=== PATIENT | male | born 1945 | race African-American/Black ===

== ENCOUNTER 2017-02-07 09:30 | Inpatient (IN) ==
[2017-02-07] MEDS ORDERED: ASPIRIN PO STA (09:56)
[2017-02-07 10:24] LABS: MANUAL DIFF NEEDED? NO
[2017-02-07 10:29] LABS: BASO% 0.2 % (0.0-0.8); EOS# 0.12 X1000 (0.0-0.7); EOS% 1.3 % (0.0-10.0); HEMATOCRIT 38.6 % (42.0-52.0); HEMOGLOBIN 13.4 g/dL (14.0-18.0); IMM GRAN# 0.03 X1000 (0.0-0.04); IMM GRAN% 0.3 % (0.0-0.5); LYMPH# 1.85 X1000 (1.2-3.4); LYMPH% 19.4 % (20.5-51.1); MCH 28.5 PG (27-31); MCHC 34.7 g/dL (33-37); MONO% 7.3 % (1.7-9.3); MPV 8.9 FL (7.4-10.4); NEUT% 71.5 % (42.2-75.2); PLT 296 X1000 (130-400); RBC 4.71 XMIL (4.7-6.1)
--- NOTE | 2017-02-07 10:29 | EKG Report ---
Test Performed on : 02/07/2017 09:40:13 AM Test Reason : syncope Blood Pressure : / mmHG Vent. Rate : 080 BPM Atrial Rate : 058 BPM P-R Int : 000 ms QRS Dur : 122 ms QT Int : 418 ms P-R-T Axes : 000 042 251 degrees QTc Int : 482 ms Atrial fibrillation. with premature ventricular or aberrantly conducted complexes. Nonspecific intraventricular conduction delay ST \T\ T wave abnormality, consider inferior ischemia ST \T\ T wave abnormality, consider anterolateral ischemia Abnormal ECG When compared with ECG of 16-JAN-2017 12:21, No significant change was found Unconfirmed Result
--- NOTE | 2017-02-07 10:33 | Diag Imaging Result Doc PS360 ---
EXAM: CHEST-PORTABLE INDICATION: syncope TECHNIQUE: One view COMPARISON: 01/16/2017 FINDINGS: The lungs are grossly clear. There is no discrete pleural fluid collection or pneumothorax. There is stable cardiomegaly. A single lead pacemaker is stable on the left. CABG changes are noted. IMPRESSION: Stable cardiomegaly with no definite acute pathology by plain radiograph. Electronically signed by Anson Cabrera 02/07/2017 10:31 AM
[2017-02-07 11:56] LABS: INR 1.14; PROTIME 12.1 Seconds (9.2-11.7); PTT 31.3 Seconds (22.0-36.0)
[2017-02-07 12:02] LABS: ALBUMIN 3.5 g/dL (3.5-5.0); CALCIUM 9.1 mg/dL (8.8-10.2); MAGNESIUM 2.3 mg/dL (1.5-2.7); POTASSIUM 3.5 mmol/L (3.5-5.1); TOTAL BILIRUBIN 0.94 mg/dL (0.20-1.00); TOTAL PROTEIN 8.2 g/dL (6.3-8.3)
--- NOTE | 2017-02-07 13:18 | Diag Imaging Result Doc PS360 ---
EXAM: CT ANGIOGRM/PULMONARY ARTERIES HISTORY: dyspnea TECHNIQUE: CT pulmonary arteriogram with contrast, 3-D MIPS and dose reduction protocol (clarity.) COMMENT: The current study is compared without of 01/03/2017. There are no filling defects in the pulmonary arteries. The aorta is not distended and there is no evidence of dissection. There are extensive coronary calcifications. No abnormal fluid collections are present. There is right gynecomastia. This has not changed significantly since the previous study. There is a multilobulated mass adjacent to the major fissure and the lateral pleura in the right superior segment which is increased slightly in greatest dimension from 2.9 to 3.1 cm. There are some fibrotic changes in the right lower lobe which have not changed. Otherwise there has been no appreciable change in the pulmonary parenchyma. There is right hilar adenopathy with nodes exceeding 2 cm. This is not changed since the previous study. IMPRESSION: No evidence of pulmonary emboli. Slightly increased right lower lobe mass. Right hilar adenopathy. Otherwise unchanged since 01/03/2017. Electronically signed by Remi Johnson 02/07/2017 1:16 PM
[2017-02-07] MEDS ORDERED: LASIX IV ONE (13:41)
--- NOTE | 2017-02-07 14:17 | PROVIDER DOCUMENTATION ---
This chart was entered by Lucio Macias Scribe, acting as scribe for Leonardo Mcdonough MD. HPI-Syncope/Dizziness - General Chief Complaint: Syncope Stated Complaint: FELL MULTIPLE TIMES Time Seen by Provider: 02/07/17 09:56 Source: patient Allergies/Adverse Reactions: Patient Allergies Allergy/AdvReac Type Severity Reaction Status Date / Time No Known Allergies Allergy Verified 02/07/17 10:24 Home Medications: Home Medication List Medication Instructions Recorded Confirmed Last Taken Type Carvedilol [Coreg] 6.25 mg PO BID 01/18/16 02/07/17 02/07/17 History Hydralazine [Apresoline] 25 mg PO BID 01/18/16 02/07/17 02/07/17 History PRAVAstatin [Pravachol] 40 mg PO QHS 01/18/16 02/07/17 1 Day Ago History Potassium Chloride [Klor-Con M10] 10 meq PO BID 01/18/16 02/07/17 02/07/17 History Rivaroxaban [Xarelto] 20 mg PO DAILY 02/21/16 02/07/17 02/07/17 History Alprazolam 0.5 mg PO HS 01/16/17 02/07/17 3 Days Ago History Amlodipine Besylate 10 mg PO DAILY 01/16/17 02/07/17 02/07/17 History Escitalopram [Lexapro] 10 mg PO DAILY 01/16/17 02/07/17 02/07/17 History Fludrocortisone [Florinef] 0.1 mg PO DAILY 01/16/17 02/07/17 02/07/17 History Meclizine [Antivert] 25 mg PO PRN PRN 01/16/17 02/07/17 2 Weeks Ago History Valsartan 160 mg PO DAILY 01/16/17 02/07/17 02/07/17 History Ciprofloxacin HCl [Cipro] 500 mg PO BID 02/07/17 02/07/17 02/07/17 History Hydrocodone Bit/Acetaminophen 1 each PO Q6H PRN 02/07/17 02/07/17 1 Day Ago History [Hydrocodon-Acetaminoph 7.5-325] - History of Present Illness-Syncope/Dizzy Nature of Presenting Problem: Patient is a 72 y/o M that presents to the ER with syncope x 3 this am. History of same. He has dizziness that's worse when sitting up. Previous history of same. Denies chest pain. Recently saw her courtesy driver Prior Episodes: reports: multiple episodes today (x3) Onset/Duration: reports: abrupt, this morning Timing: reports: still present, constant Position/Activity at time of episode: reports: standing Symptoms prior to episode: reports: lightheaded Context: reports: collapsed, almost passed out Current Symptoms: reports: weakness, dizzy. denies: chest pain, abdominal pain , nausea, vomiting, headache Similar symptoms previously: reports: previous diagnosis, tests, workup for same problem Recently Seen Here or By Another Healthcare Provider: Yes Review of Systems - Adult - REVIEW OF SYSTEMS - ADULT Constitutional: reports: no symptoms reported Eyes: denies: decreased vision, blurred vision, double vision Ears, Nose, Mouth & Throat: denies: ear discharge, hearing loss, epistaxis, throat pain Cardiovascular: reports: syncope. denies: chest pain, palpitations Respiratory: denies: cough, shortness of breath, wheezing Gastrointestinal: reports: no symptoms reported Genitourinary: reports: no symptoms reported Musculoskeletal: reports: muscle weakness. denies: back pain, neck pain Integumentary: reports: no symptoms reported Neurological: reports: dizziness/vertigo, syncope. denies: headache/migraines Psychiatric: reports: no symptoms reported Endocrine: reports: no symptoms reported Hematologic/Lymphatic: reports: no symptoms reported Allergic/Immunologic: reports: no symptoms reported All Other Systems: Reviewed and Negative Past History - Adult - PAST MEDICAL HISTORY-ADULT Review of Records: reports: Old Records Reviewed, Nursing Assessment Review, Medications Reviewed Cardiovascular: reports: A-Fib, CAD, CHF, HTN, hyperlipidemia, pacemaker Gastrointestinal: reports: other (constipation ) Neurological: reports: CVA - PRIOR SURGERIES/PROCEDURES Surgical/Procedure History: reports: CABG, pacemaker - PRIOR HOSPITALIZATIONS Prior Hospitalizations: reports: none - IMMUNIZATION STATUS Childhood Immunizations: See Nurse Assessment Flu Vaccine: See Nurse Assessment - FAMILY HISTORY Family History: reviewed, not pertinent - SOCIAL HISTORY Smoking: quit greater than 1 year, cigarettes Living Situation: family Physical Exam-General - PHYSICAL EXAM-ADULT Initial Vital Signs Reviewed: Yes - CONSTITUTIONAL General Appearance: alert, no apparent distress - EYES Eyes: PERRL/EOMI, pink conjunctivae - HEAD, EARS, NOSE, MOUTH & THROAT HENMT: normocephalic/atraumatic, moist mucous membranes, normal ENT inspection - NECK Neck: non-tender, full range of motion, normal inspection - RESPIRATORY Respiratory: lungs clear, normal breath sounds, no respiratory distress, no accessory muscle use - CARDIOVASCULAR Cardiovascular: extra beats, other (irregular regular) - GASTROINTESTINAL (ABDOMEN) Abdominal Exam: normal bowel sounds, non tender, soft, no organomegaly, no pulsatile mass - MUSCULOSKELETAL Back Exam: no CVA tenderness, no vertebral tenderness Extremity: normal range of motion, normal inspection, no pedal edema - SKIN Integumentary: normal color, warm/dry - NEUROLOGIC 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 as tested, no motor/sensory deficits - PSYCHIATRIC Psych/Mental Status: normal mood/affect, normal thought content, normal thought process, oriented x 3 Progress - PLAN OF CARE/RESULTS Progress/Plan/Lab Results: Vital Signs - 8 hr 02/07/17 09:33 02/07/17 11:41 02/07/17 13:27 Temperature 97.8 F 98 F Pulse Rate 74 70 76 Respiratory Rate 18 18 13 Blood Pressure 115/74 165/98 133/83 O2 Sat by Pulse Oximetry 100 97 99 02/07/17 14:07 Temperature Pulse Rate 86 Respiratory Rate 21 Blood Pressure 138/93 O2 Sat by Pulse Oximetry 100 Laboratory Results - last 24 hr 02/07/17 02/07/17 02/07/17 10:12 10:12 10:12 WBC 9.55 RBC 4.71 Hgb 13.4 L Hct 38.6 L MCV 82.0 MCH 28.5 MCHC 34.7 RDW Std Deviation 14.9 H Plt Count 296 MPV 8.9 Immature Gran % (Auto) 0.3 Neut % (Auto) 71.5 Lymph % (Auto) 19.4 L Worth % (Auto) 7.3 Eos % (Auto) 1.3 Baso % (Auto) 0.2 Immature Gran # (Auto) 0.03 Neut # (Auto) 6.83 H Lymph # (Auto) 1.85 Worth # (Auto) 0.70 H Eos # (Auto) 0.12 Baso # (Auto) 0.02 PT INR PTT (Actin FS) D-Dimer 2.33 H Sodium 141 Potassium 3.5 Chloride 102 Carbon Dioxide 23 L Anion Gap 16 BUN 19 Creatinine 1.4 H Estimated GFR/1.73 m2 60 BUN/Creatinine Ratio 14 Glucose 93 Calculated Osmolality 283 Calcium 9.1 Magnesium 2.3 Total Bilirubin 0.94 AST 30 ALT 43 Alkaline Phosphatase 95 Creatine Kinase 37 Troponin T Hlu-F-Bsgeeapmhux Pept Total Protein 8.2 Albumin 3.5 Globulin 4.7 Albumin/Globulin Ratio 0.7 02/07/17 02/07/17 02/07/17 10:12 10:12 10:12 WBC RBC Hgb Hct MCV MCH MCHC RDW Std Deviation Plt Count MPV Immature Gran % (Auto) Neut % (Auto) Lymph % (Auto) Worth % (Auto) Eos % (Auto) Baso % (Auto) Immature Gran # (Auto) Neut # (Auto) Lymph # (Auto) Worth # (Auto) Eos # (Auto) Baso # (Auto) PT 12.1 H INR 1.14 PTT (Actin FS) 31.3 D-Dimer Sodium Potassium Chloride Carbon Dioxide Anion Gap BUN Creatinine Estimated GFR/1.73 m2 BUN/Creatinine Ratio Glucose Calculated Osmolality Calcium Magnesium Total Bilirubin AST ALT Alkaline Phosphatase Creatine Kinase Troponin T < 0.010 Mrr-P-Furhrhxqmte Pept 4800 H Total Protein Albumin Globulin Albumin/Globulin Ratio Orders Category Date Time Status Cardiac Monitoring DIRECTED Care 02/07/17 09:56 Active Oxygen Therapy- ED Nursing DIRECTED Care 02/07/17 09:56 Active Saline Loc NOW Care 02/07/17 09:56 Active CHEST-PORTABLE [RAD] Stat Exams 02/07/17 09:57 Completed CTA [CT ANGIOGRM/PULMONARY ARTERIES] [CT] Stat Exams 02/07/17 12:19 Completed CBC WITH ELECTRONIC DIFF [HEME] Stat Lab 02/07/17 10:12 Completed CK PROFILE [SP CHEM] Stat Lab 02/07/17 10:12 Completed COMPREHENSIVE METABOLIC PANEL [CHEM] Stat Lab 02/07/17 10:12 Completed D-DIMER [CHEM] Stat Lab 02/07/17 10:12 Completed MAGNESIUM [CHEM] Stat Lab 02/07/17 10:12 Completed PRO B-NATRIURETIC PEPTIDE Stat Lab 02/07/17 10:12 Completed PROTIME WITH INR [COAG] Stat Lab 02/07/17 10:12 Completed PTT [COAG] Stat Lab 02/07/17 10:12 Completed TROPONIN T Stat Lab 02/07/17 10:12 Completed Aspirin Med 02/07/17 09:56 Discontinued 325 mg PO STAT STA Furosemide [Lasix] Med 02/07/17 13:41 Discontinued 60 mg IV NOW ONE EKG [EKG] Stat Ther 02/07/17 09:36 Draft EKG [EKG] Stat Ther 02/07/17 09:56 Ordered 1220-CTA PE study ordered Vital Signs Temp Pulse Resp BP Pulse Ox 02/07/17 14:07 86 21 138/93 100 02/07/17 13:27 76 13 133/83 99 02/07/17 11:41 98 F 70 18 165/98 97 02/07/17 09:33 97.8 F 74 18 115/74 100 No Known Allergies Allergy (Verified 02/07/17 10:24) Carvedilol [Coreg] 6.25 mg PO BID 01/18/16 Hydralazine [Apresoline] 25 mg PO BID 01/18/16 PRAVAstatin [Pravachol] 40 mg PO QHS 01/18/16 Potassium Chloride [Klor-Con M10] 10 meq PO BID 01/18/16 Rivaroxaban [Xarelto] 20 mg PO DAILY 02/21/16 Alprazolam 0.5 mg PO HS 01/16/17 Amlodipine Besylate 10 mg PO DAILY 01/16/17 Escitalopram [Lexapro] 10 mg PO DAILY 01/16/17 Fludrocortisone [Florinef] 0.1 mg PO DAILY 01/16/17 Meclizine [Antivert] 25 mg PO PRN PRN 01/16/17 Valsartan 160 mg PO DAILY 01/16/17 Ciprofloxacin HCl [Cipro] 500 mg PO BID 02/07/17 Hydrocodone Bit/Acetaminophen [Hydrocodon-Acetaminoph 7.5-325] 1 each PO Q6H PRN 02/07/17 Laboratory 02/07/17 02/07/17 02/07/17 10:12 10:12 10:12 WBC RBC Hgb Hct MCV MCH MCHC RDW Std Deviation Plt Count MPV Immature Gran % (Auto) Neut % (Auto) Lymph % (Auto) Worth % (Auto) Eos % (Auto) Baso % (Auto) Immature Gran # (Auto) Neut # (Auto) Lymph # (Auto) Worth # (Auto) Eos # (Auto) Baso # (Auto) PT 12.1 H INR 1.14 PTT (Actin FS) 31.3 D-Dimer Sodium Potassium Chloride Carbon Dioxide Anion Gap BUN Creatinine Estimated GFR/1.73 m2 BUN/Creatinine Ratio Glucose Calculated Osmolality Calcium Magnesium Total Bilirubin AST ALT Alkaline Phosphatase Creatine Kinase Troponin T < 0.010 Xqr-G-Bjjkcarnajx Pept 4800 H Total Protein Albumin Globulin Albumin/Globulin Ratio 02/07/17 02/07/17 02/07/17 10:12 10:12 10:12 WBC 9.55 RBC 4.71 Hgb 13.4 L Hct 38.6 L MCV 82.0 MCH 28.5 MCHC 34.7 RDW Std Deviation 14.9 H Plt Count 296 MPV 8.9 Immature Gran % (Auto) 0.3 Neut % (Auto) 71.5 Lymph % (Auto) 19.4 L Worth % (Auto) 7.3 Eos % (Auto) 1.3 Baso % (Auto) 0.2 Immature Gran # (Auto) 0.03 Neut # (Auto) 6.83 H Lymph # (Auto) 1.85 Worth # (Auto) 0.70 H Eos # (Auto) 0.12 Baso # (Auto) 0.02 PT INR PTT (Actin FS) D-Dimer 2.33 H Sodium 141 Potassium 3.5 Chloride 102 Carbon Dioxide 23 L Anion Gap 16 BUN 19 Creatinine 1.4 H Estimated GFR/1.73 m2 60 BUN/Creatinine Ratio 14 Glucose 93 Calculated Osmolality 283 Calcium 9.1 Magnesium 2.3 Total Bilirubin 0.94 AST 30 ALT 43 Alkaline Phosphatase 95 Creatine Kinase 37 Troponin T Olq-T-Maajzwiglue Pept Total Protein 8.2 Albumin 3.5 Globulin 4.7 Albumin/Globulin Ratio 0.7 Result Diagrams: 02/07/17 10:12 02/07/17 10:12 - EKG 1 Time of EKG reading by physician:: 09:45 EKG Read and Signed by:: Leonardo Mcdonough EKG Interpretation (*Must complete 3 of following elements*): Abnormal Rate: 80 Rhythm: A-fib with pvcs QRS: NSIVCD, PVC's ST Wave: non-specific ST changes - XRAY 1 XRAY Study: Chest Impression: Abnormal XRAY Interpretation: stable CMG - CT/MRI 1 CT Study: Angiogram (PE) Impression: Abnormal CT Results: NO Pe, increase in size of RLL mass, R hilar adenopathy - CONSULTS/PCP/HOSPITALIST Notification #1 *Consult/PCP/Hospitalist*: Mary with hospitalist Time Discussed: 14:14 Reason/Comments: will accept Consult Disposition: Admit Departure - Departure Date of Disposition Decision: 02/07/17 Time of Disposition Decision: 14:15 DIAGNOSIS: Syncope, Lung mass Disposition: ADMITTED INPATIENT 09 Certified Medical Emergency: Emergent Condition: Stable Referrals and Follow-Ups: None,PCP [Primary Care Provider] - - Critical Care Note This patient required my direct & personal management of CC.: No Attestation - Physician/ HANNAH Attestation The physician spent face to face time with patient:: Yes Advanced Practice Provider documentation review:: Supervising physician onsite and consulted in the evaluation and care of this patient. The physician did have a face to face encounter with the patient. This chart was documented by the indicated scribe, (Lucio Macias, Scribe) and accurately reflects the services I performed and decisions made by me, Leonardo Mcdonough MD, as attested by the provider's signature.
[2017-02-07 16:21] LABS: URINE CULTURE NEEDED? NO; URINE MICRO REVIEW NEEDED? NO; URINE SOURCE CLEAN CATCH
[2017-02-07 16:32] LABS: BILIRUBIN URINE NEGATIVE (NEGATIVE); BLOOD URINE NEGATIVE (NEGATIVE); COLOR STRAW; GLUCOSE URINE NEGATIVE (NEGATIVE); LEUKOCYTES URINE NEGATIVE (NEGATIVE); NITRITE URINE NEGATIVE (NEGATIVE); PROTEIN URINE NEGATIVE (NEGATIVE); SP GRAVITY URINE 1.011; TURBIDITY URINE CLEAR (CLEAR); UROBILINOGEN URINE NORMAL (NORMAL)
[2017-02-07 16:33] LABS: UR EPITHELIAL CELLS <10 /HPF (<10); URINE BACTERIA NEGATIVE /HPF; URINE RBC <10 /HPF (<10); URINE WBC <10 /HPF (<10)
[2017-02-07] MEDS ORDERED: ZOFRAN IV PRN (17:07)
[2017-02-07] MEDS ORDERED: ANTIVERT PO PRN (17:07)
[2017-02-07] MEDS: NORCO-7.5 PO PRN (17:29)
--- NOTE | 2017-02-07 20:39 | HISTORY AND PHYSICAL ---
PRIMARY CARE PROVIDER: Dr. Anson White located in [place]. PRIMARY STARCH FACTORY LABORER: out of [facility] in [place]. CHIEF COMPLAINT: Passed out 3 times today. HISTORY OF PRESENT ILLNESS: Mr. Jonah Solitario is a 72-year-old male with a medical history of atrial fibrillation on Xarelto with a permanent pacemaker, CAD with CABG x 5 twenty years ago, systolic congestive heart failure, orthostatic hypotension, tinnitus and vertigo, and CVA in the past. He now presents with having 3 spells of syncope today. States that his vision gets blurry, lightheaded and then he goes out. He is not passed out for very long and he has noticed that he has had some chills. He had a workup with pulmonary arteriogram that revealed a right lower lobe mass that is new. It was picked up last month on a CT. We will admit for syncope and a new right lower lobe mass. Will consult cardiology and consult oncology. PAST MEDICAL HISTORY: Atrial fibrillation on Xarelto with a permanent pacemaker, coronary artery disease with CABG x 5 twenty years ago, systolic congestive heart failure, hypertension, orthostatic hypotension, tinnitus and vertigo, hyperlipidemia, constipation, CVA with no residuals, AAA that has slightly increased in size, frequent syncopal spells 1-2 times per month, gallstones. SURGICAL HISTORY: CABG x 5, permanent pacemaker, cholecystectomy. SOCIAL HISTORY: He quit smoking in 2011, but prior to that smoked 1 pack per day for 40 years. Currently lives with his daughter. He denies alcohol or illicit drug use. FAMILY HISTORY: Father of prostate cancer. Mother of thyroid cancer. REVIEW OF SYSTEMS: Fourteen point review of systems were complete and all were negative except for those mentioned above HPI. ALLERGIES: No known drug allergies. HOME MEDICATIONS: Xanax 0.5 mg p.o. nightly, amlodipine 10 mg p.o. daily, Coreg 6.25 mg p.o. twice daily, Cipro 500 mg p.o. twice daily, Lexapro 10 mg p.o. daily, Florinef 0.1 mg p.o. daily, hydralazine 25 mg p.o. twice daily, hydrocodone 7.5, 1 tab p.o. every 6 hours p.r.n., Antivert 12.5 mg p.o. as needed for dizziness, potassium chloride 10 mEq p.o. twice daily, pravastatin 40 mg p.o. nightly, Xarelto 20 mg p.o. daily, valsartan 160 mg p.o. daily. PHYSICAL EXAMINATION: VITAL SIGNS: Temperature is 98 degrees, heart rate 82, respiratory rate 22, blood pressure 145/85, O2 saturation 98% on room air. He is 6 feet 3 inches tall, 238 pounds, BMI 29.7. GENERAL: Mr. Solitario is a 72-year-old male. He is in no acute distress and is able answer questions appropriately. HEENT: Atraumatic, normocephalic. Pupils equal, round, reactive to light. Extraocular movements intact. Mucous membranes are moist. PULMONARY: Clear to auscultation. Bilateral breath sounds. No accessory muscle use or work of breathing noted. ABDOMEN: Soft, nontender, nondistended. Positive bowel sounds x 4. EXTREMITIES: No edema noted, +2 dorsalis and radial pulses. NEUROLOGIC: A and O x 4. Moves all extremities equally. SKIN: Warm, dry, intact. LABORATORY DATA: White blood cells 9000, hemoglobin 13, hematocrit 38, platelet count 296,000. Sodium 141, potassium 3.5, BUN 19, creatinine is 1.4, glucose 93, proBNP 4800, D-dimer is 2.33. IMAGING: Pulmonary arteriogram: No evidence of pulmonary emboli, slight increased right lower lobe mass, right hilar adenopathy. EKG: Atrial fibrillation with a rate of 80. Chest x-ray: Stable cardiomegaly, no definite acute pathology. ASSESSMENT AND PLAN: 1. Syncope x 3. Apparently he has orthostatic syndrome with frequent syncopal spells anywhere from 1-2 times per month prior to today. He did have 3 syncopal spells today. He also has a history of tinnitus and vertigo. Atrial fibrillation is at a controlled rate. Will order a carotid ultrasound. We will consult cardiology for workup assistance. 2. Newly found right lower lobe mass. Will consult oncology Dr. Slaughter. Patient was unaware of this mass. It was first picked up last month. He does have a history of smoking, although he quit in 2011. He was a heavy smoker of 1 pack per day for 40 years. 3. Mild acute systolic on chronic congestive heart failure. Received 1 dose of Lasix for an elevated proBNP. Chest x-ray is not significant for pulmonary edema. 4. Hyperlipidemia. Continue statin. 5. Atrial fibrillation with controlled rate. Continue Xarelto. Has a permanent pacemaker. 6. History of CVA. 7. Abdominal aortic aneurysm found on a CT of abdomen in December which has slightly increased to 4.2 cm. Could consider surgical evaluation this admit. 8. Deep venous thrombosis prophylaxis. Currently on Xarelto. 9. Gastrointestinal prophylaxis. Proton pump inhibitor. Dictated by VIANEY Jernigan for Brian Hdez MD cc: VIANEY Jernigan MD
[2017-02-07] MEDS: APRESOLINE PO SCH (22:19)
[2017-02-07] MEDS: XANAX PO SCH (22:19)
[2017-02-07] MEDS: COREG PO SCH (22:19)
[2017-02-07] MEDS: PRAVACHOL PO SCH (22:19)
[2017-02-07] MEDS: KLOR-CON PO SCH (22:19)
[2017-02-08] MEDS: NORCO-7.5 PO PRN ×2 (01:37→21:56)
[2017-02-08 07:14] LABS: MANUAL DIFF NEEDED? NO
[2017-02-08 07:21] LABS: BASO% 0.3 % (0.0-0.8); EOS# 0.34 X1000 (0.0-0.7); EOS% 5.1 % (0.0-10.0); HEMOGLOBIN 12.4 g/dL (14.0-18.0); IMM GRAN# 0.04 X1000 (0.0-0.04); IMM GRAN% 0.6 % (0.0-0.5); LYMPH# 2.21 X1000 (1.2-3.4); LYMPH% 33.3 % (20.5-51.1); MCH 28.2 PG (27-31); MCHC 34.4 g/dL (33-37); MONO% 10.5 % (1.7-9.3); MPV 9.1 FL (7.4-10.4); NEUT% 50.2 % (42.2-75.2); PLT 307 X1000 (130-400); RBC 4.39 XMIL (4.7-6.1)
[2017-02-08 07:33] LABS: INR 1.2; PROTIME 12.7 Seconds (9.2-11.7); PTT 32.2 Seconds (22.0-36.0)
--- NOTE | 2017-02-08 07:45 | EKG Report ---
Test Performed on : 02/08/2017 06:01:01 AM Test Reason : chest pain Blood Pressure : / mmHG Vent. Rate : 064 BPM Atrial Rate : 100 BPM P-R Int : 000 ms QRS Dur : 126 ms QT Int : 444 ms P-R-T Axes : 000 039 240 degrees QTc Int : 458 ms Junctional rhythm. Nonspecific intraventricular block T wave abnormality, consider inferior ischemia T wave abnormality, consider anterolateral ischemia Abnormal ECG When compared with ECG of 07-FEB-2017 09:40, (Unconfirmed) Marked ST abnormality, possible anteroseptal subendocardial injury T wave abnormality, consider anterior ischemia Confirmed by Edwin Mon DO ([id number]) on 02/10/2017 3:47:05 PM
[2017-02-08 07:47] LABS: AGAP 15; ALBUMIN 2.5 g/dL (3.5-5.0); ALKALINE PHOSPHATASE 76 U/L (32-122); BUN 23 mg/dL (8-22); CALCIUM 9.2 mg/dL (8.8-10.2); CHLORIDE 99 mmol/L (98-107); COSMO 279; GOT 30 U/L (10-34); GPT 43 U/L (10-44); MAGNESIUM 2.1 mg/dL (1.5-2.7); POTASSIUM 3.5 mmol/L (3.5-5.1); SODIUM 138 mmol/L (136-145); TCO2 24 mmol/L (25-35)
[2017-02-08] MEDS: XARELTO PO SCH (09:23)
[2017-02-08] MEDS: DIOVAN PO SCH (09:23)
[2017-02-08] MEDS: COREG PO SCH ×2 (09:23→21:56)
[2017-02-08] MEDS: LEXAPRO PO SCH (09:24)
[2017-02-08] MEDS: KLOR-CON PO SCH ×2 (09:24→21:55)
[2017-02-08] MEDS: NORVASC PO SCH (09:24)
[2017-02-08] MEDS: APRESOLINE PO SCH ×2 (09:24→21:56)
[2017-02-08] MEDS: FLORINEF PO SCH (09:24)
--- NOTE | 2017-02-08 14:27 | CONSULTATION ---
DATE OF CONSULTATION: 02/08/2017 CHIEF COMPLAINT: Syncope. REQUESTING PHYSICIAN: Hospitalist Service. HISTORY: Mr. Solitario is a 72-year-old black gentleman who was staying at his daughter's house a couple of days ago and he said that, all of a sudden, he had an episode of fainting as he was fixing some coffee in the kitchen. He got up and tried to walk to the living room, and then fainted again. From there, within a short period of time he attempted to go to the bedroom and he fainted one more time. The 3 episodes happened relatively close to each other, within a matter of 15-20 minutes. He woke up from the episode of unconsciousness and his daughter recommended to bring him to the emergency room. In the ER, they did an electrocardiogram that showed atrial fibrillation with early transition, diffuse ST-T abnormality, PVCs. A subsequent EKG done at 6 o'clock in the morning today shows basically the same pattern. He has had a chest x-ray that showed the presence of a pacemaker, no infiltrates. A pulmonary arteriogram was done yesterday at around noontime that shows no evidence of pulmonary emboli. There is an increased right lower lobe mass. There is right hilar adenopathy. His cardiac enzymes have been checked a total of 4 times, beginning at 10 in the morning yesterday and ending at 8:40 in the morning today. All 4 of those measurements are negative. The proBNP is elevated at 4800. BUN and creatinine were 19 and 1.4 yesterday, today 23 and 1.3. The patient denies having any chest pain. He is somewhat short of breath. He says that just by assuming the upright posture he feels that he is going to pass out. This has been going on for 3- 4 years and he may have been passing out about once a month; however, what happened the day before admission was really way out of his normal behavior. He denies having any swelling of the legs and denies claudication. He is somewhat unsteady on his feet. PAST MEDICAL HISTORY: Positive for atrial fibrillation. He has had coronary artery bypass surgery about 20 years ago in [place]. He has had hypertension. He has hyperlipidemia. He has been told that he suffered a stroke years ago. He believes that his left hand is a little weaker than the right. PAST SURGICAL HISTORY: The aforementioned bypass in 2010. Recently, about a year ago, he had implantation of a permanent pacemaker device. He has had cholecystectomy in the past. He has been told that he has an abdominal aortic aneurysm. SOCIAL HISTORY: He is from his . 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 He smoked for a long time, a pack a day for 40 years. He quit smoking about a year ago. He is living with his daughter at the present time. His home is in [place] and his primary reservation clerk is Dr. Portia Day at [facility]. She has been following him regularly. FAMILY HISTORY: Noncontributory for heart disease. REVIEW OF SYSTEMS: Multiple systems have been checked and they are noncontributory. HOME MEDICATIONS: 1. Ciprofloxacin 500 twice a day. 2. Hydrocodone every 6 hours. 3. Valsartan 160 daily. 4. Alprazolam 0.5 at bedtime. 5. Florinef 0.1 daily. 6. Lexapro 10 mg daily. 7. Carvedilol 3.25 twice daily. 8. Amlodipine 10 mg daily. 9. Rivaroxaban 20 mg daily. 10.Potassium chloride 10 mEq twice a day. 11.Pravastatin 40 at bedtime. 12.Meclizine 25 as needed. 13.Hydralazine 25 twice a day. ALLERGIES: No allergies. FAMILY HISTORY: Essentially noncontributory. PHYSICAL EXAMINATION: VITAL SIGNS: Today, his blood pressure is 106/85, temperature 98 degrees, pulse 82, respirations 18. GENERAL: The patient is awake and alert, follows commands. HEENT: Unremarkable. CHEST: Fairly clear to auscultation and percussion. HEART: Sounds are irregularly irregular. No gallop or murmur. ABDOMEN: Obese, nontender. I do not feel any pulsating mass. There is no hepatomegaly. EXTREMITIES: Decreased pulses. No edema. NEUROLOGICAL: He follows commands. Moves all 4 extremities. LABORATORY: His hemoglobin is 12.4, white count 6340. Sodium 138, potassium 3.5, BUN 26, creatinine 1.3. IMPRESSIONS: 1. Patient who presents with recurrent orthostatic syncope. The etiology of this is unclear. 2. History of sick sinus syndrome, status post VVI pacemaker. 3. History of severe coronary heart disease, status post quadruple bypass 20 years ago. 4. Former smoker. 5. History of hypertension. 6. Chronic atrial fibrillation, on anticoagulant. Presently, he is on Xarelto. RECOMMENDATIONS: At this point in time, I would suggest to wear elastic stockings. We will have to minimize vasodilators on him. I would like to obtain echocardiogram and a myocardial perfusion stress test to follow up on his condition. Further advice will be forthcoming. Thank you for the opportunity to participate in his evaluation. cc: Freddy Dalal MD
--- NOTE | 2017-02-08 16:08 | PROGRESS NOTE ---
DATE: 02/08/2017 SUBJECTIVE: Patient reports feeling fine. Mild pain in the abdominal area and pelvic area. Denies any fever or chills. OBJECTIVE: Vital Signs: Temperature 98.0 degrees, heart rate 83, respiratory rate 18, blood pressure, 106/85, O2 saturation 99% on room air. General Examination: This is a 72-year-old, male, lying in bed, in no acute distress. HEENT: Head is normocephalic, atraumatic. Anicteric sclerae. Very pale. Mucous membranes moist. Neck: Supple. No JVD noted. No carotid bruits. No lymphadenopathy. No thyromegaly. Cardiovascular: S1 and S2 heard. No murmurs, gallops, or rubs. Regular rate and rhythm. Respiratory: Clear bilaterally to auscultation. No work of breathing or using accessory muscles. Abdomen: Soft, a little bit distended and tender to palpation in the suprapubic area. Bowel sounds present. No organomegaly. Extremities: No clubbing, cyanosis, or edema. Peripheral pulses present in both legs. Rectal Exam: Patient alert and oriented x3. Moves 4 extremities. LABORATORY DATA: White cell count 6.64, hemoglobin 12.4, hematocrit 36.0, platelets 307,000 and the BMP is remarkable for creatinine 1.3. ASSESSMENT AND PLAN: 1. Syncope x3. Apparently this patient has orthostatic hypotension with frequent syncopal episodes. Apparently he had 3 syncopal episodes the day of admission. There is also history of atrial fibrillation, rate controlled. We have consulted Dr. Dalal from Cardiology. He also reports the patient also has a history sick sinus syndrome with pacemaker. At this point, he is going to order an echocardiogram and also a myocardial perfusion test. We will follow his recommendations. 2. Newly found right lower lobe mass. We have consulted Dr. Rabago from Pulmonary and Dr. Slaughter from Oncology. Patient with a heavy history of smoking. We will see what they have to say. 3. Mild acute systolic congestive heart failure. The x-ray did not show actually no bad pulmonary edema, some cardiomegaly. Patient has received 1 dose of Lasix in the ER. So at this time, I prefer to keep watching this patient. 4. Hyperlipidemia. We will continue with the statin. 5. Atrial fibrillation with heart rate controlled. 6. Patient is on Xarelto and permanent pacemaker. 7. History of CVA. Aware. 8. Abdominal aortic aneurysm. Aware. 9. Deep vein thrombosis prophylaxis. Patient already on Xarelto. 10. GI prophylaxis with Protonix. cc: Brian Hdez MD
--- NOTE | 2017-02-08 16:29 | Diag Imaging Result Doc PS360 ---
EXAM: CT HEAD WITHOUT HISTORY: Syncope, right lung mass TECHNIQUE: CT brain without. Dose reduction protocol. COMPARISON: 02/21/2016 FINDINGS: No parenchymal hemorrhage. No epidural or subdural hematoma. No subarachnoid hemorrhage. Old right parietal infarct. This was present on the prior exam. No mass identified on this noncontrasted exam. No midline shift. No sinus opacification. IMPRESSION: 1.No hemorrhage 2.Old right parietal infarct Electronically signed by Mike Jacobson 02/08/2017 4:27 PM
--- NOTE | 2017-02-08 16:35 | Diag Imaging Result Doc PS360 ---
EXAM: CT ABDOMEN/PELVIS W/O CONTRAST HISTORY: abdominal pain, right lung mass TECHNIQUE: CT abdomen and pelvis without contrast. Dose reduction technique. 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 Normal noncontrasted liver. Spleen is mildly prominent measuring 14.2 cm in AP dimension. Normal noncontrasted pancreas. Normal adrenal glands. There are multiple renal calcifications. All of these may be vascular although several on the right could be renal stones. No hydronephrosis. Prominent atherosclerosis with a bulge to the distal aorta measuring 3.2 cm. No bowel obstruction. Normal appendix. No abscess. There are many scattered colonic diverticula. Normal prostate. Urinary bladder is only mildly distended. Prominent degenerative changes in the lower lumbar spine. IMPRESSION: 1.No change in the appearance of the gallbladder and surgical clips 2.Mild splenomegaly 3.Nonobstructing renal stones versus vascular calcifications 4.Prominent atherosclerosis with a small distal abdominal aortic aneurysm 5.Constipation with diverticulosis Electronically signed by Mike Jacobson 02/08/2017 4:33 PM
[2017-02-08] MEDS: XANAX PO SCH (21:55)
[2017-02-08] MEDS: PRAVACHOL PO SCH (21:55)
[2017-02-09] MEDS: NORCO-7.5 PO PRN ×2 (05:44→23:39)
[2017-02-09] MEDS: NORVASC PO SCH (09:10)
[2017-02-09] MEDS: COLACE PO SCH ×2 (09:10→23:39)
[2017-02-09] MEDS: XARELTO PO SCH (09:10)
[2017-02-09] MEDS: APRESOLINE PO SCH ×2 (09:10→23:39)
[2017-02-09] MEDS: COREG PO SCH ×2 (09:11→23:38)
[2017-02-09] MEDS: DIOVAN PO SCH (09:11)
[2017-02-09] MEDS: KLOR-CON PO SCH ×2 (09:11→23:39)
[2017-02-09] MEDS: LEXAPRO PO SCH (09:13)
[2017-02-09] MEDS: FLORINEF PO SCH ×4 (09:33→18:35)
--- NOTE | 2017-02-09 15:25 | PROGRESS NOTE ---
DATE: 02/09/2017 SUBJECTIVE: Mr. Solitario reports that he is doing okay today and has no new complaints. OBJECTIVE: Vital Signs: Temperature 98 degrees, heart rate 83, respirations 18 , blood pressure 106/85, O2 saturation 99% on room air. LABORATORY DATA: Patient's CEA is mildly elevated at 3.7. LDH is 174. Head CT without contrast as the patient has a pacemaker shows no hemorrhage and old parietal infarct. No mass is identified. No midline shift. Repeat abdominal and pelvic CT scan shows no metastatic disease. ASSESSMENT AND PLAN: 1. Right lower lobe lung mass. LDH and CEA as per above. No evidence of metastatic disease in the abdomen and pelvis are in the brain scans. Plan will be to proceed with a CT-guided lung biopsy on Sunday. The patient will need to hold his Xarelto 3 days prior to that procedure. He did receive a dose this morning, so we will need to hold Xarelto starting tomorrow morning until after the procedure on Sunday. We will need to follow up on path once it becomes available. 2. Syncopal episodes. Continue workup as per Cardiology. 3. Congestive heart failure. Patient continues to receive Lasix as needed and close monitoring. 4. Atrial fibrillation, rate controlled. Pacemaker in place. Patient is on Xarelto. We will need to hold Xarelto as per above. 5. Abdominal aortic aneurysm, aware. Thank you for referring this patient. Dictated by RUSSELL Snyder for Inge Slaughter MD cc: Inge Slaughter MD I have seen and examined the patient and agree with the above A/P. Inge BAH
--- NOTE | 2017-02-09 15:50 | CONSULTATION ---
DATE OF CONSULTATION: 02/09/2017 Pulmonary/Critical Care Consultation REQUESTING PHYSICIAN: Dr. Brian Zabala. Thank you very much for asking me to see this very gracious 72-year-old male . I am pleased to assist in his care. DIAGNOSES: 1. Chronic obstructive pulmonary disease. 2. Right lower lobe chest mass intrafissural, possibly infection or fluid related. History of cigarette smoking raises a suspicion of neoplasm. 3. Ischemic heart disease status post CABG 20 years ago at [facility]. 4. Status post permanent pacemaker. 5. Mild anemia. 6. Atrial fibrillation on Xarelto. RECOMMENDATION: We will give broad-spectrum antibiotics as well as bronchodilators. We will hold the Xarelto and place him on Lovenox mg/kg per 12 hours a day and prepare for a CT-directed needle biopsy Sunday. We will follow closely along with you. HISTORY: This very pleasant 72-year-old male , presents to [facility] with the onset of some shortness of breath and chest pain. He is found to have a right-sided chest mass and subsequently he is admitted and I am consulted to assist in his care. REVIEW OF SYSTEMS: He is a cigarette smoker of approximately 30 pack year history, having quit 10 years ago. He denies fevers or chills, sputum, cough or congestion. He has no hemoptysis. He has had no known history of tuberculosis. The review of systems negative for weight loss, night sweats, weakness or anorexia. No ENT symptoms of odynophagia, dysphagia, epistaxis or painful swallowing. No eye symptoms of blindness, blurring or diplopia. No other cardiac or pulmonary symptoms other than mentioned. No nausea, vomiting, constipation, diarrhea. No hematuria, polyuria, nocturia or dysuria. No joint or muscle pain stiffness or swelling. No skin rashes, itching or bruises. No seizures, loss of consciousness or paralysis. Except for the features mentioned above all other symptoms on the review of systems are negative. PAST MEDICAL HISTORY: Positive for that mentioned above. FAMILY HISTORY: Positive for ischemic heart disease in his father. SOCIAL HISTORY: He is . He has an active family. He is a former smoker. PHYSICAL EXAMINATION: Vital Signs: Blood pressure 131/82, with pulse 81, respirations 18, temperature 98.1 degrees. HEENT: Reveals no thyromegaly or adenopathy. Pupils are equal and reactive. Extraocular muscles are intact. Neck: Supple. Chest: Reveals crackles in the right base with some prolongation of the expiratory phase and some forced expiratory wheezes. The excursions are symmetrical. Cardiovascular: Reveals an irregular rhythm without an appreciable murmur. Abdomen: Soft. Skin: Warm and dry. Neurological: Grossly nonfocal. Awake, moves all 4. LABORATORY DATA: The sodium is 138, potassium 2.5, chloride 99, CO2 24, BUN 23, creatinine 1.3, glucose 85. White count is 6600, with hemoglobin 12.4, hematocrit 36.8, platelets of 307,000.
--- NOTE | 2017-02-09 15:50 | CONSULTATION ---
DATE OF CONSULTATION: 02/08/2017 REQUESTING PHYSICIAN: Hospitalist Service. REASON FOR CONSULTATION: Right lower lobe lung mass. HISTORY OF PRESENT ILLNESS: Mr. Solitario is a 72-year-old, male who presented to the [facility] Emergency Department complaining of 3 spells of syncope. During his workup, which included a CT angio, the patient was found to have a right lower lobe lung mass. Patient evidently reports that he was having some weight loss and presented to his primary care physician where a CT of the chest, abdomen, and pelvis was done. This was done on 01/03/2017. On this scan there was a reticular mass-like density anteriorly in the right lower lobe with enlarged right hilar lymph nodes noted. The patient reports that he was not aware of those findings. He is now back and as previously reported that mass has been seen again on imaging. The patient does report weight loss over the last several months. He is now admitted to the hospital and being worked up by Cardiology. PAST MEDICAL HISTORY: 1. Atrial fibrillation. Currently on Xarelto. Pacemaker in place. 2. Coronary artery disease with CABG x5, 20 years ago. 3. Systolic congestive heart failure. 4. Hypertension. 5. Orthostatic hypotension. 6. Hyperlipidemia. 7. Cerebrovascular accident with no residual. 8. Abdominal aortic aneurysm. 9. Gallstones previously. 10. Vertigo. PAST SURGICAL HISTORY: 1. Coronary artery bypass graft x5 as per above. 2. Permanent pacemaker placement. 3. Cholecystectomy. SOCIAL HISTORY: Patient quit smoking in 2011. He reports a [id number] history prior to that time. He currently lives with his daughter. He denies any current alcohol or illicit drug use. FAMILY HISTORY: Positive for prostate cancer in his father who has since and his mother has thyroid cancer. REVIEW OF SYSTEMS: Twelve point review of system has been completed and is negative except as per HPI. PHYSICAL EXAMINATION: Vital Signs: Temperature 97.8 degrees, heart rate 52, respirations 18, blood pressure 128/83, O2 saturation 100% on room air. General: This is an male, lying in hospital bed. He is in no acute distress. HEENT: Head normocephalic, atraumatic. Eyes: Pupils equal, round, reactive. Ears, nose, throat, neck, and mouth: Oral mucosa appears to be normal. Trachea is midline. Gross auditory acuity is intact. Cardiovascular: S1-S2 heard. Regular rate. No gallops are noted. Abdomen: Soft, nontender and nondistended with positive bowel sounds. Respiratory: Chest is clear to auscultation with no rhonchi, rales, or wheezing noted. Musculoskeletal: No obvious bony abnormalities. Extremities: Some trace bilateral lower extremity edema in the ankles. Neurologic: Patient is alert and oriented x3 with no focal motor deficits noted. LABS AND STUDIES: White blood cell 6.64, hemoglobin 12.4, hematocrit 36.0. Platelet count 307,000. Sodium 138, potassium 3.5, chloride 99, BUN 23, creatinine 1.3, glucose 85. proBNP 4800. CT angio done on 02/07/2017 shows no evidence of pulmonary emboli. Slightly increased right lower lobe mass. Right hilar adenopathy. Otherwise unchanged from 01/03/2017. ASSESSMENT AND PLAN: 1. Right lower lobe mass. Patient does report weight loss as well. We will go ahead and check an LDH and CEA. Patient will need brain imaging. He recently had a CT of chest, abdomen, and pelvis which did not show any evidence of any metastatic disease. The patient will need a biopsy which we will plan to do on Sunday. We will need to hold his Xarelto for 3 days prior to the procedure. 2. Syncope x3. He will continue his current workup with the primary team as well as Cardiology. 3. Mild acute systolic on chronic congestive heart failure. Continue to diurese. Monitor chest x-ray. 4. Atrial fibrillation with rate control. Xarelto will need to be discontinued prior to lung biopsy. 5. History of cerebrovascular accident. No residual deficits. 6. Abdominal aortic aneurysm found on CT, slightly increased to 4.2 cm. We want to thank you for this consultation allowing us to participate in Mr. Solitario's care while he is here at [facility]. We will continue to follow along and adjust our treatment plan per his hospital course. Dictated by RUSSELL Snyder for Inge Slaughter MD cc: Inge Slaughter MD I have seen and examined the patient and agree with the above A/P. Inge Slaughter MD [facility]OSPITALCarina
--- NOTE | 2017-02-09 18:26 | PROGRESS NOTE ---
DATE: 02/09/2017 SUBJECTIVE: Patient reports mild pain in the abdominal and the suprapubic area. Denies any pain when he urinates. He denies any fever or chills. OBJECTIVE: Vital Signs: Temperature 98.1 degrees, heart rate 81, respiratory rate 16, blood pressure 131/89, O2 saturation 100% on room air. General examination: This is a 72-year-old, male, lying in bed, in no acute distress. HEENT: Head is normocephalic and atraumatic. Anicteric sclerae and pale conjunctivae. Mucous membranes moist. Neck: Supple. No JVD noted. No carotid bruits. No lymphadenopathy. No thyromegaly. Cardiovascular: S1, S2 heard. No murmurs, gallops, or rubs. Regular rate and rhythm. Respiratory: Clear bilaterally to auscultation. No work of breathing or using accessory muscles. Abdomen: Soft, a little distended. Mildly tender to palpation in the suprapubic area but there are no signs of peritoneal irritation. Bowel sounds present. No organomegaly. Extremities: No clubbing, cyanosis, or edema. Peripheral pulses present in both legs. Neurological: Patient alert and oriented x3. Moves 4 extremities. LABORATORY DATA: There are no labs from today. ASSESSMENT AND PLAN: 1. Recurrent syncope. The patient had 3 episodes of syncope. We have initially at admission documented orthostatic hypotension. Blood pressure since admission has been good. For possible relationship between chronic atrial fibrillation and syncope we have consulted Dr. Dalal from Cardiology. The plan for today was to do an echocardiogram and also a myocardial perfusion test but unfortunately because this patient was drinking tea the stress test was not possible to do, so we are going to try to do it next Sunday. Patient has a history of sick sinus syndrome with pacemaker placed. We will follow recommendations from Cardiology. 2. Newly found right lower lobe mass. Patient has been evaluated by Pulmonary and also Oncology. From pulmonary standpoint, they are agreed to have a CT guided biopsy of that mass, although it could be an infections so the patient was started on ceftriaxone and Levaquin. We are going to check labs tomorrow. Because the patient was on Xarelto for chronic atrial fibrillation, that has been changed to Lovenox 1 mg/kg q.12 hours. That is going to be held the day before procedure. 3. Mild acute systolic congestive heart failure. The patient actually is doing fine with no signs of volume overload, no lower extremity edema or crackles on physical examination. Patient received 1 dose of Lasix in the emergency room. I do not think this patient needs any Lasix right now. We will continue watching this patient closely. 4. Hyperlipidemia. We will continue with the statin. 5. Chronic atrial fibrillation on anticoagulation. Heart rate is controlled. 6. History of cerebrovascular accident. Aware. 7. Abdominal aortic aneurysm. Aware. 8. Deep venous thrombosis prophylaxis. Patient currently on Xarelto, that has been changed to Lovenox 1 mg/kg subcutaneously q.12 hours. cc: Brian Hdez MD
[2017-02-09] MEDS: LOVENOX SUBQ SCH (18:31)
[2017-02-09] MEDS: LEVAQUIN 750 MG/D5W 750 MG/150 ML IVPB IV SCH (18:33)
[2017-02-09] MEDS: ROCEPHIN 1 GM/NS 1 GM/50 ML IVPB IV SCH ×2 (18:36→18:55)
--- NOTE | 2017-02-09 18:38 | ECHO REPORT ---
ORDER DATE: 02/09/2017 INDICATION: Coronary disease, history of bypass. Syncope, history of atrial fibrillation. FINDINGS: 1. Right atrium does appear to be enlarged. Linear artifact consistent with device leads is noted in the right heart chambers. 2. Mild tricuspid regurgitation. 3. Normal RV size and systolic function. 4. Mild pulmonic insufficiency. 5. Severe left atrial enlargement with a dimension of 6.2 cm. 6. No mitral prolapse. Mild mitral regurgitation. 7. Significant dilatation of the left ventricle with an end-diastolic dimension of 7.4 cm. Mild left ventricular hypertrophy with a posterior and interventricular septal wall thickness of 1.2 cm each. Mild reduction in LV systolic function with a calculated EF of 42% and global hypokinesis. 8. Aortic valve opens well. No evidence of stenosis or insufficiency. 9. The aorta appears somewhat dilated at the root with a dimension of 4.5 cm. 10. No pericardial effusion seen. cc: MD Freddy Lucas MD
[2017-02-09] MEDS: XANAX PO SCH (23:39)
[2017-02-09] MEDS: PRAVACHOL PO SCH (23:40)
[2017-02-10] MEDS: NORCO-7.5 PO PRN ×2 (06:35→23:10)
[2017-02-10] MEDS: LOVENOX SUBQ SCH ×2 (06:35→17:28)
[2017-02-10 07:18] LABS: MANUAL DIFF NEEDED? NO
[2017-02-10 07:21] LABS: BASO% 0.3 % (0.0-0.8); EOS# 0.35 X1000 (0.0-0.7); EOS% 5.5 % (0.0-10.0); HEMATOCRIT 35.9 % (42.0-52.0); HEMOGLOBIN 12.2 g/dL (14.0-18.0); IMM GRAN# 0.02 X1000 (0.0-0.04); IMM GRAN% 0.3 % (0.0-0.5); LYMPH# 2.25 X1000 (1.2-3.4); LYMPH% 35.3 % (20.5-51.1); MCH 28.1 PG (27-31); MCV 82.7 FL (81-99); MONO# 0.76 X1000 (0.11-0.59); MONO% 11.9 % (1.7-9.3); MPV 8.9 FL (7.4-10.4); NEUT% 46.7 % (42.2-75.2); PLT 315 X1000 (130-400); RBC 4.34 XMIL (4.7-6.1)
[2017-02-10 07:37] LABS: AGAP 10; BUN 23 mg/dL (8-22); CALCIUM 8.9 mg/dL (8.8-10.2); CHLORIDE 101 mmol/L (98-107); COSMO 281; SODIUM 139 mmol/L (136-145); TCO2 28 mmol/L (25-35)
--- NOTE | 2017-02-10 08:16 | Diag Imaging Result Doc PS360 ---
EXAM: CHEST-1 VIEW INDICATION: RLL mass TECHNIQUE: One view COMPARISON: 02/07/2017 FINDINGS: No new consolidations are appreciated. By plain radiograph, the lungs are grossly clear. The known right lower lobe lung mass seen on a recent CT is not clearly identified on this study. There is no definite pleural fluid collection or pneumothorax. There is stable cardiomegaly. IMPRESSION: Stable chest. Electronically signed by Anson Cabrera 02/10/2017 8:14 AM
[2017-02-10] MEDS: KLOR-CON PO SCH ×2 (09:00→23:05)
[2017-02-10] MEDS: APRESOLINE PO SCH ×2 (09:50→23:05)
[2017-02-10] MEDS: LEXAPRO PO SCH (09:51)
[2017-02-10] MEDS: COLACE PO SCH ×2 (09:51→23:06)
[2017-02-10] MEDS: FLORINEF PO SCH (09:52)
[2017-02-10] MEDS: DIOVAN PO SCH (09:52)
[2017-02-10] MEDS: NORVASC PO SCH (09:52)
[2017-02-10] MEDS: COREG PO SCH ×2 (09:54→23:06)
--- NOTE | 2017-02-10 13:23 | PROGRESS NOTE ---
DATE: 02/10/2018 SUBJECTIVE: Mr. Solitario reports that he is doing well. He is not having any chest pain. He has had some orthostatics checked over the course of the preceding 12 hours or so. PHYSICAL EXAMINATION: Vital Signs: The patient is afebrile. Heart rate is 65. Blood pressure is 121/75. Notably his orthostatics from sitting to standing went from a heart rate of 55 to 92 and from a blood pressure of 118 systolic to 82 systolic. General: No acute distress. Cardiovascular: He is in a regular rate and rhythm. He has no murmurs. He has no S3. He has no lower extremity edema. Chest: His chest exam is clear bilaterally. No increased work of breathing. Abdomen: His abdomen is soft and nontender. PERTINENT DATA: White count is 6.4, hematocrit 34.9, and platelet count 315. Sodium is 139, potassium 4, BUN 23, and creatinine 1.1. ASSESSMENT: Orthostasis. PLAN: The patient is due to undergo myocardial perfusion imaging on Sunday. Further recommendations are to follow the result of that testing. cc: Vishnu Mon MD
[2017-02-10] MEDS: ROCEPHIN 1 GM/NS 1 GM/50 ML IVPB IV SCH (13:46)
[2017-02-10] MEDS: LEVAQUIN 750 MG/D5W 750 MG/150 ML IVPB IV SCH (13:48)
--- NOTE | 2017-02-10 17:20 | PROGRESS NOTE ---
DATE: 02/10/2017 SUBJECTIVE: Patient is feeling fine. Almost no abdominal pain in the suprapubic area. No fever or chills. OBJECTIVE: Vital Signs: Temperature 98.0 degrees, heart rate 58, respiratory rate 20, blood pressure 132/85, O2 saturation 97% on room air. General examination: This is a 72-year-old, male, lying in bed, in no acute distress. HEENT: Head is normocephalic and atraumatic. Anicteric sclerae and pale conjunctivae. Mucous membranes moist. Neck: Supple. No JVD noted. No carotid bruits. No lymphadenopathy. No thyromegaly. Cardiovascular: S1, S2 heard. No murmurs, gallops, or rubs. Regular rate and rhythm. Respiratory: Clear bilaterally to auscultation. No work of breathing or using accessory muscles. Abdomen: Soft, nontender to palpation. Bowel sounds present. No organomegaly. Extremities: No clubbing, cyanosis, or edema. Peripheral pulses present in both legs. Neurological: Patient is alert and oriented x3. Moves 4 extremities. LABORATORY DATA: CBC is remarkable for anemia of 12.2, and the BMP is completely unremarkable with creatinine 1.1. ASSESSMENT AND PLAN: 1. Recurrent syncope. Because of 3 episodes of syncope in a row, Cardiology has been consulted. Because of history of chronic atrial fibrillation and syncope patient is going to have an echocardiogram and also a myocardial perfusion test. Patient has history of sick sinus rhythm with pacemaker placed. We will follow recommendations from Cardiology. 2. Newly found right lower lobe mass. Patient evaluated by Oncology and Pulmonary. The patient is going to have CT-guided biopsy of the mass on Sunday. From Pulmonary, they suspect that it also may be a viral pneumonia. In any case, the biopsy will help figure out what exactly this is. He is on Lovenox 1 mg/kg q.12 hours because of this chronic atrial fibrillation. 3. Mild acute systolic heart failure. That condition has resolved. 4. Hyperlipidemia. Patient is on home doses of a statin. 5. Chronic atrial fibrillation. Heart rate is controlled. 6. History of cerebrovascular accident. Aware. 7. Abdominal aortic aneurysm. Aware. 8. Deep vein thrombosis prophylaxis. Patient is on Lovenox 1 mg/kg q.12 hours. cc: Brian Hdez MD
[2017-02-10] MEDS: PRAVACHOL PO SCH (23:05)
[2017-02-10] MEDS: XANAX PO SCH (23:06)
[2017-02-11] MEDS: LOVENOX SUBQ SCH (06:11)
[2017-02-11 07:08] LABS: MANUAL DIFF NEEDED? NO
[2017-02-11 07:32] LABS: BASO% 0.4 % (0.0-0.8); EOS# 0.25 X1000 (0.0-0.7); EOS% 4.6 % (0.0-10.0); HEMATOCRIT 36.2 % (42.0-52.0); HEMOGLOBIN 12.3 g/dL (14.0-18.0); LYMPH% 36.8 % (20.5-51.1); MCH 28.1 PG (27-31); MCV 82.8 FL (81-99); MONO# 0.85 X1000 (0.11-0.59); MONO% 15.6 % (1.7-9.3); NEUT% 42.6 % (42.2-75.2); PLT 319 X1000 (130-400); RBC 4.37 XMIL (4.7-6.1)
[2017-02-11 07:49] LABS: AGAP 16; BUN 20 mg/dL (8-22); CALCIUM 9.5 mg/dL (8.8-10.2); CHLORIDE 101 mmol/L (98-107); COSMO 285; POTASSIUM 3.6 mmol/L (3.5-5.1); SODIUM 142 mmol/L (136-145); TCO2 25 mmol/L (25-35)
[2017-02-11] MEDS: APRESOLINE PO SCH ×2 (08:51→20:50)
[2017-02-11] MEDS: KLOR-CON PO SCH ×2 (08:51→20:50)
[2017-02-11] MEDS: DIOVAN PO SCH (08:51)
[2017-02-11] MEDS: COLACE PO SCH ×2 (08:51→20:50)
[2017-02-11] MEDS: FLORINEF PO SCH (08:51)
[2017-02-11] MEDS: LEXAPRO PO SCH (08:51)
[2017-02-11] MEDS: COREG PO SCH ×2 (08:51→20:50)
[2017-02-11] MEDS: NORVASC PO SCH (08:51)
[2017-02-11] MEDS: ROCEPHIN 1 GM/NS 1 GM/50 ML IVPB IV SCH (14:08)
[2017-02-11] MEDS: LEVAQUIN 750 MG/D5W 750 MG/150 ML IVPB IV SCH (14:08)
--- NOTE | 2017-02-11 16:07 | PROGRESS NOTE ---
DATE: 02/11/2017 SUBJECTIVE: The patient is feeling fine. Almost no pain in the suprapubic area. No fever or chills. OBJECTIVE: Vital Signs: Temperature 97.7 degrees, heart rate 66, respiratory rate 20, blood pressure 153/97, and O2 saturation 95% on room air. General: This is a 72-year-old, male, lying in bed, in no acute distress. HEENT: Head is normocephalic, atraumatic. Anicteric sclerae and pale conjunctivae. Mucous membranes moist. Neck: Supple. No JVD noted. No carotid bruits. No lymphadenopathy. No thyromegaly. Cardiovascular: Irregularly irregular. No murmurs, gallops, or rubs. Respiratory: Clear bilaterally to auscultation. No work of breathing or using accessory muscles. Abdomen: Soft, nontender to palpation. Bowel sounds present. No organomegaly. Extremities: No clubbing, cyanosis, or edema. Peripheral pulses present in both legs. Neurological: Patient alert, oriented x3. Moves 4 extremities. LABORATORY DATA: Reviewed. ASSESSMENT AND PLAN: 1. Recurrent syncope. The patient has been evaluated by Cardiology because of these episodes of syncope x3. The patient is going to have a myocardial perfusion test, and also a CT-guided biopsy. 2. Newly-found right lower lobe mass. The patient evaluated by Oncology and Pulmonary. The patient is going to have CT-guided biopsy next Sunday. From Pulmonary, there is also suspicion for bacterial pneumonia. The patient also had atrial fibrillation confirmed. In any case, we will continue with the antibiotics. He is on Lovenox 1 mg/kg q.12 hours because of this chronic atrial fibrillation. 3. Mild acute systolic heart failure, resolved. 4. Hyperlipidemia. The patient is on statins. 5. Chronic atrial fibrillation. Heart rate is controlled. 6. History of cerebrovascular accident. Aware. 7. Abdominal aortic aneurysm. Aware. 8. Deep vein thrombosis prophylaxis. The patient is on Lovenox 1 mg/kg q.12 hours that we are going to hold because of the procedure, that is, a CT-guided biopsy. cc: Brian Hdez MD
[2017-02-11] MEDS: TYLENOL PO PRN (17:42)
[2017-02-11] MEDS: XANAX PO SCH (20:51)
[2017-02-11] MEDS: PRAVACHOL PO SCH (20:51)
[2017-02-11] MEDS: NORCO-7.5 PO PRN (20:54)
[2017-02-12 06:56] LABS: MANUAL DIFF NEEDED? NO
[2017-02-12 06:59] LABS: BASO% 0.3 % (0.0-0.8); EOS# 0.23 X1000 (0.0-0.7); EOS% 3.8 % (0.0-10.0); HEMATOCRIT 35.7 % (42.0-52.0); HEMOGLOBIN 12.2 g/dL (14.0-18.0); LYMPH# 2.05 X1000 (1.2-3.4); LYMPH% 33.9 % (20.5-51.1); MCH 28.2 PG (27-31); MCHC 34.2 g/dL (33-37); MCV 82.4 FL (81-99); MONO% 13.2 % (1.7-9.3); MPV 8.8 FL (7.4-10.4); NEUT% 48.8 % (42.2-75.2); PLT 314 X1000 (130-400); RBC 4.33 XMIL (4.7-6.1)
[2017-02-12 07:35] LABS: AGAP 11; BUN 20 mg/dL (8-22); CALCIUM 9.1 mg/dL (8.8-10.2); CHLORIDE 102 mmol/L (98-107); COSMO 279; POTASSIUM 3.5 mmol/L (3.5-5.1); SODIUM 139 mmol/L (136-145); TCO2 26 mmol/L (25-35)
[2017-02-12 08:11] LABS: INR 1.18; PROTIME 12.5 Seconds (9.2-11.7); PTT 35.2 Seconds (22.0-36.0)
[2017-02-12] MEDS ORDERED: LEXISCAN ONE (08:23)
[2017-02-12] MEDS: NORCO-7.5 PO PRN ×2 (10:24→21:44)
[2017-02-12] MEDS: FLORINEF PO SCH (10:24)
[2017-02-12] MEDS: COLACE PO SCH ×2 (10:24→21:41)
[2017-02-12] MEDS: KLOR-CON PO SCH ×2 (10:25→21:41)
[2017-02-12] MEDS: LEXAPRO PO SCH (10:25)
[2017-02-12] MEDS: DIOVAN PO SCH (10:38)
[2017-02-12] MEDS: NORVASC PO SCH (10:38)
[2017-02-12] MEDS: APRESOLINE PO SCH (10:38)
[2017-02-12] MEDS: COREG PO SCH ×2 (10:38→21:42)
--- NOTE | 2017-02-12 11:52 | PROGRESS NOTE ---
DATE: 02/12/2017 SUBJECTIVE: Mr. Solitario continues to have episodic weakness. He continues to have negative I Os which I am unclear of the exact etiology. Perhaps this is poor in's and out's mapping. PHYSICAL EXAMINATION: Vital Signs: He is afebrile. Heart rate is 74. Blood pressure 148/95. He continues to have quite a significant amount of orthostasis with a systolic drop from 120-80 from sitting to standing. He is symptomatic with this. General: No acute distress. Cardiovascular: He sounds to be in a regular rate and rhythm. He has no murmurs, no S3. He has no lower extremity edema. Chest: Clear bilaterally. No increased work of breathing. Abdomen: Soft, nontender. PERTINENT DATA: He has a white count of 6, hematocrit 35.7, platelet count of 314,000. His sodium is 139, potassium 3.5, BUN 20 creatinine 1.3. ASSESSMENT: Orthostasis. PLAN: I have discontinued his amlodipine as well as his hydralazine. We will try to continue him on his Coreg as well as valsartan considering his history of heart failure. He did have a myocardial perfusion scan performed today so we will follow up on the results. cc: Vishnu Mon MD
[2017-02-12] MEDS: ROCEPHIN 1 GM/NS 1 GM/50 ML IVPB IV SCH (13:45)
[2017-02-12] MEDS: LEVAQUIN 750 MG/D5W 750 MG/150 ML IVPB IV SCH (14:19)
--- NOTE | 2017-02-12 16:22 | Diag Imaging Result Document ---
PROCEDURE NAME: MYOCARDIAL PERF SCAN, STR/REST - 02/09/2017 Baseline electrocardiogram revealed atrial fibrillation, nonspecific ST-T changes. Lexiscan was infused per standard protocol. There was no chest pain. Stress electrocardiogram was negative for ischemia. Following Lexiscan infusion Cardiolite was injected. 37.4 mCi of Cardiolite was injected for the rest phase. 36.9 mCi of Cardiolite was injected for the stress phase. Two-day protocol gated rest and stress images were obtained in standard views. Images revealed left ventricle was dilated. There is fixed defect noted in the mid and base inferior wall suggestive of scar. There is fixed defect in the left ventricular apex. In addition, there was fixed defect noted in the distal anteroapical portion suggestive of scar. There is no definite evidence of ischemia. This is a cardiomyopathy picture. CONCLUSIONS: 1. No chest pain. Negative Lexiscan stress electrocardiogram. 2. Atrial fibrillation was noted. 3. Left ventricle was dilated. 4. There was no evidence of ischemia. 5. Patchy fixed defect was noted in the mid and base of the inferior wall in addition to distal anteroapical wall suggestive of scar. Left ventricular ejection fraction by gated SPECT was 36%. There is global hypokinesis. cc: MD Freddy Freeman MD
--- NOTE | 2017-02-12 18:20 | PROGRESS NOTE ---
DATE: 02/12/2017 SUBJECTIVE: Patient reports feeling fine. No chest pain. No abdominal pain. No fever or chills. OBJECTIVE: Vital Signs: Temperature 97.7 degrees, heart rate 64, respiratory rate 20, blood pressure 145/89, O2 saturation 100% on room air. General: This is a 72-year- old, male, lying in bed, in no acute distress. HEENT: Head is normocephalic, atraumatic. Anicteric sclerae and pale conjunctivae. Mucous membranes moist. Neck: Supple. No JVD noted. No carotid bruits. No lymphadenopathy. No thyromegaly. Cardiovascular: S1, S2 heard. Irregularly irregular but no murmurs, gallops, or rubs. Respiratory: Clear bilaterally to auscultation. No work of breathing or using accessory muscles. Abdomen: Soft , nontender to palpation. Bowel sounds present. No organomegaly. Extremities: No clubbing, cyanosis, or edema. Peripheral pulses present in neck. Neurological Examination: Patient is alert and oriented x3. Moves 4 extremities. LABORATORY DATA: Reviewed. ASSESSMENT AND PLAN: 1. Recurrent syncope. The patient is evaluated by Cardiology. I think this is secondary to orthostasis, those episodes of syncope x3. Patient's amlodipine and hydralazine will be stopped and we will continue with beta-roma. From Cardiology standpoint, the Lexiscan test has been done and it did not show any signs of ischemia. We will continue to following recommendations from Cardiology. 2. Newly found right lower lobe mass. Unfortunately although this biopsy was scheduled for today, because of the stress test that needed to be rescheduled for tomorrow. I think after that procedure the patient may be discharged. Patient is receiving antibiotics for suspicion of bacterial pneumonia according to Pulmonary. Patient because of his atrial fibrillation he is on Lovenox 1 mg per kg q.12 hours. 3. Mild acute systolic heart failure resolved. 4. Hyperlipidemia. Patient is on a statin. 5. Chronic atrial fibrillation. Heart rate is controlled. 6. History of cerebrovascular accident. Aware. 7. Abdominal aortic aneurysm. Aware. 8. DVT prophylaxis. Currently patient is on Lovenox 1 mg/kg q.12 hours. 9. Deep vein thrombosis prophylaxis. Patient is currently on full doses of Lovenox. cc: MD OLVIN Duran
[2017-02-12] MEDS: PRAVACHOL PO SCH (21:42)
[2017-02-12] MEDS: XANAX PO SCH (21:42)
[2017-02-13] MEDS: TYLENOL PO PRN (06:25)
[2017-02-13 06:44] LABS: MANUAL DIFF NEEDED? NO
[2017-02-13 06:51] LABS: BASO% 0.4 % (0.0-0.8); EOS% 3.7 % (0.0-10.0); HEMATOCRIT 36.1 % (42.0-52.0); HEMOGLOBIN 12.4 g/dL (14.0-18.0); LYMPH# 1.81 X1000 (1.2-3.4); LYMPH% 33.4 % (20.5-51.1); MCH 28.4 PG (27-31); MCHC 34.3 g/dL (33-37); MCV 82.8 FL (81-99); MONO# 0.65 X1000 (0.11-0.59); MPV 8.9 FL (7.4-10.4); NEUT% 50.5 % (42.2-75.2); PLT 327 X1000 (130-400); RBC 4.36 XMIL (4.7-6.1)
[2017-02-13 07:19] LABS: CALCIUM 9.1 mg/dL (8.8-10.2); POTASSIUM 3.6 mmol/L (3.5-5.1)
--- NOTE | 2017-02-13 09:29 | Diag Imaging Result Doc PS360 ---
CHEST-2 VIEWS - 02/13/2017 INDICATION: POST BIOPSY RIGHT LUNG TECHNIQUE: COMPARISON: 02/10/2017 FINDINGS: There is trace pleural air on the right postbiopsy. This measures about 5 mm near the lung apex. Stable cardiomegaly and pacemaker. No infiltrates. IMPRESSION: Trace post biopsy pleural air on the right. Electronically signed by Filemon Esquivel 02/13/2017 9:27 AM
[2017-02-13] MEDS: KLOR-CON PO SCH (10:00)
[2017-02-13] MEDS: FLORINEF PO SCH (10:00)
[2017-02-13] MEDS: COREG PO SCH (10:00)
[2017-02-13] MEDS: COLACE PO SCH (10:00)
[2017-02-13] MEDS: DIOVAN PO SCH (10:00)
[2017-02-13] MEDS: NORCO-7.5 PO PRN (10:01)
[2017-02-13] MEDS: LEXAPRO PO SCH (10:01)
--- NOTE | 2017-02-13 11:19 | Diag Imaging Result Doc PS360 ---
EXAM: CHEST-2 VIEWS HISTORY: Post CT guided biopsy TECHNIQUE: Upright AP inspiratory and expiratory chest COMMENT: There is a tiny right apical pneumothorax which has not changed significantly in volume since the previous study at 0915. There are no additional findings. IMPRESSION: Stable small right apical pneumothorax. Electronically signed by Remi Johnson 02/13/2017 11:17 AM
--- NOTE | 2017-02-13 13:48 | Diag Imaging Result Doc PS360 ---
CHEST-2 VIEWS - 02/13/2017 1330 INDICATION: Post CT guided biopsy TECHNIQUE: COMPARISON: 1109 FINDINGS: There is a tiny amount of pleural air at the right apex stable from prior. This has not changed over any of the post procedural x-rays. IMPRESSION: Tiny amount of pleural air on the right but no significant complication. Electronically signed by Filemon Esquivel 02/13/2017 1:46 PM
--- NOTE | 2017-02-13 14:06 | Diag Imaging Result Doc PS360 ---
CT GUIDED BIOPSY LUNG - 02/13/2017 INDICATION: right lower lobe lung mass TECHNIQUE: The risks and benefits of the procedure were discussed with the patient. All questions were answered. Written and verbal informed consent was obtained. Overlying skin was prepped and draped in sterile fashion. Anesthesia was achieved with injection of 10 cc of 1% lidocaine. COMPARISON: CT from 02/07/2017 FINDINGS: The right lower lobe pulmonary nodule was biopsied approximately 8 times. The needles were withdrawn intact. The patient reported no symptoms from the procedure. Follow-up chest x-rays demonstrated a trace amount of pleural air but no expanding pneumothorax. IMPRESSION: Successful and uncomplicated CT-guided lung biopsy. Electronically signed by Filemon Esquivel 02/13/2017 2:04 PM
[2017-02-13] MEDS: LEVAQUIN 750 MG/D5W 750 MG/150 ML IVPB IV SCH (15:01)
[2017-02-13 16:12] VITALS: BP 119/82
--- NOTE | 2017-02-13 18:40 | DISCHARGE SUMMARY ---
ADMISSION DATE: 02/07/2017 DISCHARGE DATE: 02/13/2017 CONSULTATIONS: 1. Dr. Dalal of Cardiology. 2. Dr. Slaughter with Heme-Onc. PERTINENT PROCEDURES: 1. Pulmonary arteriogram showed no evidence of pulmonary embolism, slightly increased right lower lobe mass, right hilar adenopathy. Otherwise, unchanged since 01/03/2017. 2. Abdomen and pelvis CT showed no change in the appearance of the gallbladder and surgical clips, mild splenomegaly, nonobstructing renal stones versus vascular calcifications, prominent atherosclerosis with small distal abdominal aortic aneurysm, constipation with diverticulosis. 3. Head CT showed no hemorrhage, old right parietal infarct. 4. Echocardiogram showed an EF 42% with global hypokinesis. 5. Myocardial perfusion scan was negative. 6. Lung biopsy CT performed on 02/13/2017 still awaiting results. 7. Chest x-ray performed after showed a stable small right apical pneumothorax. DISCHARGE DIAGNOSES: 1. Syncope secondary to orthostasis. Cardiology has discontinued amlodipine as well as hydralazine. The patient will continue on his Coreg as well as his valsartan. 2. Newly found right lower lobe mass. CEA is mildly elevated. LDH is 174. No evidence of metastatic disease in the abdomen and pelvis or in the brain scans. Patient underwent a CT- guided lung biopsy, still awaiting those results. 3. Congestive heart failure. Continue his valsartan. 4. Atrial fibrillation. Continue his beta-roma and Xarelto, rate controlled. 5. Hyperlipidemia. Continue statin. 6. Cerebrovascular accident. Aware. 7. Abdominal aortic aneurysm. Aware. HOSPITAL COURSE: Mr. Solitario is a 72-year-old male who carries a past medical history of atrial fibrillation on Xarelto, permanent pacemaker, CAD, CABG x 5 twenty years ago, systolic congestive heart failure, orthostatic hypotension, tinnitus, vertigo, and CVA in the past, who presented with 3 spells of syncope on the day of his admission. He states his vision gets blurry, gets lightheaded and then he goes out. He has not passed out for a very long time. He noticed that he has had chills. He had a workup with a pulmonary arteriogram that revealed a right lower lobe mass that is new. It was picked up last month on CT. He was admitted with a cardiology and oncology consult. Imaging in the abdomen, pelvis and head ruled out any metastatic disease. He did have a slightly elevated CEA and LDH of 174. He underwent an ultrasound guided lung biopsy CT, still awaiting those results. He will follow up with Dr. Slaughter in the office for those. Cardiology discontinued his amlodipine as well as his hydralazine. He was continued on his Coreg as well as his valsartan considering his history of heart failure. His perfusion scan did not show any signs of ischemia. After his lung biopsy, his chest x-ray then showed a stable small right apical pneumothorax. Dr. Zabala is aware. Patient is still appropriate for discharge. VITAL SIGNS: Temperature is 98 degrees, heart rate 89, respirations 14, blood pressure 147/91, O2 is 100% on room air. DISCHARGE DIET: Healthy heart. DISCHARGE MEDICATIONS: 1. Xanax 0.5 mg p.o. at bedtime. 2. Coreg 6.25 mg p.o. b.i.d. 3. Lexapro 10 mg p.o. daily. 4. Florinef 0.1 mg p.o. daily. 5. Novi 7.5/325, 1 each p.o. q. 6 hours p.r.n. 6. Levaquin 750 mg p.o. daily for 5 days. 7. Antivert 25 mg p.o. p.r.n. 8. Klor-Con 10 mEq p.o. b.i.d. 9. Pravachol 40 mg p.o. at bedtime. 10. Xarelto 20 mg p.o. daily. 11. Valsartan 160 mg p.o. daily. FOLLOWUP: Mr. Mon is being discharged home with home health and [facility]. He is follow up with Dr. Inge Slaughter next week for results of his biopsy as well as follow up with his primary care physician. He will return to the ED for any worsening of symptoms. Dictated by VIANEY Michaels for Brian Hdez MD cc: Brian Hdez MD
[2017-02-14] MEDS ORDERED: ROCEPHIN 1 GM in NS 50 ML IV SCH (14:00)
--- NOTE | 2017-02-16 08:22 | Carotid Study ---
DATE: 02/07/2017 PROCEDURE: Bilateral duplex and color flow imaging of the carotid arteries performed using the [employer] Vivid E9 ultrasound system with a 9L-D transducer. REFERRING PHYSICIAN: Hospitalist. INTERPRETING PHYSICIAN: Tara Marcano MD. TECH: Aisha Santana RVT. INDICATIONS: Dizziness, vertigo, ICD-10 R42. OBSERVED DATA RIGHT LEFT Brachial Blood Pressure Carotid Pulse Bruits: Carotid/Sub DIAGRAM OF ULTRASOUND IMAGING R L RIGHT INT EXT INT EXT LEFT Wli (cm/s) Wil (cm/s) Subclavian 53/0 Subclavian 74/0 CCA Proximal 40/9 CCA Proximal 46/11 CCA Distal 44/12 CCA Distal 48/13 Bulb 56/13 Bulb 59/11 ICA Proximal 58/17 ICA Proximal 63/15 ICA Mid 40/15 ICA Mid 37/13 ICA Distal 40/15 ICA Distal 59/24 ECA 51/3 ECA 85/11 Vertebral 51/14 Vertebral 39/15 ICA/CCA Ratio 1.34 ICA/CCA Ratio 1.29 % Stenosis 0-39 % Stenosis 0-39 PHYSICIAN INTERPRETATION: Mild atherosclerotic disease of the distal common and internal carotid arteries bilaterally without evidence of a hemodynamically significant lesion in either carotid system. cc: MD Stephanie Ewing CRNP
== END 2017-02-13 18:11 | disposition home health service (06) ==
LOC: ED 09:30 → 3N 16:22
PROVIDERS: ATTEND Internal Medicine

== ENCOUNTER 2017-02-25 19:34 | Inpatient (IN) ==
[2017-02-25] MEDS ORDERED: NS 1,000 ML IV ONE (19:46)
[2017-02-25 20:19] LABS: MANUAL DIFF NEEDED? NO
[2017-02-25 20:23] LABS: BASO% 0.4 % (0.0-0.8); EOS# 0.37 X1000 (0.0-0.7); EOS% 6.7 % (0.0-10.0); HEMATOCRIT 36.6 % (42.0-52.0); HEMOGLOBIN 12.6 g/dL (14.0-18.0); LYMPH# 2.12 X1000 (1.2-3.4); LYMPH% 38.3 % (20.5-51.1); MCH 28.6 PG (27-31); MCHC 34.4 g/dL (33-37); MCV 83.2 FL (81-99); MONO# 0.58 X1000 (0.11-0.59); MONO% 10.5 % (1.7-9.3); MPV 9.4 FL (7.4-10.4); NEUT% 44.1 % (42.2-75.2); PLT 284 X1000 (130-400)
[2017-02-25 20:41] LABS: INR 1.15; PROTIME 12.2 Seconds (9.2-11.7); PTT 28.9 Seconds (22.0-36.0)
[2017-02-25 20:42] LABS: ALBUMIN 3.4 g/dL (3.5-5.0); CALCIUM 9.1 mg/dL (8.8-10.2); POTASSIUM 3.6 mmol/L (3.5-5.1); TOTAL BILIRUBIN 0.59 mg/dL (0.20-1.00); TOTAL PROTEIN 7.3 g/dL (6.3-8.3)
[2017-02-25] MEDS ORDERED: NORCO-7.5 PO ONE (22:30)
[2017-02-26] MEDS ORDERED: NS 1,000 ML IV ONE ×2 (00:21→01:00)
[2017-02-26] MEDS ORDERED: APRESOLINE IV PRN (00:21)
[2017-02-26] MEDS ORDERED: RESTORIL PO ONE (01:04)
[2017-02-26] MEDS ORDERED: XARELTO PO SCH (09:00)
[2017-02-26] MEDS ORDERED: FLORINEF PO SCH (09:00)
[2017-02-26] MEDS ORDERED: LEXAPRO PO SCH (09:00)
[2017-02-26] MEDS: LEXAPRO PO SCH (09:18)
[2017-02-26] MEDS: FLORINEF PO SCH (09:18)
[2017-02-26] MEDS: ZYLOPRIM PO SCH (09:18)
[2017-02-26] MEDS: NORCO-7.5 PO PRN ×3 (11:41→23:38)
[2017-02-26] MEDS: LACTULOSE PO SCH ×2 (11:42→21:16)
[2017-02-26] MEDS: MIRALAX PO SCH (11:42)
[2017-02-26] MEDS: MILK OF MAGNESIA PO PRN (11:42)
--- NOTE | 2017-02-26 12:30 | Diag Imaging Result Doc PS360 ---
EXAM: FLAT/UPRIGHT ABD/1 VIEW CHEST HISTORY: constipation TECHNIQUE: Portable flat and upright abdomen with AP upright chest at 1140 COMMENT: There is some stool throughout the colon without evidence of dilatation. There is no evidence of small bowel or gastric distention and no organomegaly or mass is present. The appearance of the chest has not changed significantly since 02/13/2017 considering differences in positioning and technique. IMPRESSION: No evidence of acute disease. Constipation. Electronically signed by Remi Johnson 02/26/2017 12:28 PM
[2017-02-26] MEDS ORDERED: KLOR-CON PO ONE (20:17)
[2017-02-26] MEDS: PRAVACHOL PO SCH (21:16)
[2017-02-26] MEDS: DULCOLAX PR SCH (21:18)
[2017-02-27 05:46] LABS: HEMATOCRIT 36.5 % (42.0-52.0); HEMOGLOBIN 12.5 g/dL (14.0-18.0); MCH 29.4 PG (27-31); MCHC 34.2 g/dL (33-37); MCV 85.9 FL (81-99); MPV 9.4 FL (7.4-10.4); RBC 4.25 XMIL (4.7-6.1)
[2017-02-27 06:04] LABS: AGAP 14; BUN 13 mg/dL (8-22); CALCIUM 8.8 mg/dL (8.8-10.2); CHLORIDE 103 mmol/L (98-107); COSMO 283; POTASSIUM 3.8 mmol/L (3.5-5.1); SODIUM 142 mmol/L (136-145); TCO2 25 mmol/L (25-35)
[2017-02-27 06:27] LABS: FREE T4 1.38 ng/dL (0.93-1.70)
[2017-02-27] MEDS: ASPIRIN EC PO SCH (08:29)
[2017-02-27] MEDS: NORCO-7.5 PO PRN ×2 (08:29→18:51)
[2017-02-27] MEDS: LEXAPRO PO SCH (08:29)
[2017-02-27] MEDS: ZYLOPRIM PO SCH (08:29)
[2017-02-27] MEDS: LACTULOSE PO SCH ×3 (08:30→21:01)
[2017-02-27] MEDS: FLORINEF PO SCH (08:30)
[2017-02-27] MEDS: MIRALAX PO SCH (08:30)
[2017-02-27] MEDS ORDERED: AMITIZA PO ONE (11:59)
[2017-02-27] MEDS: PRAVACHOL PO SCH ×2 (19:54→21:02)
[2017-02-28] MEDS: NORCO-7.5 PO PRN ×2 (02:05→17:46)
[2017-02-28] MEDS: DULCOLAX PR SCH ×2 (02:05→20:32)
[2017-02-28 06:55] LABS: CALCIUM 8.6 mg/dL (8.8-10.2); POTASSIUM 3.6 mmol/L (3.5-5.1)
[2017-02-28] MEDS: LACTULOSE PO SCH ×3 (07:57→20:32)
[2017-02-28] MEDS: MIRALAX PO SCH ×2 (07:57→09:23)
[2017-02-28] MEDS: ASPIRIN EC PO SCH ×2 (07:58→09:22)
[2017-02-28] MEDS: ZYLOPRIM PO SCH ×2 (07:58→09:23)
[2017-02-28] MEDS: LEXAPRO PO SCH ×2 (07:58→09:23)
[2017-02-28] MEDS: FLORINEF PO SCH ×2 (07:59→09:23)
[2017-02-28] MEDS ORDERED: MUCOMYST 20% PO ONE (09:00)
[2017-02-28] MEDS: SODIUM BICARBONATE 8.4% 150 MEQ in STERILE WATER INJ. 1,000 ML IV SCH (09:58)
[2017-02-28] MEDS ORDERED: HEPARIN 1000 UNITS/NS 2,000 UNIT/1,000 ML IV.SOLN ONE (10:14)
[2017-02-28] MEDS ORDERED: VERSED ONE (14:40)
[2017-02-28] MEDS ORDERED: DEMEROL ONE (14:40)
[2017-02-28] MEDS ORDERED: CLAVE PUMP SET NO FILTER 12260 ONE (14:41)
[2017-02-28] MEDS ORDERED: NS 1,000 ML ONE (14:41)
[2017-02-28] MEDS ORDERED: CLAVE TWINSITE 32 IN 11959 ONE (14:41)
[2017-02-28] MEDS ORDERED: CARDIZEM ONE (15:44)
[2017-02-28] MEDS: PRAVACHOL PO SCH (20:32)
[2017-03-01 05:41] LABS: CALCIUM 9.1 mg/dL (8.8-10.2); POTASSIUM 3.4 mmol/L (3.5-5.1)
[2017-03-01] MEDS: SODIUM BICARBONATE 8.4% 150 MEQ in STERILE WATER INJ. 1,000 ML IV SCH ×2 (06:10→14:14)
[2017-03-01] MEDS ORDERED: KLOR-CON PO ONE (07:39)
[2017-03-01] MEDS ORDERED: FLEET MINERAL OIL ENEMA PR ONE (08:39)
[2017-03-01] MEDS: NORCO-7.5 PO PRN ×3 (09:27→21:46)
[2017-03-01] MEDS: LACTULOSE PO SCH ×2 (09:28→21:46)
[2017-03-01] MEDS: LEXAPRO PO SCH (09:28)
[2017-03-01] MEDS: MIRALAX PO SCH (09:28)
[2017-03-01] MEDS: ZYLOPRIM PO SCH (09:28)
[2017-03-01] MEDS: ASPIRIN EC PO SCH (09:29)
[2017-03-01] MEDS: FLORINEF PO SCH (09:59)
[2017-03-01] MEDS: DULCOLAX PR SCH (21:46)
[2017-03-01] MEDS: PRAVACHOL PO SCH (21:46)
[2017-03-02 07:43] LABS: MAGNESIUM 2.1 mg/dL (1.5-2.7); POTASSIUM 3.6 mmol/L (3.5-5.1)
[2017-03-02] MEDS: NORCO-7.5 PO PRN ×2 (08:03→17:26)
[2017-03-02] MEDS: MILK OF MAGNESIA PO PRN (08:05)
[2017-03-02] MEDS: ZYLOPRIM PO SCH (08:34)
[2017-03-02] MEDS: LEXAPRO PO SCH (08:35)
[2017-03-02] MEDS: ASPIRIN EC PO SCH (08:35)
[2017-03-02] MEDS: MIRALAX PO SCH (08:35)
[2017-03-02] MEDS: FLORINEF PO SCH (08:35)
[2017-03-02] MEDS: LACTULOSE PO SCH ×2 (08:35→21:01)
[2017-03-02] MEDS: SODIUM BICARBONATE 8.4% 150 MEQ in STERILE WATER INJ. 1,000 ML IV SCH (08:36)
--- NOTE | 2017-03-02 16:39 | Diag Imaging Result Doc PS360 ---
CHEST-PORTABLE - 03/02/2017 INDICATION: Rehab placement TECHNIQUE: COMPARISON: 02/26/2017 FINDINGS: Stable sternotomy changes. Stable left-sided pacemaker. Stable rather severe cardiomegaly. Pulmonary vascularity remains normal. No focal infiltrates, pneumothorax, or pleural effusion. IMPRESSION: Negative exam. Electronically signed by Filemon Esquivel 03/02/2017 4:37 PM
[2017-03-02] MEDS: DULCOLAX PR SCH (21:01)
[2017-03-02] MEDS: PRAVACHOL PO SCH (21:01)
[2017-03-03] MEDS: NORCO-7.5 PO PRN ×3 (00:09→17:18)
[2017-03-03 05:40] LABS: AGAP 9; BUN 18 mg/dL (8-22); CALCIUM 9.3 mg/dL (8.8-10.2); CHLORIDE 99 mmol/L (98-107); COSMO 284; POTASSIUM 3.1 mmol/L (3.5-5.1); SODIUM 142 mmol/L (136-145); TCO2 34 mmol/L (25-35)
[2017-03-03] MEDS: LACTULOSE PO SCH ×2 (08:04→21:00)
[2017-03-03] MEDS: LEXAPRO PO SCH (08:04)
[2017-03-03] MEDS: ASPIRIN EC PO SCH (08:04)
[2017-03-03] MEDS: ZYLOPRIM PO SCH (08:04)
[2017-03-03] MEDS: FLORINEF PO SCH (08:04)
[2017-03-03] MEDS: MIRALAX PO SCH (08:05)
[2017-03-03] MEDS ORDERED: KLOR-CON PO ONE (09:00)
[2017-03-03] MEDS: PRAVACHOL PO SCH (21:00)
[2017-03-03] MEDS: DULCOLAX PR SCH (21:00)
[2017-03-04] MEDS: NORCO-7.5 PO PRN ×2 (05:55→17:37)
[2017-03-04 06:39] LABS: MAGNESIUM 2.1 mg/dL (1.5-2.7)
[2017-03-04 06:42] LABS: CALCIUM 8.8 mg/dL (8.8-10.2); POTASSIUM 4.5 mmol/L (3.5-5.1)
[2017-03-04] MEDS: LACTULOSE PO SCH ×2 (09:26→21:48)
[2017-03-04] MEDS: MIRALAX PO SCH (09:26)
[2017-03-04] MEDS: FLORINEF PO SCH (09:27)
[2017-03-04] MEDS: LEXAPRO PO SCH (09:27)
[2017-03-04] MEDS: ASPIRIN EC PO SCH (09:27)
[2017-03-04] MEDS: ZYLOPRIM PO SCH (09:27)
[2017-03-04] MEDS: PRAVACHOL PO SCH (21:47)
[2017-03-04] MEDS: DULCOLAX PR SCH (21:49)
[2017-03-05 06:07] LABS: HEMATOCRIT 35.7 % (42.0-52.0); HEMOGLOBIN 12.2 g/dL (14.0-18.0); MCH 29.7 PG (27-31); MCHC 34.2 g/dL (33-37); MCV 86.9 FL (81-99); MPV 9.6 FL (7.4-10.4); RBC 4.11 XMIL (4.7-6.1)
[2017-03-05 06:57] LABS: CALCIUM 9.3 mg/dL (8.8-10.2); POTASSIUM 3.3 mmol/L (3.5-5.1)
[2017-03-05] MEDS: NORCO-7.5 PO PRN ×2 (08:48→19:42)
[2017-03-05] MEDS: MILK OF MAGNESIA PO PRN (08:51)
[2017-03-05] MEDS: FLORINEF PO SCH (08:57)
[2017-03-05] MEDS: ASPIRIN EC PO SCH (08:57)
[2017-03-05] MEDS: LEXAPRO PO SCH (08:58)
[2017-03-05] MEDS: ZYLOPRIM PO SCH (08:58)
[2017-03-05] MEDS: LACTULOSE PO SCH ×2 (08:58→19:45)
[2017-03-05] MEDS: MIRALAX PO SCH (08:58)
[2017-03-05] MEDS ORDERED: KLOR-CON PO ONE (10:56)
[2017-03-05] MEDS: PRAVACHOL PO SCH (19:43)
[2017-03-05] MEDS: DULCOLAX PR SCH (19:45)
[2017-03-06] MEDS: PRAVACHOL PO SCH (05:18)
[2017-03-06] MEDS: NORCO-7.5 PO PRN (06:38)
[2017-03-06] MEDS: LACTULOSE PO SCH (09:18)
[2017-03-06] MEDS: ZYLOPRIM PO SCH (09:18)
[2017-03-06] MEDS: FLORINEF PO SCH (09:18)
[2017-03-06] MEDS: LEXAPRO PO SCH (09:18)
[2017-03-06] MEDS: MIRALAX PO SCH (09:18)
[2017-03-06] MEDS: ASPIRIN EC PO SCH (09:18)
[2017-03-06] MEDS ORDERED: KLOR-CON PO ONE (11:19)
[2017-03-06 14:28] VITALS: BP 171/75
== END 2017-03-06 15:22 ==
LOC: ED 19:34 → 4N 02-26 00:03 → SUATTDRO 02-26 00:03 → 3S 02-28 14:48 → 4N 03-03 18:45
PROVIDERS: ATTEND Internal Medicine

== ENCOUNTER 2018-08-30 16:54 | Inpatient (IN) ==
--- NOTE | 2018-08-30 17:36 | Diag Imaging Result Doc PS360 ---
CHEST-2 VIEWS - 08/30/2018 INDICATION: diff breathing COMPARISON: 08/07/2018 FINDINGS: Stable cardiomegaly. Stable biventricular pacemaker. No infiltrates or edema. No pneumothorax or pleural effusion. IMPRESSION: Cardiomegaly. No change from prior. Electronically signed by Filemon Esquivel 08/30/2018 5:33 PM
--- NOTE | 2018-08-30 17:56 | ED EKG INTERP ---
This chart was entered by Tyra Boogie Scribe, acting as scribe for Pb Lawrence MD. EKG Interpretation - EKG Time of EKG reading by physician:: 17:13 EKG Read and Signed by:: Pb Lawrence EKG Interpretation (*Must complete 3 of following elements*): Abnormal (anterolateral infarct, age undetermined) Rate: 80 Rhythm: sinus rhythm with short TN [place]: left TN Interval: normal Comments: nonspecific intraventricular block; inferior infarct, age undetermined Attestation - Physician/ HANNAH Attestation The physician spent face to face time with patient:: No Advanced Practice Provider documentation review:: Supervising physician onsite and consulted in the evaluation and care of this patient. The physician did not have a face to face encounter with the patient. This chart was documented by the indicated scribe, (Tyra Boogie Scribe) and accurately reflects the services I performed and decisions made by Howard torres Kent A., MD, as attested by the provider's signature.
[2018-08-30 18:03] LABS: ALB/GLOB RATIO 1.4; CALCIUM 9.2 mg/dL (8.8-10.2); CREATININE 1.4 mg/dL (0.7-1.2); TOTAL BILIRUBIN 0.48 mg/dL (0.20-1.00); TOTAL PROTEIN 6.8 g/dL (6.3-8.3)
[2018-08-30 18:11] LABS: INR 1.14; PROTIME 15.5 Seconds (11.0-16.0)
[2018-08-30 18:12] LABS: PTT 29.2 Seconds (22.3-41.8)
[2018-08-30] MEDS ORDERED: LASIX IV ONE (19:42)
--- NOTE | 2018-08-30 19:49 | PROVIDER DOCUMENTATION ---
HPI-Respiratory General - General Chief Complaint: Shortness of Breath Stated Complaint: SOB Time Seen by Provider: 08/30/18 17:56 Source: patient Allergies/Adverse Reactions: Patient Allergies Allergy/AdvReac Type Severity Reaction Status Date / Time No Known Allergies Allergy Verified 08/07/18 04:31 Home Medications: Home Medication List Medication Instructions Recorded Confirmed Last Taken Type PRAVAstatin [Pravachol] 40 mg PO QHS 01/18/16 08/07/18 05/31/17 History Escitalopram [Lexapro] 10 mg PO DAILY 01/16/17 08/31/18 08/30/18 History Allopurinol 100 mg PO DAILY 02/25/17 08/31/18 08/30/18 History Tamsulosin [Flomax] 0.4 mg PO QHS 06/01/17 08/31/18 08/30/18 History Apixaban [Eliquis] 5 mg PO BID 12/21/17 08/31/18 08/31/18 History Alprazolam [Xanax] 0.5 mg PO QHS 06/17/18 08/31/18 08/29/18 History Hydrocodone Bit/Acetaminophen 1 each PO BID 06/17/18 08/31/18 08/30/18 History [Hydrocodon-Acetaminoph 7.5-325] Losartan [Cozaar] 50 mg PO DAILY 06/17/18 08/31/18 08/30/18 History Potassium Chloride 10 meq PO BID 06/17/18 08/31/18 08/30/18 History Albuterol Sulfate Inhaler 2 puff INH Q4H PRN #1 inhaler 06/20/18 08/31/18 08/30/18 Rx [Ventolin Hfa] Albuterol Sulfate Inhaler 2 puff INH Q6H PRN PRN #1 inhaler 07/02/18 08/31/18 08/30/18 Rx [Ventolin Hfa] Allopurinol 100 mg PO DAILY #30 tab 07/02/18 08/07/18 Unknown Rx Apixaban [Eliquis] 5 mg PO BID #60 tab 07/02/18 08/07/18 Unknown Rx Furosemide [Lasix] 40 mg PO BID #60 tab 07/02/18 08/31/18 08/30/18 Rx Losartan Potassium [Cozaar] 50 mg PO DAILY #30 tab 07/02/18 08/07/18 Unknown Rx PRAVAstatin [Pravachol] 40 mg PO QHS #30 tab 07/02/18 08/31/18 08/30/18 Rx Prednisone 20 mg PO TID #12 tab 07/02/18 08/07/18 Unknown Rx Tamsulosin HCl [Flomax] 0.4 mg PO HS #30 cap 07/02/18 08/07/18 Unknown Rx Albuterol Sulfate 2.5 mg IH Q4-8H PRN PRN #1 b 08/07/18 08/31/18 08/30/18 Rx Nebulizer Accessories [A.i.r.s. 1 ea MC 4XDAY PRN PRN #1 kit 08/07/18 08/31/18 08/30/18 Rx Nebulizer] Prednisone 50 mg PO DAILY #5 tab 08/07/18 Unknown Rx Carvedilol [Coreg] 12.5 mg PO Q12HR 08/31/18 08/31/18 08/30/18 History - History of Present Illness-Resp Nature of Presenting Problem: Patient is a 73 year old black male with history of atrial fibrillation, CHF, COPD, HTN who presents with worsening orthopnea,intermittent chest discomfort, and wheezing since yesterday. ALso complains of subjective fever, productive yellow sputum . Quality of Pain: reports: aching Severity in ED: reports: mild Onset/Duration: reports: gradual Timing: reports: intermittent Review of Systems - Adult - REVIEW OF SYSTEMS - ADULT Constitutional: reports: see HPI, chills Eyes: reports: no symptoms reported Ears, Nose, Mouth & Throat: reports: no symptoms reported Cardiovascular: reports: chest pain, orthopnea Respiratory: reports: cough, shortness of breath Gastrointestinal: reports: see HPI Genitourinary: reports: no symptoms reported. denies: dysuria Musculoskeletal: reports: no symptoms reported Integumentary: reports: no symptoms reported Neurological: reports: no symptoms reported Psychiatric: reports: anxiety Endocrine: reports: no symptoms reported Hematologic/Lymphatic: reports: no symptoms reported Allergic/Immunologic: reports: no symptoms reported All Other Systems: Reviewed and Negative Past History - Adult - PAST MEDICAL HISTORY-ADULT Review of Records: reports: Old Records Reviewed, Nursing Assessment Review, Medications Reviewed, Social history reviewed & non-contributory. Major Childhood Illnesses: reports: denies history Cardiovascular: reports: A-Fib, CAD, CHF, HTN, hyperlipidemia, pacemaker Respiratory: reports: COPD Gastrointestinal: reports: denies history, other (constipation; gall stones) Obstetrical/Gynecological: reports: denies history Genitourinary: reports: denies history Musculoskeletal: reports: denies history Neurological: reports: CVA Psychiatric: reports: denies history, anxiety Endocrine/Immune: reports: denies history Other Conditions: reports: denies history - PRIOR SURGERIES/PROCEDURES Surgical/Procedure History: reports: CABG, cholecystectomy, pacemaker - PRIOR HOSPITALIZATIONS Prior Hospitalizations: reports: none - IMMUNIZATION STATUS Childhood Immunizations: See Nurse Assessment Flu Vaccine: See Nurse Assessment - FAMILY HISTORY Family History: reviewed, not pertinent Physical Exam-General - PHYSICAL EXAM-ADULT Initial Vital Signs Reviewed: Yes - CONSTITUTIONAL General Appearance: alert, no apparent distress, obese, other (ambulatory) - EYES Eyes: other (clear) - HEAD, EARS, NOSE, MOUTH & THROAT HENMT: moist mucous membranes - NECK Neck: supple - RESPIRATORY Respiratory: decreased breath sounds, rales, wheezing - CARDIOVASCULAR Cardiovascular: irregularly irregular - GASTROINTESTINAL (ABDOMEN) Abdominal Exam: soft, distended, tenderness (mild), other (obese). negative: guarding, rebound - MUSCULOSKELETAL Back Exam: normal inspection Extremity: normal range of motion, swelling Peripheral Pulses: radial (R): 2+, radial (L): 2+ - SKIN Integumentary: normal turgor, warm/dry - NEUROLOGIC Neurologic: grossly normal - HEART Score HEART Score: History: Slightly Suspicious HEART Score: ECG: Normal HEART Score: Age: > or = 65 Years HEART Score: Risk Factors for Atherosclerotic Disease: > or = 3 Risk Factors or History of Atherosclerotic Disease HEART Score: Troponin: < or = Normal Limit Total HEART Score:: 4 Progress - PLAN OF CARE/RESULTS Progress/Plan/Lab Results: Laboratory Results - last 24 hr 08/30/18 19:35 WBC 6.70 RBC 4.69 L Hgb 13.3 L Hct 41.6 L MCV 88.7 MCH 28.4 MCHC 32.0 L RDW Std Deviation 16.9 H Plt Count 177 MPV 10.1 Immature Gran % (Auto) 0.0 Neut % (Auto) 44.9 Lymph % (Auto) 33.0 [place] % (Auto) 6.9 Eos % (Auto) 14.8 H Baso % (Auto) 0.4 Immature Gran # (Auto) 0.00 Neut # (Auto) 3.01 Lymph # (Auto) 2.21 [place] # (Auto) 0.46 Eos # (Auto) 0.99 H Baso # (Auto) 0.03 Orders Category Date Time Status Admit - [facility] Routine AdmDCTranf 08/31/18 05:30 Active Activity - Up with Assistance ORDERED Care 08/31/18 05:30 Active Intake and Output-Strict ORDERED Care 08/31/18 05:30 Active Saline Loc NOW Care 08/30/18 17:00 Completed Vital Signs Order Q 8-HR ASSESS Care 08/31/18 05:30 Active Z-Document. for Tele Applied ORDERED Care 08/31/18 05:30 Active CHEST-2 VIEWS [RAD] Stat Exams 08/30/18 17:00 Completed BASIC METABOLIC PANEL [CHEM] Routine Lab 09/01/18 06:00 Uncollected CBC WITH DIFF [HEME] Routine Lab 09/01/18 06:00 Uncollected CBC WITH ELECTRONIC DIFF [HEME] Stat Lab 08/30/18 19:35 Completed CK PROFILE [SP CHEM] Stat Lab 08/30/18 17:00 Completed COMPREHENSIVE METABOLIC PANEL [CHEM] Stat Lab 08/30/18 17:00 Completed PRO B-NATRIURETIC PEPTIDE Stat Lab 08/30/18 17:00 Completed PROTIME WITH INR [COAG] Stat Lab 08/30/18 17:00 Completed PTT [COAG] Stat Lab 08/30/18 17:00 Completed SPUTUM CULTURE WITH GRAM STAIN [RM] Routine Lab 08/31/18 05:30 Uncollected TROPONIN T Stat Lab 08/30/18 17:00 Completed Albuterol 2.5MG/Ipratrop 0.5MG [Duoneb (A & A)] Med 08/31/18 05:30 Active 3 ml INH Q2H PRN PRN Albuterol 2.5MG/Ipratrop 0.5MG [Duoneb (A & A)] Med 08/31/18 05:30 Active 3 ml INH RTQ6H Apixaban [Eliquis] Med 08/31/18 09:00 Active 5 mg PO BID Doxycycline 100 mg Med 08/31/18 05:30 Discontinued 0.9% Sodium Chloride Inj [Ns] 250 ml IV Q12H Furosemide [Lasix] Med 08/31/18 02:30 Active 40 mg IV Q12H Furosemide [Lasix] Med 08/30/18 19:42 Discontinued 60 mg IV NOW ONE Methylprednisolone Sod Succ [Solu-Medrol] Med 08/31/18 05:30 Active 40 mg IV Q12H Omeprazole [Prilosec] Med 08/31/18 07:00 Active 40 mg PO DAILY@0700 Ondansetron [Zofran] Med 08/31/18 05:30 Active 4 mg IV Q4H PRN PRN Aerosol Treatments Routine Oth 08/31/18 05:30 Active Aerosol Treatments Stat Oth 08/31/18 05:30 Active Telemetry [OM.EQ] Routine Oth 08/31/18 05:30 Active EKG [EKG] Stat Ther 08/30/18 17:00 Ordered Transfer/Admit Order [TRANSFER] Routine Transfer 08/31/18 02:07 Completed Result Diagrams: 08/30/18 19:35 08/30/18 17:00 Departure - Departure Date of Disposition Decision: 08/31/18 Time of Disposition Decision: 06:08 DIAGNOSIS: Bronchitis CHF (congestive heart failure) Qualifiers: Heart failure type: unspecified Heart failure chronicity: acute on chronic Qualified Code(s): I50.9 - Heart failure, unspecified Disposition: ADMITTED INPATIENT 09 Certified Medical Emergency: Emergent Condition: Stable - Critical Care Note This patient required my direct & personal management of CC.: No Attestation - Physician/ HANNAH Attestation Patient care was provided by Advanced Practice Provider:: No The physician spent face to face time with patient:: Yes Advanced Practice Provider documentation review:: Supervising physician onsite and consulted in the evaluation and care of this patient. The physician did have a face to face encounter with the patient.
[2018-08-30 20:03] LABS: BASO# 0.03 X1000 (0.0-0.2); BASO% 0.4 % (0.0-0.8); EOS# 0.99 X1000 (0.0-0.7); EOS% 14.8 % (0.0-10.0); HEMATOCRIT 41.6 % (42.0-52.0); HEMOGLOBIN 13.3 g/dL (14.0-18.0); LYMPH# 2.21 X1000 (1.2-3.4); MCH 28.4 PG (27-31); MCV 88.7 FL (81-99); MONO# 0.46 X1000 (0.11-0.59); MONO% 6.9 % (1.7-9.3); MPV 10.1 FL (7.4-10.4); NEUT# 3.01 X1000 (1.4-6.5); NEUT% 44.9 % (42.2-75.2); PLT 177 X1000 (130-400); RBC 4.69 XMIL (4.7-6.1); RDW 16.9 % (11.5-14.5)
[2018-08-31] MEDS: LASIX IV SCH ×2 (05:02→13:44)
[2018-08-31] MEDS ORDERED: ZOFRAN IV PRN (05:30)
[2018-08-31] MEDS ORDERED: DOXYCYCLINE 100 MG in NS 250 ML IV SCH (05:30)
[2018-08-31] MEDS ORDERED: DUONEB (A & A) INH PRN (05:30)
[2018-08-31] MEDS: SOLU-MEDROL IV SCH ×2 (06:18→18:41)
[2018-08-31] MEDS: PRILOSEC PO SCH (06:18)
--- NOTE | 2018-08-31 06:54 | HISTORY AND PHYSICAL ---
CHIEF COMPLAINT: Shortness of breath. HISTORY OF PRESENT ILLNESS: This is a 73-year-old gentleman with COPD, CHF and history of CVA, who comes in with shortness of breath. He has had these issues for several weeks. He does describe some orthopnea, wheezing, cough with production of yellow sputum and some chest tightness, although mostly his complaints are wheezing. He has not been here in several months. He says he is a patient of Dr. Mohan, which it does look like he is, but the last time he was admitted he was under the care of the hospitalists, but he has been seen by Dr. Mohan as an outpatient. In any case, he came in for evaluation. He does not have any lower extremity edema. He does report shortness of breath with exertion and orthopnea. He has had intermittent issues with that since that time. Workup in the ER here was really not very remarkable, reportedly 100% saturation on room air. He has no white [place] [address], which is up from 5865. His creatinine is 1.4, which is close to baseline, but his chest x-ray is clear. The patient admitted mostly for a COPD exacerbation. PAST MEDICAL HISTORY: 1. Again, heart failure, EF 35 to 40%. His echocardiogram, last in May, showed an EF of 35 to 40%, although may be as low as 30%. He does have chronic systolic heart failure. 2. CAD. 3. Atrial fibrillation. 4. Chronic renal failure, according to this, is only about stage 2 today. 5. BPH. 6. Gout. 7. History of CVA. 8. AAA. PAST SURGICAL HISTORY: CABG, pacemaker revision and cholecystectomy. SOCIAL HISTORY: No tobacco or ethanol. He lives with his daughter. FAMILY HISTORY: No cardiac disease that we are aware of. ALLERGIES: No known drug allergies. REVIEW OF SYSTEMS: Otherwise negative times a 10 point review of systems. MEDICATIONS: List is not complete, but: 1. Albuterol. 2. Flomax. 3. Reportedly apixaban. 4. Carvedilol. A lot of these medications have been repetitious. In any case, patient was evaluated in the ER, admitted for COPD exacerbation. PHYSICAL EXAM: VITAL SIGNS: Blood pressure 140/90, heart rate of 80, respiratory rate 24, temperature 97.8 degrees, 100% saturation on room air. GENERAL: A well-developed male, in no acute distress. HEAD: Normocephalic, atraumatic. EYES: Pupils equally round, reactive to light. Extraocular movements were intact. Sclerae were anicteric. ENT: Had moist mucous membranes. NECK: Supple. I did not appreciate any significant JVD. PULMONARY: Bilateral breath sounds, clear to auscultation. GI: Soft, nontender, nondistended. Bowel sounds were positive. EXTREMITY: No clubbing or cyanosis. LYMPHATICS: No peripheral edema. NEUROLOGICAL: Nonfocal. LABORATORY DATA: White count was normal, hemoglobin and hematocrit 13 and 41. Creatinine 1.4. ProBNP 1187. Chest x-ray was clear. EKG I do not think showed any significant changes. ASSESSMENT: A 73-year-old male presenting with chronic obstructive pulmonary disease exacerbation mild, mild congestive heart failure exacerbation, although no lower extremity edema, no pulmonary edema. 1. Chronic obstructive pulmonary disease exacerbation. Will continue breathing treatments and some mild steroids, low-dose Solu-Medrol and we will follow clinically. GI and DVT prophylaxis. I do not have any acute indications of infection besides just symptomatic description. I will go ahead and put him on some doxycycline, but he has no white count. He reports productive sputum, so we will follow. 2. Congestive heart failure exacerbation, mild. Will initiate some Lasix and follow clinically. 3. History of atrial fibrillation, appears to be rate controlled. Continue to monitor closely. Continue anticoagulation. DISPOSITION: Plan is to hopefully discharge within the next [address] Mohan and his group will assume care tomorrow. cc: MD Nisha Holt MD MTDD
[2018-08-31] MEDS: DUONEB (A & A) INH SCH ×3 (09:16→19:07)
--- NOTE | 2018-08-31 09:30 | PROGRESS NOTE ---
DATE: 08/31/2018 SUBJECTIVE: He is breathing more comfortably, but still has expiratory wheezing and says it is still uncomfortable. He presented with shortness of breath last night. A 73-year-old male with history of COPD, congestive heart failure, history of CVA. He has had shortness of breath now for several weeks and described some orthopnea, wheezing, cough, production of yellow sputum and some chest tightness, but mostly complains of wheezing. Reports that he has had this for a couple months, but it has gotten worse in the last couple weeks. In the ER, 100% O2 saturations. ProBNP was 11,867, it was up from 5865. Creatinine 1.4. PAST MEDICAL HISTORY: 1. He has congestive heart failure. Ejection fraction was 35 to 40 percent on echo in May, but it may be as low as 30%. 2. Coronary artery disease. 3. Atrial fibrillation. 4. Chronic renal failure stage II. 5. Benign prostatic hypertrophy. 6. Gout. 7. History of cerebrovascular accident. 8. Abdominal aortic aneurysm. SURGICAL HISTORY: Status post CABG, pacemaker revision and cholecystectomy. PHYSICAL EXAMINATION: General: He was awake and alert, oriented x3. Vital Signs: Temperature 97.8 degrees, pulse 82, respirations 16, blood pressure 152/102, previous blood pressure 145/90. Eyes: Pupils are equal. Neck: Neck veins estimate CVP probably 10 cm water pressure above the right atrium. Lungs: With expiratory wheezing, but moving air in all lung dutta. Cardiovascular exam: Regular rhythm and rate without murmur or S3. Abdomen: Soft. No pedal edema. Says he feels like most of the swelling is in his abdomen. LAB: From yesterday, white count 6700, hematocrit 41 platelet count 177,000. Sodium 145, potassium 4.0, chloride 105, BUN 24, creatinine 1.4. ProBNP 11,867. Transaminases are normal. On his chest x-ray, cardiomegaly with biventricular pacemaker. No infiltrates or edema appreciated. ASSESSMENT AND PLAN: 1. Chronic obstructive pulmonary disease exacerbation with bronchospasm. He is on low-dose Solu- Medrol. Continue bronchodilators. Does not show any signs of infection at this point. 2. History of congestive heart failure. ProBNP is elevated, but his x-ray and exam do not suggest excess pulmonary venous hypertension. We will watch his fluid level. Continue to treat his bronchospasm. 3. Atrial fibrillation. Rate appears controlled. Review of his orders: Continue albuterol/ipratropium q. 2 hours p.r.n. and then he gets routine q. 6 hours. He is on his Eliquis 5 mg b.i.d. He is getting doxycycline 100 mg q. 12 hours; I think we can we can stop that. He is getting Lasix 40 mg IV q. 12 hours, methylprednisone 40 mg IV q. 12 hours and Prilosec 40 mg daily. We will follow his electrolytes and chest x-ray. cc: MD Nisha Bedolla MD
[2018-08-31] MEDS: ELIQUIS PO SCH ×2 (10:42→22:36)
[2018-08-31] MEDS: NORCO-7.5 PO SCH ×2 (13:44→22:36)
[2018-08-31] MEDS: XANAX PO SCH (22:36)
[2018-09-01] MEDS: DUONEB (A & A) INH SCH ×5 (00:13→22:20)
[2018-09-01] MEDS: LASIX IV SCH ×2 (05:03→14:49)
[2018-09-01] MEDS: SOLU-MEDROL IV SCH ×2 (05:06→17:26)
[2018-09-01] MEDS: PRILOSEC PO SCH (06:11)
[2018-09-01 06:55] LABS: HEMATOCRIT 39.5 % (42.0-52.0); HEMOGLOBIN 12.7 g/dL (14.0-18.0); LYMPH% 9.1 % (20.5-51.1); MCH 27.9 PG (27-31); MCHC 32.2 g/dL (33-37); MCV 86.8 FL (81-99); MONO# 0.32 X1000 (0.11-0.59); MONO% 3.6 % (1.7-9.3); MPV 10.5 FL (7.4-10.4); NEUT# 7.71 X1000 (1.4-6.5); NEUT% 87.3 % (42.2-75.2); PLT 193 X1000 (130-400); RBC 4.55 XMIL (4.7-6.1); RDW 15.9 % (11.5-14.5); WBC 8.83 X1000 (4.8-10.8)
--- NOTE | 2018-09-01 07:21 | Diag Imaging Result Doc PS360 ---
EXAM: CHEST-PORTABLE 09/01/2018 HISTORY: copd exacerbation TECHNIQUE: AP portable at 0603 COMMENT: There is cardiomegaly. There is a nodular opacity which has been previously demonstrated on multiple previous radiographs over the right mid lung and which apparently was localized in the area of the major fissure on the CT scan of 06/17/2018. There are sternotomy closure devices. Overall the appearance the chest has not changed significantly since the previous examination of 08/30/2018. IMPRESSION: Cardiomegaly. Electronically signed by Remi Johnson 09/01/2018 7:19 AM
[2018-09-01 07:24] LABS: CALCIUM 9.1 mg/dL (8.8-10.2); CREATININE 1.5 mg/dL (0.7-1.2); POTASSIUM 3.9 mmol/L (3.5-5.1)
[2018-09-01] MEDS ORDERED: DULCOLAX PR ONE (07:24)
[2018-09-01] MEDS ORDERED: MILK OF MAGNESIA PO ONE (07:24)
--- NOTE | 2018-09-01 07:46 | PROGRESS NOTE ---
DATE: 09/01/2018 SUBJECTIVE: Mr. Solitario is breathing better. Says he has not had a bowel movement in 3 days, but his wheezing is diminished. He did not sleep much last night, and that may be the Solu- Medrol. He just kind of tossed and turned. OBJECTIVE: Vital Signs: Temp 98.1, pulse 80, respirations 18, blood pressure 148/104. Looking at his range of blood pressures, it looks like it has been from 145 to 163/90 to 109. HEENT: Pupils are equal. Neck: No distended neck veins. Lungs: Clear. He does not have a prolonged expiratory phase. Cardiovascular: Regular rhythm and rate without murmur or S3. Abdomen: Soft. Skin: Warm and dry. Urine output was 1400 mL. IMAGING AND LABORATORY DATA: Lab from this morning shows white count 8830, hematocrit is 39, platelet count 193,000. Sodium 145, potassium 4.0, chloride 105, BUN 24, creatinine 1.4. Chest x-ray this morning: There is cardiomegaly. There is a nodular opacity, which has been previously demonstrated on multiple previous radiographs over the right mid lung. Apparently, it was localized in the area of the major fissure on the CT scan on 06/17/2018. I can appreciate sternotomy closure devices. Otherwise, no change from 08/30/2018. ASSESSMENT AND PLAN: 1. Chronic obstructive pulmonary disease with bronchospasm and chronic obstructive pulmonary disease exacerbation. He is improved. Continue current Solu-Medrol, methylprednisone 40 mg intravenously every 12 hours. He is getting albuterol/ipratropium nebulized treatments every 6 hours and then every 2 hours as needed, and we are giving him Lasix 40 mg intravenously every 12 hours, and he does clinically seem to have improved. 2. History of congestive heart failure. His electrolytes on 08/02/2018 when he presented, BUN was 24, creatinine 1.4. We do have lab pending from this morning. His volume status looks like it is good and improving. 3. Constipation. Will let him try some Solu-Medrol. 4. History of atrial fibrillation. Rate is controlled. 5. History of coronary artery disease. I do not see any sign of active cardiac ischemia. 6. Benign prostatic hypertrophy, and he has a history of gout, which is not active at this time, and a history of cerebrovascular accident and a history of an abdominal aortic aneurysm which they have been following. cc: MD Nisha Bedolla MD
[2018-09-01] MEDS: NORCO-7.5 PO SCH ×2 (08:50→21:07)
[2018-09-01] MEDS: ELIQUIS PO SCH ×2 (08:50→21:07)
[2018-09-01] MEDS: XANAX PO SCH (21:07)
[2018-09-02] MEDS: DUONEB (A & A) INH SCH ×5 (03:10→22:50)
[2018-09-02] MEDS: LASIX IV SCH ×3 (05:17→16:19)
[2018-09-02] MEDS: SOLU-MEDROL IV SCH ×3 (05:17→21:19)
[2018-09-02] MEDS: PRILOSEC PO SCH (06:34)
[2018-09-02] MEDS: ELIQUIS PO SCH ×3 (07:52→21:19)
[2018-09-02] MEDS: NORCO-7.5 PO SCH ×3 (07:52→21:19)
--- NOTE | 2018-09-02 08:59 | EKG Report ---
Test Performed on : 08/30/2018 5:13:23 PM Test Reason : DIFF BREATHING Blood Pressure : / mmHG Vent. Rate : 080 BPM Atrial Rate : 080 BPM P-R Int : 080 ms QRS Dur : 144 ms QT Int : 440 ms P-R-T Axes : 000 -87 142 degrees QTc Int : 507 ms Sinus rhythm. with short HI Left axis deviation Nonspecific intraventricular block Inferior infarct , age undetermined Anterolateral infarct , age undetermined Abnormal ECG When compared with ECG of 02-JUL-2018 02:12, Sinus rhythm. has replaced Wide QRS rhythm. Unconfirmed Result
[2018-09-02] MEDS: COREG PO SCH ×2 (09:00→21:19)
[2018-09-02] MEDS: COZAAR PO SCH (09:00)
[2018-09-02] MEDS: ZYLOPRIM PO SCH (09:00)
[2018-09-02] MEDS ORDERED: LINZESS PO ONE (17:38)
[2018-09-02] MEDS: XANAX PO SCH (21:19)
[2018-09-03] MEDS: DUONEB (A & A) INH SCH ×3 (03:32→11:17)
[2018-09-03] MEDS: LASIX IV SCH (05:46)
[2018-09-03] MEDS: PRILOSEC PO SCH ×2 (05:46→07:53)
[2018-09-03] MEDS: SOLU-MEDROL IV SCH ×2 (05:46→12:32)
[2018-09-03] MEDS ORDERED: SYMBICORT 160/4.5 MICROGM INHALER INH SCH (07:45)
--- NOTE | 2018-09-03 08:06 | PROGRESS NOTE ---
DATE: 09/03/2018 SUBJECTIVE: Mr. Solitario was admitted to [facility] with acute chronic obstructive pulmonary disease exacerbation. He had not been utilizing his nebulizer treatments at home as prescribed. Yesterday, we increased his steroids and continued DuoNeb nebulizer treatments. His lungs sound much better this morning. He still has some wheezing in all lung dutta. Oxygen levels have been in the mid 90s. His blood pressure had been running high. We resumed Coreg and losartan. Blood pressure looks much better. OBJECTIVE: Vital Signs: Today, his blood pressure is 128/77. Temperature 98.2 degrees, pulse 80, respirations 16, BP 128/77. CV: Regular rate and rhythm. Lungs: Improved air movement. There is still some occasional end expiratory with forced expiration. Abdomen: Soft, nontender with active bowel sounds. Extremities: Without edema. ASSESSMENT AND PLAN: 1. Acute chronic obstructive pulmonary disease exacerbation. I will add Symbicort 160/4.5 two puffs b.i.d. Continue IV Solu-Medrol as well as DuoNeb nebulizer treatments. I will administer the Prevnar vaccination prior to discharge. 2. Hypertension. His blood pressure is well controlled. We will continue both Coreg and losartan. cc: Nisha Mohan MD
--- NOTE | 2018-09-03 08:29 | Diag Imaging Result Doc PS360 ---
CHEST-2 VIEWS - 09/03/2018 INDICATION: copd COMPARISON: 09/01/2018 FINDINGS: Stable pacemaker and sternotomy wires. Stable cardiomegaly. Pulmonary vascularity is normal. No focal infiltrates, pneumothorax, or pleural effusion. IMPRESSION: Cardiomegaly. Electronically signed by Filemon Esquivel 09/03/2018 8:26 AM
[2018-09-03] MEDS: NORCO-7.5 PO SCH (10:55)
[2018-09-03] MEDS: COREG PO SCH (10:55)
[2018-09-03] MEDS: ELIQUIS PO SCH (10:55)
[2018-09-03] MEDS: ZYLOPRIM PO SCH (10:55)
[2018-09-03] MEDS: COZAAR PO SCH (10:55)
[2018-09-03] MEDS ORDERED: PREVNAR 13 IM ONE (12:50)
[2018-09-03 13:13] VITALS: BP 140/80
[2018-09-03] MEDS ORDERED: DUONEB (A & A) INH SCH (16:00)
[2018-09-04] MEDS ORDERED: LINZESS PO SCH (07:00)
[2018-09-04] MEDS ORDERED: PREDNISONE PO SCH (09:00)
[2018-09-04] MEDS ORDERED: LASIX PO SCH (09:00)
--- NOTE | 2018-09-04 12:59 | DISCHARGE SUMMARY ---
ADMISSION DATE: 08/31/2018 DISCHARGE DATE: 09/03/2018 DISCHARGE DIAGNOSES: 1. Acute chronic obstructive pulmonary disease exacerbation. 2. Previous history of tobacco abuse. 3. Chronic congestive heart failure secondary to systolic dysfunction with an ejection fraction of 30 to 35 percent. 4. Chronic atrial fibrillation. 5. Essential hypertension. 6. Mixed hyperlipidemia. 7. Benign prostatic hypertrophy. 8. Nocturia. 9. Ischemic heart disease. 10. Depression. DISCHARGE INSTRUCTIONS: 1. Return to clinic in 1 week to see me, Dr. Jason Mohan, in anticipation of a transition of care visit. 2. Activity as tolerated. 3. Healthy heart diet. DISCHARGE MEDICATIONS: 1. Carvedilol 12.5 mg b.i.d. 2. DuoNeb nebulized q. 6 hours. 3. Eliquis 5 mg b.i.d. 4. Symbicort 160/4.5 two puffs b.i.d. 5. Lexapro 10 mg daily. 6. Allopurinol 100 mg daily. 7. Flomax 0.4 mg daily. 8. KCl 10 mEq daily. 9. Xanax 0.5 mg at bedtime. 10. Lortab 7.5 one q. 12 hours p.r.n. pain. 11. Lasix 40 mg in the morning and may take a second dosage of Lasix if he gains 2 pounds in 24 hours. 12. Pravastatin 40 mg at bedtime. 13. Losartan 25 mg daily. DISCHARGE PHYSICAL EXAMINATION: General: This is an elderly, 73-year-old gentleman in no apparent distress. Vital Signs: He is afebrile. BP 140/80, pulse 81, respirations 14. Cardiovascular: Irregularly irregular. Lungs: Clear. Abdomen: Soft, nontender, with active bowel sounds. Extremities: Without edema. HOSPITAL COURSE: Mr. Jonah Solitario has a longstanding history of COPD. He is a former smoker. He has been prescribed DuoNeb nebulizers q. 6 hours, but has only been taking them twice daily. He presented to the ER with increasing shortness of breath, increased work of breathing, and a nonproductive cough. His initial chest x-ray demonstrated a stable biventricular pacemaker. No infiltrates or edema was noted. The patient was placed on supplemental O2, DuoNeb nebulizer treatments, and IV steroids. I added Symbicort 160/4.5 two puffs b.i.d. We were gradually able to wean him off oxygen, wean down on the steroids, and he maintained O2 saturations of 95% to 98% on room air. He had a previous Pneumovax on 12/24/2017. I gave him a Prevnar vaccination on 09/03/2018. I stressed to him the importance of compliance with medications. We will continue Symbicort 160/4.5 two puffs b.i.d. and DuoNeb nebulizer treatments q. 6 hours. He has a history of chronic congestive heart failure secondary to systolic dysfunction. His most recent echo demonstrated an EF of 30 to 35 percent. There was no evidence of active congestive heart failure at admission or during admission. I have asked him to restrict his fluids to six 8- ounce glasses of water or fluid daily, no added salt diet and to weigh daily. If he gains 2 pounds in 24 hours, he may take a second Lasix that day. He does have a history of hypertension. His blood pressure fluctuated. We adjusted his medicines. Blood pressure was stable on discharge. He was taking Coreg 12.5 mg b.i.d. and losartan 25 mg daily. I have made arrangements for him to have home health. I would like a registered nurse to assess the efficacy of his medicines, and to ensure that he is taking his medicines properly. I believe that he would benefit from a pulmonary or congestive heart failure program through home health. I will ask the manager social to assess home needs. Having reached maximum hospital benefit, the patient was discharged in stable condition. cc: Nisha Mohan MD
== END 2018-09-03 14:00 | disposition home health service (06) | DRG 191 ==
LOC: ED 16:54 → SUATTDRO 08-31 04:50 → 4N 08-31 04:50
PROVIDERS: ADMIT Internal Medicine; ATTEND Internal Medicine
CPT/HCPCS: 71010; 71020; 71045; 71046; 80048; 80053; 82550; 83735; 83880; 84484; 85025; 85610; 85730; 90670; 93005; 94640; 94761; 96374; 99285; A9270; J1940; J2920; J7050

== ENCOUNTER 2018-10-17 15:56 | Inpatient (IN) ==
[2018-10-17] MEDS ORDERED: ASPIRIN PO ONE (16:27)
--- NOTE | 2018-10-17 16:27 | PROVIDER DOCUMENTATION ---
HPI-Respiratory General - General Chief Complaint: Shortness of Breath Stated Complaint: SOB Time Seen by Provider: 10/17/18 16:01 Allergies/Adverse Reactions: Patient Allergies Allergy/AdvReac Type Severity Reaction Status Date / Time No Known Allergies Allergy Verified 08/07/18 04:31 Home Medications: Home Medication List Medication Instructions Recorded Confirmed Last Taken Type Escitalopram [Lexapro] 10 mg PO DAILY 01/16/17 08/31/18 08/30/18 History Allopurinol 100 mg PO DAILY 02/25/17 08/31/18 08/30/18 History Tamsulosin [Flomax] 0.4 mg PO QHS 06/01/17 08/31/18 08/30/18 History Apixaban [Eliquis] 5 mg PO BID 12/21/17 08/31/18 08/31/18 History Alprazolam [Xanax] 0.5 mg PO QHS 06/17/18 08/31/18 08/29/18 History Hydrocodone Bit/Acetaminophen 1 each PO BID 06/17/18 08/31/18 08/30/18 History [Hydrocodon-Acetaminoph 7.5-325] Potassium Chloride 10 meq PO BID 06/17/18 08/31/18 08/30/18 History Albuterol Sulfate Inhaler 2 puff INH Q4H PRN #1 inhaler 06/20/18 08/31/18 08/30/18 Rx [Ventolin Hfa] Albuterol Sulfate Inhaler 2 puff INH Q6H PRN PRN #1 inhaler 07/02/18 08/31/18 08/30/18 Rx [Ventolin Hfa] Furosemide [Lasix] 40 mg PO BID #60 tab 07/02/18 08/31/18 08/30/18 Rx PRAVAstatin [Pravachol] 40 mg PO QHS #30 tab 07/02/18 08/31/18 08/30/18 Rx Albuterol Sulfate 2.5 mg IH Q4-8H PRN PRN #1 b 08/07/18 08/31/18 08/30/18 Rx Nebulizer Accessories [A.i.r.s. 1 ea MC 4XDAY PRN PRN #1 kit 08/07/18 08/31/18 08/30/18 Rx Nebulizer] Carvedilol [Coreg] 12.5 mg PO Q12HR 08/31/18 08/31/18 08/30/18 History Albuterol 2.5MG/Ipratrop 0.5MG 3 ml INH RTQ6H #120 neb 09/03/18 Unknown Rx [Duoneb (A & A)] Apixaban [Eliquis] 5 mg PO BID tab 09/03/18 Unknown Rx Budesonide/Formoterol Inhaler 2 puff INH RTBID #1 inhaler 09/03/18 Unknown Rx [Symbicort 160/4.5 Microgm Inhaler] Carvedilol [Coreg] 12.5 mg PO Q12HR #60 tab 09/03/18 Unknown Rx Past History - Adult - PAST MEDICAL HISTORY-ADULT Major Childhood Illnesses: reports: denies history Cardiovascular: reports: A-Fib, CAD, CHF, HTN, hyperlipidemia, pacemaker Respiratory: reports: COPD Gastrointestinal: reports: denies history, other (constipation; gall stones) Obstetrical/Gynecological: reports: denies history Genitourinary: reports: denies history Musculoskeletal: reports: denies history Neurological: reports: CVA Psychiatric: reports: denies history, anxiety Endocrine/Immune: reports: denies history Other Conditions: reports: denies history - PRIOR SURGERIES/PROCEDURES Surgical/Procedure History: reports: CABG, cholecystectomy, pacemaker - PRIOR HOSPITALIZATIONS Prior Hospitalizations: reports: none - IMMUNIZATION STATUS Childhood Immunizations: See Nurse Assessment Flu Vaccine: See Nurse Assessment - FAMILY HISTORY Family History: reviewed, not pertinent Progress - PLAN OF CARE/RESULTS Progress/Plan/Lab Results: Vital Signs - 8 hr 10/17/18 16:04 Temperature 97.5 F L Pulse Rate 80 Respiratory Rate 22 Blood Pressure 170/125 O2 Sat by Pulse Oximetry 98 Departure - Departure Referrals and Follow-Ups: Betty Mohan MD [Primary Care Provider] -
[2018-10-17] MEDS ORDERED: DUONEB (A & A) INH ONE (16:28)
[2018-10-17] MEDS ORDERED: LASIX IV ONE (16:30)
[2018-10-17 17:25] LABS: HEMATOCRIT 34.8 % (42.0-52.0); HEMOGLOBIN 11.4 g/dL (14.0-18.0); MCH 28.8 PG (27-31); MCHC 32.8 g/dL (33-37); MCV 87.9 FL (81-99); MPV 10.1 FL (7.4-10.4); RBC 3.96 XMIL (4.7-6.1); RDW 16.4 % (11.5-14.5); WBC 5.04 X1000 (4.8-10.8)
[2018-10-17 17:53] LABS: CREATININE 1.4 mg/dL (0.7-1.2); POTASSIUM 3.1 mmol/L (3.5-5.1)
[2018-10-17] MEDS ORDERED: SODIUM CHLORIDE 0.9% INJ PRN (21:14)
[2018-10-17] MEDS ORDERED: PHENERGAN IV PRN (21:14)
--- NOTE | 2018-10-17 21:36 | Diag Imaging Result Doc PS360 ---
EXAM: CHEST-PORTABLE - 10/17/2018 HISTORY: copd TECHNIQUE: Portable chest COMPARISON: 10/08/2018 FINDINGS: There is cardiomegaly similar to prior. There are sternal wires from previous surgery and transvenous cardiac pacemaker again seen. The lungs appear clear. The lungs do not appear substantially hyperexpanded. There is no pleural effusion or pneumothorax identified. IMPRESSION: Stable cardiomegaly. No other evidence of acute disease. Electronically signed by Epifanio Ahuja 10/17/2018 9:33 PM
[2018-10-17] MEDS: SYMBICORT 160/4.5 MICROGM INHALER INH SCH (22:37)
[2018-10-17] MEDS: DUONEB (A & A) INH SCH (22:38)
[2018-10-17] MEDS: SOLU-MEDROL IV SCH (23:02)
[2018-10-17] MEDS: TYLENOL PO PRN (23:03)
[2018-10-17] MEDS: COREG PO SCH (23:03)
[2018-10-17] MEDS: LASIX IV SCH (23:03)
[2018-10-17] MEDS: FLOMAX PO SCH (23:03)
[2018-10-17] MEDS: XANAX PO SCH (23:03)
[2018-10-17] MEDS: KLOR-CON PO SCH (23:03)
[2018-10-17] MEDS: ELIQUIS PO SCH (23:04)
[2018-10-17] MEDS: PRAVACHOL PO SCH (23:04)
[2018-10-18] MEDS: DUONEB (A & A) INH SCH ×4 (03:51→22:12)
[2018-10-18] MEDS ORDERED: NORVASC PO ONE (04:34)
[2018-10-18] MEDS: SOLU-MEDROL IV SCH ×3 (04:47→20:46)
--- NOTE | 2018-10-18 08:32 | PROGRESS NOTE ---
DATE: 10/18/2018 SUBJECTIVE: Mr. Solitraio was admitted to [facility] with an acute COPD exacerbation. His chest x-ray demonstrated clear lung dutta with some hyperexpansion. No effusions or pneumothorax were noted. He was initially placed on supplemental O2, nebulizer treatments, IV steroids, and was continued on his home dosage of Symbicort. O2 saturations are ranging from 98 to 100 percent on room air. He also has a history of chronic congestive heart failure secondary to systolic dysfunction. He was with complaint of PND, orthopnea and dyspnea with exertion. His most recent echocardiogram from 12/21/2017 demonstrated LV dysfunction with an EF of 35 to 40 percent with wall motion abnormalities and elevated pulmonary pressures. He has a pacemaker and defibrillator in place. We have diuresed him aggressively with Lasix. He does have a history of ischemic heart disease. He has had previous coronary artery bypass graft. He had a previous cardiac catheterization which demonstrated chronic occlusion of the right coronary artery, LAD and the lateral branch of the circumflex. He had plaque forming in the grafts. He was not felt to be a candidate for intervention and was treated medically. He has been with complaint of intermittent episodes of chest pain. His cardiac enzymes have been negative to this point in time. Blood pressure has been generally stable. Systolic blood pressures have ranged from 123 to 141 whereas his diastolic blood pressures have ranged from 74 to 91. PHYSICAL EXAMINATION: Vital signs: He is afebrile, pulse 70, respirations 18, blood pressure 123/76. Cardiovascular: Irregularly irregular. Lungs: Distant breath sounds with increased period of expiration. Wheezing has improved significantly. There are no crackles in the bases. Abdomen: Soft, nontender, with active bowel sounds. No hepatosplenomegaly. No abdominal bruits. Extremities: Without edema. ASSESSMENT AND PLAN: 1. Acute chronic obstructive pulmonary disease exacerbation. Clinically he is better. We will continue DuoNeb nebulizer treatments, Symbicort 80/4.5 two puffs b.i.d., and we will begin to taper down on the IV steroids. We will increase his activity. 2. Acute on chronic congestive heart failure secondary to systolic dysfunction. We will continue a salt and fluid restricted diet. I will back down on the Lasix to 40 mg daily. 3. Ischemic heart disease. He has a history of ischemic heart disease. He is having intermittent episodes of chest pain. He has ruled out for myocardial ischemia by serial enzymes. He has had a previous cardiac catheterization which demonstrated severe 3 vessel disease. Certainly we could arrange for a repeat Myoview GXT but perhaps we could simply consider treating him conservatively either with Ranexa or Imdur. We will consult Cardiology. cc: Nisha Mohan MD
[2018-10-18] MEDS: LEXAPRO PO SCH (09:39)
[2018-10-18] MEDS: COREG PO SCH ×2 (09:39→20:47)
[2018-10-18] MEDS: ZYLOPRIM PO SCH (09:39)
[2018-10-18] MEDS: KLOR-CON PO SCH ×2 (09:39→20:47)
[2018-10-18] MEDS: XANAX PO SCH ×2 (09:39→20:47)
[2018-10-18] MEDS: ELIQUIS PO SCH ×2 (09:40→20:47)
[2018-10-18] MEDS: LASIX IV SCH ×2 (09:40→20:47)
[2018-10-18] MEDS: IMDUR PO SCH (10:02)
[2018-10-18 10:09] LABS: AGAP 13; BUN 16 mg/dL (8-22); CALCIUM 8.8 mg/dL (8.8-10.2); CHLORIDE 103 mmol/L (98-107); COSMO 282; CREATININE 1.1 mg/dL (0.7-1.2); ESTIMATED GFR > 60; GLUCOSE 131 mg/dL (70-104); POTASSIUM 3.3 mmol/L (3.5-5.1); SODIUM 140 mmol/L (136-145); TCO2 24 mmol/L (25-35)
[2018-10-18] MEDS: SYMBICORT 160/4.5 MICROGM INHALER INH SCH ×3 (12:39→20:44)
[2018-10-18] MEDS ORDERED: KLOR-CON PO ONE (13:28)
--- NOTE | 2018-10-18 13:46 | EKG Report ---
Test Performed on : 10/17/2018 4:00:17 PM Test Reason : chest pain Blood Pressure : / mmHG Vent. Rate : 081 BPM Atrial Rate : 077 BPM P-R Int : 000 ms QRS Dur : 196 ms QT Int : 514 ms P-R-T Axes : 000 253 044 degrees QTc Int : 597 ms Ventricular-paced rhythm with premature atrial complexes. with aberrant conduction. Abnormal ECG When compared with ECG of 17-OCT-2018 15:59, (Unconfirmed) aberrant conduction. is now present Unconfirmed Result
--- NOTE | 2018-10-18 15:29 | ECHO REPORT ---
ORDER DATE: 10/18/2018 INDICATIONS: Chronic obstructive pulmonary disease. FINDINGS: 1. The right atrium is mildly to moderately enlarged. Device leads are noted in the right heart chambers. 2. Mild tricuspid regurgitation. RV systolic pressure of 42. 3. Right ventricle appears normal in size with mild to moderate reduction in her RV systolic function. 4. No significant pulmonic insufficiency. 5. Moderate left atrial enlargement with a volume index of 35. 6. No mitral valve prolapse. Mild mitral regurgitation. 7. Dilated left ventricle with an end-diastolic dimension of 7.4. Mild left ventricular hypertrophy with a posterior and interventricular septal wall thickness of 1.2 and 1.3 cm respectively. Reduced LV systolic function with an estimated EF of 30% and global hypokinesis. 8. Aortic valve opens well. It is trileaflet. There is trace insufficiency. No stenosis. 9. Aorta appears somewhat enlarged with a root dimension of 4 cm. 10. No pericardial effusion seen. cc: MD Nisha Lucas MD
[2018-10-18] MEDS: TYLENOL PO PRN (16:51)
[2018-10-18] MEDS: PRAVACHOL PO SCH (20:47)
[2018-10-18] MEDS: RANEXA PO SCH (20:47)
[2018-10-18] MEDS: FLOMAX PO SCH (20:47)
--- NOTE | 2018-10-18 22:45 | HISTORY AND PHYSICAL ---
CHIEF COMPLAINT: Shortness of breath. HISTORY OF PRESENT ILLNESS: Mr. Jonah Solitario is a 73-year-old, gentleman with a history of multiple medical problems including essential hypertension, COPD, with a history of tobacco abuse, chronic congestive heart failure secondary to systolic dysfunction. Persistent atrial fibrillation. Ischemic heart disease and chronic low back pain secondary to lumbar spinal stenosis with neurogenic claudication who is well known to me. He presented to the ER complaining of increasing shortness of breath and increasing work of breathing. His O2 saturations were 90 to 91 percent on room air. He had diffuse expiratory wheezing. His initial chest x-ray was normal. He was also noted to be with complaint of PND, orthopnea and increasing peripheral edema. His most recent echocardiogram had demonstrated an EF of 30 to 35 percent. He also has a history of known ischemic heart disease. He has had intermittent chest discomfort and chest tightness. He denies any radiation of pain to his neck or arm. He had a cardiac cath in February 2017 which demonstrated severe three-vessel ischemic heart disease. He was not felt to be a candidate for intervention such as angioplasty, stenting or repeat coronary artery disease. He was relegated to medical therapy. PAST MEDICAL HISTORY: Essential hypertension, chronic congestive heart failure secondary to systolic dysfunction. Ischemic heart disease. Chronic atrial fibrillation. Previous CVA. History of abdominal aortic aneurysm, hyperlipidemia. PAST SURGICAL HISTORY: Cholecystectomy. Placement of pacemaker and defibrillator. Coronary artery bypass graft surgery. ALLERGIES: No known drug allergies. FAMILY HISTORY: Noncontributory. SOCIAL HISTORY: He is a former smoker. He denies the consumption of alcoholic beverages. He currently lives with his daughter. MEDICATIONS: 1. DuoNeb nebulized treatments q.6 hours. 2. Allopurinol 100 mg daily. 3. Xanax 0.5 mg b.i.d. 4. Eliquis 5 mg b.i.d. 5. Symbicort 160/4.5 two puffs b.i.d.. 6. Coreg 12.5 mg b.i.d. 7. Lexapro 10 mg daily. 8. Lasix 40 mg daily. May take an additional Lasix if he gains 2 pounds in 24 hours. 9. Linzess 290 mcg daily. 10. Pravastatin 40 mg at bedtime. 11. KCl 10 mEq b.i.d. 12. Flomax 0.4 mg daily. FAMILY HISTORY: Noncontributory. REVIEW OF SYSTEMS: General: He denies any recent weight gain or weight loss. HEENT: He wears glasses. He is hard of hearing. CV: See HPI. Pulmonary: See HPI. GI: No reflux, dysphagia, melena, hematochezia, change in bowel habits, or rectal bleeding. Endocrine: No polyuria, no polydipsia. No cold or heat intolerance. Skin: No easy bruisability. : No leakage of urine with coughing or laughing. Neuro: No migraines or seizures. Psychiatric: He has history of depression. PHYSICAL EXAMINATION: GENERAL: This is a chronically ill-appearing, 73-year-old, gentleman, in no apparent distress. VITAL SIGNS: Temperature 97.7, pulse 60, respirations 18, BP 128/78. HEENT: Fundi with arteriolar wall thickening. Pupils equal, round, reactive to light. Extraocular eye movements intact. TMs without bullae. No gross exudates in oropharynx. NECK: Supple. No masses, JVD or bruits. CV: Irregularly irregular. LUNGS: Diffuse end-expiratory wheezing with forced expiration. ABDOMEN: Soft, nontender, with active bowel sounds. EXTREMITIES: Without edema. SKIN: No palpable purpura. NEUROLOGIC: Nonfocal. ASSESSMENT AND PLAN: 1. Acute chronic obstructive pulmonary disease exacerbation. I will treat him with supplemental O2, DuoNeb nebulizer treatments. Continue Symbicort and add IV Solu-Medrol. 2. Acute on chronic congestive heart failure secondary to systolic dysfunction. I will place him on a salt and fluid restricted diet and aggressively diurese him with Lasix. We will rule him out for myocardial ischemia by serial enzymes. I will arrange for repeat 2D echocardiogram with color Doppler and spectral flow Doppler studies. 3. Ischemic heart disease. He is having intermittent episodes of chest pain. His EKG did not demonstrate any acute changes. We will rule him out for myocardial ischemia by serial enzymes. 4. Essential hypertension. Blood pressure is stable. We will continue his current regimen of medications. Given his comorbid conditions and clinical presentation, I believe that admission to [facility] is reasonable. At this point in time, I anticipate that he will be in the hospital for at least 2 midnights and I will therefore place him in inpatient status. We will continue Eliquis which will also serve as deep venous thrombosis prophylaxis. cc: Nisha Mohan MD
[2018-10-19] MEDS: DUONEB (A & A) INH SCH ×2 (03:42→10:24)
[2018-10-19] MEDS: SOLU-MEDROL IV SCH (06:02)
[2018-10-19] MEDS ORDERED: LINZESS PO SCH (07:00)
[2018-10-19] MEDS: COREG PO SCH (08:54)
[2018-10-19] MEDS: IMDUR PO SCH (08:54)
[2018-10-19] MEDS: LASIX IV SCH (08:54)
[2018-10-19] MEDS: RANEXA PO SCH (08:54)
[2018-10-19] MEDS: XANAX PO SCH (08:54)
[2018-10-19] MEDS: KLOR-CON PO SCH (08:54)
[2018-10-19] MEDS: ELIQUIS PO SCH (08:55)
[2018-10-19] MEDS: ZYLOPRIM PO SCH (08:55)
[2018-10-19] MEDS: LEXAPRO PO SCH (08:55)
[2018-10-19] MEDS ORDERED: FLOMAX PO SCH (09:00)
[2018-10-19] MEDS: SYMBICORT 160/4.5 MICROGM INHALER INH SCH (10:41)
[2018-10-19 12:43] VITALS: BP 139/95
== END 2018-10-19 13:38 | disposition home health service (06) | DRG 190 ==
LOC: ED 15:56 → EDIPHOLD 19:14 → 4N 21:00
PROVIDERS: ADMIT Internal Medicine; ATTEND Internal Medicine
CPT/HCPCS: 71010; 71045; 80048; 82550; 83880; 84484; 85027; 93005; 93306; 94640; 94761; 99285; A9270; C8929; J1940; J2930; Q9957

== ENCOUNTER 2018-11-15 19:37 | Inpatient (IN) ==
--- NOTE | 2018-11-15 20:39 | Diag Imaging Result Doc PS360 ---
EXAM: KNEE 3 VIEWS LEFT HISTORY: severe left knee pain TECHNIQUE: Left knee three views COMPARISON: None. FINDINGS: Marked medial joint space narrowing. Prominent bone spurring to the femoral condyles and tibial plateau. No fracture. No dislocation. IMPRESSION: Severe arthritis. Electronically signed by Mike Jacobson 11/15/2018 8:37 PM
[2018-11-15] MEDS ORDERED: SODIUM CHLORIDE 0.9% INJ PRN (22:28)
[2018-11-15] MEDS ORDERED: TYLENOL PO PRN (22:28)
[2018-11-15] MEDS ORDERED: PHENERGAN IV PRN (22:28)
[2018-11-15] MEDS: XANAX PO SCH (22:41)
[2018-11-15] MEDS: ELIQUIS PO SCH (22:42)
[2018-11-15] MEDS: TYLENOL PO PRN (22:42)
[2018-11-15 22:49] LABS: HEMATOCRIT 40.4 % (42.0-52.0); HEMOGLOBIN 13.3 g/dL (14.0-18.0); MCH 28.2 PG (27-31); MCHC 32.9 g/dL (33-37); MCV 85.6 FL (81-99); MPV 10.3 FL (7.4-10.4); RBC 4.72 XMIL (4.7-6.1); RDW 16.9 % (11.5-14.5); WBC 7.94 X1000 (4.8-10.8)
[2018-11-15 23:01] LABS: CALCIUM 8.9 mg/dL (8.8-10.2); POTASSIUM 3.8 mmol/L (3.5-5.1)
[2018-11-15] MEDS: DUONEB (A & A) INH SCH (23:26)
[2018-11-16] MEDS: DUONEB (A & A) INH SCH ×4 (04:12→22:55)
[2018-11-16] MEDS: TYLENOL PO PRN (06:44)
[2018-11-16] MEDS ORDERED: NS 250 ML IV ONE (08:45)
[2018-11-16] MEDS ORDERED: DEMADEX PO SCH (09:00)
[2018-11-16] MEDS ORDERED: MEDROL DOSEPAK PO SCH (10:00)
[2018-11-16] MEDS: SYMBICORT 160/4.5 MICROGM INHALER INH SCH ×2 (10:12→22:55)
[2018-11-16] MEDS: ZYLOPRIM PO SCH (10:31)
[2018-11-16] MEDS: LEXAPRO PO SCH (10:31)
[2018-11-16] MEDS: ELIQUIS PO SCH ×2 (10:31→21:13)
[2018-11-16] MEDS: NORCO-5 PO PRN ×2 (10:32→21:14)
[2018-11-16] MEDS: RANEXA PO SCH ×2 (10:38→21:13)
[2018-11-16] MEDS: FLOMAX PO SCH (10:38)
[2018-11-16] MEDS: ZEBETA PO SCH (10:39)
--- NOTE | 2018-11-16 11:25 | PROGRESS NOTE ---
DATE: 11/16/2018 SUBJECTIVE: Mr. Solitario has a history of paroxysmal atrial fibrillation. He remains in normal sinus rhythm. His heart rate is well controlled in the 70s and 80s on low dose Zebeta. He has had no obvious bleeding complications secondary to the Eliquis. Over the past week he has fallen 6 to 8 times. He will fall without warning. He has not lost consciousness with any of these episodes. He has difficulty getting up. His family has tried to help him get up but they had to call EMT last night and brought him to the E.R. He has not been aware of any fast heart rates or palpitations. He does have orthostatic hypotension from autonomic dysfunction and is on Northera. He is breathing comfortably this morning. He denies any PND or orthopnea. His most recent echo showed an EF of 25% to 30%. He does have a defibrillator. He continues with persistent left knee pain. He is unable to put any weight on the knee. X-rays of the left knee showed severe degenerative arthritic changes but no obvious fractures. OBJECTIVE: Vital Signs: Temperature is 97.6, pulse 82, and BP 115/76. CV: Regular rate and rhythm. Lungs: Distant breath sounds with increased period of expiration. Abdomen: Soft and nontender with active bowel sounds. ASSESSMENT AND PLAN: 1. Recurrent falls. He has fallen severe times and when he falls he is unable to get up without assistance. Certainly he has autonomic dysfunction. We will monitor his blood pressure and increase the Northera to 300 mg t.i.d. We will continue to monitor him for episodes of atrial fibrillation with rapid ventricular response. We will consult Physical Therapy for evaluation. Given the frequent falls he is at increased risk for fractures. He is having increasing difficulty performing activities of daily living at home and we believe that he would benefit from short-term rehab. We will consult Organizational Psychologist for short-term rehab placement. The family is interested in [facility]. He was recently hospitalized with acute congestive heart failure at [facility] from 11/04/2018 to 11/11/2018 but he did not have a physical therapy evaluation during that hospitalization. 2. Severe degenerative arthritis of the left knee. We will consult Orthopaedics for further evaluation. He really cannot take anti-inflammatories as he is on low dose Eliquis. 3. Acute renal failure. His creatinine was 2 and baseline creatinine is 1.1. I will hold the Demadex. We will cautiously give him 250 mL of fluid over 5 hours given the cardiomyopathy. I will recheck a BMP in the morning. cc: Nisha Mohan MD
[2018-11-16 11:37] LABS: BODY FLUID SOURCE SYNOVIAL FLUID
[2018-11-16 11:38] LABS: MONOS 40 %; POLYS 60 %; WBC BF 9461 /cumm
[2018-11-16] MEDS: PATIENT'S OWN MED PO SCH ×3 (13:10→17:51)
[2018-11-16] MEDS: MEDROL PO SCH ×3 (13:11→21:14)
--- NOTE | 2018-11-16 16:19 | HISTORY AND PHYSICAL ---
CHIEF COMPLAINT: Frequent falls. HISTORY OF PRESENT ILLNESS: Mr. Jonah Solitario is a 73-year-old gentleman who is well known to me. He has a history of multiple medical problems including orthostatic hypotension secondary to autonomic dysfunction, severe 3-vessel ischemic heart disease, chronic congestive heart failure secondary to systolic dysfunction with an EF of 25 to 30 percent, BPH, mixed hyperlipidemia, recurrent gout, chronic low back pain secondary to lumbar spinal stenosis with neurogenic claudication, depression, COPD and noncompliance. Over the past several days he has had frequent falls. He will suddenly fall and not be able to get up. He requires the assistance of family to help get him up. It takes a great deal of effort even for his family to help get him up once he has fallen. He fell twice yesterday and was with complaint of left knee pain. He had pain and swelling in the left knee. He was unable to perform any weightbearing exercises on that knee. An x-ray of the left knee demonstrates severe degenerative arthritic changes. He has a history of paroxysmal atrial fibrillation. He remains in normal sinus rhythm. He has been unaware of any palpitations or his heart racing away with him. Family reports that his blood pressure has been low at times. He has had systolic blood pressure readings in the low 100s. He denies any chest pain or other anginal equivalents. PAST MEDICAL HISTORY: As above. PAST SURGICAL HISTORY: Cholecystectomy, placement of pacemaker and defibrillator, coronary artery bypass graft surgery. ALLERGIES: No known drug allergies. FAMILY: Noncontributory. SOCIAL HISTORY: He is a former smoker. He denies the consumption of alcoholic beverages. MEDICATIONS: Northera 600 mg b.i.d., DuoNeb nebulized q.6 hours, Zyloprim 100 mg daily, Xanax 0.5 mg at night, Zebeta 2.5 mg daily, Symbicort 160/4.5 two puffs b.i.d., Lexapro 10 mg daily, [place] 7.5 one q.12 hours p.r.n. pain, pravastatin 40 mg at night, Ranexa 1000 mg b.i.d., Flomax 0.4 mg b.i.d. REVIEW OF SYSTEMS: He denies any recent weight gain or weight loss.HEENT: He wears glasses. He is hard of hearing. CV: No chest pain, palpitations or anginal equivalents. Pulmonary: No shortness of breath, PND, orthopnea. GI: No reflux, dysphagia, melena, hematochezia, change in bowel habits, rectal bleeding. Endocrine: No polyuria, no polydipsia. No cold or heat intolerance. Skin: No easy bruisability. : He has occasional episodes of nocturia. Neuro: No migraines or seizures. This is a chronically ill-appearing 73-year-old gentleman no apparent distress. He is afebrile. Vital signs are stable. HEENT: Fundi with arteriolar wall thickening. Pupils equal, round, reactive to light. Extraocular eye movements intact. Neck: Supple. No masses, JVD or bruits. CV: Regular rate and rhythm. Lungs: Clear. Abdomen: Soft, nontender with active bowel sounds. No hepatosplenomegaly. No abdominal bruits. Extremities: Without edema. Skin: No palpable purpura. and Rectal: Deferred. Neuro: Nonfocal. ASSESSMENT AND PLAN: 1. Frequent falls. I suspect that the etiology of the falls is multifactorial. He has autonomic dysfunction and orthostatic hypertension. We will increase the Northera to 1 capsule t.i.d. and monitor his blood pressure closely. I suspect there is some degree of volume depletion. I will hold the Demadex. His creatinine has jumped from 1.1 to 2.0. I will give him a small fluid bolus and follow his kidney function. Certainly he could be having short runs of atrial fibrillation with rapid ventricular response. We will place him on telemetry. Given he has had a previous stroke we will consult physical therapy. He has fallen multiple times. I do not think it is safe for him to return home safely. I believe that he would benefit from short-term rehab. 2. Paroxysmal atrial fibrillation. We will place him on telemetry. We will continue Eliquis 5 mg b.i.d. and low-dose Zebeta. We will check cardiac enzymes. 3. Chronic obstructive pulmonary disease. We will continue Symbicort 160/4.5 two puffs b.i.d. and DuoNeb nebulizer treatments. 4. Ischemic heart disease. He has severe 3-vessel disease. We will continue Eliquis, lipid management and Ranexa. 5. Severe degenerative arthritis of the knee. We will consult physical therapy. We will ask 1 of the orthopedic surgeons to see him. 6. Acute renal failure. We will cautiously give him a bolus of normal saline. Hold the Demadex and recheck a BMP. Given the comorbid conditions and clinical presentation, I believe admission to the hospital is necessary. I anticipate he will be in the hospital for at least 2 midnights and I will therefore place him in inpatient status. We will continue Eliquis for DVT prophylaxis. cc: Nisha Mohan MD
[2018-11-16] MEDS: PRAVACHOL PO SCH (21:13)
[2018-11-16] MEDS: XANAX PO SCH (21:13)
--- NOTE | 2018-11-16 22:32 | ORTHOPAEDICS CONSULTATION ---
DATE: 11/16/2018 CHIEF COMPLAINT: Left knee pain. HISTORY OF PRESENT ILLNESS: A 73-year-old male presented to the hospital. He was admitted with severe left knee pain by his slipman. He reports no known history of trauma. He states it just started hurting over the past 24 to 48 hours. He reports history of gout in the past. He reports difficulty bending and straightening it. He denies any fever or chills. PAST MEDICAL HISTORY: Significant for COPD, heart failure, hypertension, bronchitis, anemia, gastritis, and a history of gout. ALLERGIES: No known allergies. MEDICATIONS: Include Xanax, Pravachol, albuterol, Zyloprim, Eliquis, Zebeta, Lexapro, hydrocodone currently for pain and Flomax. SOCIAL HISTORY: He is normally ambulatory. He reports no significant previous history of problems with the knee. PHYSICAL EXAMINATION: A 2 to 3+ effusion. There is no redness or warmth. There is good stability about the knee. He has relatively good range of motion from 0 to 90 degrees. There is no drainage. Compartments are all soft. D-DIMER: X-rays reviewed show severe DJD of the knee. 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 PLAN: We will aspirate the knee and send this for culture, cell count and crystals just to evaluate for any type of inflammatory synovitis. I suspect he strained the knee and has just an osteoarthritis flare-up. He can be placed on a Medrol Dosepak for this. If everything is negative, he can be discharged home tomorrow, on outpatient followup. cc: MD Nisha Slaughter MD
--- NOTE | 2018-11-16 22:39 | OPERATIVE NOTE ---
PROCEDURE DATE: 11/16/2018 PREOPERATIVE DIAGNOSIS: Synovitis with effusion, left knee. POSTOPERATIVE DIAGNOSIS: Hemarthrosis, left knee. PROCEDURE: Aspiration, left knee. SURGEON: Julianna Cristina MD. PROCEDURE IN DETAIL: This 73-year-old male with painful synovitis and effusion left knee, presents for aspiration. Risks, benefits were discussed and he is willing to proceed. The knee was placed in straight position and the anterolateral aspect of the suprapatellar pouch prepped with 4 x 4 Betadine. After prep, an 18-gauge sterile needle with a 60 mL syringe was introduced into the joint. 60 mL of blood was evacuated from the joint, indicating heme-effusion. There was no purulence or signs of infection. Needle was removed without any continued bleeding and a Band- Aid applied. The specimen was sent to the laboratory for both cell count, cultures, Gram stain, and crystal analysis. He tolerated the procedure well without complication. cc: MD Nisha Slaughter MD
[2018-11-17] MEDS: DUONEB (A & A) INH SCH ×4 (04:06→21:53)
[2018-11-17 08:15] LABS: CALCIUM 9.2 mg/dL (8.8-10.2); CREATININE 1.5 mg/dL (0.7-1.2); POTASSIUM 3.8 mmol/L (3.5-5.1)
[2018-11-17] MEDS: MEDROL PO SCH ×4 (09:50→20:00)
[2018-11-17] MEDS: FLOMAX PO SCH (09:51)
[2018-11-17] MEDS: LEXAPRO PO SCH (09:51)
[2018-11-17] MEDS: ELIQUIS PO SCH ×2 (09:51→20:00)
[2018-11-17] MEDS: RANEXA PO SCH ×2 (09:51→20:03)
[2018-11-17] MEDS: ZYLOPRIM PO SCH (09:51)
[2018-11-17] MEDS: ZEBETA PO SCH (09:51)
[2018-11-17] MEDS: PATIENT'S OWN MED PO SCH ×3 (10:28→17:00)
--- NOTE | 2018-11-17 10:30 | PROGRESS NOTE ---
DATE: 11/17/2018 SUBJECTIVE: Mr. Solitario was admitted to [facility] with frequent falls. He has underlying orthostatic hypotension due to autonomic dysfunction. We had increased the Northera to 1 capsule t.i.d. Blood pressure is stable. He denies any episodes of dizziness with changes of position. He denies any chest pain, palpitations, or anginal equivalents. He reports that he is breathing comfortably. He has underlying COPD. He is maintaining O2 saturations of 99 to 100 percent on room air. Dr. Cristina evacuated a large amount of fluid from the left knee. Culture and diagnostic testing on the synovial fluid was unremarkable. He was noted to have a hemarthrosis of the left knee. OBJECTIVE: Temperature 97.3 degrees, pulse 80, respirations 20, BP 139/94. CV: Regular rate and rhythm. Lungs: Distant breath sounds with increased period of expiration. Abdomen: Soft, nontender, with active bowel sounds. Extremities: There is 1+ pitting edema. ASSESSMENT AND PLAN: 1. Acute renal failure. We will continue to hold the Demadex. I will cautiously give him 250 mL of normal saline over 5 hours. Creatinine has dropped from 2.0 to 1.5. I will recheck a BMP in the morning. 2. Frequent falls. I suspect that the etiology of the frequent falls is the autonomic dysfunction and volume depletion. He has remained in sinus rhythm. He has had no bursts of rapid atrial fibrillation. We will cautiously give him fluids. Hold the Demadex. Continue the Northera. We will continue physical therapy. Hopefully, we will be able to arrange for a rehab bed for the patient. 3. Ischemic heart disease. Clinically, he is asymptomatic. We will continue Eliquis, Ranexa, and aggressive lipid management. cc: Nisha Mohan MD
[2018-11-17] MEDS: SYMBICORT 160/4.5 MICROGM INHALER INH SCH ×2 (11:06→21:52)
[2018-11-17] MEDS: NS 250 ML IV SCH ×3 (12:46→20:03)
[2018-11-17] MEDS: NORCO-5 PO PRN (16:59)
[2018-11-17] MEDS: XANAX PO SCH (20:00)
[2018-11-17] MEDS: PRAVACHOL PO SCH (20:00)
[2018-11-18] MEDS: NS 250 ML IV SCH ×6 (01:28→23:59)
[2018-11-18] MEDS: DUONEB (A & A) INH SCH ×4 (04:02→21:45)
[2018-11-18 07:12] LABS: CREATININE 1.4 mg/dL (0.7-1.2); POTASSIUM 3.9 mmol/L (3.5-5.1)
[2018-11-18] MEDS: PATIENT'S OWN MED PO SCH ×3 (08:28→16:25)
[2018-11-18] MEDS: FLOMAX PO SCH (08:29)
[2018-11-18] MEDS: ZYLOPRIM PO SCH (08:29)
[2018-11-18] MEDS: NORCO-5 PO PRN ×3 (08:29→22:51)
[2018-11-18] MEDS: LEXAPRO PO SCH (08:29)
[2018-11-18] MEDS: RANEXA PO SCH ×2 (08:29→21:21)
[2018-11-18] MEDS: ZEBETA PO SCH (08:29)
[2018-11-18] MEDS: MEDROL PO SCH ×4 (08:29→21:21)
[2018-11-18] MEDS: ELIQUIS PO SCH ×2 (08:29→21:21)
[2018-11-18] MEDS ORDERED: NS 250 ML IV SCH (09:30)
--- NOTE | 2018-11-18 09:41 | PROGRESS NOTE ---
DATE: 11/18/2018 SUBJECTIVE: Mr. Jonah Solitario has a history of chronic orthostatic hypotension secondary to autonomic dysfunction. His blood pressure sitting was 155/90, blood pressure standing was 140/90. He reports that he has some dizziness with changes of position. He has had no further falls. He remains in normal sinus rhythm. Heart rate has been in the 60s and 70s on Zebeta. He denies any chest pain, palpitations, or anginal equivalents. OBJECTIVE: Vital signs: Temperature 98.6 degrees, pulse 82, blood pressure 155/90 sitting, 140/90 standing. CARDIOVASCULAR: Regular rate and rhythm. Lungs: Clear. Abdomen: Soft, nontender, with active bowel sounds. ASSESSMENT AND PLAN: 1. Syncope and frequent falls secondary to autonomic dysfunction. I will reduce the Zebeta to 2.5 mg daily. We will continue Northera 1 capsule t.i.d. We will continue to increase activity and physical therapy. We are awaiting short-term rehab placement. 2. Acute renal failure. Renal function has improved. Creatinine has dropped from 2 to 1.4. We will continue gentle rehydration and continue to hold the Demadex. I will check a BMP in the morning. cc: Nisha Mohan MD
[2018-11-18] MEDS: SYMBICORT 160/4.5 MICROGM INHALER INH SCH ×2 (11:08→21:45)
[2018-11-18] MEDS: XANAX PO SCH (21:21)
[2018-11-18] MEDS: PRAVACHOL PO SCH (21:21)
[2018-11-19] MEDS: DUONEB (A & A) INH SCH ×2 (03:42→11:11)
[2018-11-19] MEDS: NS 250 ML IV SCH ×2 (04:59→10:16)
[2018-11-19 08:27] LABS: CALCIUM 8.4 mg/dL (8.8-10.2); CREATININE 1.4 mg/dL (0.7-1.2); POTASSIUM 4.4 mmol/L (3.5-5.1)
[2018-11-19] MEDS ORDERED: ZEBETA PO SCH (09:00)
[2018-11-19] MEDS: ELIQUIS PO SCH (10:16)
[2018-11-19] MEDS: FLOMAX PO SCH (10:16)
[2018-11-19] MEDS: ZYLOPRIM PO SCH (10:17)
[2018-11-19] MEDS: MEDROL PO SCH (10:17)
[2018-11-19] MEDS: RANEXA PO SCH (10:17)
[2018-11-19] MEDS: LEXAPRO PO SCH (10:17)
[2018-11-19] MEDS: SYMBICORT 160/4.5 MICROGM INHALER INH SCH (11:12)
[2018-11-19] MEDS ORDERED: NORCO-5 PO PRN (11:51)
[2018-11-19 12:06] VITALS: BP 141/102
--- NOTE | 2018-11-29 16:29 | DISCHARGE SUMMARY ---
ADMISSION DATE: 11/15/2018 DISCHARGE DATE: 11/19/2018 DISCHARGE DIAGNOSES: 1. Syncope and collapse. 2. Orthostatic hypotension secondary to autonomic dysfunction. 3. Acute renal failure. 4. Ischemic heart disease. 5. Chronic congestive heart failure secondary to systolic dysfunction. 6. Essential hypertension. 7. Mild cognitive impairment. 8. Lumbar spinal stenosis with neurogenic claudication. 9. Medical noncompliance. DISCHARGE INSTRUCTIONS: 1. Return to clinic in 2 weeks to see me, DR. Jason Mohan, in anticipation of a transition of care visit. 2. Healthy heart diet. 3. Activity as tolerated. 4. Medications: [*] INCOMPLETE REPORT, DICTATION ENDS HERE cc: Nisha Mohan MD
--- NOTE | 2018-11-29 21:12 | DISCHARGE SUMMARY ---
ADMISSION DATE: 11/15/2018 DISCHARGE DATE: 11/19/2018 DISCHARGE DIAGNOSES: 1. Syncopal episode. 2. Chronic orthostatic hypotension secondary to autonomic dysfunction. 3. Acute renal failure. 4. Hemarthrosis of the left knee. 5. Essential hypertension. 6. History of tobacco abuse. 7. Chronic COPD. 8. Chronic congestive heart failure secondary to systolic dysfunction. 9. Ischemic heart disease with chronic stable angina. 10. Lumbar spinal stenosis with neurogenic claudication. 11. Medical noncompliance. 12. Previous embolic cerebrovascular accident. DISCHARGE INSTRUCTIONS: 1. The patient will return to clinic in 2 weeks to see me, Dr. Jason Mohan. 2. Activity as tolerated. 3. Healthy heart diet. 4. Medications. Pravastatin 40 mg at bedtime, Zebeta 2.5 mg daily, Lexapro 10 mg daily, allopurinol 100 mg daily, Eliquis 5 mg b.i.d., DuoNeb nebulizer treatments q.6 hours, Symbicort 160/4.5 two puffs b.i.d., Xanax 0.5 mg at night, Lexapro 10 mg daily, Ranexa 1000 mg b.i.d., Flomax 0.4 mg daily, Northera 300 mg t.i.d., [place] 5 one q.6 hours p.r.n. pain, Demadex 20 mg daily. This is a chronically ill-appearing 73-year-old gentleman no apparent distress. He is afebrile. Vital signs are stable. CV: Regular rate and rhythm. Lungs: Clear. Abdomen: Soft, nontender with active bowel sounds. Mr. Joanh Solitario was admitted to [facility] for evaluation of syncopal episodes. He had multiple syncopal episodes and had fallen several times. On arrival to the ER he was orthostatic, apparently he had not been taking the Northera as previously prescribed. He had been taking large doses of Demadex, we held the Demadex. We cautiously gave him small amounts of fluid in boluses of 250 mL over the course of his hospitalization. We resumed the Northera 300 mg t.i.d. The orthostasis resolved. He has a longstanding history of paroxysmal atrial fibrillation. He remained in normal sinus rhythm throughout his hospitalization. He was continued on Eliquis 5 mg b.i.d. to reduce the risk of stroke. Because of the orthostasis we reduced the Zebeta to 2.5 mg daily. At the time of admission he was noted to be in acute renal failure. His baseline creatinine is around 1.0, his creatinine was 2.0. We stopped all anti-inflammatories. We cautiously gave him small boluses of fluid over the hospitalization, we held the Demadex. His creatinine dropped back down to 1.3 at the time of discharge. We will continue to hold anti-inflammatory agents. We will resume a lower dose of Demadex given his underlying heart disease and congestive heart failure. When he fell he injured his left knee. He had marked swelling and pain in the left knee which was exacerbated by weightbearing exercises. An x-ray of the left knee demonstrates no obvious fractures or bony abnormalities. Dr. Cristina saw him in consultation and miki off a large amount of fluid from the knee. Studies on the synovial fluid demonstrated no infection. He was felt to have had a hemarthrosis of the left knee. We will make arrangements for him to have physical therapy at home. I would like the social workers to assess home needs. I would like the nursing staff to monitor his blood pressure sitting and standing as well as assessing his compliance with medications. I would like physical therapy to see him at least 3 times per week to assist with ambulation and improving mobility. Having reached maximum hospital benefit, the patient was discharged in stable condition. cc: Nisha Mohan MD
== END 2018-11-19 13:21 | disposition home health service (06) | DRG 57 ==
LOC: SUPCPDRO → ED 19:37 → 3N 21:10
PROVIDERS: ADMIT Internal Medicine; ATTEND Internal Medicine
CPT/HCPCS: 73562; 80048; 82550; 84484; 85027; 87070; 87075; 87205; 89051; 94640; 94761; 97162; 97530; 99285; A9270; J7050; J7509

== ENCOUNTER 2018-12-26 20:00 | Inpatient (IN) ==
[2018-12-26] MEDS ORDERED: ASPIRIN PO ONE (20:20)
[2018-12-26] MEDS ORDERED: ASPIRIN PR ONE (20:20)
[2018-12-26 20:50] LABS: BASO# 0.03 X1000 (0.0-0.2); BASO% 0.6 % (0.0-0.8); EOS# 0.21 X1000 (0.0-0.7); HEMATOCRIT 35.8 % (42.0-52.0); HEMOGLOBIN 12.1 g/dL (14.0-18.0); IMM GRAN# 0.02 X1000 (0.0-0.04); IMM GRAN% 0.4 % (0.0-0.5); LYMPH# 1.69 X1000 (1.2-3.4); LYMPH% 32.6 % (20.5-51.1); MCH 29.4 PG (27-31); MCHC 33.8 g/dL (33-37); MCV 86.9 FL (81-99); MONO# 0.84 X1000 (0.11-0.59); MONO% 16.2 % (1.7-9.3); MPV 9.9 FL (7.4-10.4); NEUT% 46.2 % (42.2-75.2); PLT 186 X1000 (130-400); RBC 4.12 XMIL (4.7-6.1); RDW 17.3 % (11.5-14.5); WBC 5.19 X1000 (4.8-10.8)
--- NOTE | 2018-12-26 20:59 | Diag Imaging Result Doc PS360 ---
EXAM: CHEST-2 VIEWS 12/26/2018 HISTORY: SOB TECHNIQUE: PA and lateral chest COMMENT: There is cardiomegaly. Considering differences in technique there has been no significant change since 12/16/2018. IMPRESSION: Cardiomegaly. Electronically signed by Remi Johnson 12/26/2018 8:57 PM
[2018-12-26 21:07] LABS: INR 1.17; PROTIME 15.8 Seconds (11.0-16.0)
[2018-12-26 21:08] LABS: PTT 36.9 Seconds (22.3-41.8)
[2018-12-26 21:16] LABS: ALB/GLOB RATIO 1.5; ALBUMIN 3.8 g/dL (3.5-5.0); CALCIUM 9.9 mg/dL (8.8-10.2); CREATININE 1.4 mg/dL (0.7-1.2); POTASSIUM 4.3 mmol/L (3.5-5.1); TOTAL BILIRUBIN 0.79 mg/dL (0.20-1.00); TOTAL PROTEIN 6.3 g/dL (6.3-8.3)
[2018-12-26] MEDS ORDERED: LASIX IV ONE (21:56)
[2018-12-26 23:45] LABS: ALLEN TEST YES; BE -0.5 mmoll (-3.0-3.0); BLOOD TYPE ARTERIAL; HCO3-(ACT) 24.5 mmoll (20.0-26.0); METHB 0.6 % (0.0-1.5); O2(CT) 16.3 mL/dL (15.0-23.0); O2HB 97.4 % (95.0-99.0); PCO2(98.6) 27 mmHg (35-45); PO2(98.6) 100 mmHg (60-100); SAMPLE BLOOD; SAO2 100.1 % (95.0-100.0); THB 11.8 g/dL (11.5-17.4); pH(98.6) 7.51 (7.35-7.45)
[2018-12-26 23:46] LABS: MODALITY ROOM AIR
--- NOTE | 2018-12-27 01:04 | PROVIDER DOCUMENTATION ---
This chart was entered by Indu Ramirez Scribe, acting as scribe for Braeden Almanzar MD. HPI-Respiratory General - General Chief Complaint: Shortness of Breath Stated Complaint: SOB, "FEELING BAD" Time Seen by Provider: 12/26/18 20:16 Source: patient Allergies/Adverse Reactions: Patient Allergies Allergy/AdvReac Type Severity Reaction Status Date / Time No Known Allergies Allergy Verified 12/26/18 20:09 Home Medications: Home Medication List Medication Instructions Recorded Confirmed Last Taken Type Escitalopram [Lexapro] 10 mg PO DAILY 01/16/17 12/16/18 12/16/18 History Allopurinol 100 mg PO DAILY 02/25/17 12/16/18 12/16/18 History Apixaban [Eliquis] 5 mg PO BID 12/21/17 12/16/18 12/16/18 History PRAVAstatin [Pravachol] 40 mg PO QHS #30 tab 07/02/18 12/16/18 1 Day Ago Rx ~12/15/18 Alprazolam [Xanax] 0.5 mg PO QHS #60 tab 10/19/18 12/16/18 1 Day Ago Rx ~12/15/18 Ranolazine E.r. [Ranexa] 1,000 mg PO BID 11/15/18 12/16/18 12/16/18 History Tamsulosin [Flomax] 0.4 mg PO DAILY 11/15/18 12/16/18 12/16/18 History Bisoprolol [Zebeta] 2.5 mg PO QAM #0 tab 11/19/18 12/16/18 12/16/18 Rx Donepezil HCl 5 mg PO QHS 12/16/18 12/16/18 1 Day Ago History ~12/15/18 Droxidopa [Northera] 1 cap PO BID 12/16/18 12/16/18 12/16/18 History Torsemide 20 mg PO QAM 12/16/18 12/16/18 12/16/18 History - History of Present Illness-Resp Nature of Presenting Problem: Pt is 73/M presenting to ED w/ SOB, orthopnea 2 pillow, HERNANDEZ and swelling in ankles. He was just released from [place] yesterday for CHF exacerbation. Quality of Pain: reports: none Severity in ED: reports: moderate Onset/Duration: reports: 24 hours ago Timing: reports: still present Exposure: reports: other (chf) Cough Quality/Degree: reports: no cough Episode Frequency: chronic episodes Current Respiratory Medication Therapy: Initiated none Modifying Factors: improves with: nothing Associated Symptoms: denies: chest pain/soreness Review of Systems - Adult - REVIEW OF SYSTEMS - ADULT Constitutional: reports: no symptoms reported Eyes: reports: no symptoms reported Ears, Nose, Mouth & Throat: reports: no symptoms reported Cardiovascular: reports: see HPI Respiratory: reports: see HPI Gastrointestinal: reports: no symptoms reported Genitourinary: reports: no symptoms reported Past History - Adult - PAST MEDICAL HISTORY-ADULT Review of Records: reports: Old Records Reviewed Major Childhood Illnesses: reports: denies history Cardiovascular: reports: A-Fib, CAD, CHF, HTN, hyperlipidemia, pacemaker Respiratory: reports: COPD Gastrointestinal: reports: denies history, other (constipation; gall stones) Obstetrical/Gynecological: reports: denies history Genitourinary: reports: denies history Musculoskeletal: reports: denies history Neurological: reports: CVA Psychiatric: reports: denies history, anxiety Endocrine/Immune: reports: denies history Other Conditions: reports: denies history - PRIOR SURGERIES/PROCEDURES Surgical/Procedure History: reports: CABG, cholecystectomy, pacemaker - PRIOR HOSPITALIZATIONS Prior Hospitalizations: reports: none - IMMUNIZATION STATUS Childhood Immunizations: See Nurse Assessment Flu Vaccine: See Nurse Assessment - FAMILY HISTORY Family History: reviewed, not pertinent Physical Exam-General - CONSTITUTIONAL General Appearance: alert, mild distress - EYES Eyes: PERRL/EOMI - HEAD, EARS, NOSE, MOUTH & THROAT HENMT: normocephalic/atraumatic, moist mucous membranes - NECK Neck: full range of motion, supple, other ((+) JVD) - RESPIRATORY Respiratory: lungs clear, normal breath sounds - CARDIOVASCULAR Cardiovascular: normal peripheral pulses, regular rate, rhythm - GASTROINTESTINAL (ABDOMEN) Abdominal Exam: normal bowel sounds, non tender, soft - MUSCULOSKELETAL Extremity: non-tender, pedal edema (+1 up to mid craig B/L) - NEUROLOGIC Neurologic: grossly normal - PSYCHIATRIC Psych/Mental Status: oriented x 3 Progress - PLAN OF CARE/RESULTS Progress/Plan/Lab Results: Vital Signs - 8 hr 12/26/18 20:02 12/26/18 20:19 12/26/18 20:20 Temperature 97.8 F 97.9 F Pulse Rate 91 H 81 86 Respiratory Rate 20 20 27 H Blood Pressure 134/90 131/90 O2 Sat by Pulse Oximetry 96 98 12/26/18 20:21 12/26/18 20:30 12/26/18 20:33 Temperature Pulse Rate 73 82 87 Respiratory Rate 27 H 25 H 22 Blood Pressure 131/90 141/101 O2 Sat by Pulse Oximetry 97 98 99 12/26/18 20:34 12/26/18 20:49 12/26/18 20:50 Temperature Pulse Rate 70 91 H 85 Respiratory Rate 17 28 H 29 H Blood Pressure 141/101 O2 Sat by Pulse Oximetry 100 98 12/26/18 21:00 12/26/18 21:10 12/26/18 21:20 Temperature Pulse Rate 88 85 87 Respiratory Rate 19 23 Blood Pressure O2 Sat by Pulse Oximetry 98 99 98 12/26/18 21:30 12/26/18 21:40 12/26/18 21:50 Temperature Pulse Rate 92 H 84 82 Respiratory Rate 13 22 23 Blood Pressure O2 Sat by Pulse Oximetry 97 100 99 12/26/18 22:00 12/26/18 22:10 12/26/18 22:20 Temperature Pulse Rate 87 86 86 Respiratory Rate 21 28 H Blood Pressure O2 Sat by Pulse Oximetry 99 100 100 12/26/18 22:30 12/26/18 22:40 12/26/18 22:50 Temperature Pulse Rate 87 89 Respiratory Rate 23 24 20 Blood Pressure O2 Sat by Pulse Oximetry 91 L 100 99 12/26/18 23:00 12/26/18 23:10 12/26/18 23:20 Temperature Pulse Rate 92 H 88 89 Respiratory Rate 30 H 29 H 24 Blood Pressure O2 Sat by Pulse Oximetry 100 96 99 12/26/18 23:30 12/26/18 23:40 12/26/18 23:50 Temperature Pulse Rate 92 H 92 H 86 Respiratory Rate 33 H 32 H 28 H Blood Pressure O2 Sat by Pulse Oximetry 99 97 98 12/27/18 00:00 12/27/18 00:10 12/27/18 00:20 Temperature Pulse Rate 87 95 H 84 Respiratory Rate 47 H 20 29 H Blood Pressure O2 Sat by Pulse Oximetry 97 100 12/27/18 00:24 Temperature Pulse Rate 86 Respiratory Rate 18 Blood Pressure 172/136 O2 Sat by Pulse Oximetry 100 Laboratory Results - last 24 hr 12/26/18 12/26/18 12/26/18 20:25 20:25 20:25 WBC 5.19 RBC 4.12 L Hgb 12.1 L Hct 35.8 L MCV 86.9 MCH 29.4 MCHC 33.8 RDW Std Deviation 17.3 H Plt Count 186 MPV 9.9 Immature Gran % (Auto) 0.4 Neut % (Auto) 46.2 Lymph % (Auto) 32.6 Sauk % (Auto) 16.2 H Eos % (Auto) 4.0 Baso % (Auto) 0.6 Immature Gran # (Auto) 0.02 Neut # (Auto) 2.40 Lymph # (Auto) 1.69 Sauk # (Auto) 0.84 H Eos # (Auto) 0.21 Baso # (Auto) 0.03 PT INR PTT (Actin FS) D-Dimer, Quantitative Specimen Type Sample Site pH pCO2 pO2 HCO3 Base Excess Oxyhemoglobin ABG O2 Sat (Calculated) ABG O2 Saturation ABG Carboxyhemoglobin ABG Methemoglobin Carlos Eduardo Test A-a O2 Difference Total Hemoglobin Lactate Blood Gas Modality FiO2 % Sodium 141 Potassium 4.3 Chloride 108 H Carbon Dioxide 22 L Anion Gap 11 BUN 16 Creatinine 1.4 H Estimated GFR/1.73 m2 60 BUN/Creatinine Ratio 11 Glucose 104 Calculated Osmolality 283 Calcium 9.9 Total Bilirubin 0.79 AST 19 ALT 13 Alkaline Phosphatase 61 Creatine Kinase 43 Troponin T Hwu-[id number]-Umnlsametwk Pept 68082 H Total Protein 6.3 Albumin 3.8 Globulin 2.5 Albumin/Globulin Ratio 1.5 12/26/18 12/26/18 12/26/18 20:25 20:25 20:25 WBC RBC Hgb Hct MCV MCH MCHC RDW Std Deviation Plt Count MPV Immature Gran % (Auto) Neut % (Auto) Lymph % (Auto) Sauk % (Auto) Eos % (Auto) Baso % (Auto) Immature Gran # (Auto) Neut # (Auto) Lymph # (Auto) Sauk # (Auto) Eos # (Auto) Baso # (Auto) PT 15.8 INR 1.17 PTT (Actin FS) 36.9 D-Dimer, Quantitative 0.42 Specimen Type Sample Site pH pCO2 pO2 HCO3 Base Excess Oxyhemoglobin ABG O2 Sat (Calculated) ABG O2 Saturation ABG Carboxyhemoglobin ABG Methemoglobin Carlos Eduardo Test A-a O2 Difference Total Hemoglobin Lactate Blood Gas Modality FiO2 % Sodium Potassium Chloride Carbon Dioxide Anion Gap BUN Creatinine Estimated GFR/1.73 m2 BUN/Creatinine Ratio Glucose Calculated Osmolality Calcium Total Bilirubin AST ALT Alkaline Phosphatase Creatine Kinase Troponin T < 0.010 [id number]-Xrjojcvgfhg Pept Total Protein Albumin Globulin Albumin/Globulin Ratio 12/26/18 23:35 WBC RBC Hgb Hct MCV MCH MCHC RDW Std Deviation Plt Count MPV Immature Gran % (Auto) Neut % (Auto) Lymph % (Auto) Sauk % (Auto) Eos % (Auto) Baso % (Auto) Immature Gran # (Auto) Neut # (Auto) Lymph # (Auto) Sauk # (Auto) Eos # (Auto) Baso # (Auto) PT INR PTT (Actin FS) D-Dimer, Quantitative Specimen Type ARTERIAL Sample Site R RADIAL pH 7.51 H pCO2 27 L pO2 100 HCO3 24.5 Base Excess -0.5 Oxyhemoglobin 97.4 ABG O2 Sat (Calculated) 16.3 ABG O2 Saturation 100.1 H ABG Carboxyhemoglobin 2.00 ABG Methemoglobin 0.6 Carlos Eduardo Test YES A-a O2 Difference 16.0 Total Hemoglobin 11.8 Lactate 0.80 Blood Gas Modality ROOM AIR FiO2 % 21.0 Sodium Potassium Chloride Carbon Dioxide Anion Gap BUN Creatinine Estimated GFR/1.73 m2 BUN/Creatinine Ratio Glucose Calculated Osmolality Calcium Total Bilirubin AST ALT Alkaline Phosphatase Creatine Kinase Troponin T Awr-Z-Mlideiuravu Pept Total Protein Albumin Globulin Albumin/Globulin Ratio Orders Category Date Time Status Cardiac Monitoring DIRECTED Care 12/26/18 20:21 Active Oxygen Therapy- ED Nursing DIRECTED Care 12/26/18 20:21 Active Saline Loc NOW Care 12/26/18 20:21 Active CHEST-2 VIEWS [RAD] Stat Exams 12/26/18 20:36 Completed ABG [RESP] Routine Lab 12/26/18 23:35 Completed CBC WITH ELECTRONIC DIFF [HEME] Stat Lab 12/26/18 20:25 Completed CK PROFILE [SP CHEM] Stat Lab 12/26/18 20:25 Completed COMPREHENSIVE METABOLIC PANEL [CHEM] Stat Lab 12/26/18 20:25 Completed D-DIMER [COAG] Stat Lab 12/26/18 20:25 Completed PRO B-NATRIURETIC PEPTIDE Stat Lab 12/26/18 20:25 Completed PROTIME WITH INR [COAG] Stat Lab 12/26/18 20:25 Completed PTT [COAG] Stat Lab 12/26/18 20:25 Completed TROPONIN T Stat Lab 12/26/18 20:25 Completed Aspirin Med 12/26/18 20:20 Discontinued 300 mg DE NOW ONE Aspirin Med 12/26/18 20:20 Discontinued 325 mg PO NOW ONE Furosemide [Lasix] Med 12/26/18 21:56 Discontinued 40 mg IV NOW ONE CP/SOB/Palp >45 yrs of Age Stat Oth 12/26/18 20:20 Ordered EKG [EKG] Stat Ther 12/26/18 20:21 Ordered Transfer/Admit Order [TRANSFER] Routine Transfer 12/27/18 00:25 Ordered BNP is elevated, pt has SOB, PE show fluid overload will admit for CHF exacerbation. Result Diagrams: 12/26/18 20:25 12/26/18 20:25 Departure - Departure Date of Disposition Decision: 12/27/18 Time of Disposition Decision: 00:20 DIAGNOSIS: CHF exacerbation Qualifiers: Heart failure type: unspecified Qualified Code(s): I50.9 - Heart failure, unspecified Disposition: ADMITTED INPATIENT 09 Certified Medical Emergency: Emergent Condition: Stable - Critical Care Note This patient required my direct & personal management of CC.: No Attestation - Physician/ HANNAH Attestation Patient care was provided by Advanced Practice Provider:: No The physician spent face to face time with patient:: Yes Advanced Practice Provider documentation review:: Supervising physician onsite and consulted in the evaluation and care of this patient. The physician did have a face to face encounter with the patient. This chart was documented by the indicated scribe, (Indu Ramirez Scribe) and accurately reflects the services I performed and decisions made by me, Braeden Dong MD, as attested by the provider's signature.
--- NOTE | 2018-12-27 02:25 | HISTORY AND PHYSICAL ---
PRIMARY CARE PHYSICIAN: Dr. Jason Mohan. CHIEF COMPLAINT: Shortness of breath. HISTORY OF PRESENTING ILLNESS: A 73-year-old male with a history of COPD on home oxygen, CHF, systolic dysfunction, hypertension, chronic atrial fibrillation, who had presented to emergency department with several days history of having worsening shortness of breath. The patient states that he was having difficulty breathing. He was evaluated in the emergency department. He was found to be in heart failure and subsequently he will require admission for further management. The patient is a poor historian. However, at time of my examination he denied any headache, fever, chills, chest pain, hemoptysis, melena, or weight changes, but complained of shortness of breath. PAST MEDICAL HISTORY: Includes CHF, systolic dysfunction, chronic kidney disease, coronary artery disease, COPD on home oxygen, hypertension, hyperlipidemia, chronic atrial fibrillation. PAST SURGICAL HISTORY: Pacemaker defibrillator and coronary bypass. ALLERGIES: No known drug allergies. CURRENT MEDICATIONS: Allopurinol 100 mg p.o. daily, Xanax 0.5 mg p.o. at bedtime, Eliquis 5 mg p.o. b.i.d., Zebeta 2.5 mg p.o. q.a.m., Aricept 5 mg p.o. at bedtime, droxidopa 300 mg p.o. b.i.d., Lexapro 10 mg p.o. daily, pravastatin 40 mg p.o. at bedtime, Ranexa 1000 mg p.o. b.i.d., tamsulosin 0.4 mg p.o. daily, torsemide 20 mg p.o. q.a.m. SOCIAL HISTORY: He is a former smoker. No history of alcohol or illicit drug use. FAMILY HISTORY: Positive for coronary artery disease in mother and father. REVIEW OF SYSTEMS: Fourteen point review of systems as listed in HPI. Other systems negative. PHYSICAL EXAMINATION: GENERAL: Cooperative, friendly male. He is resting more comfortably now. VITAL SIGNS: Temperature 97.9 degrees, pulse 85, respirations 27, blood pressure 131/90. HEENT: Atraumatic, normocephalic. Extraocular movements intact. PERRLA. NECK: No masses. CHEST: Bibasilar rales. CARDIOVASCULAR: Regular rate and rhythm. ABDOMEN: Soft, positive bowel sounds. EXTREMITIES: No edema. NEUROLOGIC: He is awake, alert, oriented x3. GENITOURINARY: No bladder distention. SKIN: Warm. LABORATORIES AND STUDIES: Sodium 141, potassium 4.3 chloride 108, CO2 is 22, BUN is 16, creatinine is 1.4, glucose 104. ProBNP is 15,534, troponin is 0.010. WBCs 5.19, hemoglobin 12.1, hematocrit 35.8, platelets 186,000. Chest x-ray shows cardiomegaly. ASSESSMENT: A 73-year-old male with a history of congestive heart failure, chronic kidney disease, chronic obstructive pulmonary disease, hypertension, chronic atrial fibrillation, who had presented to emergency department with several days history of worsening shortness of breath. He was evaluated in the emergency department. He was found to be in heart failure. He was given diuresis with Lasix and he will require admission for further management. 1. Acute on chronic congestive heart failure, systolic dysfunction. 2. Coronary artery disease. 3. Chronic obstructive pulmonary disease, on home oxygen. 4. Hypertension. 5. Chronic atrial fibrillation. PLAN: 1. We will admit patient to medical floor with telemetry. 2. Continue with gentle diuresis with Lasix. 3. Consult Cardiology. 4. Continue with DuoNebs p.r.n. and supplemental oxygen. 5. Monitor blood pressure closely. 6. We will continue to monitor patient on telemetry. 7. Patient is already on Eliquis and this will suffice for DVT prophylaxis. 8. We will continue to follow, and reassess and make further recommendation based on patient's clinical course. cc: Duane Aguilar MD
[2018-12-27] MEDS ORDERED: TYLENOL PO PRN (04:14)
--- NOTE | 2018-12-27 07:35 | EKG Report ---
Test Performed on : 12/26/2018 8:13:54 PM Test Reason : chest pain Blood Pressure : / mmHG Vent. Rate : 089 BPM Atrial Rate : 091 BPM P-R Int : 000 ms QRS Dur : 116 ms QT Int : 400 ms P-R-T Axes : 000 006 227 degrees QTc Int : 486 ms Atrial fibrillation. with premature ventricular or aberrantly conducted complexes. ST & T wave abnormality, consider inferolateral ischemia Prolonged QT Abnormal ECG When compared with ECG of 17-DEC-2018 00:32, (Unconfirmed) Atrial fibrillation. has replaced Wide QRS rhythm. Unconfirmed Result
[2018-12-27] MEDS: NORCO-7.5 PO PRN ×3 (07:57→21:10)
[2018-12-27] MEDS: LASIX IV SCH ×2 (11:26→21:10)
[2018-12-27] MEDS: ZEBETA PO SCH (11:26)
--- NOTE | 2018-12-27 13:13 | CARDIOLOGY CONSULTATION ---
DATE: 12/27/2018 HISTORY OF PRESENT ILLNESS: Cardiology was consulted for coronary artery disease, LV dysfunction, shortness of breath. A 73-year-old gentleman with COPD on home oxygen, history of systolic heart failure, hypertension, chronic atrial fibrillation. He comes in with complaints of increasing shortness of breath. He denies chest pain suggestive of angina. However, he did not complain of chest pain. His shortness of breath gradually worsened. He has not been compliant with his medications. He says he has been taking aspirin, Eliquis and another medicine. He does not complain of any palpitations. There is no dizziness or syncope. REVIEW OF SYSTEMS: General: A 14-point review of system was done. GI System: There is no history of nausea, vomiting, diarrhea. There is no history of hematemesis or melena. Central nervous system: No focal weakness to suggest a CVA, TIA. System: There is no dysuria or hematuria. PAST MEDICAL HISTORY: 1. Coronary artery bypass grafting with TAVERAS to left anterior descending artery. Jump graft to RCA, diagonal and circumflex. Last cardiac catheterization February 2017. 2. Renal insufficiency. 3. Hypertension. 4. History of nonsustained ventricular tachycardia. 5. Atrial fibrillation. 6. Heart failure. 7. Automatic implantable cardioverter defibrillator with [employer] defibrillator placement. HOME MEDICATIONS: What he says is he is on aspirin and Eliquis and another medicine he takes, but he has not been taking all other medications. SOCIAL HISTORY: He is a former smoker. No history of alcohol abuse. PHYSICAL EXAMINATION: Vital Signs: Blood pressure was 130/90. Cardiovascular System: Normal jugular venous pressure. There was no thyromegaly. There is no carotid bruit. First and second heart sounds were heard. Extremities: Examination of extremities revealed fine inspiratory scattered crepitations. Abdomen: Soft, nontender. There was no guarding or rigidity. Bowel sounds were heard. Central nervous system: Alert and was moving all 4 extremities. Examination of extremities revealed no pedal edema. HEENT: Atraumatic, normocephalic. Eyes: Pupils were equal and reacting to light. LABS AND X-RAYS: Sodium 141, potassium 4.3, BUN 16, creatinine 1.4, glucose 104. ProBNP 15,534. Troponin was negative. WBC 5.1, hemoglobin 12, hematocrit 35, platelet 186. Chest x-ray: Cardiomegaly. ASSESSMENT AND PLAN: 1. Mr. Jonah Solitario is a 73-year-old Afro-[place] gentleman with history of chronic obstructive pulmonary disease, systolic heart failure, hypertension, chronic atrial fibrillation, coronary artery bypass grafting, automatic implantable cardioverter defibrillator placement comes with complaints of increasing shortness of breath. Denies any chest pain. Currently patient is feeling better. He has been noncompliant with his medications. He has been started on his Zebeta at 5 mg. we will add Entresto one tablet to be taken twice daily. We will check a BMP in the morning. Continue with the Lasix 40 mg twice daily. 2. He has a [employer] device. We will have that interrogated. 3. History of atrial fibrillation. He is on Eliquis. We will continue the Eliquis and aspirin. 4. He has symptoms and history of dementia. 5. He had an echocardiogram done earlier this year, which was in 2018. He had any ejection fraction of 30% with global hypokinesis. Thank you for the consult. We will follow hospital course. cc: Mervin Carmona MD
[2018-12-27] MEDS: ENTRESTO 24 MG-26 MG TABLET PO SCH ×2 (14:13→21:11)
--- NOTE | 2018-12-27 17:34 | PROGRESS NOTE ---
DATE: 12/27/2018 SUBJECTIVE: Patient has no major complaints. He is breathing a bit better. OBJECTIVE: Vital Signs: Blood pressure is 186/98, heart rate 79, respiratory rate 16, temperature 97.9 degrees, 100% on room air. Cardiovascular: Regular rate and rhythm. Pulmonary: Bilateral breath sounds. Clear to auscultation. GI: Soft, nontender, nondistended. Bowel sounds are positive. LABORATORY DATA: White count 5, hemoglobin and hematocrit 12 and 35, platelets 186,000. ProBNP of 15,534. Creatinine of 1.4. ASSESSMENT AND PLAN: 1. Congestive heart failure exacerbation. Continue diuretics. He has been placed on Entresto. We will try to encourage as much compliance as possible and follow. 2. Acute on chronic renal failure. We will continue to monitor that. 3. Gout. Appears to be relatively well controlled. DISPOSITION: Pending her clinical status. I appreciate Cardiology input in managing this patient. cc: Fabien Randall MD
[2018-12-27] MEDS: ELIQUIS PO SCH (21:11)
[2018-12-27] MEDS: MELATONIN PO SCH (21:55)
[2018-12-28 07:39] LABS: BASO# 0.03 X1000 (0.0-0.2); BASO% 0.5 % (0.0-0.8); EOS% 3.7 % (0.0-10.0); HEMATOCRIT 40.6 % (42.0-52.0); HEMOGLOBIN 13.9 g/dL (14.0-18.0); IMM GRAN# 0.02 X1000 (0.0-0.04); IMM GRAN% 0.4 % (0.0-0.5); LYMPH# 1.75 X1000 (1.2-3.4); LYMPH% 32.1 % (20.5-51.1); MCH 29.6 PG (27-31); MCHC 34.2 g/dL (33-37); MCV 86.6 FL (81-99); MONO# 0.79 X1000 (0.11-0.59); MONO% 14.5 % (1.7-9.3); MPV 10.3 FL (7.4-10.4); NEUT# 2.67 X1000 (1.4-6.5); NEUT% 48.8 % (42.2-75.2); PLT 218 X1000 (130-400); RBC 4.69 XMIL (4.7-6.1); RDW 17.3 % (11.5-14.5); WBC 5.46 X1000 (4.8-10.8)
[2018-12-28 08:11] LABS: CALCIUM 9.5 mg/dL (8.8-10.2); CREATININE 1.5 mg/dL (0.7-1.2); POTASSIUM 3.8 mmol/L (3.5-5.1)
[2018-12-28] MEDS: ZEBETA PO SCH (09:16)
[2018-12-28] MEDS: ENTRESTO 24 MG-26 MG TABLET PO SCH ×2 (09:17→20:00)
[2018-12-28] MEDS: NORCO-7.5 PO PRN (09:17)
[2018-12-28] MEDS: ELIQUIS PO SCH ×2 (09:17→19:59)
[2018-12-28] MEDS: LASIX IV SCH ×3 (09:17→22:19)
[2018-12-28] MEDS ORDERED: LACTULOSE PO ONE (11:14)
[2018-12-28] MEDS: MIRALAX PO SCH (11:47)
--- NOTE | 2018-12-28 15:57 | PROGRESS NOTE ---
DATE: 12/28/2018 SUBJECTIVE: Patient has no major complaints. OBJECTIVE: Vital Signs: Blood pressure is 125/90, heart rate of 80, respiratory rate 18, temperature 97.7 degrees, 97% on room air. Cardiovascular: Regular rate and rhythm. Pulmonary: Bilateral breath sounds, clear to auscultation. GI: Soft, nontender, nondistended. Bowel sounds were positive. LABORATORY DATA: White count is 5, hemoglobin and hematocrit 13 and 40, platelets 218,000. Creatinine 1.5. PROBLEM LIST: 1. Acute systolic congestive heart failure exacerbation. He is on diuretics. He is on Entresto. Overall, he seems improved. Chest x-ray has been ordered for tomorrow. 2. Hypertension for which he has not been very compliant. Blood pressure overall is improved. Continue his current medications and follow. 3. Constipation. We have initiated a bowel regimen. DISPOSITION: Pending his clinical status hopefully home in the next 1 to 2 days. cc: Fabien Randall MD
[2018-12-28] MEDS: ARICEPT PO SCH (19:59)
[2018-12-28] MEDS: DEPAKOTE PO SCH (19:59)
[2018-12-28] MEDS: RANEXA PO SCH (20:00)
[2018-12-28] MEDS: MELATONIN PO SCH (20:00)
[2018-12-28] MEDS: PRAVACHOL PO SCH (20:00)
[2018-12-28] MEDS ORDERED: ELIQUIS PO SCH (21:00)
[2018-12-29] MEDS: XANAX PO SCH ×2 (00:29→23:03)
[2018-12-29] MEDS ORDERED: NS 500 ML IV ONE (02:11)
[2018-12-29 07:03] LABS: BASO# 0.02 X1000 (0.0-0.2); BASO% 0.4 % (0.0-0.8); EOS# 0.16 X1000 (0.0-0.7); HEMATOCRIT 37.9 % (42.0-52.0); HEMOGLOBIN 13.1 g/dL (14.0-18.0); LYMPH# 1.78 X1000 (1.2-3.4); LYMPH% 33.9 % (20.5-51.1); MCH 29.9 PG (27-31); MCHC 34.6 g/dL (33-37); MCV 86.5 FL (81-99); MONO# 0.91 X1000 (0.11-0.59); MONO% 17.3 % (1.7-9.3); NEUT# 2.38 X1000 (1.4-6.5); NEUT% 45.4 % (42.2-75.2); PLT 218 X1000 (130-400); RBC 4.38 XMIL (4.7-6.1); RDW 17.4 % (11.5-14.5); WBC 5.25 X1000 (4.8-10.8)
[2018-12-29 07:32] LABS: CALCIUM 9.2 mg/dL (8.8-10.2); CREATININE 1.8 mg/dL (0.7-1.2); MAGNESIUM 1.8 mg/dL (1.5-2.7); POTASSIUM 3.3 mmol/L (3.5-5.1)
[2018-12-29] MEDS ORDERED: FLOMAX PO SCH (09:00)
[2018-12-29] MEDS: ZYLOPRIM PO SCH (10:00)
[2018-12-29] MEDS: ZEBETA PO SCH (10:00)
[2018-12-29] MEDS: ELIQUIS PO SCH ×2 (10:00→21:50)
[2018-12-29] MEDS: ENTRESTO 24 MG-26 MG TABLET PO SCH (10:00)
[2018-12-29] MEDS: RANEXA PO SCH ×2 (10:00→21:50)
[2018-12-29] MEDS: MIRALAX PO SCH (10:00)
[2018-12-29] MEDS: DEPAKOTE PO SCH ×2 (10:15→21:50)
[2018-12-29] MEDS: LASIX IV SCH (10:15)
[2018-12-29] MEDS: LEXAPRO PO SCH (11:01)
[2018-12-29] MEDS ORDERED: KLOR-CON PO ONE (13:14)
--- NOTE | 2018-12-29 15:17 | Diag Imaging Result Doc PS360 ---
EXAM: CHEST-2 VIEWS 12/29/2018 HISTORY: chf TECHNIQUE: PA and lateral chest COMMENT: There is cardiomegaly. There is a nodular opacity demonstrated between the anterior second and third ribs in the mid lung field on the right side which is not as well demonstrated on 12/16/2018 on the previous examination of 12/26/2018. It is probably located in the superior segment of the lower lobe. Compared to 05/10/2018 the nodular opacity on the right was present previously and has not changed significantly. The inspiration is less optimal than on 12/26/2018 otherwise are has been no significant change. IMPRESSION: Cardiomegaly. Right lower lobe pulmonary nodule, stable. Electronically signed by Remi Johnson 12/29/2018 3:14 PM
--- NOTE | 2018-12-29 20:49 | PROGRESS NOTE ---
DATE: 12/29/2018 SUBJECTIVE: He has had a couple of episodes where his blood pressures have bottomed out, and he feels diaphoretic, etc. His blood pressures dropped into the 90s. This happened last night, and I guess it also happened this afternoon. OBJECTIVE: Vital Signs: Blood pressure currently 97/58, heart rate of 80, respiratory rate of 18, temperature 98.1 degrees. Cardiovascular: Regular rate and rhythm. Pulmonary: Bilateral breath sounds. Clear to auscultation. GI: Soft, nontender, nondistended. Bowel sounds are positive. LABORATORY DATA: White count is 5, hemoglobin and hematocrit 13 and 37, platelets 218,000. Potassium 3.1. Creatinine has bumped up to 1.8. PROBLEM LIST: 1. Acute congestive heart failure exacerbation. He may have over-diuresed him a bit. I am going to switch his Lasix to p.o. and start tomorrow p.o. 2. I have adjusted his Entresto. I have held his Ranexa. When he came in, he was very hypertensive. I do not know; he just kind of varies a bit. DISPOSITION: 1. Pending his clinical status. I anticipate discharge in the next couple of days. 2. Hypokalemia. We will supplement and follow. 3. Atrial fibrillation appears to be rate controlled. 4. Again, disposition, anticipate discharge hopefully tomorrow. cc: Fabien Randall MD
[2018-12-29] MEDS: ARICEPT PO SCH (21:50)
[2018-12-29] MEDS: MELATONIN PO SCH (21:50)
[2018-12-29] MEDS: PRAVACHOL PO SCH (21:50)
[2018-12-30] MEDS: NORCO-7.5 PO PRN ×3 (01:32→21:24)
[2018-12-30 07:12] LABS: BASO# 0.02 X1000 (0.0-0.2); BASO% 0.4 % (0.0-0.8); EOS# 0.22 X1000 (0.0-0.7); EOS% 4.1 % (0.0-10.0); HEMATOCRIT 37.7 % (42.0-52.0); LYMPH# 2.12 X1000 (1.2-3.4); LYMPH% 39.8 % (20.5-51.1); MCH 29.8 PG (27-31); MCHC 34.5 g/dL (33-37); MCV 86.5 FL (81-99); MONO# 0.96 X1000 (0.11-0.59); MPV 10.3 FL (7.4-10.4); NEUT% 37.7 % (42.2-75.2); PLT 209 X1000 (130-400); RBC 4.36 XMIL (4.7-6.1); RDW 17.4 % (11.5-14.5); WBC 5.32 X1000 (4.8-10.8)
[2018-12-30 07:56] LABS: CALCIUM 8.4 mg/dL (8.8-10.2); POTASSIUM 3.8 mmol/L (3.5-5.1)
[2018-12-30] MEDS ORDERED: ENTRESTO 24 MG-26 MG TABLET PO SCH (09:00)
[2018-12-30] MEDS ORDERED: LASIX PO SCH (09:00)
[2018-12-30] MEDS ORDERED: NS 500 ML IV SCH (09:30)
[2018-12-30] MEDS: DEPAKOTE PO SCH ×2 (10:33→21:25)
[2018-12-30] MEDS: RANEXA PO SCH (10:34)
[2018-12-30] MEDS: ELIQUIS PO SCH ×2 (10:34→21:27)
[2018-12-30] MEDS: MIRALAX PO SCH (10:34)
[2018-12-30] MEDS: LEXAPRO PO SCH (10:34)
[2018-12-30] MEDS: ZYLOPRIM PO SCH (10:34)
--- NOTE | 2018-12-30 14:52 | PROGRESS NOTE ---
DATE: 12/30/2018 SUBJECTIVE: The patient has no major complaints. He still feels very dizzy when he walks. OBJECTIVE: Blood pressure is 90/76, heart rate 81, respiratory rate 18, temperature 97.8 degrees and 100% on room air.Cardiovascular: Regular rate and rhythm. Pulmonary: Bilateral breath sounds clear to auscultation. GI: Soft, nontender, and nondistended. Bowel sounds are positive. LABORATORY DATA: White count 5. Hemoglobin and hematocrit 13, 37, and platelets were 209,000. Creatinine is up to 2. PROBLEM LIST: 1. Orthostatic hypotension likely related to over diuretics or her blood pressure medications. Hopefully, not any bleeding. There is no evidence of bleeding. We will hold his medications, give him a little bit of hydration. We cut back on medicines excessively yesterday, but still has symptoms so we will continue to follow. 2. CAD, chronic angina. He is on Ranexa, which we will keep our eye on for that as well. 3. Atrial fibrillation appears to be rate controlled. 4. Acute on chronic kidney injury, likely related to hypotension and nephrotoxic medications. We will continue to monitor. DISPOSITION: Pending clinical status, but we will stabilize that before he goes out of here, specifically blood pressure. Cardiovascular status. cc: Fabien Randall MD
[2018-12-30] MEDS: PRAVACHOL PO SCH (21:26)
[2018-12-30] MEDS: XANAX PO SCH (21:26)
[2018-12-30] MEDS: ARICEPT PO SCH (21:28)
[2018-12-30] MEDS: MELATONIN PO SCH (21:28)
[2018-12-31 00:32] LABS: UR CREAT RANDOM 196.1 mg/dL (14-26); UR PROT RANDOM 16.5 mg/dL
[2018-12-31 08:12] LABS: HEMOGLOBIN 12.2 g/dL (14.0-18.0); RBC 4.09 XMIL (4.7-6.1); WBC 4.95 X1000 (4.8-10.8)
[2018-12-31 08:13] LABS: HEMATOCRIT 36.8 % (42.0-52.0); MCH 29.8 PG (27-31); MCHC 33.2 g/dL (33-37); MPV 10.2 FL (7.4-10.4); RDW 17.8 % (11.5-14.5)
[2018-12-31 08:18] LABS: ALBUMIN 3.2 g/dL (3.5-5.0); CALCIUM 8.9 mg/dL (8.8-10.2); CREATININE 1.6 mg/dL (0.7-1.2); PHOSPHORUS 3.3 mg/dL (2.7-4.5); POTASSIUM 3.6 mmol/L (3.5-5.1)
[2018-12-31] MEDS ORDERED: ZOFRAN IV PRN (09:27)
[2018-12-31] MEDS: ELIQUIS PO SCH ×2 (09:45→22:08)
[2018-12-31] MEDS: MIRALAX PO SCH (09:45)
[2018-12-31] MEDS: DEPAKOTE PO SCH ×2 (09:45→22:09)
[2018-12-31] MEDS: ZYLOPRIM PO SCH (09:46)
[2018-12-31] MEDS: LEXAPRO PO SCH (09:46)
--- NOTE | 2018-12-31 10:31 | Diag Imaging Result Doc PS360 ---
EXAM: ABDOMEN FLAT/UPRIGHT 12/31/2018 HISTORY: constipation TECHNIQUE: Flat and upright abdomen COMMENT: There is stool throughout the colon. The stomach and small bowel are not distended. There are atherosclerotic calcifications present in both kidneys. The possibility of nephrolithiasis on the left cannot be excluded. There is no evidence organomegaly or mass. IMPRESSION: Constipation. Electronically signed by Remi Johnson 12/31/2018 10:29 AM
[2018-12-31] MEDS ORDERED: LACTULOSE PO ONE (12:05)
[2018-12-31] MEDS ORDERED: SENOKOT PO ONE (12:06)
--- NOTE | 2018-12-31 12:46 | PROGRESS NOTE ---
DATE: 12/31/2018 SUBJECTIVE: The patient states that he still feels dizzy whenever he tries to stand up or sit up. He denies having chest pain or shortness of breath. He also reports that he has not had a bowel movement in 2 days. OBJECTIVE: Vital Signs: Temperature 97.8 degrees, blood pressure 118/82, heart rate 79, respirations 20, O2 saturations 100% on room air. Intake and Output: Intake 720, output 1 L. General: This is a chronically ill-appearing elderly male, lying in bed in no acute distress. Heart: S1, S2 normal. Regular rate and rhythm. Lungs: Equal air entry bilaterally. No crackles. No rales. Abdomen: Positive bowel sounds. Soft, nontender, nondistended. Extremities: No edema, no cyanosis. No calf tenderness. Neurologic: The patient is alert and oriented x3. DIAGNOSTIC STUDIES: White blood cell count 4.9, hemoglobin 12, hematocrit 36 platelets 203,000. Sodium 144, potassium 3.6, chloride 106, CO2 of 26, BUN 25, creatinine 1.6, glucose 86. Abdominal x-ray shows constipation. ASSESSMENT AND PLAN: 1. Orthostatic hypotension. We will check the patient's orthostatic vital signs. We will also consult with Physical Therapy and Occupational Therapy. 2. Atrial fibrillation. Continue on the current cardiac regimen. 3. Coronary artery disease status post coronary artery bypass graft. Continue on the current cardiac regimen. 4. Status post automatic implantable cardioverter device with an ejection fraction of 30%. Aware. 5. Chronic kidney disease. The patient's creatinine is improved today. We will continue to monitor closely. We will also check a renal ultrasound. cc: Michelle Ramon MD
[2018-12-31] MEDS ORDERED: MAGNESIUM SULFATE 2 GM/S.W.I. 2 GM/50 ML IVPB IV ONE (13:04)
--- NOTE | 2018-12-31 15:00 | Diag Imaging Result Doc PS360 ---
EXAM: US RENAL 2 (RETROPER) COMPLETE 12/31/2018 HISTORY: nicolas/arf TECHNIQUE: Renal ultrasound COMMENT: The kidneys are hyperechoic. The urinary bladder is not distended. There is no evidence of hydronephrosis. The right kidney is 10.9 x 5.2 x 5.5 cm the left is 11.3 x 5 x 5.3 cm. There is a an 8 mm cyst in the lower pole of the right kidney. There are multiple cysts on the left the largest measuring 3 cm in diameter in the upper pole. IMPRESSION: No evidence of hydronephrosis or mass. The possibility of medical renal disease cannot be excluded. Electronically signed by Remi Johnson 12/31/2018 2:58 PM
--- NOTE | 2018-12-31 21:53 | EKG Report ---
Test Performed on : 12/28/2018 05:51:56 AM Test Reason : afib Blood Pressure : / mmHG Vent. Rate : 083 BPM Atrial Rate : 089 BPM P-R Int : 000 ms QRS Dur : 156 ms QT Int : 478 ms P-R-T Axes : 000 259 065 degrees QTc Int : 561 ms Suspect arm lead reversal, interpretation assumes no reversal Ventricular-paced rhythm premature ventricular complexes. Abnormal ECG When compared with ECG of 26-DEC-2018 20:13, (Unconfirmed) Significant changes have occurred Confirmed by Simon Ace MD ([id number]) on 12/31/2018 9:53:37 PM
[2018-12-31] MEDS: LACTULOSE PO SCH (22:05)
[2018-12-31] MEDS: XANAX PO SCH (22:06)
[2018-12-31] MEDS: SENOKOT PO SCH (22:07)
[2018-12-31] MEDS: MELATONIN PO SCH (22:08)
[2018-12-31] MEDS: PRAVACHOL PO SCH (22:09)
[2018-12-31] MEDS: ARICEPT PO SCH (22:10)
[2018-12-31] MEDS: NORCO-7.5 PO PRN (22:14)
[2019-01-01 07:08] LABS: HEMATOCRIT 37.4 % (42.0-52.0); HEMOGLOBIN 12.3 g/dL (14.0-18.0); MCH 29.8 PG (27-31); MCHC 32.9 g/dL (33-37); MCV 90.6 FL (81-99); MPV 10.1 FL (7.4-10.4); RBC 4.13 XMIL (4.7-6.1); RDW 17.8 % (11.5-14.5); WBC 4.67 X1000 (4.8-10.8)
[2019-01-01 07:30] LABS: ALBUMIN 3.4 g/dL (3.5-5.0); CALCIUM 8.9 mg/dL (8.8-10.2); CREATININE 1.5 mg/dL (0.7-1.2); PHOSPHORUS 3.7 mg/dL (2.7-4.5)
[2019-01-01] MEDS: NORCO-7.5 PO PRN ×2 (08:02→17:06)
[2019-01-01] MEDS: LACTULOSE PO SCH ×2 (08:41→20:05)
[2019-01-01] MEDS: DEPAKOTE PO SCH ×2 (08:43→20:07)
[2019-01-01] MEDS: ELIQUIS PO SCH ×2 (08:44→20:07)
[2019-01-01] MEDS: MIRALAX PO SCH (08:45)
[2019-01-01] MEDS: SENOKOT PO SCH ×2 (08:47→20:05)
[2019-01-01] MEDS: ZYLOPRIM PO SCH (08:48)
[2019-01-01] MEDS ORDERED: ENTRESTO 24 MG-26 MG TABLET PO SCH (11:30)
--- NOTE | 2019-01-01 11:52 | Diag Imaging Result Doc PS360 ---
EXAM: CHEST-PORTABLE HISTORY: dyspnea TECHNIQUE: Chest single view COMPARISON: 12/29/2018 FINDINGS: The lungs are well expanded. The heart is enlarged. There are sternal wires and a left-sided pacemaker The vessels are not distended. There are no infiltrates. No effusion identified. IMPRESSION: Cardiomegaly Electronically signed by Mike Jacobson 01/01/2019 11:50 AM
[2019-01-01] MEDS: ZEBETA PO SCH (13:29)
[2019-01-01] MEDS: ASPIRIN PO SCH (13:31)
[2019-01-01] MEDS: ARICEPT PO SCH (20:05)
[2019-01-01] MEDS: XANAX PO SCH (20:06)
[2019-01-01] MEDS: PRAVACHOL PO SCH (20:06)
[2019-01-01] MEDS: MELATONIN PO SCH (20:07)
--- NOTE | 2019-01-01 21:02 | PROGRESS NOTE ---
DATE: 01/01/2019 SUBJECTIVE: The patient is resting comfortably in bed. He has no complaints. OBJECTIVE: Vital Signs: Temperature 97.4 degrees, blood pressure 124/83, heart rate 80, respirations 18, O2 saturation 100% on room air. General: This is a chronically ill-appearing, elderly male, lying in bed in no acute distress. Heart: S1, S2, normal. Lungs: Clear to auscultation bilaterally. Abdomen: Positive bowel sounds. Soft, nontender, nondistended. Extremities: No edema, no cyanosis, no calf tenderness. Neurologic: The patient is alert and oriented x3. LABS: BUN 28, creatinine 1.5. Hemoglobin 12, hematocrit 37, platelets 201,000. ASSESSMENT AND PLAN: 1. Orthostatic hypotension, improved. The patient's cardiac medications are being adjusted by Dr. Carmona. We will continue with physical therapy to mobilize the patient. The patient would likely benefit from home health services upon discharge. 2. Atrial fibrillation. The patient is rate controlled. 3. Coronary artery disease, status post coronary artery bypass graft. Continue on the current cardiac medications. 4. Status post automatic implantable cardiac defibrillator, with an ejection fraction of 30%. Aware. 5. Chronic kidney disease, stable. 6. Disposition. Continue with physical therapy. cc: Michelle Ramon MD
[2019-01-02] MEDS: NORCO-7.5 PO PRN ×3 (00:02→16:29)
[2019-01-02 08:00] LABS: ALBUMIN 3.5 g/dL (3.5-5.0); CALCIUM 9.2 mg/dL (8.8-10.2); CREATININE 1.4 mg/dL (0.7-1.2); PHOSPHORUS 3.5 mg/dL (2.7-4.5); POTASSIUM 4.2 mmol/L (3.5-5.1)
[2019-01-02] MEDS: ZYLOPRIM PO SCH (09:12)
[2019-01-02] MEDS: ASPIRIN PO SCH (09:12)
[2019-01-02] MEDS: LACTULOSE PO SCH ×2 (09:13→23:39)
[2019-01-02] MEDS: MIRALAX PO SCH (09:13)
[2019-01-02] MEDS: ELIQUIS PO SCH ×2 (09:13→20:31)
[2019-01-02] MEDS: DEPAKOTE PO SCH ×2 (09:13→20:31)
[2019-01-02] MEDS: ZEBETA PO SCH (09:13)
[2019-01-02] MEDS: SENOKOT PO SCH ×2 (09:13→20:33)
[2019-01-02 09:59] LABS: HEMATOCRIT 37.3 % (42.0-52.0); HEMOGLOBIN 12.3 g/dL (14.0-18.0); MPV 9.5 FL (7.4-10.4); RBC 4.1 XMIL (4.7-6.1); RDW 17.8 % (11.5-14.5); WBC 4.73 X1000 (4.8-10.8)
--- NOTE | 2019-01-02 18:43 | PROGRESS NOTE ---
DATE: 01/02/2019 SUBJECTIVE: The patient is resting comfortably in bed. No acute events noted overnight. He states that he walked with Physical Therapy yesterday, OBJECTIVE: Vital signs: Temperature 97.8 degrees, blood pressure 123/74, heart rate 86, respirations 16, O2 saturation is 100% on room air. General: This is a chronically ill-appearing elderly male lying in bed in no acute distress. Heart: S1 and S2 normal. Lungs: Clear to auscultation bilaterally. Abdomen: Positive bowel sounds. Soft, nontender, nondistended. Extremities: No edema, no cyanosis, no calf tenderness. Neurological: The patient is alert and oriented x3. LABORATORY DATA: Hemoglobin 12, hematocrit 37, platelets 171, sodium 140, potassium 4.2, chloride 105, CO2 27, BUN 22, creatinine 1.4, glucose 90. ASSESSMENT AND PLAN: 1. Atrial fibrillation. Continue on the current cardiac medications. 2. Orthostatic hypotension.Resolved. 3. Coronary artery disease status post coronary artery bypass graft. Continue on the current medications. 4. Acute kidney injury on chronic kidney disease. Improved. 5. Status post AICD with an ejection fraction of 30%. Stable. DISPOSITION: Continue with physical therapy. cc: Michelle aRmon MD [facility]
[2019-01-02] MEDS: XANAX PO SCH (20:32)
[2019-01-02] MEDS: ARICEPT PO SCH (20:32)
[2019-01-02] MEDS: MELATONIN PO SCH (20:33)
[2019-01-02] MEDS: PRAVACHOL PO SCH (20:33)
[2019-01-03] MEDS: NORCO-7.5 PO PRN ×2 (04:29→11:06)
[2019-01-03 08:39] LABS: ALBUMIN 3.4 g/dL (3.5-5.0); CALCIUM 9.3 mg/dL (8.8-10.2); CREATININE 1.4 mg/dL (0.7-1.2); PHOSPHORUS 3.3 mg/dL (2.7-4.5); POTASSIUM 4.3 mmol/L (3.5-5.1)
[2019-01-03] MEDS: SENOKOT PO SCH (10:57)
[2019-01-03] MEDS: ZYLOPRIM PO SCH (10:57)
[2019-01-03] MEDS: ZEBETA PO SCH (10:57)
[2019-01-03] MEDS: MIRALAX PO SCH (10:57)
[2019-01-03] MEDS: ASPIRIN PO SCH (10:57)
[2019-01-03] MEDS: ELIQUIS PO SCH (10:58)
[2019-01-03] MEDS: DEPAKOTE PO SCH (10:58)
[2019-01-03] MEDS: LACTULOSE PO SCH (10:58)
[2019-01-03 11:50] VITALS: BP 143/100
--- NOTE | 2019-01-10 21:22 | DISCHARGE SUMMARY ---
ADMISSION DATE: 12/27/2018 DISCHARGE DATE: 01/03/2019 FINAL DISCHARGE DIAGNOSES: 1. Acute on chronic systolic congestive heart failure exacerbation. 2. Chronic atrial fibrillation. 3. Chronic obstructive pulmonary disease. 4. Ischemic cardiomyopathy status post AICD placement. 5. Hypertension. 6. Medical noncompliance. CONSULTATIONS: Cardiology consultation with Dr. Carmona. HOSPITAL COURSE: Mr. Solitario is a 74-year-old male with a history of multiple medical problems who presented to the ER with a chief complaint of shortness of breath. On admission, the patient was noted to have volume overload on exam. Also his ProBNP was elevated at 15,534. The patient was admitted to the hospitalist service and started on diuretic therapy. Cardiology was consulted, given the patient's extensive cardiac history. The patient also has a [employer] device that was interrogated during this hospital stay. Adjustments were made to the patient's antihypertensives and the patient was counseled extensively about the importance of compliance with his medication regimen. The patient was seen by Physical Therapy during the hospitalization and he was able to ambulate without any difficulty. The patient continued to improve clinically and was ultimately cleared for discharge home. DISCHARGE MEDICATIONS: 1. Zebeta 5 mg p.o. daily. 2. Lexapro 10 mg p.o. daily. 3. Allopurinol 100 mg p.o. daily. 4. Eliquis 5 mg p.o. twice daily. 5. Pravachol 40 mg p.o. at bedtime. 6. Xanax 0.5 mg p.o. at bedtime. 7. Flomax 0.4 mg p.o. daily. 8. Ranexa 1000 mg p.o. twice daily. 9. Depakote ER 250 mg p.o. twice daily. 10.Vitamin D2, 50,000 units p.o. once every week. 11.Aricept 5 mg p.o. at bedtime. 12.Effexor XR 37.5 mg p.o. at bedtime. 13.Northera 300 mg p.o. 3 times daily. DISCHARGE DIET: Low sodium, low cholesterol diet. DISCHARGE ACTIVITY: As tolerated. FOLLOWUP INSTRUCTIONS: The patient will follow up with Dr. Carmona in 1 to 2 weeks. cc: Michelle Ramon MD
== END 2019-01-03 15:59 | disposition home health service (06) | DRG 291 ==
LOC: ED 20:00 → SUATTDRO 12-27 00:52 → 3N 12-27 00:52
PROVIDERS: ATTEND Internal Medicine
CPT/HCPCS: 71010; 71020; 71045; 71046; 74019; 74020; 76770; 80048; 80053; 80069; 82550; 82570; 82805; 82948; 83735; 83880; 84156; 84300; 84484; 85025; 85027; 85379; 85610; 85730; 93005; 93010; 96374; 97162; 97165; 97530; 99285; A9270; J1940; J2405; J3475; J7040; XXXXX

== ENCOUNTER 2019-03-20 18:52 | Inpatient (IN) ==
[2019-03-20 21:14] LABS: BASO# 0.01 X1000 (0.0-0.2); BASO% 0.2 % (0.0-0.8); EOS# 0.13 X1000 (0.0-0.7); EOS% 2.9 % (0.0-10.0); HEMATOCRIT 40.3 % (42.0-52.0); HEMOGLOBIN 13.8 g/dL (14.0-18.0); LYMPH# 1.39 X1000 (1.2-3.4); LYMPH% 30.5 % (20.5-51.1); MCH 31.4 PG (27-31); MCHC 34.2 g/dL (33-37); MCV 91.8 FL (81-99); MONO# 0.65 X1000 (0.11-0.59); MONO% 14.3 % (1.7-9.3); MPV 9.5 FL (7.4-10.4); NEUT# 2.37 X1000 (1.4-6.5); NEUT% 52.1 % (42.2-75.2); PLT 162 X1000 (130-400); RBC 4.39 XMIL (4.7-6.1); RDW 14.4 % (11.5-14.5); WBC 4.55 X1000 (4.8-10.8)
--- NOTE | 2019-03-20 21:28 | Diag Imaging Result Doc PS360 ---
EXAM: CT HEAD W/O CONTRAST INDICATION: AMS TECHNIQUE: This exam was performed using automated exposure control, adjustment of mA or kV according to patient size, and/or use of iterative reconstruction technique. COMPARISON: 12/16/2018 FINDINGS: There is stable right frontoparietal encephalomalacia. There is no definite acute infarct given the limited sensitivity of CT versus MRI. There is no discrete intracranial mass, mass effect, or intracranial hemorrhage. The surrounding soft tissues and bony structures are essentially unremarkable. IMPRESSION: Stable encephalomalacia on the right. No definite acute intracranial pathology by CT. Electronically signed by Anson Cabrera 03/20/2019 9:25 PM
[2019-03-20 21:38] LABS: ALB/GLOB RATIO 1.4; ALBUMIN 3.9 g/dL (3.5-5.0); CALCIUM 9.3 mg/dL (8.8-10.2); CREATININE 2.1 mg/dL (0.7-1.2); POTASSIUM 3.7 mmol/L (3.5-5.1); TOTAL BILIRUBIN 1.1 mg/dL (0.20-1.00); TOTAL PROTEIN 6.7 g/dL (6.3-8.3)
--- NOTE | 2019-03-20 21:48 | Diag Imaging Result Doc PS360 ---
EXAM: ABDOMEN FLAT/UPRIGHT INDICATION: AMS TECHNIQUE: 2 views COMPARISON: 12/31/2018 FINDINGS: There is abundant stool seen throughout the colon suggesting possible mild to moderate constipation. There is no obstructive bowel pattern. There is no evidence of large volume free abdominal gas. Cholecystectomy clips are noted. IMPRESSION: Possible constipation. Electronically signed by Anson Cabrera 03/20/2019 9:45 PM
[2019-03-20] MEDS ORDERED: NS 500 ML IV ONE (22:09)
--- NOTE | 2019-03-20 22:13 | PROVIDER DOCUMENTATION ---
HPI-General Adult - General Chief Complaint: Nausea Stated Complaint: CONFUSION, EDEMA, CHF Time Seen by Provider: 03/20/19 19:38 Source: patient Allergies/Adverse Reactions: Patient Allergies Allergy/AdvReac Type Severity Reaction Status Date / Time No Known Allergies Allergy Verified 12/26/18 20:09 Home Medications: Home Medication List Medication Instructions Recorded Confirmed Last Taken Type Escitalopram [Lexapro] 10 mg PO DAILY 01/16/17 12/27/18 12/16/18 History Allopurinol 100 mg PO DAILY 02/25/17 01/24/19 12/16/18 History Apixaban [Eliquis] 5 mg PO BID 12/21/17 01/24/19 12/16/18 History PRAVAstatin [Pravachol] 40 mg PO QHS #30 tab 07/02/18 12/27/18 1 Day Ago Rx ~12/15/18 Alprazolam [Xanax] 0.5 mg PO QHS #60 tab 10/19/18 01/24/19 1 Day Ago Rx ~12/15/18 Ranolazine E.r. [Ranexa] 1,000 mg PO BID 11/15/18 12/27/18 12/16/18 History Tamsulosin [Flomax] 0.4 mg PO DAILY 11/15/18 12/27/18 12/16/18 History Divalproex E.r. [Depakote ER] 250 mg PO BID 12/27/18 01/24/19 Unknown History Donepezil [Aricept] 5 mg PO QHS 12/27/18 01/24/19 Unknown History Ergocalciferol (Vitamin D2) 50,000 unit PO DIRECTED 12/27/18 Unknown History [Vitamin D] Venlafaxine E.r. [Effexor Xr] 37.5 PO QHS 12/27/18 Unknown History Droxidopa [Northera] 300 mg PO TID 12/30/18 01/24/19 Unknown History Bisoprolol [Zebeta] 5 mg PO DAILY #30 tab 01/03/19 01/24/19 Unknown Rx - History of Present Illness -Gen Adult Nature of Presenting Problems: This is a 74yo male who presents with CC of nausea for the past three days. The patient reports that his last bowel movement was 3 days ago. The denies any vomiting, but does reports that he has had a decreased appetite. The patient reports associated symptoms of some shortness of breath and swelling and some lower left abdominal pain. The patient denied any blood in his stool, but did reports some dark stools. The patient does take chronic pain medication of Holcomb 5. Location of Pain/Injury: reports: abdomen Pain Radiation: reports: LLQ Associated Symptoms: reports: nausea. denies: fever/chills Review of Systems - Adult - REVIEW OF SYSTEMS - ADULT Constitutional: denies: fever Eyes: reports: other (no vision changes) Ears, Nose, Mouth & Throat: reports: other (bitter taste) Cardiovascular: denies: chest pain Respiratory: reports: shortness of breath Gastrointestinal: reports: abdominal pain, nausea. denies: rectal bleeding Genitourinary: reports: incontinence (chronic) Musculoskeletal: reports: back pain (chronic) Integumentary: reports: no symptoms reported Neurological: reports: no symptoms reported Psychiatric: reports: no symptoms reported Endocrine: reports: no symptoms reported Hematologic/Lymphatic: reports: no symptoms reported Allergic/Immunologic: reports: no symptoms reported Past History - Adult - PAST MEDICAL HISTORY-ADULT Review of Records: reports: Old Records Reviewed Major Childhood Illnesses: reports: denies history Cardiovascular: reports: A-Fib, CAD, CHF, HTN, hyperlipidemia, pacemaker Respiratory: reports: COPD Gastrointestinal: reports: denies history, other (constipation; gall stones) Obstetrical/Gynecological: reports: denies history Genitourinary: reports: incontinence Musculoskeletal: reports: denies history Neurological: reports: CVA Psychiatric: reports: denies history, anxiety Endocrine/Immune: reports: denies history Other Conditions: reports: denies history - PRIOR SURGERIES/PROCEDURES Surgical/Procedure History: reports: CABG, cholecystectomy, pacemaker - PRIOR HOSPITALIZATIONS Prior Hospitalizations: reports: none - IMMUNIZATION STATUS Childhood Immunizations: See Nurse Assessment Flu Vaccine: See Nurse Assessment - FAMILY HISTORY Family History: reviewed, not pertinent Physical Exam-General - PHYSICAL EXAM-ADULT Initial Vital Signs Reviewed: Yes - CONSTITUTIONAL General Appearance: appears well, alert, no apparent distress - EYES Eyes: negative: photophobia - HEAD, EARS, NOSE, MOUTH & THROAT HENMT: normocephalic/atraumatic (decreased RLL breath sounds, other lung dutta clear), moist mucous membranes - RESPIRATORY Respiratory: no respiratory distress, decreased breath sounds (RLL with slight decreased breath sounds, otherwise lungs all clear, no respiratory distress, on room air) - CARDIOVASCULAR Cardiovascular: regular rate, rhythm. negative: no edema (1+ LE edema) - GASTROINTESTINAL (ABDOMEN) Abdominal Exam: soft, tenderness (mild LLQ tenderness). negative: guarding - SKIN Integumentary: normal color - PSYCHIATRIC Psych/Mental Status: normal mood/affect, normal thought content, normal thought process Progress - PLAN OF CARE/RESULTS Progress/Plan/Lab Results: Vital Signs - 8 hr 03/20/19 18:58 Temperature 97.5 F L Pulse Rate 83 Respiratory Rate 16 Blood Pressure 126/86 O2 Sat by Pulse Oximetry 97 Laboratory Results - last 24 hr 03/20/19 03/20/19 03/20/19 21:05 21:05 21:05 WBC 4.55 L RBC 4.39 L Hgb 13.8 L Hct 40.3 L MCV 91.8 MCH 31.4 H MCHC 34.2 RDW Std Deviation 14.4 Plt Count 162 MPV 9.5 Immature Gran % (Auto) 0.0 Neut % (Auto) 52.1 Lymph % (Auto) 30.5 Haakon % (Auto) 14.3 H Eos % (Auto) 2.9 Baso % (Auto) 0.2 Immature Gran # (Auto) 0.00 Neut # (Auto) 2.37 Lymph # (Auto) 1.39 Haakon # (Auto) 0.65 H Eos # (Auto) 0.13 Baso # (Auto) 0.01 Sodium 144 Potassium 3.7 Chloride 103 Carbon Dioxide 26 Anion Gap 15 BUN 25 H Creatinine 2.1 H Estimated GFR/1.73 m2 37 BUN/Creatinine Ratio 12 Glucose 105 H Calculated Osmolality 292 Calcium 9.3 Total Bilirubin 1.10 H AST 13 ALT 10 Alkaline Phosphatase 57 Troponin T 0.020 Total Protein 6.7 Albumin 3.9 Globulin 2.8 Albumin/Globulin Ratio 1.4 Amylase 69 Lipase 20 Orders Category Date Time Status Nursing- Obtain EKG ONCE Care 03/20/19 19:48 Active ABDOMEN FLAT/UPRIGHT [RAD] Stat Exams 03/20/19 19:[address] HEAD W/O CONTRAST [CT] Stat Exams 03/20/19 19:52 Completed AMYLASE [CHEM] Stat Lab 03/20/19 21:05 Completed CBC WITH DIFF [HEME] Stat Lab 03/20/19 21:05 Completed COMPREHENSIVE METABOLIC PANEL [CHEM] Stat Lab 03/20/19 21:05 Completed LIPASE [CHEM] Stat Lab 03/20/19 21:05 Completed TROPONIN T Stat Lab 03/20/19 21:05 Completed URINALYSIS W/POSS RFLX CULT [URINALYSIS] Stat Lab 03/20/19 19:48 Uncollected Ns 500 ml IV Bolus X1 Med 03/20/19 22:09 Ordered 0.9% Sodium Chloride Inj [Ns] 500 ml IV 999 mls/hr EKG [EKG] Stat Ther 03/20/19 19:48 Ordered Result Diagrams: 03/20/19 21:05 03/20/19 21:05 - REASSESSMENT Reassessment #1 Status: improving (Patient improving with zofran. Vital signs WNL. Abdominal reassesment with minimal discomfort in LLQ, but no consistant guarding and no rebound. Patient resting comfortably in bed and asking for a sandwhich and soda.) Reassessment #2 Status: other (Patient reporting that he has been short of breath at home even on his home oxygen. Chest xray with cardiomegaly, and small effusion. BNP noted to be 16,000. Will plan to admit for diuresis in the setting of dyspne, CHFE, and DUARTE.) Reassessment #3 Time Reassessed: 00:06 Status: other Reassessment Comment: Discussed with hospitalist team who have accepted the patient for admission Departure - Departure Date of Disposition Decision: 03/21/19 Time of Disposition Decision: 00:13 DIAGNOSIS: Nausea CHF exacerbation Qualifiers: Heart failure type: unspecified Qualified Code(s): I50.9 - Heart failure, unspecified Disposition: ADMITTED INPATIENT 09 Certified Medical Emergency: Emergent Condition: Fair Referrals and Follow-Ups: Betty Mohan MD [Primary Care Provider] - - Critical Care Note This patient required my direct & personal management of CC.: No Attestation - Physician/ HANNAH Attestation Patient care was provided by Advanced Practice Provider:: No The physician spent face to face time with patient:: Yes Advanced Practice Provider documentation review:: Supervising physician onsite and consulted in the evaluation and care of this patient. The physician did have a face to face encounter with the patient.
[2019-03-20] MEDS ORDERED: ZOFRAN IV ONE (22:22)
[2019-03-20] MEDS ORDERED: LASIX IV ONE (23:58)
--- NOTE | 2019-03-21 00:24 | EKG Report ---
Test Performed on : 03/20/2019 10:57:33 PM Test Reason : nausea, AMS Blood Pressure : / mmHG Vent. Rate : 082 BPM Atrial Rate : 085 BPM P-R Int : 000 ms QRS Dur : 202 ms QT Int : 508 ms P-R-T Axes : 000 260 070 degrees QTc Int : 593 ms Ventricular-paced rhythm with occasional premature ventricular complexes. Abnormal ECG When compared with ECG of 24-JAN-2019 13:42, (Unconfirmed) No significant change was found Unconfirmed Result
[2019-03-21 00:51] LABS: URINE SOURCE CLEAN CATCH
[2019-03-21] MEDS ORDERED: VITAMIN D PO SCH (01:00)
[2019-03-21 01:12] LABS: BILIRUBIN URINE NEGATIVE (NEGATIVE); BLOOD URINE NEGATIVE (NEGATIVE); COLOR YELLOW; GLUCOSE URINE NEGATIVE (NEGATIVE); KETONE URINE NEGATIVE (NEGATIVE); LEUKOCYTES URINE NEGATIVE (NEGATIVE); NITRITE URINE NEGATIVE (NEGATIVE); PH URINE 5.5; PROTEIN URINE TRACE mg/dL (NEGATIVE); SP GRAVITY URINE 1.016; TURBIDITY URINE CLEAR (CLEAR); UROBILINOGEN URINE 3 mg/dL (NORMAL)
[2019-03-21 01:17] LABS: UR EPITHELIAL CELLS <10 /HPF (<10); URINE BACTERIA NEGATIVE /HPF; URINE RBC <10 /HPF (<10); URINE WBC <10 /HPF (<10)
[2019-03-21] MEDS ORDERED: DULCOLAX PR ONE (01:21)
[2019-03-21 01:38] LABS: URINE CASTS NONE SEEN; URINE CRYSTALS CA OXALATE PRESENT; URINE SMALL ROUND CELLS NONE SEEN; URINE YEAST NONE SEEN
--- NOTE | 2019-03-21 01:44 | HISTORY AND PHYSICAL ---
CHIEF COMPLAINT: Nausea. HISTORY OF PRESENT ILLNESS: Mr. Solitario is a pleasant 74-year-old male with a history of systolic congestive heart failure, COPD, I believe he is on home oxygen, hypertension, chronic atrial fibrillation and dementia as well as coronary artery disease, who comes in tonight with the complaint of nausea. Apparently he has had nausea for the past 3 days. Has not moved his bowels in the couple of days. Denies any vomiting. States he has had decreased appetite. Had associated symptoms such as shortness of breath but he states it is nothing out of the normal. Had complaint of some left lower abdominal pain. Denies any hematochezia or melena. Denies diarrhea. The patient also states that he has chronic urinary incontinence from [id number]. Abdominal x-ray appears that he has mild constipation. Chest x-ray shows cardiomegaly. No increased pulmonary vascular congestion. No infiltrates. It was felt that the patient was having a CHF exacerbation by the ER provider. He will be admitted in observation status for further evaluation and treatment. PAST MEDICAL HISTORY: See HPI. PREVIOUS SURGICAL HISTORY: Pacemaker with defibrillator implantation, coronary artery bypass. SOCIAL HISTORY: Former smoker. No alcohol or illicit drugs. FAMILY HISTORY: Positive for coronary artery disease in mother and father. ALLERGIES: No known drug allergies. HOME MEDICATIONS: Allopurinol 100 mg p.o. daily, Xanax 0.5 mg p.o. at bedtime, Eliquis 5 mg p.o. b.i.d., bisoprolol 2.5 mg p.o. daily, Depakote extended release 250 mg p.o. b.i.d., Aricept 5 mg p.o. at bedtime, droxidopa 300 mg p.o. t.i.d., vitamin D2 50,000 units as directed, Lexapro 10 mg p.o. daily, pravastatin 40 mg p.o. at bedtime, Ranexa 1000 mg p.o. b.i.d., Flomax 0.4 mg p.o. daily, Effexor 37.5 mg p.o. at bedtime. REVIEW OF SYSTEMS: Fourteen point review of systems conducted with the patient and pertinent positives listed above in the HPI. All other systems reviewed and found to be negative. PHYSICAL EXAMINATION: VITAL SIGNS: Temperature 97.8 degrees, pulse 81, respirations 19, blood pressure 130/86, oxygen saturation 99% on 2 L nasal cannula. GENERAL: A pleasant 74-year-old male lying in the ER stretcher, answers all questions appropriately. Has mild intermittent confusion, but he is oriented to person, place and situation, disoriented to time. He is in no acute distress. HEENT: Head is atraumatic, normocephalic. Pupils equal, round, reactive to light. Extraocular eye movement is intact. Sclera is anicteric. Conjunctiva is pink. Oral mucosa is moist. NECK: Supple. No JVD. Mild hepatojugular reflex. Trachea is midline. No cervical lymphadenopathy. CARDIAC: S1-S2 appreciated. No murmurs, gallops, rubs. LUNGS: A few scattered crepitations. Decreased somewhat bilaterally. No rhonchi. No wheezing. Symmetric rise and fall with respirations. ABDOMEN: Soft, nondistended, tender diffusely to palpation. No rebound tenderness. No guarding. Bowel sounds present all 4 quadrants, hypoactive. No pulsatile mass. No organomegaly. EXTREMITIES: No clubbing, cyanosis. 1+ pitting edema bilateral lower extremities mid calf to foot. 2+ pedal pulses bilaterally. GENITOURINARY: No bladder distention. Otherwise deferred. NEUROLOGICAL: Oriented to person, place and situation. Disoriented to time. No focal motor deficits. Otherwise nonfocal examination. DIAGNOSTIC DATA: CT of the head shows stable encephalomalacia. Chest x-ray shows stable cardiomegaly. EKG shows a ventricular paced rhythm. LABORATORY DATA: WBC 4.55, hemoglobin 13.8, hematocrit 40.3, platelet count is 162,000. Sodium 144, potassium 3.7, chloride 103, carbon dioxide 26, BUN 25, creatinine 2.1, glucose 105. ProBNP 16,332. Urine unremarkable. ASSESSMENT: 1. Chronic congestive heart failure with possible mild acute exacerbation. The patient does have an elevated proBNP and mild edema. However, I am not sure that this is far outside of his baseline. He was given Lasix in the emergency room after he received some fluids. At this point, we will not give any more Lasix tonight, defer to primary team and his primary care provider, Jason Mohan, if Lasix continues to be needed. We will continue his other home medications. 2. Chronic atrial fibrillation. Continue beta blockers and Eliquis. 3. Dementia. Continue home medications. Aware. He is very pleasant at this time. 4. Hyperlipidemia. Continue pravastatin. 5. Acute kidney injury with chronic kidney disease. We will order urine studies and recheck laboratory data tomorrow morning. We will continue to monitor. Further recommendations per patient clinical course. Dictated by VIANEY Valle for Duane Aguilar MD I have performed a face to face diagnostic evaluation. Labs/ Xrays- reviewed. Exam- Chest -bibasilar rales, CV- regular . A/P- CHF Exacerbation- Admit, gentle diuresis, Cardiology consult. cc: VIANEY Valle MD M. Neel Roberts, MD MTDD
[2019-03-21] MEDS: COLACE PO SCH ×3 (02:35→21:05)
[2019-03-21] MEDS: COMPAZINE IV PRN ×2 (02:35→10:21)
[2019-03-21] MEDS: TYLENOL PO PRN (02:35)
--- NOTE | 2019-03-21 06:04 | Diag Imaging Result Doc PS360 ---
EXAM: CHEST-2 VIEWS HISTORY: shortness of breath TECHNIQUE: Chest two views COMPARISON: 01/24/2019 FINDINGS: The lungs are well expanded. The heart is enlarged. There are sternal wires and left-sided pacemaker. The vessels are not distended. There are no infiltrates. No pleural effusions. IMPRESSION: Cardiomegaly, but no pulmonary edema. Electronically signed by Mike Jacobson 03/21/2019 6:02 AM
[2019-03-21 07:38] LABS: UR CREAT RANDOM 57.4 mg/dL (14-26); UR PROT RANDOM 10.2 mg/dL
[2019-03-21] MEDS ORDERED: LEXAPRO PO SCH (09:00)
[2019-03-21] MEDS: DEPAKOTE ER PO SCH ×2 (10:09→21:05)
[2019-03-21] MEDS: RANEXA PO SCH ×2 (10:09→21:04)
[2019-03-21] MEDS: ZEBETA PO SCH (10:09)
[2019-03-21] MEDS: ELIQUIS PO SCH ×2 (10:09→21:05)
[2019-03-21] MEDS: FLOMAX PO SCH (10:10)
[2019-03-21] MEDS: REGLAN PO SCH ×2 (12:17→16:39)
[2019-03-21] MEDS: NORCO-5 PO PRN (12:18)
--- NOTE | 2019-03-21 17:05 | PROGRESS NOTE ---
DATE: 03/21/2019 SUBJECTIVE: Mr. Solitario has a history of chronic congestive heart failure secondary to systolic dysfunction. He is breathing comfortably, O2 saturations are ranging from 98 to 100 percent on room air. He is not tachypneic. His chest x-ray demonstrates no pulmonary edema or increased interstitial edema. Blood pressure is well controlled. Today, his blood pressure ranged from 118 to 130 systolically, whereas his diastolic blood pressures were in the 80s. He continues with persistent nausea. He does have gastroparesis. He stopped taking Reglan several weeks ago. He has chronic stage 3 renal insufficiency. His creatinine ranges from 1.6 to 1.7 at baseline. His creatinine on admission was 2.1. OBJECTIVE: Temperature 97.9 degrees, pulse 85, respirations 20, BP 130/80. Cardiovascular: Regular rate and rhythm. Lungs: Clear. Abdomen: Soft, nontender, with active bowel sounds. Extremities: Trace ankle edema. ASSESSMENT AND PLAN: 1. Acute on chronic renal failure. He was given a small bolus of fluid in the ER. I will hold the Lasix as he is breathing comfortably. I will recheck a BMP in the morning. 2. Gastroparesis. We will resume Reglan 5 mg prior to each meal. 3. Vascular dementia with behavior issues. Unfortunately, Mr. Solitario has multiple medical issues. It has become increasingly difficult for his daughter and son-in-law all to care for him at home. We will consult [facility] [employer] [facility] to look for short-term rehab and then long-term [facility]cc care. I believe that he would benefit from a physical therapy and occupational health evaluation. I have spoken to the daughter, Emily Cope, and they are agreeable to looking for long-term mcc care. cc: Nisha Mohan MD
[2019-03-21] MEDS ORDERED: EFFEXOR XR PO SCH (21:00)
[2019-03-21] MEDS: ARICEPT PO SCH (21:05)
[2019-03-21] MEDS: XANAX PO SCH (21:05)
[2019-03-21] MEDS: PRAVACHOL PO SCH (21:05)
[2019-03-22] MEDS: REGLAN PO SCH ×3 (06:13→17:05)
[2019-03-22 07:34] LABS: CALCIUM 8.4 mg/dL (8.8-10.2); CREATININE 1.8 mg/dL (0.7-1.2); POTASSIUM 3.8 mmol/L (3.5-5.1)
--- NOTE | 2019-03-22 08:57 | PROGRESS NOTE ---
DATE: 03/22/2019 SUBJECTIVE: Mr. Solitario was admitted to [facility] with acute on chronic renal failure. We held his Lasix. His creatinine has dropped from 2.1 to 1.8. His baseline creatinine is around 1.6 to 1.7. He has a longstanding history of chronic congestive heart failure secondary to systolic dysfunction. He reports that he feels short of breath. He denies any PND or orthopnea. His O2 saturations are 97 to 100 percent on room air. Chest x-ray demonstrated no interstitial edema. He has severe 3-vessel heart disease. He has had a previous coronary artery bypass graft surgery. He is on Ranexa. Blood pressure is stable. OBJECTIVE: Vital signs: Temperature 98.1 degrees, pulse 89, respiratory rate 8, blood pressure 118/75. Cardiovascular: Regular rate and rhythm. Lungs: Clear. Abdomen: Soft, nontender, with active bowel sounds. ASSESSMENT AND PLAN: 1. Acute on chronic renal failure. We will continue to hold the Lasix as he continues to breathe fairly comfortably, his renal function is improving. I will recheck a BMP in the morning. 2. Gastroparesis. Since resuming Reglan, his nausea has improved. 3. Shortness of breath. I really think that his shortness of breath is an anginal equivalent. He has severe 3-vessel disease and small-vessel disease. We will continue Ranexa and I am going to add Imdur. 4. Vascular dementia with behavior issues. We will continue evaluation for long-term half-way care. cc: Nisha Mohan MD
[2019-03-22] MEDS: FLOMAX PO SCH (09:43)
[2019-03-22] MEDS: IMDUR PO SCH (09:43)
[2019-03-22] MEDS: COLACE PO SCH ×2 (09:43→20:20)
[2019-03-22] MEDS: RANEXA PO SCH ×2 (09:43→20:19)
[2019-03-22] MEDS: ZEBETA PO SCH (09:43)
[2019-03-22] MEDS: DEPAKOTE ER PO SCH ×2 (09:43→20:20)
[2019-03-22] MEDS: ELIQUIS PO SCH ×2 (09:44→20:20)
[2019-03-22] MEDS: NORCO-5 PO PRN (17:05)
[2019-03-22] MEDS: PRAVACHOL PO SCH (20:20)
[2019-03-22] MEDS: ARICEPT PO SCH (20:20)
[2019-03-22] MEDS: XANAX PO SCH (20:20)
[2019-03-23] MEDS: NORCO-5 PO PRN ×4 (02:39→22:11)
[2019-03-23] MEDS: REGLAN PO SCH ×3 (06:53→16:22)
[2019-03-23 07:30] LABS: CALCIUM 8.9 mg/dL (8.8-10.2); CREATININE 1.7 mg/dL (0.7-1.2); POTASSIUM 3.5 mmol/L (3.5-5.1)
[2019-03-23] MEDS: IMDUR PO SCH (10:35)
[2019-03-23] MEDS: RANEXA PO SCH ×2 (10:35→20:30)
[2019-03-23] MEDS: COLACE PO SCH ×2 (10:35→20:30)
[2019-03-23] MEDS: ELIQUIS PO SCH ×2 (10:35→20:30)
[2019-03-23] MEDS: FLOMAX PO SCH (10:35)
[2019-03-23] MEDS: ZEBETA PO SCH (10:35)
[2019-03-23] MEDS: DEPAKOTE ER PO SCH ×2 (10:36→20:30)
--- NOTE | 2019-03-23 10:54 | PROGRESS NOTE ---
DATE: 03/23/2019 Mr. Solitario was admitted to [facility] with acute on chronic renal failure. We held his Lasix. Creatinine has dropped from 2.2 to 1.7, which is approaching his baseline. He is having good urine output. Blood pressure remains well controlled. He denies any chest pain, palpitations, or anginal equivalents. He has a history of chronic congestive heart failure secondary to systolic dysfunction. His EF is between 25 and 30%. He denies any PND, orthopnea, or significant peripheral edema. He reports that he has mild shortness of breath which we have typically felt was an anginal equivalent as he is not breathing rapidly and has no episodes of hypoxia, with a clear chest x-ray. I added Imdur yesterday to the Ranexa. PHYSICAL EXAMINATION: Temperature 98.5 degrees, pulse 80, respirations 18, BP 120/78. CV: Regular rate and rhythm. Lungs: Clear. Abdomen: Soft, nontender, with active bowel sounds. Extremities: Trace ankle edema. ASSESSMENT AND PLAN: 1. Acute on chronic renal failure. His renal function has improved greatly and he is nearing his baseline. We will try to avoid all nephrotoxic drugs. 2. Chronic stable angina in the face of known severe three vessel disease. We will continue aggressive risk factor modification as well as Ranexa and Imdur. His shortness of breath has improved with the Imdur. 3. Chronic congestive heart failure secondary to systolic dysfunction. We will continue a salt and fluid restricted diet. Blood pressure is stable. I will resume low-dose Lasix. cc: Nisha Mohan MD
[2019-03-23] MEDS: PATIENT'S OWN MED PO SCH ×2 (17:03→17:24)
[2019-03-23] MEDS: XANAX PO SCH (20:30)
[2019-03-23] MEDS: PRAVACHOL PO SCH (20:30)
[2019-03-23] MEDS: ARICEPT PO SCH (20:30)
[2019-03-24] MEDS: REGLAN PO SCH ×3 (06:05→16:09)
[2019-03-24] MEDS: ZEBETA PO SCH (08:55)
[2019-03-24] MEDS: DEPAKOTE ER PO SCH ×2 (08:56→21:15)
[2019-03-24] MEDS: NORCO-5 PO PRN (08:56)
[2019-03-24] MEDS: IMDUR PO SCH (08:56)
[2019-03-24] MEDS: FLOMAX PO SCH (08:56)
[2019-03-24] MEDS: RANEXA PO SCH ×2 (08:56→21:15)
[2019-03-24] MEDS: COLACE PO SCH ×2 (08:56→21:15)
[2019-03-24] MEDS: ELIQUIS PO SCH ×2 (08:56→21:15)
[2019-03-24] MEDS: PATIENT'S OWN MED PO SCH ×3 (08:57→16:09)
[2019-03-24] MEDS ORDERED: LASIX PO SCH (09:00)
--- NOTE | 2019-03-24 09:47 | Diag Imaging Result Doc PS360 ---
EXAM: CHEST-2 VIEWS HISTORY: CHF TECHNIQUE: Chest two views COMPARISON: 03/20/2019 FINDINGS: The lungs are well expanded. The heart is markedly enlarged. There are sternal wires on the left pacemaker. The vessels are not distended. There are no infiltrates. Tiny pleural effusions. IMPRESSION: Marked cardiomegaly with tiny pleural effusions Electronically signed by Mike Jacobson 03/24/2019 9:44 AM
[2019-03-24] MEDS: DUONEB (A & A) INH SCH ×4 (11:58→23:12)
--- NOTE | 2019-03-24 14:32 | PROGRESS NOTE ---
DATE: 03/24/2019 SUBJECTIVE: Mr. Jonah Solitario has a history of chronic respiratory failure with hypoxia on nocturnal home oxygen secondary to chronic congestive heart failure secondary to systolic dysfunction. He has a severe dilated cardiomyopathy with an EF of 25 to 30 percent. This morning, he reported that he was more short of breath. He denied any PND, orthopnea or increasing peripheral edema. He had faint crackles in the bases of his lung dutta. A chest x-ray demonstrated tiny pleural effusions. We checked his O2 on room air and it dropped to 86%. His blood pressure is well controlled. He denies any chest pain, palpitations, or anginal equivalents. Today, his blood pressure was 115/84. OBJECTIVE: Vital Signs: Temperature 98.1 degrees, pulse 83, respiratory rate 19, blood pressure 115/84. Cardiovascular: Regular rate and rhythm. Lungs: Faint crackles in the bases bilaterally. Abdomen: Soft, nontender, with active bowel sounds. Extremities: Trace ankle edema. ASSESSMENT AND PLAN: 1. Acute respiratory failure with hypoxia superimposed on chronic respiratory failure with hypoxia secondary to acute on chronic congestive heart failure secondary to systolic dysfunction. He does not appear to be in any distress. He was lying down in bed. He was not tachycardic. He was not tachypneic. His O2 saturation jumped immediately to 100% on 2 L of O2. I will increase the Lasix to 40 mg twice daily, and we will continue a salt and fluid restricted diet. I also suspect that some of the dyspnea is an anginal equivalent. He has severe 3 vessel disease. He had coronary artery bypass graft surgery 17 years ago. He is not considered to be a candidate for redo bypass or intervention. We will continue Ranexa and I have added Imdur over the weekend. 2. Hypertension. His blood pressure is stable. I will continue his current regimen of medications. cc: Nisha Mohan MD
[2019-03-24] MEDS: PEN VK PO SCH (18:43)
[2019-03-24] MEDS: ARICEPT PO SCH (21:15)
[2019-03-24] MEDS: PRAVACHOL PO SCH (21:15)
[2019-03-24] MEDS: LASIX IV SCH (21:15)
[2019-03-24] MEDS: XANAX PO SCH (23:31)
[2019-03-25] MEDS: DUONEB (A & A) INH SCH ×6 (03:26→23:15)
[2019-03-25] MEDS: REGLAN PO SCH ×3 (06:28→17:08)
[2019-03-25 08:01] LABS: CALCIUM 8.7 mg/dL (8.8-10.2); CREATININE 1.8 mg/dL (0.7-1.2); POTASSIUM 3.6 mmol/L (3.5-5.1)
[2019-03-25 08:24] LABS: BASO# 0.01 X1000 (0.0-0.2); BASO% 0.1 % (0.0-0.8); EOS# 0.17 X1000 (0.0-0.7); EOS% 2.2 % (0.0-10.0); HEMATOCRIT 34.2 % (42.0-52.0); HEMOGLOBIN 11.5 g/dL (14.0-18.0); IMM GRAN# 0.02 X1000 (0.0-0.04); IMM GRAN% 0.3 % (0.0-0.5); LYMPH# 1.44 X1000 (1.2-3.4); LYMPH% 18.4 % (20.5-51.1); MCH 31.2 PG (27-31); MCHC 33.6 g/dL (33-37); MCV 92.7 FL (81-99); MONO# 0.82 X1000 (0.11-0.59); MONO% 10.5 % (1.7-9.3); MPV 10.6 FL (7.4-10.4); NEUT# 5.38 X1000 (1.4-6.5); NEUT% 68.5 % (42.2-75.2); PLT 163 X1000 (130-400); RBC 3.69 XMIL (4.7-6.1); RDW 14.6 % (11.5-14.5); WBC 7.84 X1000 (4.8-10.8)
--- NOTE | 2019-03-25 09:34 | Diag Imaging Result Doc PS360 ---
EXAM: SINUSES 03/25/2019 HISTORY: MD ordered TECHNIQUE: Sinus series 3 views COMMENT: The paranasal sinuses are clear. There is no evidence of acute bony abnormality. IMPRESSION: No evidence of acute disease. Electronically signed by Remi Johnson 03/25/2019 9:32 AM
[2019-03-25] MEDS: RANEXA PO SCH ×2 (10:05→21:17)
[2019-03-25] MEDS: DEPAKOTE ER PO SCH ×2 (10:05→21:54)
[2019-03-25] MEDS: ZEBETA PO SCH (10:05)
[2019-03-25] MEDS: IMDUR PO SCH (10:06)
[2019-03-25] MEDS: ELIQUIS PO SCH ×2 (10:06→21:18)
[2019-03-25] MEDS: LASIX IV SCH (10:06)
[2019-03-25] MEDS: PEN VK PO SCH ×3 (10:06→17:08)
[2019-03-25] MEDS: COLACE PO SCH ×2 (10:06→21:18)
[2019-03-25] MEDS: FLOMAX PO SCH (10:06)
[2019-03-25] MEDS: PATIENT'S OWN MED PO SCH ×5 (10:07→17:09)
[2019-03-25] MEDS: NORCO-5 PO PRN (10:10)
--- NOTE | 2019-03-25 11:47 | PROGRESS NOTE ---
DATE: 03/25/2019 Mr. Solitario is with complaint of tooth pain. He apparently has an abscessed tooth. He was started on Keflex last night. The facial swelling has improved significantly. He has a history of chronic congestive heart failure secondary to systolic dysfunction. He had an episode of hypoxia. We increased his Lasix. He is breathing more comfortably. O2 saturations are ranging from 98 to 100 percent on 3 L of O2. He is making slow progress with physical therapy. He seems much more alert today and was answering questions appropriately. PHYSICAL EXAMINATION: Temperature 98.1 degrees, BP 146/95, pulse 79, respirations 21, O2 saturation 100% on 3 L of O2. CV: Regular rate and rhythm. Lungs: Clear. Abdomen: Soft, nontender, with active bowel sounds. Extremities: Without edema. ASSESSMENT AND PLAN: 1. Abscessed tooth. We will continue Keflex for 10 days and we will make an appointment for him to see his dentist as an outpatient. 2. Acute on chronic respiratory failure with hypoxia secondary to acute on chronic congestive heart failure due to systolic dysfunction. We will continue oxygen continuously. We will continue a salt and fluid restricted diet. I am going to decrease the Lasix to 40 mg daily and he may take an extra Lasix if he gains 2 pounds in 24 hours. cc: Nisha Mohan MD
[2019-03-25] MEDS: COMPAZINE IV PRN (21:17)
[2019-03-25] MEDS: PRAVACHOL PO SCH (21:18)
[2019-03-25] MEDS: ARICEPT PO SCH (21:18)
[2019-03-25] MEDS: TYLENOL PO PRN (21:18)
[2019-03-25] MEDS: XANAX PO SCH (23:55)
[2019-03-26] MEDS: DUONEB (A & A) INH SCH ×3 (03:20→10:43)
[2019-03-26] MEDS: REGLAN PO SCH ×2 (06:10→11:05)
[2019-03-26] MEDS: ZEBETA PO SCH (08:55)
[2019-03-26] MEDS: COLACE PO SCH (08:56)
[2019-03-26] MEDS: FLOMAX PO SCH (08:56)
[2019-03-26] MEDS: IMDUR PO SCH (08:56)
[2019-03-26] MEDS: ELIQUIS PO SCH (08:56)
[2019-03-26] MEDS: DEPAKOTE ER PO SCH (08:56)
[2019-03-26] MEDS: PATIENT'S OWN MED PO SCH ×2 (08:56→12:29)
[2019-03-26] MEDS: PEN VK PO SCH ×2 (08:56→12:28)
[2019-03-26] MEDS: RANEXA PO SCH (08:56)
[2019-03-26] MEDS ORDERED: LASIX PO SCH (09:00)
--- NOTE | 2019-03-26 10:47 | DISCHARGE SUMMARY ---
ADMISSION DATE: 03/21/2019 DISCHARGE DATE: 03/26/2019 DISCHARGE DIAGNOSES: 1. Acute on chronic respiratory failure with hypoxia. 2. Acute on chronic congestive heart failure secondary to systolic dysfunction. 3. Acute on chronic renal failure. 4. Ischemic heart disease with chronic stable angina. 5. Orthostatic hypotension secondary to dysautonomia. 6. Chronic obstructive pulmonary disease. 7. Essential hypertension. 8. Situational depression. 9. Vascular dementia with behavior issues. 10. Chronic low back pain secondary to lumbar spinal stenosis. 11. Abscessed tooth. 12. Benign prostatic hypertrophy. 13. Gastroparesis. 14. Mixed hyperlipidemia. 15. Stage 3 chronic renal failure. DISCHARGE INSTRUCTIONS: 1. The patient will be transferred via ambulance to [facility] in order to undergo short-term rehab. 2. Activity as tolerated. We will consult physical therapy and occupational therapy at rehab. 3. Healthy heart diet. 4. Medications: Ringwood one q.12 hours p.r.n. pain, DuoNeb nebulizer treatments q.4 hours, Xanax 0.5 mg at bedtime, Eliquis 5 mg b.i.d., Zebeta 2.5 mg daily, Depakote ER 250 mg b.i.d., Colace 100 mg b.i.d., Aricept 5 mg daily, Lasix 40 mg daily and may take an additional Lasix if he gains 2 pounds in 24 hours, Imdur 30 mg daily, Reglan 5 mg 30 minutes prior to each meal, NORTHERA 300 mg t.i.d., penicillin 500 mg t.i.d. for 7 days, pravastatin 40 mg at bedtime, Ranexa 1000 mg daily, Flomax 0.4 mg daily, Effexor XR 37.5 mg daily. DISCHARGE PHYSICAL EXAMINATION: This is a chronically ill-appearing, 74-year-old gentleman in no apparent distress. He is afebrile. Vital signs are stable. CV: Regular rate and rhythm. Lungs: Distant breath sounds with increased period of expiration. Abdomen: Soft, nontender, with active bowel sounds. Extremities: Without edema. HOSPITAL COURSE: Mr. Jonah Solitario has a history of chronic renal failure. His baseline creatinine ranges from 1.6 to 1.8. Upon admission to [facility], his creatinine was noted to be 2.1. He was given a bolus of fluid in the ER. We held his Lasix. His creatinine returned to baseline. At discharge, his creatinine was 1.8. He had acute respiratory failure with hypoxia superimposed on chronic respiratory failure with hypoxia secondary to acute on chronic congestive heart failure secondary to systolic dysfunction. His EF is 25 to 30 percent. He had been wearing oxygen at 2 L per nasal cannula at night. After giving him a small bolus of fluid and holding the Lasix, he was with complaint of increasing shortness of breath and increasing work of breathing. His chest x-ray demonstrated small bilateral pleural effusions. We continued a salt and fluid restricted diet. We diuresed him with intravenous Lasix. We tried to wean him off oxygen. His O2 saturation dropped to 86% on room air at rest on 03/24/2019. We resumed O2 at 2 L per nasal cannula and he was maintaining O2 saturations of 98 to 100 percent. I believe that he will need to wear O2 at 2 L per nasal cannula continuously. He does have a history of chronic low back pain secondary to lumbar spinal stenosis with neurogenic claudication. Because of his chronic renal failure, nonsteroidals are absolutely contraindicated. He typically takes Tylenol for pain less than 10, and make take low-dose Ringwood 5/325 one q.12 hours p.r.n. pain greater than 6. When he has tried muscle relaxers in the past, it caused excessive drowsiness. He does have a history of vascular dementia with behavior issues. He has had hallucinations. He has been hospitalized for the underlying dementia. His family reported that he has left the stove on, unattended. He forgets to take his medicines. He has been more confused. We will continue Aricept 5 mg daily. He is taking Effexor XR and Depakote for mood stabilization. He does have a feature of anxiety and we have tried low-dose Xanax at night. He had been on Xanax at night prior to becoming my patient. He also has a longstanding history of gastroparesis. He was with complaint of persistent nausea, diminished appetite, and early satiety. He had stopped taking the Reglan. We resumed Reglan. He has had no EPS type symptoms or extrapyramidal side effects. After resuming the Reglan, the nausea resolved. Having reached maximum hospital benefit, the patient was discharged in stable condition to short- term rehab. cc: Nisha Mohan MD
[2019-03-26 11:29] VITALS: BP 143/103
== END 2019-03-26 12:56 | DRG 291 ==
LOC: ED 18:52 → 3N 18:52 → SUATTDRO 03-21 01:59 → OBSVTOIN 03-21 01:59
PROVIDERS: ADMIT Internal Medicine; ATTEND Internal Medicine

== ENCOUNTER 2019-04-08 20:51 | Inpatient (IN) ==
--- NOTE | 2019-04-08 21:48 | Diag Imaging Result Doc PS360 ---
EXAM: CT HEAD W/O CONTRAST HISTORY: stroke like symptoms TECHNIQUE: CT head without contrast COMPARISON: 03/20/2019 FINDINGS: No parenchymal hemorrhage. No epidural or subdural hematoma. No subarachnoid hemorrhage. Right parietal encephalomalacia with chronic ischemic changes. No mass identified on this noncontrasted exam. No hydrocephalus. No sinus opacification. 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 Electronically signed by Mike Jacobson 04/08/2019 9:46 PM
--- NOTE | 2019-04-08 22:01 | Diag Imaging Result Doc PS360 ---
EXAM: CHEST-PORTABLE HISTORY: stroke like symptoms TECHNIQUE: Chest single view COMPARISON: 03/24/2019 FINDINGS: The lungs are well expanded. The heart is markedly enlarged. There are sternal wires and pacemaker. The vessels are not distended. There are no infiltrates. No effusion identified. IMPRESSION: Marked cardiomegaly Electronically signed by Mike Jacobson 04/08/2019 9:58 PM
[2019-04-08 22:34] LABS: URINE SOURCE CLEAN CATCH
[2019-04-08 22:38] LABS: BASO# 0.01 X1000 (0.0-0.2); BASO% 0.2 % (0.0-0.8); EOS# 0.17 X1000 (0.0-0.7); EOS% 3.6 % (0.0-10.0); HEMATOCRIT 35.3 % (42.0-52.0); HEMOGLOBIN 11.6 g/dL (14.0-18.0); LYMPH# 1.19 X1000 (1.2-3.4); LYMPH% 25.5 % (20.5-51.1); MCH 30.3 PG (27-31); MCHC 32.9 g/dL (33-37); MCV 92.2 FL (81-99); MONO# 0.63 X1000 (0.11-0.59); MONO% 13.5 % (1.7-9.3); NEUT# 2.67 X1000 (1.4-6.5); NEUT% 57.2 % (42.2-75.2); PLT 221 X1000 (130-400); RBC 3.83 XMIL (4.7-6.1); RDW 15.4 % (11.5-14.5); WBC 4.67 X1000 (4.8-10.8)
[2019-04-08 22:39] LABS: BILIRUBIN URINE SMALL (NEGATIVE); BLOOD URINE NEGATIVE (NEGATIVE); COLOR YELLOW; GLUCOSE URINE NEGATIVE (NEGATIVE); KETONE URINE NEGATIVE (NEGATIVE); LEUKOCYTES URINE NEGATIVE (NEGATIVE); NITRITE URINE NEGATIVE (NEGATIVE); PH URINE 5.5; PROTEIN URINE TRACE mg/dL (NEGATIVE); SP GRAVITY URINE 1.022; TURBIDITY URINE CLEAR (CLEAR); UROBILINOGEN URINE 4 mg/dL (NORMAL)
[2019-04-08 22:41] LABS: UR EPITHELIAL CELLS <10 /HPF (<10); URINE BACTERIA NEGATIVE /HPF; URINE RBC <10 /HPF (<10); URINE WBC <10 /HPF (<10)
[2019-04-08 22:45] LABS: INR 1.67
[2019-04-08 22:46] LABS: PTT 39.9 Seconds (22.3-41.8)
[2019-04-08 22:51] LABS: UR AMPHETAMINES QUAL NONE DETECTED (NONE DETECT); UR BARBITUATES QUAL NONE DETECTED (NONE DETECT); UR BENZODIAZEPIN QUAL PRESUMPTIVE POSITIVE (NONE DETECT); UR CANNABINOIDS QUAL NONE DETECTED (NONE DETECT); UR COCAINE QUAL NONE DETECTED (NONE DETECT); UR METHADONE QUAL NONE DETECTED (NONE DETECT); UR OPIATES QUAL NONE DETECTED (NONE DETECT); UR OXYCODONE QUAL NONE DETECTED (NONE DETECT); UR PCP QUAL NONE DETECTED (NONE DETECT)
[2019-04-08 23:02] LABS: ALB/GLOB RATIO 1.5; ALBUMIN 3.6 g/dL (3.5-5.0); CALCIUM 8.5 mg/dL (8.8-10.2); CREATININE 1.8 mg/dL (0.7-1.2); POTASSIUM 3.6 mmol/L (3.5-5.1); TOTAL BILIRUBIN 1.38 mg/dL (0.20-1.00)
--- NOTE | 2019-04-08 23:26 | PROVIDER DOCUMENTATION ---
This chart was entered by Indu Ramirez Scribe, acting as scribe for Adelfo Broussard MD. HPI-Neurological Disorder - General Stated Complaint: facial drooping Time Seen by Provider: 04/08/19 21:18 Source: patient Allergies/Adverse Reactions: Patient Allergies Allergy/AdvReac Type Severity Reaction Status Date / Time No Known Allergies Allergy Verified 12/26/18 20:09 Home Medications: Home Medication List Medication Instructions Recorded Confirmed Last Taken Type Allopurinol 100 mg PO DAILY 02/25/17 03/21/19 03/20/19 History Apixaban [Eliquis] 5 mg PO BID 12/21/17 03/21/19 03/19/19 History PRAVAstatin [Pravachol] 40 mg PO QHS #30 tab 07/02/18 03/21/19 03/19/19 Rx Ranolazine E.r. [Ranexa] 1,000 mg PO BID 11/15/18 03/21/19 03/19/19 History Tamsulosin [Flomax] 0.4 mg PO DAILY 11/15/18 03/21/19 03/19/19 History Divalproex E.r. [Depakote ER] 250 mg PO BID 12/27/18 03/21/19 03/19/19 History Donepezil [Aricept] 5 mg PO QHS 12/27/18 03/21/19 03/19/19 History Ergocalciferol (Vitamin D2) 50,000 unit PO DIRECTED 12/27/18 03/21/19 Unknown History [Vitamin D] Droxidopa [Northera] 300 mg PO TID 12/30/18 03/21/19 Unknown History Bisoprolol [Zebeta] 2.5 mg PO DAILY 03/21/19 03/21/19 03/20/19 History Albuterol 2.5MG/Ipratrop 0.5MG 3 ml INH RTQ4H neb 03/26/19 Unknown Rx [Duoneb (A & A)] Alprazolam [Xanax] 0.5 mg PO QHS #30 tab 03/26/19 Unknown Rx Docusate Sodium [Colace] 100 mg PO BID cap 03/26/19 Unknown Rx Furosemide [Lasix] 40 mg PO DAILY #30 tab 03/26/19 Unknown Rx Hydrocodone/APAP 5 mg/325 mg 1 ea PO BID PRN PRN #20 tab 03/26/19 Unknown Rx [[place]-5] Isosorbide Mononitrate E.r. [Imdur] 30 mg PO DAILY tab 03/26/19 Unknown Rx Metoclopramide [Reglan] 5 mg PO TID AC tab 03/26/19 Unknown Rx Penicillin V Potassium [Pen Vk] 500 mg PO TID #21 03/26/19 Unknown Rx Venlafaxine E.r. [Effexor Xr] 37.5 mg PO QHS #30 cap 03/26/19 Unknown Rx - History of Present Illness-Neuro Nature of Presenting Problem: Pt is 74/m presenting to ED from [facility], pt was in rehab after having some lung issues. Pt's family came to visit him and reported that he had some L sided facial droop that is not normal for him. Pt has severe dementia therefore is poor historian. It is not reported when pt was last seen at baseline. Onset/Duration: reports: unsure Context: reports: facial droop Character of Altered Mental Status: reports: N/A New weakness or altered sensation location:: reports: left facial Associated Symptoms: denies: numbness in legs/feet, slurred speech Similar Symptoms Previously?: No Recently seen or treated by another doctor?: Yes Review of Systems - Adult - REVIEW OF SYSTEMS - ADULT ROS:: limited per condition Constitutional: denies: fever Cardiovascular: denies: chest pain All Other Systems: Reviewed and Negative Past History - Adult - PAST MEDICAL HISTORY-ADULT Review of Records: reports: Old Records Reviewed, Nursing Assessment Review, Medications Reviewed, Social history reviewed & non-contributory. Major Childhood Illnesses: reports: denies history Cardiovascular: reports: A-Fib, CAD, CHF, HTN, hyperlipidemia, pacemaker Respiratory: reports: COPD Gastrointestinal: reports: denies history, other (constipation; gall stones) Obstetrical/Gynecological: reports: denies history Genitourinary: reports: incontinence Musculoskeletal: reports: denies history Neurological: reports: CVA Psychiatric: reports: denies history, anxiety Endocrine/Immune: reports: denies history Other Conditions: reports: denies history - PRIOR SURGERIES/PROCEDURES Surgical/Procedure History: reports: CABG, cholecystectomy, pacemaker - PRIOR HOSPITALIZATIONS Prior Hospitalizations: reports: none - IMMUNIZATION STATUS Childhood Immunizations: See Nurse Assessment Flu Vaccine: See Nurse Assessment - FAMILY HISTORY Family History: reviewed, not pertinent - SOCIAL HISTORY Smoking: quit greater than 1 year Provider spent 3-5 mins advising pt. on dangers of tobacco.: Discussed manners to quit use, and f/u contacts for add'l counseling. 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: normal hearing, normal speech, PERRL Neurologic: facial droop (L sided facial droop) Integumentary: normal color, warm/dry Progress - PLAN OF CARE/RESULTS Progress/Plan/Lab Results: Vital Signs - 8 hr 04/08/19 21:20 04/08/19 21:21 04/08/19 21:23 Pulse Rate Respiratory Rate Blood Pressure 136/101 137/105 O2 Sat by Pulse Oximetry 100 100 100 04/08/19 21:33 04/08/19 22:10 04/08/19 22:33 Pulse Rate 88 Respiratory Rate 20 Blood Pressure 136/101 139/100 120/86 O2 Sat by Pulse Oximetry 100 100 100 Laboratory Results - last 24 hr 04/08/19 04/08/19 04/08/19 22:24 22:24 22:24 WBC 4.67 L RBC 3.83 L Hgb 11.6 L Hct 35.3 L MCV 92.2 MCH 30.3 MCHC 32.9 L RDW Std Deviation 15.4 H Plt Count 221 MPV 10.0 Immature Gran % (Auto) 0.0 Neut % (Auto) 57.2 Lymph % (Auto) 25.5 [place] % (Auto) 13.5 H Eos % (Auto) 3.6 Baso % (Auto) 0.2 Immature Gran # (Auto) 0.00 Neut # (Auto) 2.67 Lymph # (Auto) 1.19 L [place] # (Auto) 0.63 H Eos # (Auto) 0.17 Baso # (Auto) 0.01 PT 20.0 H INR 1.67 PTT (Actin FS) 39.9 Sodium 145 Potassium 3.6 Chloride 105 Carbon Dioxide 27 Anion Gap 13 BUN 23 H Creatinine 1.8 H Estimated GFR/1.73 m2 45 BUN/Creatinine Ratio 13 Glucose 80 POC Glucose Calculated Osmolality 291 Calcium 8.5 L Total Bilirubin 1.38 H AST 18 ALT 15 Alkaline Phosphatase 57 Troponin T Total Protein 6.0 L Albumin 3.6 Globulin 2.4 Albumin/Globulin Ratio 1.5 Urine Source Urine Color Urine Turbidity Urine pH Ur Specific [place] Urine Protein Ur Glucose (Stick) Ur Ketones (Stick) Urine Blood Urine Nitrite Urine Bilirubin Urobilinogen Dipstick Urine Leukocytes Urine WBC (Auto) Urine RBC (Auto) U Epithel Cells (Auto) Urine Bacteria (Auto) Urine Opiates Screen Ur Oxycodone Screen Ur Methadone, Qual Ur Barbiturates Screen Ur Phencyclidine Scrn Ur Amphetamines Screen U Benzodiazepines Scrn Urine Cocaine Screen U Cannabinoids Screen 04/08/19 04/08/19 04/08/19 22:24 22:24 22:24 WBC RBC Hgb Hct MCV MCH MCHC RDW Std Deviation Plt Count MPV Immature Gran % (Auto) Neut % (Auto) Lymph % (Auto) [place] % (Auto) Eos % (Auto) Baso % (Auto) Immature Gran # (Auto) Neut # (Auto) Lymph # (Auto) [place] # (Auto) Eos # (Auto) Baso # (Auto) PT INR PTT (Actin FS) Sodium Potassium Chloride Carbon Dioxide Anion Gap BUN Creatinine Estimated GFR/1.73 m2 BUN/Creatinine Ratio Glucose POC Glucose Calculated Osmolality Calcium Total Bilirubin AST ALT Alkaline Phosphatase Troponin T 0.019 Total Protein Albumin Globulin Albumin/Globulin Ratio Urine Source CLEAN CATCH Urine Color YELLOW Urine Turbidity CLEAR Urine pH 5.5 Ur Specific [place] 1.022 Urine Protein TRACE A Ur Glucose (Stick) NEGATIVE Ur Ketones (Stick) NEGATIVE Urine Blood NEGATIVE Urine Nitrite NEGATIVE Urine Bilirubin SMALL A Urobilinogen Dipstick 4 A Urine Leukocytes NEGATIVE Urine WBC (Auto) <10 Urine RBC (Auto) <10 U Epithel Cells (Auto) <10 Urine Bacteria (Auto) NEGATIVE Urine Opiates Screen NONE DETECTED Ur Oxycodone Screen NONE DETECTED Ur Methadone, Qual NONE DETECTED Ur Barbiturates Screen NONE DETECTED Ur Phencyclidine Scrn NONE DETECTED Ur Amphetamines Screen NONE DETECTED U Benzodiazepines Scrn PRESUMPTIVE POSITIVE A Urine Cocaine Screen NONE DETECTED U Cannabinoids Screen NONE DETECTED 04/08/19 23:15 WBC RBC Hgb Hct MCV MCH MCHC RDW Std Deviation Plt Count MPV Immature Gran % (Auto) Neut % (Auto) Lymph % (Auto) [place] % (Auto) Eos % (Auto) Baso % (Auto) Immature Gran # (Auto) Neut # (Auto) Lymph # (Auto) [place] # (Auto) Eos # (Auto) Baso # (Auto) PT INR PTT (Actin FS) Sodium Potassium Chloride Carbon Dioxide Anion Gap BUN Creatinine Estimated GFR/1.73 m2 BUN/Creatinine Ratio Glucose POC Glucose 90 Calculated Osmolality Calcium Total Bilirubin AST ALT Alkaline Phosphatase Troponin T Total Protein Albumin Globulin Albumin/Globulin Ratio Urine Source Urine Color Urine Turbidity Urine pH Ur Specific [place] Urine Protein Ur Glucose (Stick) Ur Ketones (Stick) Urine Blood Urine Nitrite Urine Bilirubin Urobilinogen Dipstick Urine Leukocytes Urine WBC (Auto) Urine RBC (Auto) U Epithel Cells (Auto) Urine Bacteria (Auto) Urine Opiates Screen Ur Oxycodone Screen Ur Methadone, Qual Ur Barbiturates Screen Ur Phencyclidine Scrn Ur Amphetamines Screen U Benzodiazepines Scrn Urine Cocaine Screen U Cannabinoids Screen Orders Category Date Time Status Cardiac Monitoring DIRECTED Care 04/08/19 21:23 Active Finger Stick Blood Sugar (ED) DIRECTED Care 04/08/19 21:23 Active Saline Loc NOW Care 04/08/19 21:23 Active CHEST-PORTABLE [RAD] Stat Exams 04/08/19 21:[address] HEAD W/O CONTRAST [CT] Stat Exams 04/08/19 21:23 Completed CBC WITH ELECTRONIC DIFF [HEME] Stat Lab 04/08/19 22:24 Completed COMPREHENSIVE METABOLIC PANEL [CHEM] Stat Lab 04/08/19 22:24 Completed PROTIME WITH INR [COAG] Stat Lab 04/08/19 22:24 Completed PTT [COAG] Stat Lab 04/08/19 22:24 Completed TROPONIN T Stat Lab 04/08/19 22:24 Completed URINALYSIS W/POSS RFLX CULT [URINALYSIS] Stat Lab 04/08/19 22:24 Completed URINE DRUG SCREEN Stat Lab 04/08/19 22:24 Completed EKG [EKG] Stat Ther 04/08/19 21:23 Ordered Result Diagrams: 04/08/19 22:24 04/08/19 22:24 - XRAY 1 XRAY: Bilateral XRAY Study: Chest Impression: Abnormal (EXAM: CHEST-PORTABLE HISTORY: stroke like symptoms TECHNIQUE: Chest single view COMPARISON: 03/24/2019 FINDINGS: The lungs are well expanded. The heart is markedly enlarged. There are sternal wires and pacemaker. The vessels are not distended. There are no infiltrates. No effusion identified. IMPRESSION: Marked cardiomegaly Electronically signed by Mike Jacobson 04/08/2019 9:58 PM 04/08/192157 Interpreting Physician: Mike Jacobson MD Dictated Date/Time: 04/08/192156 cc: Adelfo Broussard MD; Betty Mohan MD) - CT/MRI 1 CT Study: Head Impression: Normal Comparison with other Films: no changes (EXAM: CT HEAD W/O CONTRAST HISTORY: stroke like symptoms TECHNIQUE: CT head without contrast COMPARISON: 03/20/2019 FINDINGS: No parenchymal hemorrhage. No epidural or subdural hematoma. No subarachnoid hemorrhage. Right parietal encephalomalacia with chronic ischemic changes. No mass identified on this noncontrasted exam. No hydrocephalus. No sinus opacification. 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 Electronically signed by Mike Jacobson 04/08/2019 9:46 PM 04/08/192145 Interpreting Physician: Mike Jacobson MD Dictated Date/Time: 04/08/192143 cc: Adelfo Broussard MD; Betty Mohan MD) Departure - Departure Date of Disposition Decision: 04/08/19 Time of Disposition Decision: 23:25 DIAGNOSIS: Facial droop Disposition: ADMITTED INPATIENT 09 Certified Medical Emergency: Emergent Condition: Stable Referrals and Follow-Ups: Betty Mohan MD [Primary Care Provider] - - Critical Care Note This patient required my direct & personal management of CC.: No Attestation - Physician/ HANNAH Attestation Patient care was provided by Advanced Practice Provider:: No The physician spent face to face time with patient:: Yes Advanced Practice Provider documentation review:: Supervising physician onsite and consulted in the evaluation and care of this patient. The physician did have a face to face encounter with the patient. This chart was documented by the indicated scribe, (Indu Ramirez, Yoni) and accurately reflects the services I performed and decisions made by me, Adelfo Broussard MD, as attested by the provider's signature.
--- NOTE | 2019-04-08 23:54 | EKG Report ---
Test Performed on : 04/08/2019 11:05:01 PM Test Reason : Stroke like symptoms Blood Pressure : / mmHG Vent. Rate : 081 BPM Atrial Rate : 080 BPM P-R Int : 000 ms QRS Dur : 156 ms QT Int : 462 ms P-R-T Axes : 000 -82 086 degrees QTc Int : 536 ms Wide QRS rhythm. with occasional premature ventricular complexes. Left axis deviation Right bundle branch block Lateral infarct , age undetermined Inferior infarct , age undetermined Abnormal ECG When compared with ECG of 20-MAR-2019 22:57, (Unconfirmed) Wide QRS rhythm. has replaced Electronic ventricular pacemaker Unconfirmed Result
--- NOTE | 2019-04-09 02:03 | HISTORY AND PHYSICAL ---
PRIMARY CARE PHYSICIAN: Dr. Jason Mohan. CHIEF COMPLAINT: Facial droop. HISTORY OF PRESENTING ILLNESS: This is a 74-year-old male with a history of CHF, chronic atrial fibrillation, hypertension, dementia, who was brought from [facility] due to the patient having facial droop. He was brought to the emergency department, he was evaluated and it was suspected possibly he had a stroke, and due to his presenting symptoms he will require admission for further management. The patient is a poor historian due to his dementia; however, he had denied having any problems, any fever, chills, chest pain, shortness of breath, or any weight changes. PAST MEDICAL HISTORY: Includes CHF, hypertension, chronic atrial fibrillation, dementia, coronary artery disease. PAST SURGICAL HISTORY: Pacemaker defibrillator, coronary bypass. ALLERGIES: No known drug allergies. CURRENT MEDICATIONS: Albuterol nebs q.4 hours., Allopurinol 100 mg p.o. daily, alprazolam 0.5 mg p.o. at bedtime, Eliquis 5 mg p.o. b.i.d., bisoprolol 2.5 mg p.o. daily, Depakote 250 mg p.o. b.i.d., Aricept 5 mg p.o. at bedtime, droxidopa 300 mg p.o. t.i.d., Lasix 40 mg p.o. daily, [place] 5 mg p.o. b.i.d., Imdur 30 mg p.o. daily, pravastatin 40 mg p.o. at bedtime, Flomax 0.4 mg p.o. daily, Ranexa 1000 mg p.o. b.i.d., Effexor 37.5 mg p.o. at bedtime. SOCIAL HISTORY: Former smoker. No history of alcohol or illicit drug use. FAMILY HISTORY: No history of coronary disease. REVIEW OF SYSTEMS: Is limited due to the patient's dementia. PHYSICAL EXAMINATION: GENERAL: The patient is resting comfortably. VITAL SIGNS: Pulse of 88, respirations 20, blood pressure 136/101. HEENT: Atraumatic, normocephalic. PERRLA. There is left facial droop noticed. NECK: No masses. CHEST: Clear to auscultation. CARDIOVASCULAR: Regular rate and rhythm. ABDOMEN: Soft. Positive bowel sounds. EXTREMITIES: No edema. NEUROLOGIC: He is awake, alert and oriented x1. Strength is 5/5 in all extremities. Speech is intact. GENITOURINARY: No bladder distention. SKIN: Warm. LABORATORIES AND STUDIES: WBC is 4.67, hemoglobin is 11.6, hematocrit is 35.3, platelets 221,000. Sodium 145, potassium 3.6, chloride 105, CO2 is 27, BUN is 23, creatinine is 1.8, glucose is 80. CT of the head no hemorrhage. Old right parietal infarct with chronic microvascular changes. Chest x-ray marked cardiomegaly. ASSESSMENT: A 74-year-old male with a history of CHF, hypertension, chronic atrial fibrillation, and dementia who was brought to the emergency department due to the patient having a left facial droop that was noticed at the [facility]. He was brought to the emergency department, evaluated and suspected to possibly have had a stroke. Subsequently he will require admission for further management. 1. Suspected CVA with the patient having left facial droop, which has improved. 2. Chronic atrial fibrillation. 3. Hypertension. 4. Dementia. PLAN: 1. We will admit the patient to a medical floor with telemetry. 2. Continue with stroke workup. 3. Consult Neurology. 4. We will monitor the patient on telemetry and continue his Eliquis. 5. We will monitor blood pressure and resume antihypertensive agent. 6. We will restart the patient on his home medications. 7. Put the patient on DVT prophylaxis with SCDs. 8. We will continue to follow, reassess and make further recommendation based on the patient's clinical course. cc: Duane Aguilar MD MTDD
[2019-04-09] MEDS ORDERED: NORCO-5 PO PRN (03:47)
[2019-04-09] MEDS ORDERED: ZEBETA PO SCH (09:00)
[2019-04-09] MEDS: REGLAN PO SCH ×3 (11:28→16:15)
[2019-04-09] MEDS: LASIX PO SCH (11:29)
[2019-04-09] MEDS: DEPAKOTE ER PO SCH ×2 (11:29→21:02)
[2019-04-09] MEDS: FLOMAX PO SCH (11:29)
[2019-04-09] MEDS: PEN VK PO SCH ×3 (11:29→21:00)
[2019-04-09] MEDS: ZEBETA PO SCH ×2 (11:30→21:01)
[2019-04-09] MEDS: RANEXA PO SCH ×2 (11:30→21:01)
[2019-04-09] MEDS: ZYLOPRIM PO SCH (11:30)
[2019-04-09] MEDS: IMDUR PO SCH (11:30)
[2019-04-09] MEDS: ELIQUIS PO SCH ×2 (11:30→21:02)
[2019-04-09] MEDS: PATIENT'S OWN MED PO SCH ×3 (11:30→21:04)
--- NOTE | 2019-04-09 15:15 | PROGRESS NOTE ---
DATE: 04/09/2019 SUBJECTIVE: Mr. Solitario was transferred via ambulance to [facility] for evaluation of a left facial droop. His initial CT scan of the brain demonstrated an old right parietal infarction with chronic microvascular ischemic changes. No intracranial hemorrhage was noted. He has remained in normal sinus rhythm. Heart rate has been in the 90s. He has a history of paroxysmal atrial fibrillation for which he is taking the Xarelto. He has had no obvious bleeding complications. When I saw him today, the left facial droop had improved greatly. He underwent a swallow evaluation by speech therapy , and there was no evidence of aspiration or dysphagia. His blood pressure remains well controlled. Systolic blood pressures are ranging from 118 to 132 whereas his diastolic blood pressures are in the 80s. He denies any chest pain, palpitations, or anginal equivalents. OBJECTIVE: Temperature 98.2 degrees, pulse 105, respirations 24, and blood pressure 128/92.CV: Regular rate and rhythm. Lungs: Clear. There are distant breath sounds with increased period of expiration. Abdomen: Soft, nontender with active bowel sounds. Extremities: Without edema. Neurologic: There is mild residual left facial droop. Cranial nerves 2-12 intact grossly. Tongue is midline. He has normal tone and strength in the upper and lower extremities bilaterally. He follows simple commands. ASSESSMENT AND PLAN: 1. Paroxysmal atrial fibrillation. He remains in normal sinus rhythm. We will continue Xarelto 20 mg daily to reduce the risk of stroke and TIA. His heart rate is a little bit faster than I would like to see. I will increase the Ziac to 2.5 mg b.i.d. 2. TIA. It sounds as if he had a TIA. His CT was unremarkable. He has had no arrhythmias. We will continue. He had a speech evaluation and there was no dysphagia or aspiration. Carotid ultrasound is pending. We will continue the Xarelto. If he remains neurologically stable, I hope to be able to discharge him back to the halfway tomorrow. 3. Chronic respiratory failure with hypoxia secondary to chronic congestive heart failure secondary to systolic dysfunction. We will continue a salt and fluid restricted diet. Diuresis with Lasix and supplemental O2.. cc: Nisha Mohan MD
[2019-04-09] MEDS ORDERED: XANAX PO SCH (21:00)
[2019-04-09] MEDS ORDERED: EFFEXOR XR PO SCH (21:00)
[2019-04-09] MEDS ORDERED: ARICEPT PO SCH (21:00)
[2019-04-09] MEDS ORDERED: PRAVACHOL PO SCH (21:00)
--- NOTE | 2019-04-09 22:04 | EEG REPORT ---
DATE: 04/09/2019 EEG #: [id number] COMMENT: This is a digitally recorded EEG on a 74-year-old patient with reported baseline dementia, recently noted left facial droop, question of recent stroke, seizure. FINDINGS: Movement artifact is present and sometimes obscures the EEG, but does not hinder overall interpretation. Waking record is dominated by polymorphic and rhythmic theta across the frontal and central regions symmetrically. There is occasional slowing into the delta range bilaterally while awake. Sustained posterior dominant rhythm was not identified. Drowsing occurred with appearance of more generalized slowing. Stage 2 sleep was not recorded. Photic stimulation did not significantly alter the record. No definite epileptiform discharge was identified. INTERPRETATION: Abnormal EEG because of generalized slowing. CORRELATION: This is indicative of a diffuse encephalopathy and is nonspecific. This would correlate with his reported baseline dementia. There is no focal finding to suggest acute focal encephalopathy. There is no evidence of seizure. cc: MD Nisha Carl III, MD
[2019-04-10] MEDS: REGLAN PO SCH ×2 (06:06→10:45)
[2019-04-10 07:29] LABS: BASO# 0.02 X1000 (0.0-0.2); BASO% 0.5 % (0.0-0.8); EOS# 0.18 X1000 (0.0-0.7); EOS% 4.1 % (0.0-10.0); HEMATOCRIT 37.5 % (42.0-52.0); HEMOGLOBIN 11.9 g/dL (14.0-18.0); LYMPH# 1.37 X1000 (1.2-3.4); LYMPH% 31.4 % (20.5-51.1); MCH 29.5 PG (27-31); MCHC 31.7 g/dL (33-37); MCV 92.8 FL (81-99); MONO# 0.61 X1000 (0.11-0.59); MPV 9.8 FL (7.4-10.4); NEUT# 2.19 X1000 (1.4-6.5); PLT 205 X1000 (130-400); RBC 4.04 XMIL (4.7-6.1); RDW 15.6 % (11.5-14.5); WBC 4.37 X1000 (4.8-10.8)
[2019-04-10 07:49] LABS: CALCIUM 8.4 mg/dL (8.8-10.2); CREATININE 1.8 mg/dL (0.7-1.2); POTASSIUM 3.7 mmol/L (3.5-5.1)
[2019-04-10] MEDS: FLOMAX PO SCH (09:07)
[2019-04-10] MEDS: RANEXA PO SCH (09:07)
[2019-04-10] MEDS: IMDUR PO SCH (09:07)
[2019-04-10] MEDS: ZYLOPRIM PO SCH (09:07)
[2019-04-10] MEDS: DEPAKOTE ER PO SCH (09:07)
[2019-04-10] MEDS: ELIQUIS PO SCH (09:08)
[2019-04-10] MEDS: ZEBETA PO SCH (09:08)
[2019-04-10] MEDS: LASIX PO SCH (09:08)
[2019-04-10] MEDS: PATIENT'S OWN MED PO SCH (09:09)
--- NOTE | 2019-04-10 10:25 | DISCHARGE SUMMARY ---
ADMISSION DATE: 04/09/2019 DISCHARGE DATE: 04/10/2019 DISCHARGE DIAGNOSES: 1. Left facial droop. 2. Chronic respiratory failure with hypoxia on chronic home O2 at 2 L per nasal cannula continuously. 3. Chronic systolic congestive heart failure. 4. Chronic stable angina with a known history of ischemic heart disease. 5. Essential hypertension. 6. Mixed hyperlipidemia. 7. Gastroparesis. 8. Depression. 9. Chronic low back pain secondary to lumbar spinal stenosis with neurogenic claudication. 10. Mixed hyperlipidemia. 11. Vascular dementia with behavior issues. 12. Paroxysmal atrial fibrillation. DISCHARGE PHYSICAL EXAMINATION: This is an elderly, frail, 74-year-old gentleman in no apparent distress. General: He is afebrile. Pulse 68, respirations 21, BP 121/77. CV: Regular rate and rhythm. Lungs: Clear. Abdomen: Soft, nontender, with active bowel sounds. Neurologic: He moves all extremities grossly. He has a minimal left facial droop. HOSPITAL COURSE: [facility] for evaluation of new onset of facial droop. The stroke protocol was initiated. He has a history of paroxysmal atrial fibrillation. He remained in normal sinus rhythm throughout the scan. His heart rate did get up in the range of 95 to 105. We increased the is Zebeta to [address] scan of the brain demonstrated an old right parietal infarction with chronic microvascular ischemic changes. No hemorrhage or new stroke was appreciated. A carotid ultrasound is pending at the time of discharge. We did not repeat an echocardiogram as he has had 1 within the past several months. He was continued on his regular home dosage of Xarelto. Speech therapy was evaluated to see the patient. There was no evidence of dysphagia or aspiration. He was tolerating a GI soft diet without difficulty. The degree of facial droop improved over time. We also had to consider the possibility of a Jam's paralysis as he has had a previous stroke and EEG demonstrated no seizure activity. We did not proceed with an MRI as the patient has an underlying pacemaker and defibrillator. I suspect that he has had a small completed stroke. He remains in normal sinus rhythm. His CT showed no new changes. Lipids were well controlled on pravastatin. His lipid profile demonstrated total cholesterol of 119, triglycerides 61, LDL 79 and HDL 33. Physical therapy was consulted to see the patient. We will continue aggressive risk factor modification to prevent another stroke. We will continue Xarelto. We will continue aggressive blood pressure and lipid management. Having reached maximum hospital benefit, the patient was transferred back to [facility] in order to continue rehab. Because of his underlying vascular dementia with behavior issues his family is no longer able to care for him at home. He will be transitioned to long-term care following rehabbed. DISPOSITION: Having reached maximum hospital benefit, the patient was discharged in stable condition. cc: Nisha Mohan MD
[2019-04-10 11:44] VITALS: BP 100/69
--- NOTE | 2019-04-10 14:04 | Carotid Study ---
DATE: 04/09/2019 PROCEDURE: Bilateral duplex and color flow imaging of the carotid arteries performed using the Inverted Edge vivid E9 ultrasound system with a 9 L-D transducer. REFERRING PHYSICIAN: Dr. Duane Aguilar. IDENTIFICATION: A 74-year-old male. 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 INDICATIONS: CVA - stroke. FINDINGS: The velocity of cm/sec in both carotid systems were reviewed. The right ICA/CCA ratio is 1.14 corresponding with 2% stenosis of 0% to 39%. The left ICA/CCA ratio is 2.05 corresponding with 2% stenosis of 0% to 39%. INTERPRETATION: Mild atherosclerotic disease of the distal common and internal carotid arteries bilaterally, without evidence of a hemodynamically significant lesion in either carotid system. cc: MD Duane Ewing MD M. Neel Roberts, MD
[2019-04-11] MEDS ORDERED: VITAMIN D PO SCH (09:00)
== END 2019-04-10 14:00 | DRG 69 ==
LOC: SUPCPDRO → ED 20:51 → SUATTDRO 04-09 03:21 → 4N 04-09 03:21
PROVIDERS: ADMIT Internal Medicine; ATTEND Internal Medicine

== ENCOUNTER 2019-05-26 15:34 | Inpatient (IN) ==
[2019-05-26 15:50] LABS: BASO# 0.04 X1000 (0.0-0.2); BASO% 0.5 % (0.0-0.8); EOS# 0.17 X1000 (0.0-0.7); HEMATOCRIT 31.8 % (42.0-52.0); HEMOGLOBIN 10.7 g/dL (14.0-18.0); IMM GRAN# 0.18 X1000 (0.0-0.04); IMM GRAN% 2.2 % (0.0-0.5); LYMPH# 1.18 X1000 (1.2-3.4); LYMPH% 14.2 % (20.5-51.1); MCH 28.5 PG (27-31); MCHC 33.6 g/dL (33-37); MCV 84.8 FL (81-99); MONO# 1.25 X1000 (0.11-0.59); MPV 9.1 FL (7.4-10.4); NEUT# 5.51 X1000 (1.4-6.5); NEUT% 66.1 % (42.2-75.2); PLT 156 X1000 (130-400); RBC 3.75 XMIL (4.7-6.1); RDW 19.6 % (11.5-14.5); WBC 8.33 X1000 (4.8-10.8)
[2019-05-26 15:53] LABS: ALLEN TEST NO; BE 5.1 mmoll (-3.0-3.0); BLOOD TYPE ARTERIAL; HCO3-(ACT) 28.9 mmoll (20.0-26.0); METHB 0.8 % (0.0-1.5); O2(CT) 15.8 mL/dL (15.0-23.0); O2HB 96.8 % (95.0-99.0); PCO2(98.6) 44 mmHg (35-45); PO2(98.6) 267 mmHg (60-100); SAMPLE BLOOD; THB 11.1 g/dL (11.5-17.4); pH(98.6) 7.44 (7.35-7.45)
[2019-05-26 15:55] LABS: MODALITY NRB
--- NOTE | 2019-05-26 15:55 | Diag Imaging Result Doc PS360 ---
EXAM: CHEST-1 VIEW INDICATION: sob TECHNIQUE: 2 views COMPARISON: 04/08/2019 FINDINGS: The lungs are grossly clear. There is no discrete pleural fluid collection or pneumothorax. There is stable marked cardiomegaly. The pacemaker is stable. IMPRESSION: Stable marked cardiomegaly. No definite acute pathology by plain radiograph. Electronically signed by Anson Cabrera 05/26/2019 3:52 PM
[2019-05-26] MEDS ORDERED: LASIX IV ONE (16:21)
[2019-05-26] MEDS ORDERED: DUONEB (A & A) INH ONE (16:22)
[2019-05-26] MEDS ORDERED: SOLU-MEDROL IV ONE (16:22)
[2019-05-26 16:27] LABS: INR 1.78; PROTIME 21.1 Seconds (11.0-16.0)
[2019-05-26 16:28] LABS: PTT 46.7 Seconds (22.3-41.8)
[2019-05-26 16:34] LABS: AGAP 14; ALB/GLOB RATIO 0.9; ALKALINE PHOSPHATASE 70 U/L (32-122); BUN 22 mg/dL (8-22); CALCIUM 9.7 mg/dL (8.8-10.2); CHLORIDE 102 mmol/L (98-107); COSMO 289; CREATININE 1.2 mg/dL (0.7-1.2); ESTIMATED GFR > 60; GLUCOSE 113 mg/dL (70-104); GOT 21 U/L (10-34); GPT 11 U/L (10-44); POTASSIUM 3.4 mmol/L (3.5-5.1); SODIUM 143 mmol/L (136-145); TCO2 27 mmol/L (25-35); TOTAL BILIRUBIN 3.11 mg/dL (0.20-1.00); TOTAL PROTEIN 6.3 g/dL (6.3-8.3)
[2019-05-26] MEDS ORDERED: GEODON IM PRN (17:30)
[2019-05-26] MEDS ORDERED: STERILE WATER INJ. INJ PRN (17:30)
[2019-05-26] MEDS ORDERED: LOVENOX SUBQ SCH (17:30)
[2019-05-26] MEDS: DUONEB (A & A) INH SCH ×2 (19:20→23:23)
[2019-05-26 20:18] LABS: URINE SOURCE CATH
[2019-05-26 20:34] LABS: BILIRUBIN URINE NEGATIVE (NEGATIVE); BLOOD URINE NEGATIVE (NEGATIVE); COLOR YELLOW; GLUCOSE URINE NEGATIVE (NEGATIVE); KETONE URINE NEGATIVE (NEGATIVE); LEUKOCYTES URINE NEGATIVE (NEGATIVE); NITRITE URINE NEGATIVE (NEGATIVE); PROTEIN URINE NEGATIVE (NEGATIVE); SP GRAVITY URINE 1.009; TURBIDITY URINE CLEAR (CLEAR); UROBILINOGEN URINE 3 mg/dL (NORMAL)
[2019-05-26 20:36] LABS: UR EPITHELIAL CELLS <10 /HPF (<10); URINE BACTERIA NEGATIVE /HPF; URINE RBC <10 /HPF (<10); URINE WBC <10 /HPF (<10)
[2019-05-26] MEDS ORDERED: MAGNESIUM SULFATE 2 GM/S.W.I. 2 GM/50 ML IVPB IV ONE (21:06)
[2019-05-26] MEDS: LASIX IV SCH (21:21)
[2019-05-26] MEDS: POTASSIUM CHLORIDE 20 MEQ/SWI 20 MEQ/100 ML IVPB IV SCH ×2 (21:22→23:29)
--- NOTE | 2019-05-26 21:31 | EKG Report ---
Test Performed on : 05/26/2019 7:51:15 PM Test Reason : sob Blood Pressure : / mmHG Vent. Rate : 095 BPM Atrial Rate : 115 BPM P-R Int : 000 ms QRS Dur : 122 ms QT Int : 402 ms P-R-T Axes : 000 005 228 degrees QTc Int : 505 ms Undetermined rhythm Nonspecific intraventricular conduction delay ST & T wave abnormality, consider inferolateral ischemia Abnormal ECG When compared with ECG of 08-APR-2019 23:05, (Unconfirmed) Current undetermined rhythm precludes rhythm comparison, needs review Confirmed by Pj BOLDEN, Mateo ([id number]) on 05/27/2019 9:00:50 AM
[2019-05-27] MEDS: SOLU-MEDROL IV SCH ×3 (00:47→16:27)
[2019-05-27] MEDS: DUONEB (A & A) INH SCH ×6 (03:15→23:35)
[2019-05-27 05:34] LABS: HEMATOCRIT 34.1 % (42.0-52.0); HEMOGLOBIN 11.4 g/dL (14.0-18.0); IMM GRAN# 0.11 X1000 (0.0-0.04); IMM GRAN% 1.6 % (0.0-0.5); LYMPH# 0.41 X1000 (1.2-3.4); MCH 28.4 PG (27-31); MCHC 33.4 g/dL (33-37); MCV 84.8 FL (81-99); MONO# 0.18 X1000 (0.11-0.59); MONO% 2.6 % (1.7-9.3); MPV 9.9 FL (7.4-10.4); NEUT# 6.13 X1000 (1.4-6.5); NEUT% 89.8 % (42.2-75.2); PLT 173 X1000 (130-400); RBC 4.02 XMIL (4.7-6.1); RDW 19.6 % (11.5-14.5); WBC 6.83 X1000 (4.8-10.8)
[2019-05-27 06:11] LABS: AGAP 18; BUN 21 mg/dL (8-22); CHLORIDE 99 mmol/L (98-107); COSMO 292; CREATININE 1.2 mg/dL (0.7-1.2); ESTIMATED GFR > 60; GLUCOSE 136 mg/dL (70-104); POTASSIUM 3.5 mmol/L (3.5-5.1); SODIUM 144 mmol/L (136-145); TCO2 27 mmol/L (25-35)
[2019-05-27] MEDS: COLACE PO SCH ×2 (08:53→20:12)
[2019-05-27] MEDS: LASIX IV SCH ×2 (08:53→20:12)
[2019-05-27] MEDS: ELIQUIS PO SCH ×2 (08:53→20:12)
[2019-05-27] MEDS: ZYLOPRIM PO SCH (08:53)
[2019-05-27] MEDS: RANEXA PO SCH ×2 (08:53→20:12)
[2019-05-27] MEDS: FLOMAX PO SCH (08:53)
[2019-05-27] MEDS ORDERED: EFFEXOR XR PO SCH (09:00)
[2019-05-27 09:05] LABS: HEMATOCRIT 31.5 % (42.0-52.0); HEMOGLOBIN 10.7 g/dL (14.0-18.0); MCH 28.6 PG (27-31); MCV 84.2 FL (81-99); MPV 9.7 FL (7.4-10.4); RBC 3.74 XMIL (4.7-6.1); RDW 19.4 % (11.5-14.5); WBC 6.99 X1000 (4.8-10.8)
[2019-05-27] MEDS: DEPAKOTE ER PO SCH ×2 (09:16→20:12)
[2019-05-27] MEDS: ZIAC 2.5/6.25 MG PO SCH (09:16)
[2019-05-27] MEDS: EFFEXOR XR PO SCH (09:16)
--- NOTE | 2019-05-27 09:22 | PROGRESS NOTE ---
DATE: 05/27/2019 1. Mr. Solitario was admitted to [facility] with acute on chronic respiratory failure with hypoxia. We placed him on BiPAP yesterday afternoon and he has utilized BiPAP throughout the night. Clinically, he seems to be breathing much more comfortably. Respiratory rate is in the range of 14 to 16, O2 saturations are ranging from 97% to 100%. 2. Acute chronic obstructive pulmonary disease exacerbation. We will resume Symbicort 160/4.5 two puffs b.i.d. and continue DuoNeb nebulizer treatments and IV Solu-Medrol. 3. Acute on chronic congestive heart failure secondary to systolic dysfunction. We will continue a salt and fluid restricted diet. I will diurese him with Lasix 80 mg IV q.12 hours. I will recheck a portable chest x-ray this morning. We will try to wean him off BiPAP and begin 100% non-rebreather and titrate downward as long as his O2 saturations are greater than 92%. 4. Chronic atrial fibrillation. Heart rate is well controlled on Ziac. We will continue Eliquis to reduce the risk of stroke. cc: Nisha Mohan MD
--- NOTE | 2019-05-27 10:00 | Diag Imaging Result Doc PS360 ---
EXAM: CT ANGIOGRM PULMONARY ARTERIES 05/27/2019 HISTORY: dyspnea TECHNIQUE: This exam was performed using automated exposure control, adjustment of mA or kV according to patient size, and/or use of iterative reconstruction technique. COMMENT: The current study is compared with the previous noncontrast study of 06/17/2018. There are no filling defects in the pulmonary arteries. There are bilateral pleural effusions which are larger than on the previous examination. There are atherosclerotic calcifications in the aorta and extensively in the coronary arteries. There has been previous sternotomy. There is generalized subcutaneous edema which is worse than on the previous study. There is enlargement of the left ventricle and atrium. There is ascites. There is atelectasis versus pneumonia in the lower lobes particularly the posterior right lower lobe. This was not the case at the time the previous study. IMPRESSION: Right lower lobe atelectasis versus pneumonia. Pleural effusions. Anasarca. Ascites. No evidence of pulmonary emboli. Electronically signed by Remi Johnson 05/27/2019 9:58 AM
[2019-05-27 10:04] LABS: AGAP 17; BUN 21 mg/dL (8-22); CALCIUM 9.2 mg/dL (8.8-10.2); CHLORIDE 102 mmol/L (98-107); COSMO 296; CREATININE 1.2 mg/dL (0.7-1.2); ESTIMATED GFR > 60; GLUCOSE 136 mg/dL (70-104); POTASSIUM 3.3 mmol/L (3.5-5.1); SODIUM 146 mmol/L (136-145); TCO2 27 mmol/L (25-35)
--- NOTE | 2019-05-27 10:28 | HISTORY AND PHYSICAL ---
CHIEF COMPLAINT: Shortness of breath. HISTORY OF PRESENT ILLNESS: Mr. Jonah Solitario is a 74-year-old gentleman who is well known to me. He has a history of multiple medical problems including chronic respiratory failure with hypoxia on continuous home oxygen, chronic congestive heart failure secondary to systolic dysfunction, chronic atrial fibrillation, essential hypertension, renal insufficiency, mixed hyperlipidemia, severe 3-vessel ischemic heart disease and vascular dementia. He presented to the ER complaining of increasing shortness of breath and increasing work of breathing. They had been unable to maintain his O2 sats above 90% on supplemental O2. When I saw him in the ER, he was on 100% non rebreather. Arterial blood gases demonstrated a pH of 7.44, pCO2 44, PO2 267, and an O2 saturation of 100%. His chest x-ray demonstrated hyperinflation of lung dutta. There was no evidence of pleural effusions or infiltrate. His family reported that over the past several days he had had progressive swelling of his lower extremities, and more shortness of breath with activity. He denied any chest pain, palpitations, or other anginal equivalents. PAST MEDICAL HISTORY: Essential hypertension, chronic renal insufficiency, chronic atrial fibrillation, chronic respiratory failure with hypoxia on continuous home oxygen, chronic congestive heart failure secondary to systolic dysfunction, ischemic heart disease, vascular dementia, gastroparesis, type 2 non insulin-dependent diabetes mellitus, and previous cerebrovascular accident. PAST SURGICAL HISTORY: Cholecystectomy. Placement of pacemaker and defibrillator, and coronary artery bypass graft surgery. ALLERGIES: No known drug allergies. FAMILY HISTORY: Noncontributory. SOCIAL HISTORY: He is a resident at the [facility] at [facility]. He is a former smoker. He does not consume alcoholic beverages. MEDICATIONS: 1. DuoNeb nebulizer treatments q.4 hours. 2. Allopurinol 100 mg daily. 3. Eliquis 5 mg b.i.d. 4. Ziac 2.5/6.25 mg daily. 5. Depakote ER 250 mg b.i.d. 6. Colace 100 mg b.i.d. 7. Aricept 5 mg at night. 8. Lasix 40 mg daily (may take an additional Lasix if gains 2 pounds in 24 hours). 9. Pravastatin 40 mg at bedtime. 10. Ranexa 1000 mg b.i.d. 11. Flomax 0.4 mg daily. REVIEW OF SYSTEMS: Constitutional: He has gained weight. HEENT: He wears glasses. He is hard of hearing. CV: He denies any chest pain, palpitations, or anginal equivalents. Pulmonary: See HPI. GI: No reflux, dysphagia, melena, hematochezia, change in bowel habits, or rectal bleeding. Endocrine: No polyuria. No polydipsia. No cold or heat intolerance. Skin: No easy bruisability. : No leakage of urine with coughing or laughing. He does have nocturia and diminished urinary stream. Neurologic: No migraines or seizures. Psychiatric: He has a history of depression. PHYSICAL EXAMINATION: GENERAL: This is a chronically ill-appearing 74-year-old gentleman in mild distress secondary to shortness of breath. VITAL SIGNS: Temperature 97.6 degrees, pulse 87, respirations 22, and BP 156/104. HEENT: Fundi with arteriolar wall thickening. Pupils equal, round, and reactive to light. Extraocular eye movements intact. TMs without bullae. NECK: Supple. No masses, JVD or bruits. CV: Irregularly irregular. LUNGS: Diffuse end-expiratory wheezing with forced expiration. ABDOMEN: Soft and nontender with active bowel sounds. EXTREMITIES: 2+ pitting edema bilaterally. NEUROLOGIC: Decreased light touch in the distal extremities bilaterally. ASSESSMENT AND PLAN: 1. Acute on chronic respiratory failure. I suspect that the etiology of his shortness of breath is multifactorial. He has diffuse wheezing. He has underlying COPD. I am going to treat him with Solu-Medrol 125 mg IV load and then 80 mg IV q.8 hours, and begin DuoNeb nebulizer treatments. I will repeat a portable chest x-ray in the morning. I suspect he has some degree of acute on chronic congestive heart failure secondary to systolic dysfunction. We will place him on a salt and fluid restricted diet, and aggressively diurese him with Lasix 80 mg IV q.12 hours. His proBNP is continually elevated greater than 30,000. He is not having any obvious evidence episodes of chest pain. We will check serial cardiac enzymes. I think it would be highly unlikely for him to have a blood clot as he takes Eliquis on a daily basis. I will check a D-dimer. Further recommendations will be made based upon those results. 2. Chronic atrial fibrillation. His heart rate is well controlled on Ziac. We will continue Eliquis 5 mg b.i.d. to reduce the risk of stroke. 3. Diabetic gastroparesis. We will resume Reglan 5 mg 30 minutes prior to each meal t.i.d. 4. Given the patient's clinical presentation and comorbid conditions, I believe that admission to the hospital is indicated. He is at high risk for respiratory failure requiring mechanical ventilation. We have switched him to BiPAP, and will monitor him closely. Hopefully, he will not half to be intubated. I anticipate that he will be in the hospital for at least 2 midnights, and I will therefore place him in inpatient status. We will continue Eliquis for DVT prophylaxis. cc: Nisha Mohan MD
[2019-05-27] MEDS ORDERED: KLOR-CON PO ONE (12:55)
--- NOTE | 2019-05-27 14:59 | PROGRESS NOTE ---
DATE: 05/27/2019 SUBJECTIVE: Mr. Solitario was admitted to [facility] with acute on chronic respiratory failure with hypoxia secondary to acute COPD exacerbation and acute on chronic congestive heart failure secondary to systolic dysfunction. He maintained good O2 saturations throughout the night on BiPAP. He was weaned off BiPAP, and was started on supplemental O2. He is currently on 5 L of O2 per nasal cannula. O2 saturations are ranging from 98% to 100%. He reports that he is breathing much more comfortably. He does not appear to be any respiratory distress. He did have an elevated D-dimer. CT scan of the pulmonary angiogram demonstrated bilateral pleural effusions, but no evidence of PTE. OBJECTIVE: Vital Signs: He is afebrile, pulse 88, respirations 16, BP 153/105. CV: Irregularly irregular. Lungs: Crackles in the bases bilaterally. Abdomen: Soft, nontender, with active bowel sounds. ASSESSMENT AND PLAN: 1. Acute on chronic respiratory failure with hypoxia secondary to acute chronic obstructive pulmonary disease exacerbation and acute on chronic congestive heart failure secondary to systolic dysfunction. We will gradually continue to try to wean him down on oxygen. He was taking oxygen at 3 liters per nasal cannula continuously at home. We will continue nebulizer treatments, as well as resuming Symbicort. We will continue a salt and fluid restricted diet. I will aggressively diurese him with Lasix. We will correct his electrolytes. 2. Chronic atrial fibrillation. Heart rate is controlled on Ziac. We will continue Xarelto to reduce the risk of stroke. cc: Nisha Mohan MD
[2019-05-27] MEDS ORDERED: SODIUM CHLORIDE 0.9% INJ PRN (15:11)
[2019-05-27] MEDS ORDERED: PHENERGAN IV PRN (15:11)
[2019-05-27] MEDS ORDERED: REGLAN PO SCH (16:00)
[2019-05-27] MEDS: REGLAN PO SCH (16:26)
[2019-05-27] MEDS: SYMBICORT 160/4.5 MICROGM INHALER INH SCH (19:43)
[2019-05-27] MEDS: DESYREL PO SCH (20:11)
[2019-05-27] MEDS: ARICEPT PO SCH (20:12)
[2019-05-27] MEDS: PRAVACHOL PO SCH (20:12)
[2019-05-28] MEDS: SOLU-MEDROL IV SCH ×4 (01:28→23:40)
[2019-05-28] MEDS: DUONEB (A & A) INH SCH ×6 (03:09→23:21)
[2019-05-28] MEDS: REGLAN PO SCH ×3 (06:19→15:22)
[2019-05-28] MEDS: SYMBICORT 160/4.5 MICROGM INHALER INH SCH ×2 (07:52→19:29)
[2019-05-28] MEDS ORDERED: COZAAR PO SCH (09:00)
[2019-05-28] MEDS: COLACE PO SCH ×2 (09:50→22:17)
[2019-05-28] MEDS: EFFEXOR XR PO SCH (09:50)
[2019-05-28] MEDS: RANEXA PO SCH ×2 (09:50→22:18)
[2019-05-28] MEDS: FLOMAX PO SCH (09:50)
[2019-05-28] MEDS: ELIQUIS PO SCH ×2 (09:50→22:18)
[2019-05-28] MEDS: LASIX IV SCH ×2 (09:50→22:18)
[2019-05-28] MEDS: ZYLOPRIM PO SCH (09:50)
[2019-05-28] MEDS: ZIAC 2.5/6.25 MG PO SCH (09:51)
[2019-05-28] MEDS: DEPAKOTE ER PO SCH ×2 (09:59→22:47)
[2019-05-28 11:23] LABS: AGAP 12; BUN 22 mg/dL (8-22); CALCIUM 9.2 mg/dL (8.8-10.2); CHLORIDE 102 mmol/L (98-107); COSMO 288; ESTIMATED GFR > 60; GLUCOSE 130 mg/dL (70-104); POTASSIUM 3.8 mmol/L (3.5-5.1); SODIUM 142 mmol/L (136-145); TCO2 28 mmol/L (25-35)
[2019-05-28] MEDS: PEPCID PO SCH (13:35)
[2019-05-28] MEDS: IMDUR PO SCH (13:35)
--- NOTE | 2019-05-28 19:50 | PROGRESS NOTE ---
DATE: 05/28/2019 SUBJECTIVE: Patient has chronic atrial fibrillation. He remains in atrial fibrillation. Heart rate is ranging from 75 to 94. He has had no bleeding complications secondary to the Eliquis. He was admitted with acute on chronic respiratory failure with hypoxia secondary to acute on chronic congestive heart failure secondary to systolic dysfunction. He is breathing much more comfortably. The acute respiratory failure has resolved. He is back on O2 at 3 L per nasal cannula, which is his baseline oxygen requirement at home. He has had good urine output. Peripheral edema has improved greatly. Blood pressure is fluctuating. He denies any chest pain, palpitations, or anginal equivalents. OBJECTIVE: Temperature 97.4 degrees pulse 81, respirations 24, BP 130/93. Cardiovascular: Irregularly irregular. Lungs: Faint crackles in the bases bilaterally. Abdomen: Soft, nontender, with active bowel sounds. Extremities: Trace ankle edema. ASSESSMENT AND PLAN: 1. Chronic respiratory failure with acute on chronic congestive heart failure secondary to systolic dysfunction. We will continue a salt and fluid restricted diet. We will transition him to oral Lasix. I will recheck a PA and lateral chest x-ray in the morning. 2. Hypertension. Blood pressure is trending upward. Because of the history of systolic congestive heart failure, I will add losartan 25 mg daily. 3. Acute chronic obstructive pulmonary disease exacerbation. He is breathing more comfortably. He is no longer wheezing. I will wean him off steroids and continue nebulizer treatments and Symbicort. cc: Nisha Mohan MD
[2019-05-28] MEDS: DESYREL PO SCH (22:17)
[2019-05-28] MEDS: PRAVACHOL PO SCH (22:18)
[2019-05-28] MEDS: ARICEPT PO SCH (22:18)
[2019-05-29] MEDS: DUONEB (A & A) INH SCH ×6 (03:23→23:08)
[2019-05-29] MEDS: REGLAN PO SCH ×3 (06:11→17:17)
[2019-05-29] MEDS: COLACE PO SCH ×2 (08:20→20:34)
[2019-05-29] MEDS: ZIAC 2.5/6.25 MG PO SCH (08:21)
[2019-05-29] MEDS: PEPCID PO SCH (08:21)
[2019-05-29] MEDS: RANEXA PO SCH ×2 (08:21→20:35)
[2019-05-29] MEDS: EFFEXOR XR PO SCH (08:21)
[2019-05-29] MEDS: LASIX IV SCH ×2 (08:21→20:35)
[2019-05-29] MEDS: ELIQUIS PO SCH ×2 (08:21→20:34)
[2019-05-29] MEDS: IMDUR PO SCH (08:21)
[2019-05-29] MEDS: FLOMAX PO SCH (08:21)
[2019-05-29] MEDS: DEPAKOTE ER PO SCH ×2 (08:21→20:35)
[2019-05-29] MEDS: SOLU-MEDROL IV SCH ×2 (08:22→17:17)
[2019-05-29] MEDS: COZAAR PO SCH (08:23)
[2019-05-29] MEDS: SYMBICORT 160/4.5 MICROGM INHALER INH SCH ×2 (08:33→19:30)
[2019-05-29 08:51] LABS: HEMATOCRIT 30.8 % (42.0-52.0); HEMOGLOBIN 10.4 g/dL (14.0-18.0); MCH 28.7 PG (27-31); MCHC 33.8 g/dL (33-37); MCV 84.8 FL (81-99); MPV 9.3 FL (7.4-10.4); RBC 3.63 XMIL (4.7-6.1); RDW 19.5 % (11.5-14.5); WBC 10.5 X1000 (4.8-10.8)
[2019-05-29] MEDS: ZYLOPRIM PO SCH (08:57)
[2019-05-29 09:50] LABS: AGAP 13; BUN 24 mg/dL (8-22); CALCIUM 9.1 mg/dL (8.8-10.2); CHLORIDE 96 mmol/L (98-107); COSMO 282; CREATININE 1.1 mg/dL (0.7-1.2); ESTIMATED GFR > 60; GLUCOSE 106 mg/dL (70-104); POTASSIUM 3.6 mmol/L (3.5-5.1); SODIUM 139 mmol/L (136-145); TCO2 30 mmol/L (25-35)
--- NOTE | 2019-05-29 11:37 | PROGRESS NOTE ---
DATE: 05/29/2019 SUBJECTIVE: Mr. Jonah Solitario was admitted to [facility] with acute on chronic respiratory failure with hypoxia secondary to acute chronic obstructive pulmonary disease exacerbation and acute on chronic congestive heart failure secondary to systolic dysfunction. We had transferred him from the unit to the floor yesterday. He had increasing dyspnea during the night with elevated respiratory rate as high as 30. They increased his oxygen to 5 L of O2 per nasal cannula and his breathing improved. They were able to wean him down to 3 L of O2 this morning, and he has O2 saturations of 99 to 100 percent. He reports that he is breathing more comfortably. He denies any chest pain, palpitations, or anginal equivalents. He reports that he feels a 7 on a scale of 1 to 10, where 10 is the best. OBJECTIVE: Vitals: Blood pressure continues to fluctuate a little bit. Systolic blood pressures have been in the 130s, whereas his diastolic blood pressures have been in the range of 85 to 103. Temperature 97.7 degrees, pulse 88, BP 152/103. CV: Irregularly irregular. Lungs: Faint crackles in the bases bilaterally. Abdomen: Soft, nontender, with active bowel sounds. No hepatosplenomegaly. No abdominal bruits. Extremities: Trace ankle edema. ASSESSMENT AND PLAN: 1. Acute on chronic respiratory failure with hypoxia secondary to acute on chronic congestive heart failure secondary to systolic dysfunction. I am going to repeat a PA and lateral chest x-ray today. We will continue diuresis with Lasix. We will wean down on the steroids. I suspect that his elevated blood pressure is worsening his heart failure resulting in dyspnea. We will increase the losartan to 50 mg daily. 2. Hypertension. Blood pressure is a little bit too high. We will increase the losartan to 50 mg daily. 3. Acute chronic obstructive pulmonary disease exacerbation. We will continue Symbicort 2 puffs b.i.d. and nebulizer treatments q.4 hours. 4. We will increase activity and hopefully we will be able to discharge him to rehab tomorrow. cc: Nisha Mohan MD
--- NOTE | 2019-05-29 13:20 | Diag Imaging Result Doc PS360 ---
EXAM: CHEST-2 VIEWS 05/29/2019 HISTORY: CHF TECHNIQUE: Two views the chest COMMENT: There is marked enlargement of the cardiomediastinal silhouette. This was also the case on 05/26/2019. There is apparent opacity in the posterior costophrenic sulcus of the right lower lobe and there may also be pleural fluid in both posterior costophrenic sulci. This is certainly worse than on 03/24/2019. IMPRESSION: Pulmonary edema and possible pneumonia right lower lobe. Cardiomegaly. Electronically signed by Remi Johnson 05/29/2019 1:18 PM
[2019-05-29] MEDS: DESYREL PO SCH (20:35)
[2019-05-29] MEDS: PRAVACHOL PO SCH (20:35)
[2019-05-29] MEDS: ARICEPT PO SCH (20:35)
[2019-05-30] MEDS: SOLU-MEDROL IV SCH ×2 (00:52→08:42)
[2019-05-30] MEDS: DUONEB (A & A) INH SCH ×3 (03:34→11:16)
[2019-05-30] MEDS: REGLAN PO SCH ×2 (06:30→11:58)
[2019-05-30] MEDS: SYMBICORT 160/4.5 MICROGM INHALER INH SCH (07:39)
[2019-05-30] MEDS: RANEXA PO SCH (08:41)
[2019-05-30] MEDS: ZIAC 2.5/6.25 MG PO SCH (08:41)
[2019-05-30] MEDS: COLACE PO SCH (08:42)
[2019-05-30] MEDS: COZAAR PO SCH (08:42)
[2019-05-30] MEDS: PEPCID PO SCH (08:42)
[2019-05-30] MEDS: ELIQUIS PO SCH (08:42)
[2019-05-30] MEDS: FLOMAX PO SCH (08:42)
[2019-05-30] MEDS: EFFEXOR XR PO SCH (08:42)
[2019-05-30] MEDS: DEPAKOTE ER PO SCH (08:42)
[2019-05-30] MEDS: ZYLOPRIM PO SCH (08:42)
[2019-05-30] MEDS: IMDUR PO SCH (08:42)
[2019-05-30] MEDS: LASIX IV SCH (08:43)
[2019-05-30] MEDS ORDERED: LEVAQUIN PO SCH (09:00)
[2019-05-30] MEDS ORDERED: LASIX PO SCH (09:00)
--- NOTE | 2019-05-30 11:22 | DISCHARGE SUMMARY ---
ADMISSION DATE: 05/26/2019 DISCHARGE DATE: 05/30/2019 DISCHARGE DIAGNOSES: 1. Acute on chronic respiratory failure with hypoxia. 2. Chronic respiratory failure with hypoxia on continuous home oxygen at 2 L per nasal cannula. 3. Acute chronic obstructive pulmonary disease exacerbation complicated by tracheobronchitis. 4. Acute on chronic congestive heart failure secondary to systolic dysfunction. 5. Essential hypertension. 6. Ischemic heart disease without unstable angina. 7. Gastroparesis. 8. Vascular dementia with behavior issues. 9. Depression. 10. Chronic orthostatic hypotension secondary to autonomic dysfunction. 11. Gastroesophageal reflux disease. 12. Mixed hyperlipidemia. 13. Chronic atrial fibrillation. 14. Benign prostatic hypertrophy with nocturia. DISCHARGE INSTRUCTIONS: 1. The patient will be transferred via ambulance to [facility] in order to continue undergoing rehab. 2. Activity as tolerated. 3. Healthy heart diet with 1500 mL fluid restriction. 4. Activity as tolerated. MEDICATIONS: O2 at 2 L per nasal cannula continuously, DuoNeb nebulizer treatments q.4 hours, Zyloprim 100 mg daily, Eliquis 5 mg b.i.d., Ziac 2.5/6.25 mg daily, Symbicort 160/4.5 two puffs b.i.d., Depakote ER 250 mg b.i.d., Colace 100 mg b.i.d., Aricept 5 mg daily, Pepcid 20 mg daily, Lasix 80 mg daily and may repeat second dose if gains 2 pounds in 24 hours, Imdur 30 mg daily, levofloxacin 250 mg daily for 7 days, Losartan 50 mg daily, Reglan 5 mg p.o. t.i.d. 30 minutes prior to meals, pravastatin 40 mg at bedtime, Ranexa 1000 mg b.i.d., Flomax 0.4 mg daily, Effexor XR 37.5 mg daily, trazodone 25 mg at bedtime p.r.n. insomnia. DISCHARGE PHYSICAL EXAMINATION: General: This is a chronically ill-appearing 74-year-old gentleman who is in no apparent distress. Vitals: Temperature 97.6 degrees, pulse 84, respirations 18, blood pressure 142/81. HEENT: Fundi with arteriolar wall thickening. Pupils equal, round, reactive to light. Extraocular eye movements intact. TMs without bullae. Neck: Supple. No masses, JVD or bruits. Cardiovascular: Irregularly irregular. Lungs: Clear. Abdomen: Soft, nontender, with active bowel sounds. Extremities: Trace ankle edema. HOSPITAL COURSE: Mr. Jonah Solitario has a history of chronic respiratory failure with hypoxia on continuous home oxygen at 2 L per nasal cannula. He was transferred from [facility] to [facility] for evaluation of increasing shortness of breath and increasing work of breathing. His saturations had dropped into the 70s at the alf. The patient was admitted to the intensive care unit at [facility]. He was still having increasing shortness of breath and increased work of breathing, even on 100% non-rebreather. We transitioned him to BiPAP. His initial chest x-ray showed increased interstitial edema and small bilateral pleural effusions. We aggressively diuresed him with Lasix 80 mg IV q.12 hours. As his blood pressure was trending upward, we gradually increased the dosage of losartan to 50 mg daily with stabilization of his blood pressure. Also, due to the wheezing and cough productive of yellowish sputum, we felt that he also had an acute chronic obstructive pulmonary disease exacerbation. We initially treated him with steroids, supplemental O2 and nebulizer treatments. With aggressive medical therapy, his breathing improved significantly. We were gradually able to wean him off BiPAP and gradually titrated him back to his baseline O2 of 2 L per nasal cannula continuously. He went was maintaining O2 saturations of 96% to 100% on 2 L of O2 per nasal cannula. As stated earlier, we felt that his shortness of breath was a combination of an acute chronic obstructive pulmonary disease exacerbation and acute on chronic congestive heart failure secondary to systolic dysfunction. We were gradually able to wean him off steroids, added Symbicort 160/4.5 two puffs b.i.d., and continued nebulizer treatments. We continued a salt and fluid restricted diet. We are going to put him on a 1500 mL fluid restricted diet. I have asked the alf to weigh him daily. If he gains more than 2 pounds in 24 hours, he may take a second dosage of Lasix 80 mg daily. He does have a history of chronic atrial fibrillation. He remained in atrial fibrillation throughout his hospitalization. His heart rate was stable on Ziac. He had no bleeding complications secondary to the Eliquis. He does have a history of ischemic heart disease. He has had chronic stable angina. He is not a candidate for intervention such as surgery or angioplasty. He ruled out for myocardial ischemia by serial enzymes and was continued on his regular home dosage of Ranexa and Imdur. He also has a longstanding history of gastroparesis. He has been taking Reglan 5 mg 30 minutes prior to meals. He had no nausea or vomiting. Appetite is good. He has no early satiety. He has not had any EPS type symptoms or symptoms suggestive of tardive dyskinesia on the Reglan. Having reached maximum hospital benefit, the patient was discharged in stable condition. cc: Nisha Mohan MD
[2019-05-30 12:01] VITALS: BP 146/95
== END 2019-05-30 14:59 | DRG 189 ==
LOC: SUPCPDRO → ED 15:34 → EDIPHOLD 17:21 → ICU 17:35 → 1N 05-28 15:45
PROVIDERS: ADMIT Internal Medicine; ATTEND Internal Medicine

== ENCOUNTER 2019-06-12 17:42 | Inpatient (IN) ==
--- NOTE | 2019-06-12 19:05 | Diag Imaging Result Doc PS360 ---
SHOULDER-LEFT - 06/12/2019 INDICATION: swelling, pain TECHNIQUE: Three views COMPARISON: None FINDINGS: There is a right-sided pacemaker. There is severe degeneration of the acromioclavicular joint with significant downgoing spurring. There is mild degeneration of the glenohumeral joint as well. No acute fracture or dislocation. IMPRESSION: Advanced chronic degenerative changes. Electronically signed by Filemon Esquivel 06/12/2019 7:03 PM
--- NOTE | 2019-06-12 19:05 | Diag Imaging Result Doc PS360 ---
HUMERUS-LEFT - 06/12/2019 INDICATION: Swelling, Pain, Brusing TECHNIQUE: Two views COMPARISON: None FINDINGS: Bones are intact and normally aligned. Joint spaces and soft tissues are clear. IMPRESSION: Negative exam. Electronically signed by Filemon Esquivel 06/12/2019 7:02 PM
--- NOTE | 2019-06-12 19:07 | Diag Imaging Result Doc PS360 ---
FOREARM-LEFT - 06/12/2019 INDICATION: swelling, pain TECHNIQUE: Two views COMPARISON: Left wrist x-ray 06/12/2019 FINDINGS: There is diffuse subcutaneous edema. The bones are intact and normally aligned. Joint spaces are clear. IMPRESSION: Nonspecific body wall edema. Electronically signed by Filemon Esquivel 06/12/2019 7:05 PM
--- NOTE | 2019-06-12 19:08 | Diag Imaging Result Doc PS360 ---
WRIST COMPLETE LEFT - 06/12/2019 INDICATION: swelling, pain TECHNIQUE: Three views COMPARISON: 06/04/2019 FINDINGS: There is diffuse cutaneous edema, nonspecific. The appearance is similar to prior. No fracture or dislocation. No soft tissue gas. IMPRESSION: Body wall edema. Electronically signed by Filemon Esquivel 06/12/2019 7:06 PM
--- NOTE | 2019-06-12 19:11 | Diag Imaging Result Doc PS360 ---
HAND COMPLETE LEFT - 06/12/2019 INDICATION: swelling, pain TECHNIQUE: Three views COMPARISON: None FINDINGS: There is diffuse body wall edema with cutaneous swelling. No fracture or dislocation. IMPRESSION: Nonspecific body wall edema. Electronically signed by Filemon Esquivel 06/12/2019 7:09 PM
--- NOTE | 2019-06-12 19:12 | Diag Imaging Result Doc PS360 ---
CHEST-PORTABLE - 06/12/2019 INDICATION: AMS COMPARISON: 06/04/2019 FINDINGS: Stable left-sided pacemaker. Stable sternotomy changes. Stable severe cardiomegaly. There is worsening bibasilar opacifications consistent with any combination of edema, atelectasis, and/or pleural effusions. Stable moderate pulmonary vascular congestion. IMPRESSION: Worsening bibasilar opacifications. Electronically signed by Filemon Esquivel 06/12/2019 7:10 PM
--- NOTE | 2019-06-12 19:15 | Diag Imaging Result Doc PS360 ---
CT HEAD W/O CONTRAST - 06/12/2019 INDICATION: AMS COMPARISON: 05/22/2019 FINDINGS: Stable old encephalomalacia at the right cerebral hemisphere. Stable chronic microvascular ischemia. There is no intracranial mass or hemorrhage. The skull is intact. The sinuses are clear. IMPRESSION: No acute process. This exam was performed using automated exposure control, adjustment of mA or kV according to patient size, and/or use of iterative reconstruction technique Electronically signed by Filemon Esquivel 06/12/2019 7:13 PM
[2019-06-12] MEDS ORDERED: NS 1,000 ML IV ONE (19:38)
[2019-06-12 20:03] LABS: BASO# 0.02 X1000 (0.0-0.2); BASO% 0.3 % (0.0-0.8); EOS# 0.13 X1000 (0.0-0.7); EOS% 1.8 % (0.0-10.0); IMM GRAN# 0.04 X1000 (0.0-0.04); IMM GRAN% 0.6 % (0.0-0.5); LYMPH# 1.07 X1000 (1.2-3.4); MCH 27.5 PG (27-31); MCV 85.9 FL (81-99); MONO# 0.93 X1000 (0.11-0.59); MONO% 13.1 % (1.7-9.3); MPV 8.6 FL (7.4-10.4); NEUT# 4.93 X1000 (1.4-6.5); NEUT% 69.2 % (42.2-75.2); PLT 188 X1000 (130-400); RBC 2.91 XMIL (4.7-6.1); RDW 21.3 % (11.5-14.5); WBC 7.12 X1000 (4.8-10.8)
[2019-06-12 20:15] LABS: AGAP 10; ALB/GLOB RATIO 0.5; ALBUMIN 2.1 g/dL (3.5-5.0); ALKALINE PHOSPHATASE 102 U/L (32-122); BUN 24 mg/dL (8-22); CALCIUM 8.9 mg/dL (8.8-10.2); CHLORIDE 95 mmol/L (98-107); COSMO 280; CREATININE 1.2 mg/dL (0.7-1.2); ESTIMATED GFR > 60; GLUCOSE 98 mg/dL (70-104); GOT 27 U/L (10-34); GPT 9 U/L (10-44); POTASSIUM 3.9 mmol/L (3.5-5.1); SODIUM 138 mmol/L (136-145); TCO2 33 mmol/L (25-35); TOTAL BILIRUBIN 2.11 mg/dL (0.20-1.00); TOTAL PROTEIN 6.1 g/dL (6.3-8.3)
[2019-06-12 20:53] LABS: SED RATE 85 mm/hr (0-15)
[2019-06-12] MEDS ORDERED: ZOFRAN IV PRN (23:38)
--- NOTE | 2019-06-13 00:18 | HISTORY AND PHYSICAL ---
PRIMARY CARE PHYSICIAN: Dr. Jason Mohan. CHIEF COMPLAINT: Altered mental status, left upper extremity pain. HISTORY OF PRESENTING ILLNESS: A 74-year-old male with a history of multiple medical problems including chronic respiratory failure on oxygen, chronic CHF, chronic atrial fibrillation, hypertension, chronic kidney disease, vascular dementia and diabetes mellitus type 2. Was brought from [facility] due to patient having worsening edema on his left upper extremity and also more confusion. He was seen in the ED. He is a poor historian, not much history could be obtained from patient and most of the history is obtained from the ER charting and family members. As per family, they were concerned that his mental status was deteriorating and also his left upper extremity was getting more edema and tenderness. PAST MEDICAL HISTORY: Includes chronic respiratory failure on home oxygen, chronic CHF, systolic dysfunction, chronic atrial fibrillation, hypertension, chronic kidney disease, coronary artery disease, vascular dementia, diabetes mellitus type 2, CVA. PAST SURGICAL HISTORY: Cholecystectomy, pacemaker defibrillator, coronary artery bypass. ALLERGIES: No known drug allergies. CURRENT MEDICATIONS: Albuterol nebulizers q.4 hours, allopurinol 100 mg p.o. daily, Eliquis 5 mg p.o. b.i.d., bisoprolol HCT 2.5/6.25 one p.o. daily, Depakote 250 mg p.o. b.i.d., Aricept 5 mg p.o. daily, droxidopa 300 mg p.o. q.8 hours, famotidine 20 mg p.o. daily, Lasix 80 mg p.o. daily, [place] 5/325 one p.o. q.12 hours, isosorbide mononitrate 30 mg daily, pravastatin 40 mg p.o. at bedtime, Ranexa 1000 mg p.o. q.12 hours, tamsulosin 0.4 mg p.o. daily, trazodone 25 mg p.o. at bedtime, Effexor 37.5 mg p.o. daily. SOCIAL HISTORY: He is a former smoker. No history of alcohol or illicit drug use. FAMILY HISTORY: No history of coronary artery disease. REVIEW OF SYSTEMS: Limited due to patient not communicating. PHYSICAL EXAMINATION: GENERAL: The patient is resting comfortably. Occasionally mumbles a few words. VITAL SIGNS: Temperature 97.9 degrees, pulse 82, respirations 26, blood pressure 121/84. HEENT: Atraumatic, normocephalic. NECK: No masses. CHEST: Bibasilar rales. CARDIOVASCULAR: Regular rate and rhythm. ABDOMEN: Soft. Positive bowel sounds. EXTREMITIES: Moderate edema left upper extremity and tenderness. NEUROLOGIC: Patient is arousable. He speaks occasionally. GENITOURINARY: No bladder distention. SKIN: Warm. LABORATORIES AND STUDIES: WBCs 7.12, hemoglobin 8.0, hematocrit 25.0, platelets 188,000. Sodium 138, potassium 3.9, chloride 95, CO2 is 33, BUN is 24, creatinine is 1.2, glucose 98. ProBNP is 35,000. Head CT, no acute process. Shoulder x-ray shows advanced chronic degenerative changes. Forearm x-ray, nonspecific edema. ASSESSMENT: A 74-year-old male with a history of chronic respiratory failure, chronic congestive heart failure, chronic atrial fibrillation, hypertension, vascular dementia, diabetes mellitus type 2, who was brought to the emergency department due to worsening mental status changes and worsening edema in his left upper extremity. He was evaluated in the emergency department. Due to his presenting symptoms, he will need admission for further management. 1. Altered mental status, multifactorial. 2. Left upper extremity edema and pain. 3. Chronic respiratory failure, on home oxygen. 4. Chronic congestive heart failure, systolic dysfunction. 5. Chronic atrial fibrillation, on anticoagulation. 6. Hypertension. 7. Diabetes mellitus type 2. 8. Vascular dementia. PLAN: 1. We will admit patient to medical floor with telemetry. 2. Continue with neuro checks. 3. We are awaiting results of his CT of his upper extremity. 4. We will give him adequate pain control. 5. Continue with supplemental oxygen. 6. We will continue with anticoagulation. 7. We will continue with gentle diuresis. 8. We will monitor blood pressure closely. Resume antihypertensive agent. 9. We will monitor blood glucose and put patient on sliding scale insulin regimen. 10. The patient is on Eliquis and that will suffice for DVT prophylaxis. 11. We will continue to follow, and reassess and make further recommendation based on patient's clinical course. cc: MD Nisha Duncan MD
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
--- NOTE | 2019-06-13 07:27 | Diag Imaging Result Doc PS360 ---
EXAM: CT EXT UPPER LEFT W/CON INDICATION: swelling, pain, erythema TECHNIQUE: This exam was performed using automated exposure control, adjustment of mA or kV according to patient size, and/or use of iterative reconstruction technique. COMPARISON: None. FINDINGS: There are multiloculated fluid collections that appear to be contiguous involving the subacromial and subdeltoid bursae, subscapular recess that extends into the infraspinatus muscle, medially into the subscapularis muscle, and anteriorly into the deltoid muscle. These collections exhibit enhancement at the periphery, which is suspicious for abscess. However an aging hematoma may have a similar appearance. There is moderate degenerative arthropathy at the AC joint with inferior bone spurring. There is minimal glenohumeral joint degenerative arthropathy. No fracture or dislocation is identified. IMPRESSION: Multiloculated fluid collection in the soft tissue around the left shoulder with peripheral enhancement that is suspicious for abscess. Please correlate clinically. Electronically signed by Anson Cabrera 06/13/2019 7:25 AM
[2019-06-13 07:52] LABS: BASO# 0.01 X1000 (0.0-0.2); BASO% 0.2 % (0.0-0.8); EOS# 0.14 X1000 (0.0-0.7); EOS% 2.3 % (0.0-10.0); HEMATOCRIT 25.4 % (42.0-52.0); HEMOGLOBIN 8.2 g/dL (14.0-18.0); IMM GRAN# 0.06 X1000 (0.0-0.04); LYMPH# 0.99 X1000 (1.2-3.4); LYMPH% 16.2 % (20.5-51.1); MCH 27.8 PG (27-31); MCHC 32.3 g/dL (33-37); MCV 86.1 FL (81-99); MONO# 0.69 X1000 (0.11-0.59); MONO% 11.3 % (1.7-9.3); MPV 8.9 FL (7.4-10.4); NEUT# 4.24 X1000 (1.4-6.5); PLT 185 X1000 (130-400); RBC 2.95 XMIL (4.7-6.1); RDW 21.8 % (11.5-14.5); WBC 6.13 X1000 (4.8-10.8)
[2019-06-13 07:57] LABS: AGAP 11; BUN 23 mg/dL (8-22); CALCIUM 8.8 mg/dL (8.8-10.2); CHLORIDE 96 mmol/L (98-107); COSMO 277; CREATININE 1.2 mg/dL (0.7-1.2); ESTIMATED GFR > 60; GLUCOSE 83 mg/dL (70-104); POTASSIUM 3.5 mmol/L (3.5-5.1); SODIUM 137 mmol/L (136-145); TCO2 30 mmol/L (25-35)
[2019-06-13] MEDS ORDERED: VANCOMYCIN 1 GM/NS 1 GM/250 ML IVPB IV ONE (08:33)
--- NOTE | 2019-06-13 09:05 | PROGRESS NOTE ---
DATE: 06/13/2019 SUBJECTIVE: Mr. Solitario is a 74-year-old -[place] gentleman with a history of vascular dementia. He was transported via ambulance to [facility] last night for evaluation of altered mental status. His CT scan of the brain demonstrated stable encephalomalacia at the right cerebral hemisphere and stable chronic microvascular ischemia. No hemorrhage or stroke was noted. This morning, he is awake and easily arousable. He is oriented to name and place. He does not know the year. He has not had any fever, chills, nausea, or vomiting. His chest x-ray demonstrated worsening bibasilar opacifications. He has no leukocytosis. He has a history of chronic respiratory failure on continuous home oxygen secondary to chronic congestive heart failure secondary to systolic dysfunction due to a severe ischemic cardiomyopathy. His ProBNP is always in excess of 30,000. He is with complaint of mild shortness of breath and increasing work of breathing. His O2 saturations are ranging from 96% to 97% on 2 L of O2 per nasal cannula. He denies any chest pain, palpitations, or anginal equivalents. He is with complaint of right shoulder and right arm swelling. X-ray of the left wrist demonstrates diffuse subcutaneous edema. Joint spaces are clear. No obvious bony abnormalities were noted. An x-ray of the left shoulder demonstrated severe degeneration of the AC joint with spurring, no fracture or dislocation was noted. Previous noninvasive venous studies of the left upper extremity demonstrate no evidence of deep venous thrombosis or compartment syndrome. A CT of the left upper extremity demonstrates multiloculated fluid collection in the soft tissue around the left shoulder with peripheral enhancement that could suggest abscess or an old hematoma. He is on Eliquis due to his underlying atrial fibrillation. He has chronic atrial fibrillation. He remains in atrial fibrillation. His heart rate is well-controlled ranging from 76-85 on the Bystolic. OBJECTIVE: Temperature 98.2, pulse 85, respirations 19, BP 141/74. CV: Irregularly irregular. Lungs: Crackles in the bases bilaterally. Abdomen: Soft, nontender, with active bowel sounds. No hepatosplenomegaly. No abdominal bruits. Extremities: Without edema. Various laboratory studies were obtained. A CBC demonstrated a white count of 6.1, hemoglobin 8.2, hematocrit 25.4, and a platelet count of 185,000. Electrolytes demonstrate the following: Sodium 137, potassium 3.5, BUN 23, creatinine 1.2, glucose 83. ASSESSMENT AND PLAN: 1. Altered mental status with a history of known vascular dementia. This morning, he is awake and easily arousable. He is oriented to name and place. Chest x-ray shows effusions, certainly there could be an underlying infiltrate. I will check blood cultures as well as a urine culture. We will begin broad-spectrum antibiotics including Zosyn pending cultures. He does not have any obvious electrolyte abnormalities such as hyponatremia or acute renal failure, which would worsen mental status changes. 2. Chronic atrial fibrillation. He remains in atrial fibrillation. His heart rate is well- controlled on Bystolic. We will continue Eliquis to reduce the risk of stroke. 3. Chronic respiratory failure with hypoxia on continuous home oxygen with [id number] congestive heart failure secondary to systolic dysfunction. He essentially has end-stage congestive heart failure and end-stage ischemic heart disease. We will continue him on a salt and fluid restricted diet and aggressively diurese him with Lasix. 4. Left upper arm extremity: He has had previous noninvasive venous studies within the past week that demonstrated no evidence of deep venous thrombosis. I suspect this is hematoma from a recent fall. We will ask Dr. Melvin to see him in consultation. cc: Nisha Mohan MD
[2019-06-13] MEDS: DEPAKOTE ER PO SCH ×2 (09:16→21:32)
[2019-06-13] MEDS: HUMULIN R SUBQ SCH ×3 (09:16→21:34)
[2019-06-13] MEDS: ZIAC 2.5/6.25 MG PO SCH (09:17)
[2019-06-13] MEDS: IMDUR PO SCH (09:18)
[2019-06-13] MEDS: LASIX PO SCH (09:18)
[2019-06-13] MEDS: VITAMIN D PO SCH (09:18)
[2019-06-13] MEDS: FLOMAX PO SCH (09:18)
[2019-06-13] MEDS: RANEXA PO SCH ×2 (09:19→21:32)
[2019-06-13] MEDS: EFFEXOR XR PO SCH (09:19)
[2019-06-13] MEDS: ZOSYN 2.25 GM in NS 50 ML IV SCH ×3 (09:19→21:31)
[2019-06-13] MEDS: ZYLOPRIM PO SCH (09:19)
[2019-06-13] MEDS: COLACE PO SCH ×2 (09:19→21:32)
[2019-06-13] MEDS: PEPCID PO SCH (09:19)
[2019-06-13] MEDS: LASIX IV SCH ×2 (09:19→21:33)
[2019-06-13] MEDS: REGLAN PO SCH ×2 (14:32→15:56)
[2019-06-13] MEDS: NORCO-5 PO PRN (18:40)
[2019-06-13] MEDS: SYMBICORT 160/4.5 MICROGM INHALER INH SCH (19:48)
--- NOTE | 2019-06-13 21:13 | ORTHOPAEDICS CONSULTATION ---
DATE: 06/13/2019 CHIEF COMPLAINT: Swelling to the left shoulder. CLINICAL HISTORY: Mr. Solitario resides in [facility]. He is a 74-year-old male with past medical history of chronic respiratory failure, on oxygen, CHF, atrial fibrillation, hypertension, chronic kidney disease, dementia, and type 2 diabetes. He was brought to the ER from [facility] due to worsening edema of his left upper extremity and more confusion. He is a poor historian and much of his history is obtained from ER charting, as well as his initial history and physical. There are no family members at the bedside at this time. It is not known at this time if he is ambulatory at baseline. It is unknown if he has had a recent fall. He does take Eliquis due to his history of atrial fibrillation. HOME MEDICATIONS: Include allopurinol 100 mg p.o. daily, Ziac 2.5/6.25 mg 1 p.o. daily, Symbicort 2 puffs b.i.d., Depakote 250 mg p.o. b.i.d., Colace 100 mg p.o. b.i.d., Aricept 5 mg p.o. at bedtime, vitamin D 50,000 units on Sunday, Lasix 80 mg p.o. daily, insulin per sliding scale, Imdur 30 mg p.o. daily, pravastatin 40 mg p.o. at bedtime, Ranexa 1000 mg p.o. b.i.d., Flomax 0.4 mg p.o. daily, trazodone 25 mg p.o. at bedtime p.r.n., Effexor 37.5 mg p.o. daily. ALLERGIES: No known drug allergies. PAST MEDICAL HISTORY: Includes chronic respiratory failure, CHF, systolic dysfunction, atrial fibrillation, hypertension, chronic kidney disease, coronary artery disease, vascular dementia, type 2 diabetes, and previous stroke. PREVIOUS SURGICAL HISTORY: Cholecystectomy, pacemaker defibrillator, and coronary artery bypass. PHYSICAL EXAMINATION: Mr. Solitario is awake at this time and cooperative through most of the exam. He does have some confusion. His left upper extremity is edematous down to his fingertips. There is no wheezing at this time. He does have some discomfort with range of motion of his left shoulder. There is a palpable firm area to the anterolateral left shoulder. This area is warm, but there is no erythema appreciated. He does not voluntarily move his left upper extremity. LABORATORY AND IMAGING: His labs show a white count of 6.1, hemoglobin and hematocrit of 8 and 25, which is unchanged from yesterday. An x-ray of his left shoulder did reveal some advanced chronic degenerative changes of the acromioclavicular joint as well as the glenohumeral joint. Otherwise, no acute abnormality. CT scan of his left upper extremity revealed a multiloculated fluid collection in the soft tissue around the left shoulder with peripheral enhancement that is suspicious for abscess, as well as the moderate degenerative changes. There was no fracture identified. IMPRESSION: 1. Suspected resolving hematoma. 2. Osteoarthritis. PLAN: At this point, Dr. Melvin performed a bedside aspiration of the suspected hematoma. Only a small amount of bloody serous fluid was returned. This was sent for Gram stain, culture, and sensitivity. We will await these results to determine a further plan. At this time, it appears to be a resolving hematoma, most likely related to a recent fall and his history of being on Eliquis. Thank you for the consultation. Dictated by VIANEY De León for Theron Melvin MD cc: MD Nisha Amaya MD
[2019-06-13] MEDS: PRAVACHOL PO SCH (21:32)
[2019-06-13] MEDS: ARICEPT PO SCH (21:32)
[2019-06-14] MEDS: ZOSYN 2.25 GM in NS 50 ML IV SCH ×4 (03:12→22:08)
[2019-06-14] MEDS: REGLAN PO SCH ×3 (06:19→16:47)
[2019-06-14] MEDS: HUMULIN R SUBQ SCH ×4 (06:19→22:08)
[2019-06-14] MEDS: NORCO-5 PO PRN ×2 (07:28→22:07)
[2019-06-14] MEDS: SYMBICORT 160/4.5 MICROGM INHALER INH SCH ×2 (07:43→19:33)
[2019-06-14] MEDS: ZYLOPRIM PO SCH (11:06)
[2019-06-14] MEDS: COLACE PO SCH ×2 (11:06→22:08)
[2019-06-14] MEDS: EFFEXOR XR PO SCH (11:06)
[2019-06-14] MEDS: RANEXA PO SCH ×2 (11:06→22:08)
[2019-06-14] MEDS: ZIAC 2.5/6.25 MG PO SCH (11:07)
[2019-06-14] MEDS: DEPAKOTE ER PO SCH ×2 (11:07→22:08)
[2019-06-14] MEDS: PEPCID PO SCH (11:07)
[2019-06-14] MEDS: LASIX IV SCH ×2 (11:07→22:07)
[2019-06-14] MEDS: FLOMAX PO SCH (11:07)
[2019-06-14] MEDS: IMDUR PO SCH (11:07)
[2019-06-14] MEDS: LASIX PO SCH (11:08)
--- NOTE | 2019-06-14 14:08 | Diag Imaging Result Doc PS360 ---
EXAM: CT HEAD W/O CONTRAST HISTORY: left facial droop/ ams TECHNIQUE: CT head without contrast COMPARISON: 06/12/2019 FINDINGS: No parenchymal hemorrhage. Questionable small amount of hemorrhage along the tentorium. Right-sided encephalomalacia similar to the prior exam. Likely small recent left parietal infarct. Chronic ischemic changes. No mass identified on this noncontrasted exam. No hydrocephalus. No sinus opacification. IMPRESSION: 1.Questionable small amount of hemorrhage along the tentorium 2.Small recent left parietal infarct 3.Old Right-sided infarcts with chronic microvascular ischemic changes This exam was performed using automated exposure control, adjustment of mA or kV according to patient size, and/or use of iterative reconstruction technique. Electronically signed by Mike Jacobson 06/14/2019 2:05 PM
--- NOTE | 2019-06-14 16:19 | PROGRESS NOTE ---
DATE: 06/14/2019 SUBJECTIVE: The patient's chart was reviewed. In summary, patient was admitted on 06/12/2019 with alteration of mental status and left upper extremity pain. Full evaluation was pursued. Mental status changes were felt likely secondary to underlying pneumonia versus acute on chronic congestive heart failure exacerbation. Shoulder pain was felt likely secondary to a suspected resolving hematoma. The patient was placed as an inpatient. Treatment for underlying congestive heart failure and pneumonia were pursued. Dr. Melvin was consulted with orthopedic surgery. This morning upon my arrival, patient was somnolent but arousable. The patient continued to demonstrate some confusion. He was alert and oriented to person only. The patient was noted to have a left facial droop. He was unable to express whether this was a new or old finding. His p.o. intake has been marginal. There has been no evidence of fevers, chills, nausea, vomiting, or chest discomfort per report. OBJECTIVE: T-max 98.1, heart rate 80 to 84, respirations 16 to 20, blood pressure 117 to 145 over 72 to 87.General: Chronically ill appearing, no acute distress. Neurologic: Left facial droop, weakness bilateral upper extremities but no focal deficits. Cranial nerves 2-12 grossly intact. Cardiovascular: Regular rate and rhythm. No significant murmurs, rubs, or gallops. Pulmonary: Crackles at bilateral bases. Abdomen: Soft, nontender, nondistended. Positive bowel sounds. Extremities: Trace lower extremity edema bilaterally. 2+ left upper extremity edema. Dermatologic: Evaluation reveals no evidence of rash. LABORATORY DATA: None. ASSESSMENT AND PLAN: 1. Alteration of mental status-differential diagnosis is quite broad. I called and discussed his facial droop with a family member. She stated that this is an old finding, however she recently has noted this to be more significant. We will refer patient for CT scan of the head to rule out an acute intracranial process. We will continue supportive care including treatment of respiratory failure secondary to acute on chronic congestive heart failure versus pneumonia. 2. Chronic atrial fibrillation-the patient does appear to have regular rate and rhythm on examination today. Previous telemetry suggested underlying paced rhythm. He is treated with both Bystolic and Eliquis therapy. 3. Chronic respiratory failure with hypoxia with acute on chronic systolic congestive heart failure exacerbation-chest x-ray suggested increased volume. We will continue IV Lasix therapy. We will follow this. 4. Possible underlying pneumonia-chest x-ray suggest infiltrate versus fluid. We will continue treatment with IV antibiotics to cover facility associated disease. We will encourage aspiration precautions and incentive spirometry. 5. Left upper extremity pain-as above, this likely is secondary to hematoma. I appreciate Dr. Melvin's consultation. 6. Hypertension-we will continue his home medical regimen. 7. Hyperlipidemia-we will continue patient on pravastatin therapy. 8. Disposition-at this point, patient continues to require correction care in a hospital setting. We will plan discharge home once appropriate. cc: MD Nisha Ferreira MD
--- NOTE | 2019-06-14 19:53 | ORTHOPAEDICS PROGRESS NOTE ---
DATE: 06/14/2019 SUBJECTIVE: Mr. Solitario is lying in bed. Pain is well controlled this morning. He was sleeping very peacefully. Still complained of a little bit of pain in the left shoulder. OBJECTIVE: On left shoulder exam, there is not a lot of swelling to the shoulder overall today. Still some tenderness to palpation. ASSESSMENT: Left shoulder pain. PLAN: Dr. Melvin aspirated the shoulder yesterday. The Gram stains came back negative. There are not any results back from the cultures at this point. We will continue to follow from an orthopedic standpoint. cc: MD Nisha Alexandra MD
[2019-06-14] MEDS: ARICEPT PO SCH (22:08)
[2019-06-14] MEDS: PRAVACHOL PO SCH (22:08)
[2019-06-15] MEDS: ZOSYN 2.25 GM in NS 50 ML IV SCH ×4 (03:29→21:17)
[2019-06-15] MEDS: HUMULIN R SUBQ SCH ×4 (06:14→21:17)
[2019-06-15] MEDS: REGLAN PO SCH ×3 (06:14→18:07)
[2019-06-15 07:22] LABS: BASO# 0.01 X1000 (0.0-0.2); BASO% 0.2 % (0.0-0.8); EOS% 1.6 % (0.0-10.0); HEMATOCRIT 25.5 % (42.0-52.0); HEMOGLOBIN 8.1 g/dL (14.0-18.0); IMM GRAN# 0.04 X1000 (0.0-0.04); IMM GRAN% 0.6 % (0.0-0.5); LYMPH# 0.96 X1000 (1.2-3.4); LYMPH% 15.3 % (20.5-51.1); MCH 27.8 PG (27-31); MCHC 31.8 g/dL (33-37); MCV 87.6 FL (81-99); MONO# 1.05 X1000 (0.11-0.59); MONO% 16.7 % (1.7-9.3); MPV 8.7 FL (7.4-10.4); NEUT# 4.11 X1000 (1.4-6.5); NEUT% 65.6 % (42.2-75.2); PLT 189 X1000 (130-400); RBC 2.91 XMIL (4.7-6.1); RDW 22.2 % (11.5-14.5); WBC 6.27 X1000 (4.8-10.8)
[2019-06-15 07:33] LABS: AGAP 12; ALB/GLOB RATIO 0.5; ALKALINE PHOSPHATASE 92 U/L (32-122); BUN 19 mg/dL (8-22); CALCIUM 8.8 mg/dL (8.8-10.2); CHLORIDE 97 mmol/L (98-107); COSMO 285; CREATININE 1.2 mg/dL (0.7-1.2); ESTIMATED GFR > 60; GLUCOSE 87 mg/dL (70-104); GOT 20 U/L (10-34); GPT 7 U/L (10-44); SODIUM 142 mmol/L (136-145); TCO2 33 mmol/L (25-35); TOTAL BILIRUBIN 2.06 mg/dL (0.20-1.00); TOTAL PROTEIN 6.2 g/dL (6.3-8.3)
[2019-06-15] MEDS: SYMBICORT 160/4.5 MICROGM INHALER INH SCH ×2 (08:05→20:08)
--- NOTE | 2019-06-15 09:14 | ORTHOPAEDICS PROGRESS NOTE ---
DATE: 06/15/2019 SUBJECTIVE: Mr. Solitario is lying in bed this morning. Overall doing okay. He is still complaining of a little bit of pain in that shoulder. OBJECTIVE: Left upper extremity exam: I do not see any swelling of the shoulder today. He does point to the AC joint as being the most painful. He was not very cooperative with the exam overall. He really did not want to move the shoulder that much, but I think it was because he was tired. ASSESSMENT: Left shoulder pain. PLAN: The cultures are negative so far from the shoulder aspiration. We will continue to follow. cc: MD Nisha Alexandra MD
[2019-06-15] MEDS: FLOMAX PO SCH (11:12)
[2019-06-15] MEDS: RANEXA PO SCH ×2 (11:12→21:12)
[2019-06-15] MEDS: COLACE PO SCH ×2 (11:13→21:15)
[2019-06-15] MEDS: ZIAC 2.5/6.25 MG PO SCH (11:13)
[2019-06-15] MEDS: PEPCID PO SCH (11:13)
[2019-06-15] MEDS: ZYLOPRIM PO SCH (11:13)
[2019-06-15] MEDS: DEPAKOTE ER PO SCH ×2 (11:14→21:15)
[2019-06-15] MEDS: EFFEXOR XR PO SCH (11:14)
[2019-06-15] MEDS: LASIX IV SCH ×2 (11:14→21:16)
[2019-06-15] MEDS: IMDUR PO SCH (11:14)
[2019-06-15] MEDS ORDERED: KLOR-CON PO ONE (11:50)
[2019-06-15] MEDS: TYLENOL PO PRN ×2 (12:02→21:18)
--- NOTE | 2019-06-15 12:11 | PROGRESS NOTE ---
DATE: 06/15/2019 SUBJECTIVE: Yesterday, after seeing patient, he was referred for CT scan of the head to rule out intracranial process in the setting of alteration of mental status and left facial droop. CT scan of the head returned with questionable small amount of hemorrhage along the tentorium. Small recent left parietal infarct was noted. Old right-sided infarct with chronic microvascular ischemic changes were identified. I discussed this with the patient's daughter. The patient's daughter noted the change in his overall mentation over the course of the last 1 to 2 weeks. His condition was explained in detail. No further intervention was felt warranted secondary to inability to anticoagulate in the setting of a possible bleed and his multiple medical interventions. Supportive care has been offered. Additionally, 1 of 2 blood cultures have returned positive for gram-negative rods. Antibiotics were continued. This morning, upon my arrival, patient is much more interactive. He is alert to person, place and situation. He continues to have a left-sided facial droop, but does note improvement in bilateral upper extremities. The patient states that he is hungry. He denies fevers, chills, nausea, vomiting, shortness of breath, or chest discomfort. OBJECTIVE: Vital signs: T-max 98.2 degrees, heart rate 52 to 95, respirations 14 to 20, pressure 122 to 139 over 74 to 82. General: Chronically ill appearing, no acute distress. Cardiovascular: Regular rate and rhythm. No significant murmurs, rubs, or gallops. Pulmonary: Minimal crackles at bilateral bases anteriorly. Abdomen: Soft, nontender, nondistended. Positive bowel sounds. Extremities: No significant clubbing, cyanosis, or edema of lower extremities. There is 2 to 3+ left upper extremity edema. Dermatologic: Evaluation reveals no evidence of rash. LABORATORY DATA: White blood count 6.27, hemoglobin 8.1, hematocrit 25.5, platelet count 189,000. Sodium 142, potassium 3.0, chloride 97, bicarb 33, BUN 19, creatinine 1.2. Glucose 87, calcium 8.8, total bilirubin 2.06, total protein 6.2, albumin 2.0, alkaline phosphatase 92, AST 20, ALT 7. ASSESSMENT/PLAN: 1. Alteration of mental status. This was more significant yesterday. CT scan of the head, as described above, suggested a questionable small amount of hemorrhage along the tentorium, small recent left parietal infarct, and old right-sided infarct with chronic microvascular ischemic changes. In the setting of a possible bleed, he is not a candidate for anticoagulation. In the setting of a congestive heart failure exacerbation, he is not a candidate for IV fluids. I discussed this in detail with patient and patient's family. At this point, we will continue supportive care. Today, patient's mental status has improved considerably. We will follow his clinical course closely. 2. Subacute stroke. As described above, this was per CT scan yesterday. Upon discussing with daughter, she has noted a change in his mentation over the course of 1 to 2 weeks. As above, we will continue supportive care. 3. Chronic atrial fibrillation. The patient's examination reveals a regular rate and rhythm. Telemetry previously has demonstrated a paced rhythm. We will continue Bystolic [*] We will hold Eliquis therapy. 4. Chronic respiratory failure with hypoxia and acute on chronic systolic congestive heart failure exacerbation. The patient's volume continues to improve. We will continue his current IV Lasix dosing as he is tolerating this reasonably well. We will plan to check a chest x-ray in the morning. 5. Possible underlying pneumonia. As previously noted, chest x-ray suggested a possible infiltrate. We will continue broad-spectrum IV antibiotic coverage. We will encourage aspiration precautions and incentive spirometry. 6. Positive blood cultures. The patient's blood culture returned 1 of 2 positive for gram- negative rods. We will continue broad-spectrum antibiotics as his overall condition is improving. We will follow up and address once positive identification has been made. 7. Left upper extremity pain/left shoulder pain. I appreciate Orthopedic consultation. This likely is a consequence of a hematoma. We will defer management. 8. Hypertension. We will continue patient's home regimen. 9. Hyperlipidemia. We will continue patient on pravastatin therapy. 10. Disposition. At this point, patient continues to require nursing home care in a hospital setting. We will plan discharge home once appropriate. cc: MD Nisha Ferreira MD
[2019-06-15] MEDS: NORCO-5 PO PRN (15:18)
[2019-06-15] MEDS: ARICEPT PO SCH (21:15)
[2019-06-15] MEDS: PRAVACHOL PO SCH (21:15)
[2019-06-16] MEDS: ZOSYN 2.25 GM in NS 50 ML IV SCH ×4 (03:11→22:02)
[2019-06-16] MEDS: NORCO-5 PO PRN ×3 (05:58→22:01)
[2019-06-16] MEDS: HUMULIN R SUBQ SCH ×4 (06:01→22:02)
[2019-06-16] MEDS: REGLAN PO SCH ×3 (06:01→15:40)
[2019-06-16 07:32] LABS: BASO# 0.02 X1000 (0.0-0.2); BASO% 0.3 % (0.0-0.8); EOS% 1.7 % (0.0-10.0); HEMATOCRIT 26.1 % (42.0-52.0); HEMOGLOBIN 8.3 g/dL (14.0-18.0); IMM GRAN# 0.06 X1000 (0.0-0.04); LYMPH# 1.27 X1000 (1.2-3.4); MCH 27.9 PG (27-31); MCHC 31.8 g/dL (33-37); MCV 87.6 FL (81-99); MONO# 0.83 X1000 (0.11-0.59); MONO% 13.7 % (1.7-9.3); MPV 8.7 FL (7.4-10.4); NEUT# 3.78 X1000 (1.4-6.5); NEUT% 62.3 % (42.2-75.2); PLT 195 X1000 (130-400); RBC 2.98 XMIL (4.7-6.1); RDW 22.1 % (11.5-14.5); WBC 6.06 X1000 (4.8-10.8)
[2019-06-16 07:45] LABS: AGAP 12; ALB/GLOB RATIO 0.5; ALBUMIN 2.1 g/dL (3.5-5.0); ALKALINE PHOSPHATASE 83 U/L (32-122); BUN 17 mg/dL (8-22); CALCIUM 8.4 mg/dL (8.8-10.2); CHLORIDE 97 mmol/L (98-107); COSMO 282; CREATININE 1.1 mg/dL (0.7-1.2); ESTIMATED GFR > 60; GLUCOSE 82 mg/dL (70-104); GOT 19 U/L (10-34); GPT 6 U/L (10-44); POTASSIUM 2.9 mmol/L (3.5-5.1); SODIUM 141 mmol/L (136-145); TCO2 32 mmol/L (25-35); TOTAL BILIRUBIN 1.81 mg/dL (0.20-1.00); TOTAL PROTEIN 6.1 g/dL (6.3-8.3)
--- NOTE | 2019-06-16 08:36 | Diag Imaging Result Doc PS360 ---
US GB < RUQ (LIMITED) - 06/16/2019 INDICATION: Hyperbilirubinemia/ gram negative bacteremia TECHNIQUE: COMPARISON: 12/31/2018, 04/19/2016 FINDINGS: A normal gallbladder is not visible. There is a strong echo with shadowing in the region of the gallbladder fossa. On the abdomen x-ray from 03/20/2019, there are what appear to be cholecystectomy clips. The liver, pancreas, and right kidney are normal. Common bile duct measures 6 mm. Aorta, IVC, and main portal vein are patent. IMPRESSION: 1. There is probably been previous cholecystectomy. Shadowing in the gallbladder fossa may relate to bowel gas. The appearance is atypical. Consider a CT abdomen pelvis, preferably with contrast. 2. Otherwise unremarkable. Electronically signed by Filemon Esquivel 06/16/2019 8:33 AM
--- NOTE | 2019-06-16 09:02 | Diag Imaging Result Doc PS360 ---
EXAM: CHEST-2 VIEWS HISTORY: hypoxia TECHNIQUE: Two views COMPARISON: 06/12/2019 FINDINGS: The heart remains enlarged. There are central vascular prominence and small pleural effusions. There are sternal wires and left-sided pacemaker. There is basilar atelectasis. No consolidation. IMPRESSION: Mild interval improvement Electronically signed by Mike Jacobson 06/16/2019 9:00 AM
--- NOTE | 2019-06-16 09:52 | Diag Imaging Result Doc PS360 ---
EXAM: CT HEAD W/O CONTRAST HISTORY: possible bleed TECHNIQUE: CT head without contrast COMPARISON: 06/14/2019 FINDINGS: Questionable minimal hemorrhage along the tentorium No parenchymal hemorrhage. No epidural or subdural hematoma. No subarachnoid hemorrhage. Encephalomalacia similar to prior study. No mass identified on this noncontrasted exam. No hydrocephalus. No sinus opacification. IMPRESSION: Stable exam. This exam was performed using automated exposure control, adjustment of mA or kV according to patient size, and/or use of iterative reconstruction technique. Electronically signed by Mike Jacobson 06/16/2019 9:49 AM
[2019-06-16] MEDS: RANEXA PO SCH ×2 (10:28→22:00)
[2019-06-16] MEDS: PEPCID PO SCH (10:29)
[2019-06-16] MEDS: COLACE PO SCH ×2 (10:29→22:01)
[2019-06-16] MEDS: DEPAKOTE ER PO SCH ×2 (10:29→22:12)
[2019-06-16] MEDS: FLOMAX PO SCH (10:29)
[2019-06-16] MEDS: IMDUR PO SCH (10:29)
[2019-06-16] MEDS: ZIAC 2.5/6.25 MG PO SCH (10:30)
[2019-06-16] MEDS: ZYLOPRIM PO SCH (10:31)
[2019-06-16] MEDS: EFFEXOR XR PO SCH (10:31)
[2019-06-16] MEDS: LASIX IV SCH (10:31)
[2019-06-16] MEDS: SYMBICORT 160/4.5 MICROGM INHALER INH SCH ×2 (11:01→20:14)
[2019-06-16] MEDS ORDERED: POTASSIUM CHLORIDE 40 MEQ/SWI 40 MEQ/100 ML IVPB IV ONE (12:12)
[2019-06-16] MEDS: POTASSIUM CHLORIDE 20 MEQ/SWI 20 MEQ/100 ML IVPB IV SCH ×2 (14:09→15:39)
--- NOTE | 2019-06-16 16:47 | PROGRESS NOTE ---
DATE: 06/16/2019 SUBJECTIVE: Mr. Solitario had an abnormal CT scan of the brain on 06/14/2019. It demonstrated questionable hemorrhage along the tentorium. There was no parenchymal hemorrhage, no epidural, subdural hematoma. No mass effect was noted. A repeat CT scan today was largely unchanged. He was much more alert. He was awake and easily arousable. He was oriented to name and place. He answered questions. He still has baseline periods of confusion. He remains in atrial fibrillation. His heart rate is well controlled. He denies any chest pain, palpitations, or anginal equivalents. He is off the Eliquis. He is breathing comfortably. He is maintaining O2 saturations of 98 to 100 percent on 2 L of O2 per nasal cannula. Chest x-ray shows resolution of the interstitial edema. We suspected he had some sort of pneumonia. 1 blood culture grew out Escherichia coli. OBJECTIVE: Vital Signs: Temperature 97.6 degrees, pulse 81, respirations 16, BP 126/80. Cardiovascular: Irregularly irregular. Lungs: Clear. Abdomen: Soft, nontender with active bowel sounds. ASSESSMENT AND PLAN: 1. Metabolic encephalopathy. He has baseline confusion and disorientation. He appears to be approaching his baseline neurologically. A repeat CT scan demonstrated a small left parietal infarction. There was no significant or worsening amount of hemorrhage. They saw a minimal amount of hemorrhage along the tentorium. We will continue supportive care and will monitor his mental status clinically. 2. Subacute stroke. Given the recent bleed, anticoagulation with medicines like Eliquis is contraindicated. We will continue physical therapy and are awaiting detention placement. 3. Chronic atrial fibrillation. The patient remains in atrial fibrillation heart rate is stable. We will continue Bystolic for rate control. We will hold Eliquis. 4. Chronic respiratory failure with acute on chronic congestive heart failure secondary to systolic dysfunction. We will continue salt and fluid restricted diet. I will transition him to oral Lasix. cc: Nisha Mohan MD
[2019-06-16] MEDS: DESYREL PO PRN (22:01)
[2019-06-16] MEDS: ARICEPT PO SCH (22:01)
[2019-06-16] MEDS: PRAVACHOL PO SCH (22:01)
[2019-06-17] MEDS: ZOSYN 2.25 GM in NS 50 ML IV SCH ×4 (02:24→20:48)
[2019-06-17] MEDS: HUMULIN R SUBQ SCH ×4 (06:14→20:49)
[2019-06-17] MEDS: REGLAN PO SCH ×3 (06:15→15:50)
[2019-06-17] MEDS: EFFEXOR XR PO SCH (09:10)
[2019-06-17] MEDS: FLOMAX PO SCH (09:10)
[2019-06-17] MEDS: ZIAC 2.5/6.25 MG PO SCH (09:10)
[2019-06-17] MEDS: PEPCID PO SCH (09:10)
[2019-06-17] MEDS: IMDUR PO SCH (09:10)
[2019-06-17] MEDS: ZYLOPRIM PO SCH (09:11)
[2019-06-17] MEDS: LASIX PO SCH (09:11)
[2019-06-17] MEDS: DEPAKOTE ER PO SCH ×2 (09:11→20:48)
[2019-06-17] MEDS: COLACE PO SCH ×2 (09:11→20:48)
[2019-06-17] MEDS: RANEXA PO SCH ×2 (09:11→20:48)
[2019-06-17] MEDS: SYMBICORT 160/4.5 MICROGM INHALER INH SCH ×2 (10:47→20:05)
--- NOTE | 2019-06-17 16:22 | PROGRESS NOTE ---
DATE: 06/17/2019 Mr. Solitario is approaching his baseline neurologically. He is awake and easily arousable. He is oriented to name and place. He is answering questions appropriately. CT scan demonstrated a small left parietal infarction and a minimal amount of hemorrhage along the tentorium which was unchanged as compared to a previous CT. He is breathing comfortably. He is maintaining O2 saturations of 98 to 100 percent. He denies any chest pain, palpitations, or anginal equivalents. Temperature 97.7 degrees, pulse 83, respiratory rate 17, BP 107/78. CV regular rate and rhythm. Lungs clear. Abdomen soft, nontender with active bowel sounds. Extremities without edema. ASSESSMENT AND PLAN: 1. Chronic respiratory failure with hypoxia secondary to acute on chronic congestive heart failure secondary to systolic dysfunction. Clinically, he is breathing comfortably. O2 saturations are in the range of 98 to 100 percent on 2 L of O2 per nasal cannula. We will continue O2 at 2 L per nasal cannula continuously. We will continue a salt and fluid restricted diet. I have transitioned him to oral Lasix. We will gradually increase his activity. He is working with physical therapy. I would like to see him sit up in a chair each shift. 2. Recent left parietal stroke. We will continue physical therapy. He has gone in and out of atrial fib but we had to stop the Eliquis secondary to the recent intracranial hemorrhage. We will continue aggressive blood pressure control. 3. Suspected pneumonia. 1 of 2 blood cultures grew out E. coli. We will continue intravenous Zosyn and nebulizer treatments. cc: Nisha Mohan MD
[2019-06-17] MEDS: ARICEPT PO SCH (20:48)
[2019-06-17] MEDS: PRAVACHOL PO SCH (20:48)
[2019-06-18] MEDS: ZOSYN 2.25 GM in NS 50 ML IV SCH ×5 (01:42→23:38)
[2019-06-18] MEDS: NORCO-5 PO PRN (06:07)
[2019-06-18] MEDS: REGLAN PO SCH ×3 (06:07→15:53)
[2019-06-18] MEDS: HUMULIN R SUBQ SCH ×4 (06:12→23:41)
[2019-06-18] MEDS: SYMBICORT 160/4.5 MICROGM INHALER INH SCH ×2 (07:44→23:23)
[2019-06-18] MEDS: LASIX PO SCH (08:43)
[2019-06-18] MEDS: RANEXA PO SCH ×2 (08:43→23:39)
[2019-06-18] MEDS: COLACE PO SCH ×2 (08:43→23:39)
[2019-06-18] MEDS: DEPAKOTE ER PO SCH ×2 (08:43→23:39)
[2019-06-18] MEDS: FLOMAX PO SCH (08:43)
[2019-06-18] MEDS: PEPCID PO SCH (08:43)
[2019-06-18] MEDS: ZIAC 2.5/6.25 MG PO SCH (08:43)
[2019-06-18] MEDS: EFFEXOR XR PO SCH (08:43)
[2019-06-18] MEDS: ZYLOPRIM PO SCH (08:44)
[2019-06-18] MEDS: IMDUR PO SCH (08:44)
--- NOTE | 2019-06-18 09:08 | PROGRESS NOTE ---
DATE: 06/18/2019 SUBJECTIVE: Mr. Solitario has a history of chronic respiratory failure with hypoxia and was admitted with acute on chronic congestive heart failure secondary to systolic dysfunction. He has diuresed well over the past several days. He continues with good urine output. He denies any PND, orthopnea or increasing peripheral edema. He is maintaining O2 saturations of 95 to 100 percent on 2 L of O2 per nasal cannula. He has a history of gastroparesis. Clinically, he is not having nausea or vomiting. He has not had any EPS type symptoms secondary to the Reglan. He was admitted with encephalopathy. We felt that the encephalopathy was due to multifactorial causes, including a left parietal stroke as well as pneumonia. He is much more alert and interactive. He is awake and oriented to name and place. He answers questions appropriately. OBJECTIVE: Vital Signs: Temperature 97.8 degrees, pulse 81, respirations 19, BP 117/70. CV: Irregularly irregular. Lungs: Lungs clear. Abdomen: Abdomen soft, nontender with active bowel sounds. ASSESSMENT AND PLAN: 1. Chronic respiratory failure with hypoxia secondary to acute on chronic congestive heart failure secondary to systolic dysfunction. We will continue a salt and fluid-restricted diet. He has been transitioned to oral Lasix. I am going to increase his activity. I would like to see him sit up in a chair at least once per shift. We will continue physical therapy. We are awaiting [facility] placement. 2. Chronic atrial fibrillation. Because of the recent small tentorial bleed, we are holding the Eliquis. He remains in atrial fibrillation. Heart rate is well controlled on the Bystolic. cc: Nisha Mohan MD
[2019-06-18] MEDS: ARICEPT PO SCH (23:40)
[2019-06-18] MEDS: PRAVACHOL PO SCH (23:40)
[2019-06-19] MEDS: ZOSYN 2.25 GM in NS 50 ML IV SCH ×2 (02:13→08:19)
[2019-06-19] MEDS: HUMULIN R SUBQ SCH (06:14)
[2019-06-19] MEDS: REGLAN PO SCH ×3 (06:15→17:09)
[2019-06-19] MEDS: NORCO-5 PO PRN (06:22)
[2019-06-19] MEDS: SYMBICORT 160/4.5 MICROGM INHALER INH SCH ×2 (07:38→19:11)
[2019-06-19] MEDS: RANEXA PO SCH ×2 (08:19→20:31)
[2019-06-19] MEDS: ZIAC 2.5/6.25 MG PO SCH (08:19)
[2019-06-19] MEDS: ZYLOPRIM PO SCH (08:20)
[2019-06-19] MEDS: IMDUR PO SCH (08:20)
[2019-06-19] MEDS: LASIX PO SCH (08:20)
[2019-06-19] MEDS: FLOMAX PO SCH (08:21)
[2019-06-19] MEDS: EFFEXOR XR PO SCH (08:21)
[2019-06-19] MEDS: DEPAKOTE ER PO SCH ×2 (08:21→20:31)
[2019-06-19] MEDS: PEPCID PO SCH (08:21)
[2019-06-19] MEDS: COLACE PO SCH ×2 (08:21→20:31)
[2019-06-19] MEDS: PRAVACHOL PO SCH (20:30)
[2019-06-19] MEDS: ARICEPT PO SCH (20:31)
[2019-06-20] MEDS ORDERED: MORPHINE IV ONE (05:25)
--- NOTE | 2019-06-20 05:44 | EKG Report ---
Test Performed on : 06/20/2019 05:34:41 AM Test Reason : cp Blood Pressure : / mmHG Vent. Rate : 084 BPM Atrial Rate : 079 BPM P-R Int : 000 ms QRS Dur : 158 ms QT Int : 452 ms P-R-T Axes : 062 -88 081 degrees QTc Int : 534 ms Suspect unspecified pacemaker failure Ventricular-paced rhythm with frequent premature ventricular complexes. Abnormal ECG When compared with ECG of 26-MAY-2019 19:51, Previous ECG has undetermined rhythm, needs review Confirmed by Pj BOLDEN, Mateo ([id number]) on 06/20/2019 11:24:46 AM
[2019-06-20] MEDS: REGLAN PO SCH ×4 (06:16→15:28)
[2019-06-20] MEDS: SYMBICORT 160/4.5 MICROGM INHALER INH SCH ×2 (07:53→20:03)
[2019-06-20] MEDS: ZIAC 2.5/6.25 MG PO SCH (08:06)
[2019-06-20] MEDS: LASIX PO SCH (08:06)
[2019-06-20] MEDS: EFFEXOR XR PO SCH (08:06)
[2019-06-20] MEDS: VITAMIN D PO SCH (08:06)
[2019-06-20] MEDS: ZYLOPRIM PO SCH (08:06)
[2019-06-20] MEDS: DEPAKOTE ER PO SCH ×2 (08:06→20:41)
[2019-06-20] MEDS: IMDUR PO SCH (08:06)
[2019-06-20] MEDS: RANEXA PO SCH ×2 (08:07→20:41)
[2019-06-20] MEDS: NORCO-5 PO PRN (08:07)
[2019-06-20] MEDS: PEPCID PO SCH (08:07)
[2019-06-20] MEDS: FLOMAX PO SCH (08:07)
[2019-06-20] MEDS: COLACE PO SCH ×2 (08:07→20:41)
--- NOTE | 2019-06-20 09:41 | PROGRESS NOTE ---
DATE: 06/20/2019 SUBJECTIVE: Mr. Solitario has a history of chronic stable angina. He has severe 3-vessel heart disease, which is not amenable to angioplasty or redo coronary artery bypass graft surgery. He had intermittent episodes of chest discomfort this morning without radiation of pain to his neck or arm. His breathing was unlabored, and O2 saturations were 98% to 100% on 2 liters of O2. His initial EKG was unremarkable. He was admitted with a metabolic encephalopathy. He is back to his baseline neurologically. He answered questions appropriately. He was oriented to name and place. He remains in atrial fibrillation. Heart rate is well controlled on Ziac. We are holding the Eliquis because of the recent tentorial bleed. OBJECTIVE: Vital Signs: Temperature 98.6 degrees, pulse 75, respirations 16, blood pressure 118/80. Cardiovascular: Irregularly irregular. Lungs: Clear. Abdomen: Soft and nontender with active bowel sounds. Extremities: Without edema. ASSESSMENT AND PLAN: 1. Chronic stable angina with a history of known severe 3-vessel ischemic heart disease. His EKG is unchanged. We will increase the dosage of Imdur to 60 mg daily. 2. Acute on chronic congestive heart failure secondary to systolic dysfunction. We will continue continuous home oxygen at 2 liters per nasal cannula, aggressive blood pressure control, and diuresis with Lasix. He is back to his baseline from the standpoint of his heart failure. 3. Vascular dementia. He is back to his baseline neurologically. We will continue Aricept. 4. General debility. He is very weak physically. He is unable to care for himself. We are working with the family to find [facility] care home placement for him. In the meantime, we will increase activity and continue physical therapy. cc: Nisha Mohan MD
[2019-06-20] MEDS ORDERED: LASIX IV ONE (11:45)
[2019-06-20 11:58] LABS: ALLEN TEST YES; BE 13.4 mmoll (-3.0-3.0); BLOOD TYPE ARTERIAL; HCO3-(ACT) 35.3 mmoll (20.0-26.0); METHB 0.5 % (0.0-1.5); O2(CT) 10.8 mL/dL (15.0-23.0); O2HB 90.8 % (95.0-99.0); PO2(98.6) 59 mmHg (60-100); SAMPLE BLOOD; SAO2 93.3 % (95.0-100.0); THB 8.4 g/dL (11.5-17.4); pH(98.6) 7.47 (7.35-7.45)
[2019-06-20 12:01] LABS: MODALITY CANNULA; PCO2(98.6) 53 mmHg (35-45)
[2019-06-20 12:12] LABS: BASO# 0.02 X1000 (0.0-0.2); BASO% 0.4 % (0.0-0.8); EOS# 0.02 X1000 (0.0-0.7); EOS% 0.4 % (0.0-10.0); HEMATOCRIT 25.4 % (42.0-52.0); HEMOGLOBIN 7.9 g/dL (14.0-18.0); IMM GRAN# 0.04 X1000 (0.0-0.04); IMM GRAN% 0.8 % (0.0-0.5); LYMPH# 1.31 X1000 (1.2-3.4); LYMPH% 27.3 % (20.5-51.1); MCH 27.7 PG (27-31); MCHC 31.1 g/dL (33-37); MCV 89.1 FL (81-99); MONO# 0.69 X1000 (0.11-0.59); MONO% 14.4 % (1.7-9.3); MPV 8.3 FL (7.4-10.4); NEUT# 2.72 X1000 (1.4-6.5); NEUT% 56.7 % (42.2-75.2); PLT 181 X1000 (130-400); RBC 2.85 XMIL (4.7-6.1); RDW 22.1 % (11.5-14.5)
[2019-06-20 12:37] LABS: AGAP 10; ALB/GLOB RATIO 0.6; ALBUMIN 2.1 g/dL (3.5-5.0); ALKALINE PHOSPHATASE 73 U/L (32-122); BUN 21 mg/dL (8-22); CALCIUM 8.2 mg/dL (8.8-10.2); CHLORIDE 96 mmol/L (98-107); COSMO 279; CREATININE 1.3 mg/dL (0.7-1.2); ESTIMATED GFR > 60; GLUCOSE 105 mg/dL (70-104); GOT 18 U/L (10-34); GPT 5 U/L (10-44); SODIUM 138 mmol/L (136-145); TCO2 32 mmol/L (25-35); TOTAL BILIRUBIN 1.28 mg/dL (0.20-1.00); TOTAL PROTEIN 5.9 g/dL (6.3-8.3)
--- NOTE | 2019-06-20 12:44 | Diag Imaging Result Doc PS360 ---
CHEST-PORTABLE - 06/20/2019 INDICATION: dyspnea COMPARISON: 06/16/2019 FINDINGS: There is worsening in the cardiomegaly. Stable pacemaker. Stable sternotomy. There is worsening pulmonary edema. Worsening small to moderate bilateral pleural effusions. IMPRESSION: Severe worsening from prior. Electronically signed by Filemon Esquivel 06/20/2019 12:42 PM
[2019-06-20 12:52] LABS: ANISOCYTOSIS 2+; EOS 1 % (1-10); HYPOCHROM 2+; LYMPHS 29 % (21-51); MICROCYTOSIS 2+; MONO 15 % (1-9); SEGS 55 % (42-75); TARGET CELLS 2+
[2019-06-20 12:53] LABS: POIKILOCYTOSIS 2+
--- NOTE | 2019-06-20 14:51 | EKG Report ---
Test Performed on : 06/20/2019 2:15:17 PM Test Reason : shortness of breath Blood Pressure : / mmHG Vent. Rate : 082 BPM Atrial Rate : 082 BPM P-R Int : 000 ms QRS Dur : 154 ms QT Int : 498 ms P-R-T Axes : 015 257 034 degrees QTc Int : 581 ms Suspect unspecified pacemaker failure Ventricular-paced rhythm with occasional premature ventricular complexes. Abnormal ECG When compared with ECG of 20-JUN-2019 05:34, Vent. rate has decreased BY 2 BPM Confirmed by Pj BOLDEN, Mateo ([id number]) on 06/23/2019 8:28:13 AM
[2019-06-20] MEDS: POTASSIUM CHLORIDE 20 MEQ/SWI 20 MEQ/100 ML IVPB IV SCH ×2 (15:36→18:04)
--- NOTE | 2019-06-20 16:34 | CARDIOLOGY CONSULTATION ---
DATE: 06/20/2019 INDICATION: Congestive heart failure. HISTORY OF PRESENT ILLNESS: Mr. Solitario is a 74-year-old black gentleman with a history of dilated cardiomyopathy. Persistent atrial fibrillation. Previously saw Dr. Gupta in [place]. More recently he has not been following with cardiology and has established with a new primary care physician in [place]. He moved here 6 months ago. He presented for evaluation on the with altered mental status and left upper extremity pain. He apparently had issues with a hematoma of the left shoulder and had some aspirations performed of the joint. During the course of the hospitalization he became more short of breath. Dr. Ace evaluated the patient today with a chest x-ray as well as laboratories and chest x-ray suggests severe worsening with pulmonary infiltrates as well as a pulmonary edema. His proBNP was elevated greater than 35,000. The patient does not seem to have any acute complaints of shortness of breath but rather complaints that he has been short of breath for several months. He has had no acute complaints of chest pain. He denies any heart racing. He provides limited detail to the history. PAST MEDICAL HISTORY: 1. Significant for a dilated cardiomyopathy. The last echocardiogram I have on file on the patient is from September 2018 showing an ejection fraction of 30%, left ventricle end-diastolic dimension was 7.4, some mild RV systolic dysfunction, a dilated aortic root. 2. Persistent atrial fibrillation. 3. Permanent pacemaker implantation. 4. Hypertension. 5. Hyperlipidemia. SOCIAL HISTORY: Former smoker. No current alcohol or illicit drugs. FAMILY HISTORY: Coronary disease. REVIEW OF SYSTEMS: A 10 system review of systems is negative. PERTINENT DATA: The patient has been afebrile. Heart rate is 63, his blood pressure is 136/73. Systolics have been anywhere from the 100s to 130s. General: He is in no acute distress. Provides a limited history. HEENT: Oropharynx is moist. He has poor dentition. His eye examination shows pink conjunctiva. He has white sclerae. Neck: Shows no obvious thyromegaly or thyroid tenderness. Cardiovascular: He is in an irregularly irregular rhythm which is consistent with his chronic atrial fibrillation. He has no murmurs. He has no S3. He has no lower extremity edema. He has warm and well-perfused extremities. He has distended neck veins. Chest: Relatively clear. He has a poor inspiratory effort. Abdomen: Soft, nontender. He has no obvious organomegaly. Skin: Warm and dry throughout. Neurological: He is moving all extremities well. PERTINENT DATA: He had an EKG at 1415 that shows baseline of atrial fibrillation, ventricular paced complexes. His lab data shows a white count of 4.8, his hematocrit is 25, his platelet count is 181,000. He has a sodium of 138, potassium is 3, BUN 21, creatinine is 1.3. His proBNP is greater than 35,000. His albumin is 2.1. He had a chest x-ray today that demonstrated cardiomegaly, stable sternotomy wires, worsening pulmonary edema, worsening small to moderate bilateral pleural effusions. ASSESSMENT: Mr. oSlitario is a 74-year-old gentleman with ischemic cardiomyopathy who has been in the hospital with altered mental status presumably secondary to possible dementia as well as a recent left parietal stroke. PLAN: He appears volume overloaded. He is getting a dose of IV Lasix today. We will continue that on a daily basis. His albumin is markedly low so I will give him some IV albumin as well. His potassium is being repleted by the primary team. His creatinine has trended up recently. It is at 1.3 today. If his laboratories are stable in the morning we could consider an addition of an VAZQUEZ or an ARB considering his known renal dysfunction. He has not had a recent echocardiogram during this hospitalization so I will recheck considering the acute heart failure issues he has been dealing with. ADDENDUM: Echo demonstrates EF of 15-20% with mod to severe MR and 4 chamber dilatation. For now, no change in plan delineated above. cc: MD Nisha Lucas MD MTDD
[2019-06-20] MEDS: ALBUMIN 25% IV SCH ×2 (17:13→18:36)
--- NOTE | 2019-06-20 17:52 | ECHO REPORT ---
ORDER DATE: 06/20/2019 INDICATION: Congestive heart failure. FINDINGS: 1. The right atrium appears enlarged. Linear echodensity consistent with device leads is noted in the right heart chambers. 2. Moderate tricuspid regurgitation. RV systolic pressure of 39. 3. Right ventricle is enlarged with mild reduction in RV systolic function. 4. Mild pulmonic insufficiency. 5. Severe left atrial enlargement with a volume index of 91. 6. No mitral valve prolapse. There is apical tenting of the mitral leaflets, consistent with a dilated left ventricle. There is posteriorly directed mitral regurgitation that is moderate to possibly severe. No mitral stenosis. 7. The left ventricle was dilated with an end-diastolic dimension of 6.6. There is moderate left ventricular hypertrophy with interventricular septal wall thickness of 1.5 cm. Severe reduction in LV systolic function. Estimated EF of 15% to 20%. There is global hypokinesis with more significant akinesis of the inferior wall. 8. The aortic valve opens well. There is no evidence of stenosis or insufficiency. 9. The aorta appears dilated with a root dimension of 4.5 cm. 10. No pericardial effusion is seen. cc: MD Simon Lucas MD M. Neel Roberts, MD
[2019-06-20] MEDS: PRAVACHOL PO SCH (20:41)
[2019-06-20] MEDS: ARICEPT PO SCH (20:41)
[2019-06-21] MEDS: TYLENOL PO PRN (06:41)
[2019-06-21] MEDS: REGLAN PO SCH ×4 (06:41→17:02)
[2019-06-21] MEDS: SYMBICORT 160/4.5 MICROGM INHALER INH SCH ×2 (07:36→19:25)
[2019-06-21 08:11] LABS: AGAP 10; BUN 21 mg/dL (8-22); CALCIUM 8.3 mg/dL (8.8-10.2); CHLORIDE 98 mmol/L (98-107); COSMO 282; CREATININE 1.2 mg/dL (0.7-1.2); ESTIMATED GFR > 60; GLUCOSE 90 mg/dL (70-104); MAGNESIUM 1.8 mg/dL (1.5-2.7); POTASSIUM 3.3 mmol/L (3.5-5.1); SODIUM 140 mmol/L (136-145); TCO2 32 mmol/L (25-35)
[2019-06-21] MEDS: LASIX IV SCH (08:56)
[2019-06-21] MEDS: EFFEXOR XR PO SCH (08:57)
[2019-06-21] MEDS: COLACE PO SCH ×2 (08:57→20:36)
[2019-06-21] MEDS: ZIAC 2.5/6.25 MG PO SCH (08:57)
[2019-06-21] MEDS: PEPCID PO SCH (08:57)
[2019-06-21] MEDS: IMDUR PO SCH (08:57)
[2019-06-21] MEDS: RANEXA PO SCH ×2 (08:57→20:36)
[2019-06-21] MEDS: ZYLOPRIM PO SCH (08:58)
[2019-06-21] MEDS: DEPAKOTE ER PO SCH ×2 (08:58→20:35)
[2019-06-21] MEDS: FLOMAX PO SCH (08:58)
[2019-06-21] MEDS: NORCO-5 PO PRN (09:37)
[2019-06-21] MEDS ORDERED: POTASSIUM CHLORIDE 40 MEQ/SWI 40 MEQ/100 ML IVPB IV SCH (10:00)
--- NOTE | 2019-06-21 10:28 | PROGRESS NOTE ---
DATE: 06/21/2019 SUBJECTIVE: The patient is asleep in the bed and he is easily aroused, seems to respond appropriately to questions. He has no complaints and agrees that his breathing is getting better. VITAL SIGNS: 98.3, 80, 18, 125/75, 95% saturated on nasal cannula. LABORATORY DATA: Potassium 3.3, BUN 21, creatinine 1.2. [place] 284[address].. ASSESSMENT AND PLAN: 1. The patient has chronic stable angina with 3-vessel ischemic disease and chronic congestive failure. The patient has systolic dysfunction and is on chronic oxygen therapy. Dr. Vishnu Mon was consulted. The patient is on 80 mg of IV Lasix. 2. The patient is hypokalemic despite supplementation yesterday. We will continue to supplement and try and replete his potassium stores. We will also check a magnesium and potassium in the morning. 3. The patient has known vascular dementia. His baseline from a neurological standpoint has been recovered during this hospitalization. 4. The patient has general debility and is physically weak. Dr. Mohan is working with the family toward long-term fci placement. cc: MD Nisha Guadarrama MD
[2019-06-21] MEDS: POTASSIUM CHLORIDE 20 MEQ/SWI 20 MEQ/100 ML IVPB IV SCH ×4 (12:10→22:47)
--- NOTE | 2019-06-21 15:07 | CARDIOLOGY PROGRESS NOTE ---
DATE: 06/21/2019 CHIEF COMPLAINT: Shortness of breath and Irregular heartbeat. SUBJECTIVE: The patient is lethargic. He looks up to verbal command. He has not eaten breakfast and it is already 2:00 p.m. He is very lethargic. He states that he is not having any pain. OBJECTIVE: Vital Signs: Blood pressure right now is 125/75, pulse 80, temperature 98.3, and respirations 19. General: Elderly. Chronically ill. No distress. Sleepy. HEENT: Unremarkable. Chest: Diminished breath sounds bilaterally. Cardiac: Heart sounds are distant and slightly irregular. I do not hear any murmur. Abdomen: The abdomen is nontender. No masses. No hepatomegaly. Extremities: The extremities show decreased pulses. No edema. Neurological: Very sleepy. Follows some commands. LABORATORY DATA: Blood work from yesterday: Hemoglobin was 7.9 and hematocrit 25.4. Sodium was 140, potassium 3.3, BUN 21, and creatinine 1.2. ProBNP is greater than 35,000. Echocardiogram that was done yesterday, 06/20/2019, shows an ejection fraction of 15% to 20%, global hypokinesis, and akinesis of the inferior wall. IMPRESSION: 1. Patient who presents with decompensated congestive heart failure/ischemic cardiomyopathy. 2. Permanent atrial fibrillation. 3. Status post pacemaker implantation. 4. Urinary tract infection with Escherichia coli extended-spectrum beta- lactamase positive Bacteremia. Positive blood culture 06/13/2019. 5. Chronic obstructive pulmonary disease with chronic respiratory failure. 6. History of vascular dementia. RECOMMENDATIONS: At this time we will continue the present course of action as outlined by Dr. Mon. He is on furosemide. He seems to be comfortable. We will see how he does. PROGNOSIS: Seems to be poor. cc: MD Nisha Gay MD MTDD
[2019-06-21] MEDS: PRAVACHOL PO SCH (20:35)
[2019-06-21] MEDS: ARICEPT PO SCH (20:36)
[2019-06-22] MEDS: NORCO-5 PO PRN (01:18)
[2019-06-22] MEDS: REGLAN PO SCH ×3 (06:30→16:43)
[2019-06-22 07:35] LABS: BASO# 0.01 X1000 (0.0-0.2); BASO% 0.2 % (0.0-0.8); EOS# 0.01 X1000 (0.0-0.7); EOS% 0.2 % (0.0-10.0); HEMATOCRIT 26.4 % (42.0-52.0); HEMOGLOBIN 8.2 g/dL (14.0-18.0); IMM GRAN# 0.04 X1000 (0.0-0.04); IMM GRAN% 0.9 % (0.0-0.5); LYMPH# 1.34 X1000 (1.2-3.4); MCH 27.9 PG (27-31); MCHC 31.1 g/dL (33-37); MCV 89.8 FL (81-99); MONO# 0.65 X1000 (0.11-0.59); MONO% 14.5 % (1.7-9.3); MPV 8.9 FL (7.4-10.4); NEUT# 2.42 X1000 (1.4-6.5); NEUT% 54.2 % (42.2-75.2); PLT 172 X1000 (130-400); RBC 2.94 XMIL (4.7-6.1); WBC 4.47 X1000 (4.8-10.8)
[2019-06-22 07:54] LABS: CALCIUM 8.6 mg/dL (8.8-10.2); CREATININE 1.4 mg/dL (0.7-1.2); MAGNESIUM 1.8 mg/dL (1.5-2.7); POTASSIUM 4.7 mmol/L (3.5-5.1)
[2019-06-22] MEDS: SYMBICORT 160/4.5 MICROGM INHALER INH SCH ×2 (07:59→20:37)
[2019-06-22] MEDS: LASIX IV SCH (09:04)
[2019-06-22] MEDS: ZIAC 2.5/6.25 MG PO SCH (09:05)
[2019-06-22] MEDS: PEPCID PO SCH (09:05)
[2019-06-22] MEDS: EFFEXOR XR PO SCH (09:05)
[2019-06-22] MEDS: FLOMAX PO SCH (09:05)
[2019-06-22] MEDS: RANEXA PO SCH ×2 (09:05→22:00)
[2019-06-22] MEDS: DEPAKOTE ER PO SCH ×2 (09:05→22:01)
[2019-06-22] MEDS: COLACE PO SCH ×2 (09:05→22:00)
[2019-06-22] MEDS: ZYLOPRIM PO SCH (09:05)
[2019-06-22] MEDS: IMDUR PO SCH (09:05)
--- NOTE | 2019-06-22 11:56 | PROGRESS NOTE ---
DATE: 06/22/2019 SUBJECTIVE: Earlier this morning, the patient told the nurse that his breathing was better. When I asked him about it, he said that his breathing was a little bit worse. He is difficult to assess. The nurse, who was taking care of him the last couple of days, stated that she thought he was better. OBJECTIVE: Vital Signs: 98.6, 81, 21, 110/78, 100% saturated on 2 L nasal cannula. Fluid balance-these values were not kept. Physical Examination: The patient is awake and conversive. He seems reasonably appropriate. Lungs: Show good air movement. There is no wheezing. There are some crackles in the bases, which are mild. Abdomen: Benign. Shows bowel sounds are present. Extremities: No peripheral edema. ASSESSMENT AND PLAN: 1. The patient's acute exacerbation of systolic congestive heart failure seems reasonably well- compensated on his present medication dosing. Dr. Dalal has seen him on rounds today. 2. The potassium has returned to normal with appropriate supplementation. BUN and creatinine are up very slightly but within range of his baseline. 3. Vascular dementia. Aware. 4. retirement placement is being sought. cc: MD Nisha Guadarrama MD
[2019-06-22] MEDS: ARICEPT PO SCH (22:00)
[2019-06-22] MEDS: PRAVACHOL PO SCH (22:01)
[2019-06-23] MEDS: REGLAN PO SCH ×3 (05:59→16:09)
[2019-06-23] MEDS: DEPAKOTE ER PO SCH ×2 (08:07→21:05)
[2019-06-23] MEDS: FLOMAX PO SCH (08:07)
[2019-06-23] MEDS: COLACE PO SCH ×2 (08:08→21:05)
[2019-06-23] MEDS: RANEXA PO SCH ×2 (08:08→21:05)
[2019-06-23] MEDS: EFFEXOR XR PO SCH (08:08)
[2019-06-23] MEDS: ZYLOPRIM PO SCH (08:08)
[2019-06-23] MEDS: PEPCID PO SCH (08:08)
[2019-06-23] MEDS: ZIAC 2.5/6.25 MG PO SCH (08:08)
[2019-06-23] MEDS: LASIX IV SCH ×2 (08:09→21:01)
[2019-06-23] MEDS: IMDUR PO SCH (08:09)
[2019-06-23] MEDS: SYMBICORT 160/4.5 MICROGM INHALER INH SCH ×2 (08:30→23:14)
[2019-06-23 09:20] LABS: HEMATOCRIT 27.6 % (42.0-52.0); HEMOGLOBIN 8.6 g/dL (14.0-18.0); MCH 27.9 PG (27-31); MCHC 31.2 g/dL (33-37); MCV 89.6 FL (81-99); MPV 8.5 FL (7.4-10.4); RBC 3.08 XMIL (4.7-6.1); RDW 21.5 % (11.5-14.5); WBC 4.65 X1000 (4.8-10.8)
--- NOTE | 2019-06-23 09:31 | Diag Imaging Result Doc PS360 ---
EXAM: CHEST-PORTABLE 06/23/2019 HISTORY: CHF TECHNIQUE: AP portable semiupright at 0854 COMMENT: There is cardiomegaly and increased pulmonary vascularity. There are bilateral pleural effusions. Compared to 06/20/2019 there is slightly worsened opacification of the left base. IMPRESSION: Cardiomegaly and pulmonary edema. Electronically signed by Remi Johnson 06/23/2019 9:29 AM
[2019-06-23 09:39] LABS: CALCIUM 8.3 mg/dL (8.8-10.2); CREATININE 1.4 mg/dL (0.7-1.2); POTASSIUM 4.1 mmol/L (3.5-5.1)
--- NOTE | 2019-06-23 13:13 | PROGRESS NOTE ---
DATE: 06/23/2019 Mr. Solitario has had a history of chronic respiratory failure with hypoxia secondary to chronic congestive heart failure secondary to systolic dysfunction. His most recent echocardiogram demonstrated severe global hypokinesis with an ejection fraction of 15 to 20 percent. There was moderate tricuspid regurgitation. There was moderate mitral regurgitation. He continues with mild dyspnea. He has dyspnea with activities of daily living. O2 saturations are ranging from 94 to 98 percent on supplemental O2. He remains in atrial fibrillation. His heart rate is well controlled in the range of 60 to 81. PHYSICAL EXAMINATION: Temperature 98.6 degrees, pulse 60, respirations 12, BP 105/72. CV: Irregularly irregular. Lungs: Faint crackles in the bases bilaterally. Abdomen: Soft, nontender, with active bowel sounds. Extremities: Without edema. ASSESSMENT AND PLAN: 1. Chronic respiratory failure with hypoxia secondary to acute on chronic congestive heart failure secondary to systolic dysfunction. He has severe systolic dysfunction due to an underlying ischemic cardiomyopathy. Ejection fraction is 15 to 20 percent. We are going to try low-dose Entresto. We will continue salt and fluid restricted diet. I will increase the intravenous Lasix to 80 mg intravenous every 12 hours. 2. Chronic atrial fibrillation. Because of a recent stroke and small hemorrhage along the tentorium, we will continue to hold Eliquis. Heart rate is stable on the Bystolic. 3. General debility. Due to his multiple medical conditions and underlying vascular dementia, Mr. Solitario is incapable of taking care of himself. His daughter and son-in-law all are unable to care for him. We have been in the process of trying to find long-term alf care for him. He was going to be evaluated today for a possible admission to a facility in [place]. cc: Nisha Mohan MD
[2019-06-23] MEDS: ENTRESTO 24 MG-26 MG TABLET PO SCH (21:05)
[2019-06-23] MEDS: PRAVACHOL PO SCH (21:05)
[2019-06-23] MEDS: ARICEPT PO SCH (21:07)
[2019-06-24] MEDS: REGLAN PO SCH ×3 (06:32→15:20)
[2019-06-24] MEDS: NORCO-5 PO PRN (06:38)
[2019-06-24 07:48] LABS: AGAP 12; BUN 25 mg/dL (8-22); CALCIUM 8.6 mg/dL (8.8-10.2); CHLORIDE 93 mmol/L (98-107); COSMO 276; CREATININE 1.3 mg/dL (0.7-1.2); ESTIMATED GFR > 60; GLUCOSE 92 mg/dL (70-104); POTASSIUM 3.5 mmol/L (3.5-5.1); SODIUM 136 mmol/L (136-145); TCO2 31 mmol/L (25-35)
[2019-06-24] MEDS: SYMBICORT 160/4.5 MICROGM INHALER INH SCH ×2 (08:00→19:36)
[2019-06-24] MEDS: COLACE PO SCH ×2 (08:30→21:17)
[2019-06-24] MEDS: RANEXA PO SCH ×2 (08:30→21:17)
[2019-06-24] MEDS: ZYLOPRIM PO SCH (08:30)
[2019-06-24] MEDS: EFFEXOR XR PO SCH (08:30)
[2019-06-24] MEDS: FLOMAX PO SCH (08:30)
[2019-06-24] MEDS: DEPAKOTE ER PO SCH ×2 (08:30→21:17)
[2019-06-24] MEDS: ENTRESTO 24 MG-26 MG TABLET PO SCH ×2 (08:30→21:17)
[2019-06-24] MEDS: PEPCID PO SCH (08:30)
[2019-06-24] MEDS: IMDUR PO SCH (08:31)
[2019-06-24] MEDS: LASIX IV SCH (08:31)
[2019-06-24] MEDS ORDERED: NS 500 ML IV ONE (08:37)
[2019-06-24] MEDS ORDERED: LASIX IV SCH (08:45)
--- NOTE | 2019-06-24 13:34 | PROGRESS NOTE ---
DATE: 06/24/2019 SUBJECTIVE: Mr. Solitario has a history of chronic respiratory failure with hypoxia secondary to acute on chronic congestive heart failure secondary to systolic dysfunction. He has an ischemic cardiomyopathy with global hypokinesis with an ejection fraction of 15% to 20%. We recently added Entresto. He reports that he has mild dyspnea this morning. He still has some crackles on exam. He denies any chest pain, palpitations, or anginal equivalents. His proBNP was in excess of 35,000. OBJECTIVE: Vital Signs: Temperature 97.9 degrees, pulse 92, respirations 18, BP 123/81. Cardiovascular: Irregularly irregular. Lungs: Crackles in the bases bilaterally. Abdomen: Soft, nontender, with active bowel sounds. Extremities: Without edema. ASSESSMENT AND PLAN: 1. Chronic respiratory failure with hypoxia secondary to acute on chronic congestive heart failure secondary to systolic dysfunction. He has end-stage congestive heart failure with an ejection fraction of 15% to 20%. I suspect it is ischemic in etiology. We will continue Imdur, Ranexa, and aggressive diuresis with Lasix. He is mildly anemic. His serum iron was 19. I will type, crossmatch, and transfuse 1 unit of packed red blood cells. I would like to see the hematocrit greater than 30. We will give him Lasix 40 mg intravenously after the administration of blood products. 2. Vascular dementia. We will continue Aricept 5 mg daily. I have spoken to his family. We will delay discharge today because of the anemia and dyspnea. If he responds well to therapy, I hope to be able to discharge him to rehab in the morning. cc: Nisha Mohan MD
--- NOTE | 2019-06-24 16:20 | DISCHARGE SUMMARY ---
ADMISSION DATE: 06/12/2019 DISCHARGE DATE: 06/25/2019 DISCHARGE DIAGNOSES: 1. Metabolic encephalopathy. 2. Commute of facility-acquired pneumonia with sepsis. 3. Chronic respiratory failure with hypoxia. 4. Subacute cerebrovascular accident. 5. Caxpr-dy-tyvbkrg congestive heart failure secondary to systolic dysfunction. 6. Vascular dementia. 7. Gastroparesis. 8. Chronic low back pain secondary to lumbar spinal stenosis with neurogenic claudication. 9. Atherosclerotic ischemic heart disease. 10. Essential hypertension. 11. Chronic obstructive pulmonary disease. 12. Mixed hyperlipidemia. 13. Benign prostatic hypertrophy. 14. Chronic atrial fibrillation. DISCHARGE INSTRUCTIONS: 1. The patient will be transferred via ambulance to [facility] for long-term care. 2. An 1800 calorie ADA diet with 1000 mL fluid restriction per day. 3. Activity as tolerated. MEDICATIONS: Pendergrass 5 one q.12 hours p.r.n. pain, allopurinol 100 mg daily, Symbicort 160/4.5 two puffs b.i.d., Depakote ER 250 mg b.i.d., Colace 100 mg b.i.d., Aricept 5 mg at night, vitamin D3 50,000 units weekly, Pepcid 20 mg daily, Lasix 80 mg b.i.d., Imdur 60 mg daily, Reglan 5 mg p.o. t.i.d. a.c., pravastatin 40 mg at bedtime, Ranexa 1000 mg q.12 hours, Entresto one p.o. b.i.d., Flomax 0.4 mg daily, venlafaxine 37.5 mg daily, trazodone 25 mg at bedtime p.r.n. insomnia HISTORY OF PRESENT ILLNESS/HOSPITAL COURSE: Mr. Solitario has a longstanding history of vascular dementia. The patient was brought to [facility] for evaluation of increasing confusion and disorientation. His initial CT scan of the brain demonstrated chronic white matter changes and cerebral atrophy. No intracranial mass or hemorrhage was noted. His initial chest x- ray demonstrated bibasilar opacifications. We were concerned about the possibility of pneumonia. He was started on broad-spectrum antibiotics. One blood culture grew out E. coli. The patient was continued on intravenous Zosyn for 10 days. With treatment of the underlying pneumonia, his mental status improved. He did have fluctuation of his mental status over the [place] holidays, and a follow-up CT scan on 06/14 demonstrated a minimal hemorrhage along the tentorium. No parenchymal hemorrhage was noted. A follow-up CT scan demonstrated no worsening of the bleed. He was also noted to have had a subacute left parietal stroke. We felt that his encephalopathy was due to the underlying infection as well as the recent minimal bleed. Because of the hemorrhage, the Eliquis was continued. He was maintained on Aricept. At the time of discharge, he was back to his baseline. Neurologically, he knew who he was. He could identify family members. He could not tell me the date or year. The patient has a longstanding history of chronic congestive heart failure secondary to systolic dysfunction. He has severe ischemic cardiomyopathy with global hypokinesis. His most recent echocardiogram demonstrated an EF of 15% to 20%. The patient was maintained on a salt and fluid restricted diet and aggressively diuresed with Lasix. We added Entresto to hopefully improve cardiac output. He will weigh daily. If he gains 2 pounds in 24 hours, he will take an extra Lasix. We will continue a salt and fluid restricted diet. We will continue aggressive blood pressure management. He was noted to be mildly anemic. His serum iron was low. I did type, crossmatch, and transfuse 1 unit of packed red blood cells in order to have the hematocrit greater than 30 in the face of known ischemic heart disease. He does have a history of chronic stable angina. He did have intermittent episodes of chest pressure and chest tightness. He is already on high-dose Ranexa. Serial cardiac enzymes were negative. He did not have any acute changes on his EKG. We increased the dosage of Imdur. He does have a history of vascular dementia. He is tolerating the Aricept. He is incapable of caring for himself or making life-altering or financial decisions. I believe that he is an excellent candidate for long-term shelter care. cc: Nisha Mohan MD
--- NOTE | 2019-06-24 16:32 | CARDIOLOGY PROGRESS NOTE ---
DATE: 06/24/2019 SUBJECTIVE: Mr. Solitario has no complaints today other than some mild shortness of breath. He is incontinent. OBJECTIVE: Vital Signs: He is afebrile. Heart rate 93. Blood pressure 114/80. His I's and O's are not able to be recorded secondary to incontinence. General: No acute distress. Cardiovascular: He is in a regular rate and rhythm. He has no murmurs. He has no lower extremity edema. Chest: His chest is clear bilaterally. He has no increased work of breathing. Abdomen: His abdomen is soft, nontender. PERTINENT DATA: His BUN and creatinine are 25 and 1.3, which have been stable. His proBNP continues to be greater than 35,000. ASSESSMENT: Mr. Solitario is a 74-year-old gentleman with an ischemic cardiomyopathy. PLAN: We will try adding in a low dose of Toprol at 25 mg daily. He is already on Entresto. He is on Lasix presently. Discussion with the nurse seems to endorse that he is urinating quite a bit. We will continue to watch for the time being. cc: MD Nisha Lucas MD
[2019-06-24] MEDS: LASIX PO SCH (21:18)
[2019-06-24] MEDS: PRAVACHOL PO SCH (21:18)
[2019-06-24] MEDS: ARICEPT PO SCH (21:18)
[2019-06-25] MEDS: REGLAN PO SCH ×2 (06:56→11:05)
[2019-06-25] MEDS: NORCO-5 PO PRN (06:56)
[2019-06-25 07:17] LABS: AGAP 9; BUN 23 mg/dL (8-22); CHLORIDE 97 mmol/L (98-107); COSMO 279; ESTIMATED GFR > 60; GLUCOSE 83 mg/dL (70-104); MAGNESIUM 1.8 mg/dL (1.5-2.7); POTASSIUM 3.3 mmol/L (3.5-5.1); SODIUM 138 mmol/L (136-145); TCO2 32 mmol/L (25-35)
[2019-06-25] MEDS: SYMBICORT 160/4.5 MICROGM INHALER INH SCH ×2 (07:37→19:54)
[2019-06-25] MEDS ORDERED: TOPROL XL PO SCH (09:00)
[2019-06-25] MEDS: ENTRESTO 24 MG-26 MG TABLET PO SCH ×2 (09:55→20:12)
[2019-06-25] MEDS: FLOMAX PO SCH (09:55)
[2019-06-25] MEDS: LASIX PO SCH (09:55)
[2019-06-25] MEDS: EFFEXOR XR PO SCH (09:55)
[2019-06-25] MEDS: PEPCID PO SCH (09:55)
[2019-06-25] MEDS: RANEXA PO SCH ×2 (09:55→20:12)
[2019-06-25] MEDS: DEPAKOTE ER PO SCH ×2 (09:55→20:11)
[2019-06-25] MEDS: ZYLOPRIM PO SCH (09:55)
[2019-06-25] MEDS: IMDUR PO SCH (09:55)
[2019-06-25] MEDS: COLACE PO SCH ×2 (09:55→20:12)
[2019-06-25] MEDS ORDERED: KLOR-CON PO ONE (10:17)
[2019-06-25] MEDS ORDERED: MAGNESIUM SULFATE 2 GM/S.W.I. 2 GM/50 ML IVPB IV ONE (11:14)
--- NOTE | 2019-06-25 11:30 | CARDIOLOGY PROGRESS NOTE ---
DATE: 06/25/2019 SUBJECTIVE: Mr. Solitario reports his breathing is somewhat better, but he is a very difficult historian. He has not been very active. He appears to be in essentially the same position in bed every time I come in to see him. PHYSICAL EXAMINATION: Vital Signs: He is afebrile, heart rate 81, blood pressure 107/65. His I's and O's are extremely difficult to track as he is incontinent. Again, discussion with the nurse yesterday was that he had a significant increase in urine output recently. His weights had shown a trend down, being 230.1 on 06/13/2019, then 209 on 06/23/2019, then 208 on 06/24/2019, but 212 today. General: Ill-appearing, black male. No acute distress. He wakes to physical and verbal stimuli, but goes back to sleep rather quickly. He does follow simple commands. Cardiovascular: He sounds to be in a regular rate and rhythm. I do not hear any obvious murmurs. He has warm and well-perfused extremities. Chest: Has somewhat coarse breath sounds with some upper airway noise, as well as bilateral basilar crackles. Abdomen: Soft, nontender. PERTINENT DATA: His chest x-ray on 06/23/2019 showed cardiomegaly and pulmonary edema. His lab data shows a sodium of 138, potassium 3.3, magnesium level is 1.8, BUN 23, creatinine is 1. His proBNP continues to be greater than 35,000. ASSESSMENT: Mr. Solitario is a 74-year-old gentleman with ischemic cardiomyopathy. PLAN: He continues to be volume overloaded. Will continue him on IV Lasix at this point. I have increased his Toprol to 50, dropped his Imdur to 30, added in some spironolactone at 12.5. We will continue to try to diurese the patient. He is on 80 by p.o. b.i.d. of Lasix. I will switch this over to IV. Repeat labs in the morning. cc: MD Nisha Lucas MD
--- NOTE | 2019-06-25 11:44 | PROGRESS NOTE ---
DATE: 06/25/2019 SUBJECTIVE: The patient's chart was reviewed. In summary, the patient has been hospitalized since 06/02/2019. Diagnoses while hospitalized have included metabolic encephalopathy, facility- acquired pneumonia with sepsis, chronic respiratory failure with hypoxia, subacute cerebrovascular accident, and acute on chronic congestive heart failure due to systolic dysfunction. While hospitalized, the patient has been treated with optimum medical management. Dr. Vishnu Mon with Cardiology is working towards optimizing his cardiac medications. This morning, upon my arrival, the patient was resting in bed. He awoke to verbal stimuli. Overnight, there was noted to be no significant change. There is no evidence of fevers, chills, nausea, vomiting, or chest discomfort. He continues to require oxygen supplementation to maintain adequate saturations. His cough is intermittent. He continues to be very weak. OBJECTIVE: Vital Signs: T-max 99 degrees, heart rate 80 to 84, respirations 14 to 20, blood pressure 106 to 122/63 to 81. General: Chronically ill appearing, no acute distress. Cardiovascular: Regular rate and rhythm. No significant murmurs, rubs, or gallops. Pulmonary: Rhonchi at the left base. Reasonable air movement. Abdomen: Soft, nontender, nondistended. Positive bowel sounds. Extremities: Moves all extremities well. No significant clubbing, cyanosis, or edema. Dermatologic: No evidence of rash. LABORATORY DATA: Sodium 138, potassium 3.3, chloride 97, bicarb 32, BUN 23, creatinine 1.0, glucose 83, calcium 8.0. Magnesium 1.8. Ferritin 700. ProBNP greater than 35,000. ASSESSMENT AND PLAN: 1. Alteration of mental status. It appears that the patient is approaching his baseline. As described above, the patient was diagnosed with a subacute stroke. We will continue supportive care. 2. Subacute stroke. This has contributed to his mental status change and his deconditioning. His mentation, however, is approaching his baseline. Once again, supportive care will be pursued. 3. Acute on chronic systolic congestive heart failure. Unfortunately, the patient continues to have a proBNP greater than 35,000 despite maximized medical intervention. I discussed the case with Dr. Mon. At this point, further titration of medications will be pursued. Spironolactone has been added. Beta roma has been advanced. We will monitor the patient over the course of the next 24 to 48 hours. If the patient tolerates this well and his volume status remains acceptable, we will consider mcc placement at that time. If we are unable to achieve adequate control, consideration for palliation and hospice care will be considered. 4. Blood culture positive for e.coli- With a high risk for aspiration and abnormal CXR, pulmonary source is high on the differential with negative UA. Will repeat blood cultures today. Will start Primaxin therapy. 5. Possible pneumonia. Upon admission, the patient was treated with antibiotic intervention, but this was subsequently discontinued with clinical improvement. As blood cultures are positive, will resume Primaxin therapy. Will recheck CXR. 6. Chronic respiratory failure with hypoxia. The patient is being treated with optimized cardiac intervention. We will continue oxygen per protocol. 7. Left upper extremity pain/left shoulder pain. While hospitalized, Orthopedic Surgery was consulted. The patient did have a hematoma present. This was drained. We will continue as needed pain medications. 8. Hypertension/hyperlipidemia. We will continue the patient on home medical regimen. 9. Atrial fibrillation- He appears to be in a sinus rhythm today. He does have a pacemaker. We will remain aware. His Eliquis has been held in the setting of possible intracranial bleed. We will defer anticoagulation consideration to Dr. Mohan/Dr. Mon. 10. Disposition. At this point, the patient continues to require correction care in a hospital setting. We will plan discharge to rehabilitation once appropriate. cc: MD Nisha Ferreira MD [facility] SERVICESCarina
[2019-06-25] MEDS: PRIMAXIN 500 MG in NS 100 ML IV SCH ×2 (14:56→20:12)
[2019-06-25] MEDS: LASIX IV SCH (20:11)
[2019-06-25] MEDS: ARICEPT PO SCH (20:11)
[2019-06-25] MEDS: PRAVACHOL PO SCH (20:12)
[2019-06-26] MEDS: PRIMAXIN 500 MG in NS 100 ML IV SCH ×4 (02:02→22:31)
[2019-06-26] MEDS: REGLAN PO SCH ×4 (05:32→16:30)
--- NOTE | 2019-06-26 07:37 | Diag Imaging Result Doc PS360 ---
EXAM: CHEST-2 VIEWS 06/26/2019 HISTORY: hypoxia TECHNIQUE: PA and lateral chest COMMENT: There is cardiomegaly. There is bilateral pleural effusion. There are patchy alveolar opacities bilaterally including both upper lobes. Compared to 06/23/2019 considering differences in technique there has been no appreciable change. The upper lobe opacities appear somewhat worse than on 06/20/2019. IMPRESSION: Cardiomegaly and pulmonary edema plus minus pneumonia. Electronically signed by Remi Johnson 06/26/2019 7:35 AM
[2019-06-26] MEDS: SYMBICORT 160/4.5 MICROGM INHALER INH SCH ×2 (08:38→19:44)
[2019-06-26] MEDS: PEPCID PO SCH (08:52)
[2019-06-26] MEDS: RANEXA PO SCH ×2 (08:52→22:30)
[2019-06-26] MEDS: EFFEXOR XR PO SCH (08:52)
[2019-06-26] MEDS: ENTRESTO 24 MG-26 MG TABLET PO SCH ×2 (08:52→22:31)
[2019-06-26] MEDS: FLOMAX PO SCH (08:52)
[2019-06-26] MEDS: IMDUR PO SCH (08:53)
[2019-06-26] MEDS: ZYLOPRIM PO SCH (08:53)
[2019-06-26] MEDS: COLACE PO SCH ×2 (08:53→22:31)
[2019-06-26] MEDS: DEPAKOTE ER PO SCH ×2 (08:53→22:31)
[2019-06-26] MEDS: TOPROL XL PO SCH (08:54)
[2019-06-26 08:56] LABS: AGAP 10; BUN 21 mg/dL (8-22); CALCIUM 8.3 mg/dL (8.8-10.2); CHLORIDE 97 mmol/L (98-107); COSMO 279; CREATININE 1.1 mg/dL (0.7-1.2); ESTIMATED GFR > 60; GLUCOSE 76 mg/dL (70-104); POTASSIUM 3.8 mmol/L (3.5-5.1); SODIUM 139 mmol/L (136-145); TCO2 32 mmol/L (25-35)
[2019-06-26] MEDS ORDERED: ALDACTONE PO SCH (09:00)
[2019-06-26] MEDS: LASIX IV SCH ×2 (09:03→22:31)
[2019-06-26 09:15] LABS: HEMATOCRIT 29.9 % (42.0-52.0); HEMOGLOBIN 9.7 g/dL (14.0-18.0); MCH 29.3 PG (27-31); MCHC 32.4 g/dL (33-37); MCV 90.3 FL (81-99); MPV 9.1 FL (7.4-10.4); RBC 3.31 XMIL (4.7-6.1); RDW 20.8 % (11.5-14.5); WBC 5.22 X1000 (4.8-10.8)
--- NOTE | 2019-06-26 13:17 | PROGRESS NOTE ---
DATE: 06/26/2019 SUBJECTIVE: Mr. Solitario has a history of chronic respiratory failure with hypoxia secondary to acute on chronic congestive heart failure secondary to systolic dysfunction. He is maintaining O2 saturations of 97% to 98% on 2 L of O2 per nasal cannula. He reports that he will have some episodes of dyspnea. He has not had any obvious desaturations on the oxygen. Chest x-ray still demonstrated bilateral pleural effusions. [place] [address] to [address]. Blood pressure remains well controlled. Systolic blood pressures are ranging from 120 to 131 whereas his diastolic blood pressures are in the 80s. We had recently added Entresto. OBJECTIVE: Temperature 97.9 degrees, pulse 81, respirations 19, and BP 120/86.CV: Regular rate and rhythm. Lungs: Crackles in the bases bilaterally. Abdomen: Soft and nontender with active bowel sounds. Extremities: Without edema. ASSESSMENT AND PLAN: Chronic respiratory failure with hypoxia secondary to acute on chronic congestive heart failure secondary to systolic dysfunction. Unfortunately, Mr. Solitario has end- stage congestive heart failure as well as in stage severe 3-vessel heart disease. He still has persistent pleural effusions. He has been tolerating the Entresto. His creatinine had actually dropped from 1.[address] Mon had added low-dose spironolactone. We will continue a salt and fluid restricted diet. We will continue diuresis with IV Lasix. I am hoping that titrating upward on the beta blockers, and using Entresto will help to improve his cardiac function to the point where he has an improved quality of life. His most recent echocardiogram showed an EF of 15 to 20 percent. cc: Nisha Mohan MD
--- NOTE | 2019-06-26 15:24 | CARDIOLOGY PROGRESS NOTE ---
DATE: 06/26/2019 SUBJECTIVE: Mr. Solitario continues to complain of some shortness of breath. He does not have any pain complaints. PHYSICAL EXAMINATION: Afebrile, heart rate 81, blood pressure 120/86. General: He is in no acute distress. Cardiovascular: He sounds to be in a regular rate and rhythm. He has no obvious murmurs. He has no S3. He has no lower extremity edema. Chest Examination: Has bilateral basilar rales. He has no increased work of breathing. Abdomen: Soft, nontender. PERTINENT DATA: Hematocrit is 29, platelet count is 128,000. Sodium 139, potassium is 3.8, BUN 21, creatinine is 1.1. His proBNP is 24,000 which is down from greater than 35,000 yesterday. ASSESSMENT: Mr. Solitario is a 74-year-old gentleman with ischemic cardiomyopathy. PLAN: At this point, we have escalated medications including an increase in spironolactone to 25 mg daily today. He continues on Entresto, Toprol, and IV Lasix. We will recheck laboratories in the morning. I will also initiate him on digoxin at 0.125 mg daily. cc: MD Nisha Lucas MD
[2019-06-26] MEDS: NORCO-5 PO PRN (18:24)
[2019-06-26] MEDS: ARICEPT PO SCH (22:30)
[2019-06-26] MEDS: DESYREL PO PRN (22:30)
[2019-06-26] MEDS: PRAVACHOL PO SCH (22:31)
[2019-06-27] MEDS: PRIMAXIN 500 MG in NS 100 ML IV SCH (00:39)
[2019-06-27] MEDS: REGLAN PO SCH ×4 (06:40→17:21)
[2019-06-27 07:40] LABS: AGAP 10; BUN 21 mg/dL (8-22); CALCIUM 8.5 mg/dL (8.8-10.2); CHLORIDE 99 mmol/L (98-107); COSMO 279; CREATININE 1.1 mg/dL (0.7-1.2); ESTIMATED GFR > 60; GLUCOSE 79 mg/dL (70-104); MAGNESIUM 1.9 mg/dL (1.5-2.7); POTASSIUM 3.5 mmol/L (3.5-5.1); SODIUM 139 mmol/L (136-145); TCO2 30 mmol/L (25-35)
[2019-06-27] MEDS: SYMBICORT 160/4.5 MICROGM INHALER INH SCH ×2 (07:46→19:48)
[2019-06-27] MEDS ORDERED: PRIMAXIN 1,000 MG in NS 250 ML IV SCH (08:15)
[2019-06-27] MEDS ORDERED: ALDACTONE PO SCH (09:00)
[2019-06-27] MEDS ORDERED: NS 50 ML ONE (10:16)
[2019-06-27] MEDS: TOPROL XL PO SCH (10:22)
[2019-06-27] MEDS: LANOXIN PO SCH (10:22)
[2019-06-27] MEDS: DEPAKOTE ER PO SCH ×2 (10:22→21:31)
[2019-06-27] MEDS: COLACE PO SCH ×2 (10:23→21:31)
[2019-06-27] MEDS: EFFEXOR XR PO SCH (10:23)
[2019-06-27] MEDS: ALDACTONE PO SCH ×2 (10:23→21:32)
[2019-06-27] MEDS: FLOMAX PO SCH (10:23)
[2019-06-27] MEDS: ENTRESTO 24 MG-26 MG TABLET PO SCH ×2 (10:23→21:31)
[2019-06-27] MEDS: ZYLOPRIM PO SCH (10:23)
[2019-06-27] MEDS: IMDUR PO SCH (10:23)
[2019-06-27] MEDS: VITAMIN D PO SCH (10:23)
[2019-06-27] MEDS: LASIX IV SCH ×2 (10:23→21:31)
[2019-06-27] MEDS: RANEXA PO SCH ×2 (10:23→21:31)
[2019-06-27] MEDS: PEPCID PO SCH (10:24)
[2019-06-27] MEDS: MERREM 1 GM in NS 50 ML IV SCH ×2 (10:25→17:16)
--- NOTE | 2019-06-27 11:31 | PROGRESS NOTE ---
DATE: 06/27/2019 SUBJECTIVE: Mr. Solitario has a history of end-stage congestive heart failure secondary to systolic dysfunction due to ischemic cardiomyopathy. We have been titrating upward on the dosage of Entresto, Toprol, and spironolactone over the past several days. Unfortunately, he continues with dyspnea on exertion, and nursing staff reports that he has been gurgling. His proBNP has jumped from 24,270 to 31,942. He is maintaining O2 saturations of 100% on 2 L of O2 per nasal cannula continuously. Blood pressure remains stable. Systolic blood pressures are ranging from 120 to 135; whereas, his diastolic blood pressures are in the 70s and 80s. He denies any chest pain, palpitations, or anginal equivalents. OBJECTIVE: Vital Signs: Temperature 98.4 degrees, pulse 88, respirations 16, BP 154/75. Cardiovascular: Regular rate and rhythm. Lungs: Faint crackles in the bases bilaterally. Abdomen: Soft, nontender, with active bowel sounds. Extremities: Without edema. LABORATORY DATA: Various laboratory studies were obtained. A BMP demonstrated the following: Sodium 139, potassium 3.5, BUN 21, creatinine 1.1, and glucose 79. ASSESSMENT AND PLAN: 1. Acute on chronic congestive heart failure secondary to systolic dysfunction resulting from severe ischemic cardiomyopathy. He really does have end-stage congestive heart failure. It is our hope that we can titrate medicines to the point to where we can improve his quality of life. We started Entresto, and Dr. Mon has increased the Toprol. I will increase the dosage of spironolactone to 25 mg b.i.d. We will monitor for evidence of hyperkalemia or hyponatremia. We will continue aggressive diuresis with Lasix. 2. Paroxysmal atrial fibrillation. He remains in normal sinus rhythm. We will continue metoprolol for rate control. Because of a recent small hemorrhage, we will continue to hold the Eliquis. cc: Nisha Mohan MD
[2019-06-27] MEDS: NORCO-5 PO PRN (12:05)
--- NOTE | 2019-06-27 15:38 | CARDIOLOGY PROGRESS NOTE ---
DATE: 06/27/2019 SUBJECTIVE: Mr. Solitario continues to complain of shortness of breath. OBJECTIVE: Vital Signs: Afebrile. Heart rate 87, blood pressure 122/80. His I's and O's continue to be difficult to track secondary to his incontinence. Cardiovascular: He is in a regular rate and rhythm. He has no murmurs. Respiratory: His chest exam has reduced breath sounds somewhat in the bases with some rales bilaterally. He has no increased work of breathing. Gastrointestinal: His abdomen is soft, nontender. PERTINENT DATA: Sodium 139, potassium 3.5, his BUN is 21, creatinine [place] 1.1[place] [address]. ASSESSMENT: Mr. Solitario is a 74-year-old black gentleman with a ischemic cardiomyopathy. PLAN: We have significantly escalated his medications during this hospitalization. Dr. Mohan increase his spironolactone to 25 b.i.d. He continues on Entresto as well as a low dose of Imdur, digoxin and metoprolol. We will continue with these medication adjustments. Laboratories will be checked in the morning as well as the chest x-ray. Considering the patient's comorbidities and recent stroke he would likely be a good candidate for hospice. Apixaban has currently did been discontinued secondary to his recent CVA with a possible small bleed noted. This was stable over a couple of CTs. cc: MD Nisha Lucas MD
[2019-06-27] MEDS: ARICEPT PO SCH (21:31)
[2019-06-27] MEDS: PRAVACHOL PO SCH (21:31)
[2019-06-28] MEDS: MERREM 1 GM in NS 50 ML IV SCH ×3 (01:55→15:49)
[2019-06-28] MEDS: REGLAN PO SCH ×3 (06:01→15:49)
--- NOTE | 2019-06-28 07:09 | Diag Imaging Result Doc PS360 ---
EXAM: CHEST-PORTABLE 06/28/2019 HISTORY: dyspnea TECHNIQUE: AP portable at 0612 COMMENT: There is cardiomegaly. There is hazy opacity in both lungs particularly in the left lower lobe. There has been some slight improvement with regard to the upper lobe since the previous study of 06/26/2019. IMPRESSION: Improved pulmonary edema. Electronically signed by Remi Johnson 06/28/2019 7:07 AM
[2019-06-28 07:51] LABS: AGAP 15; BUN 21 mg/dL (8-22); CALCIUM 8.8 mg/dL (8.8-10.2); CHLORIDE 101 mmol/L (98-107); COSMO 289; CREATININE 1.2 mg/dL (0.7-1.2); ESTIMATED GFR > 60; GLUCOSE 88 mg/dL (70-104); POTASSIUM 3.7 mmol/L (3.5-5.1); SODIUM 144 mmol/L (136-145); TCO2 28 mmol/L (25-35)
[2019-06-28] MEDS: SYMBICORT 160/4.5 MICROGM INHALER INH SCH ×2 (07:52→19:50)
[2019-06-28] MEDS: PEPCID PO SCH (08:28)
[2019-06-28] MEDS: EFFEXOR XR PO SCH (08:28)
[2019-06-28] MEDS: IMDUR PO SCH (08:28)
[2019-06-28] MEDS: TOPROL XL PO SCH (08:28)
[2019-06-28] MEDS: DEPAKOTE ER PO SCH ×2 (08:28→21:38)
[2019-06-28] MEDS: LASIX IV SCH ×2 (08:29→21:37)
[2019-06-28] MEDS: COLACE PO SCH ×2 (08:29→21:38)
[2019-06-28] MEDS: FLOMAX PO SCH (08:29)
[2019-06-28] MEDS: ENTRESTO 24 MG-26 MG TABLET PO SCH ×2 (08:29→21:37)
[2019-06-28] MEDS: RANEXA PO SCH ×2 (08:29→21:38)
[2019-06-28] MEDS: ALDACTONE PO SCH ×2 (08:29→21:38)
[2019-06-28] MEDS: ZYLOPRIM PO SCH (08:29)
[2019-06-28] MEDS: LANOXIN PO SCH (08:30)
--- NOTE | 2019-06-28 09:03 | PROGRESS NOTE ---
DATE: 06/28/2019 SUBJECTIVE: Mr. Solitario has a history of chronic respiratory failure with hypoxia secondary to acute on chronic congestive heart failure secondary to systolic dysfunction. His most recent echocardiogram demonstrated an EF of 15 to 20 percent. He has a severe cardiac ischemic myopathy. We have been aggressively adjusting his medicines. We have added Entresto and increased the spironolactone to 25 mg b.i.d. He is taking Lasix 80 mg IV q. 12 hours. His chest x-ray shows less pulmonary edema. He reports that he is breathing a little bit better as compared to yesterday. O2 saturation is 95 to 96 percent on 2 L of O2. OBJECTIVE: Vital Signs: Temperature 98.1 degrees, pulse 82, respirations 16, BP 138/76. CV: Regular rate and rhythm. Lungs: Faint crackles in the bases bilaterally. Abdomen: Soft, nontender with active bowel sounds. Extremities: Without edema. ASSESSMENT AND PLAN: Chronic respiratory failure with hypoxia secondary to acute on chronic congestive heart failure secondary to systolic dysfunction. He has a severe ischemic cardiomyopathy. His clinical status continues to wax and wane in spite of aggressive therapy. His chest x-ray is improved, but yet his proBNP has jumped from 31,000 to 35,000. I really do not believe that a proBNP is an accurate assessment of his volume status. He has been hospitalized multiple times over the past several months and his status will improve with hospitalization, but he does not get back to the point prior to admission to the hospital. He has continued to decline slowly. I believe that he would be an excellent candidate for hospice as he has end-stage three- vessel heart disease, as well as end-stage congestive heart failure. I have attempted to call his daughter, Emily Cope, but I have not been able to reach her. In the interim period of time, we will try to maximize his cardiac status as well as possible. We will continue a salt and fluid- restricted diet. I will continue aggressive diuresis with Lasix 80 mg intravenous every 12 hours. We will continue Entresto and titrate upward on the spironolactone as indicated. cc: Nisha Mohan MD
--- NOTE | 2019-06-28 18:46 | CARDIOLOGY PROGRESS NOTE ---
DATE: 06/28/2019 SUBJECTIVE: Mr. Solitario is essentially stable from yesterday. He has no new complaints. No pain complaints. PHYSICAL EXAMINATION: Vital Signs: He is afebrile. His heart rate is 80. Blood pressure 116/92. General: He is in no acute distress. Cardiovascular: He sounds to be in a regular rate and rhythm. I do not hear any obvious murmurs. He has no S3. He has no lower extremity edema. He has warm and well perfused extremities. Chest: He continues to have crackles in the bilateral bases. No increased work of breathing. PERTINENT DATA: Sodium is 144, potassium 3.7, BUN 21, creatinine is 1.2, which is relatively stable. His proBNP is greater than 35,000, which has steadily trended up since June 26. ASSESSMENT: Mr. Solitario is a 74-year-old male with an ischemic cardiomyopathy. PLAN: The patient has had extensive changes in his medications during the course of the hospitalization. His chest x-ray looks improved. I cannot explain the change in his proBNP over the last couple of days because he seems like he has been diuresing, and we had advanced medicines significantly. We will continue him on isosorbide. I will add in another 25 mg of Toprol to try to get him up to a total of 100 of Toprol daily. He is on Entresto b.i.d. Aldactone, and IV Lasix as well as oral digoxin. We will continue with this regimen for the time being. cc: MD Nisha Lucas MD
[2019-06-28] MEDS ORDERED: TOPROL XL PO SCH (21:00)
[2019-06-28] MEDS: ARICEPT PO SCH (21:37)
[2019-06-28] MEDS: PRAVACHOL PO SCH (21:37)
[2019-06-29] MEDS: MERREM 1 GM in NS 50 ML IV SCH ×3 (01:27→18:10)
[2019-06-29] MEDS: REGLAN PO SCH ×4 (05:53→18:10)
[2019-06-29] MEDS: SYMBICORT 160/4.5 MICROGM INHALER INH SCH ×2 (08:18→19:58)
[2019-06-29] MEDS: COLACE PO SCH ×2 (08:26→20:39)
[2019-06-29] MEDS: TOPROL XL PO SCH ×2 (08:26→20:40)
[2019-06-29] MEDS: ENTRESTO 24 MG-26 MG TABLET PO SCH ×2 (08:26→20:39)
[2019-06-29] MEDS: EFFEXOR XR PO SCH (08:26)
[2019-06-29] MEDS: FLOMAX PO SCH (08:26)
[2019-06-29] MEDS: PEPCID PO SCH (08:26)
[2019-06-29] MEDS: IMDUR PO SCH (08:26)
[2019-06-29] MEDS: ALDACTONE PO SCH ×2 (08:26→20:39)
[2019-06-29] MEDS: ZYLOPRIM PO SCH (08:26)
[2019-06-29] MEDS: LASIX IV SCH ×2 (08:26→20:39)
[2019-06-29] MEDS: RANEXA PO SCH ×2 (08:26→20:39)
[2019-06-29] MEDS: DEPAKOTE ER PO SCH ×2 (08:26→20:39)
[2019-06-29] MEDS: LANOXIN PO SCH (08:30)
--- NOTE | 2019-06-29 09:35 | PROGRESS NOTE ---
DATE: 06/29/2019 SUBJECTIVE: Mr. Solitario appears to be resting fairly comfortably. He is with complaint of mild shortness of breath. O2 saturations are ranging from 92% to 96% on 2 L. He denies any chest pain, palpitations, or anginal equivalents. He continues with good urine output. He still has some basilar crackles in his lungs. OBJECTIVE: Vital Signs: Temperature 98.6 degrees, pulse 81, respirations 20, BP 119/92. CV: Regular rate and rhythm. Lungs: Faint crackles in the bases bilaterally. Abdomen: Soft, nontender with active bowel sounds. Extremities: Without edema. VARIOUS LABORATORY STUDIES: His most recent proBNP was 35,000. ASSESSMENT AND PLAN: Chronic respiratory failure with hypoxia secondary to acute on chronic systolic congestive heart failure due to severe ischemic cardiomyopathy. He continues to have good and bad days. He is with complaint of mild shortness of breath, but does not appear to be in any respiratory distress. There is no increased work of breathing. We will continue Lasix 80 mg intravenously every 12 hours. We have aggressively titrated upward on the Toprol as well as Entresto. It does not appear that his proBNP is really an accurate marker for his volume status. We will continue current therapy. I do believe that he would be an excellent candidate for hospice care. We are in the process of trying to arrange for long-term [facility] placement. cc: Nisha Mohan MD
--- NOTE | 2019-06-29 13:25 | CARDIOLOGY PROGRESS NOTE ---
DATE: 06/29/2019 SUBJECTIVE: Mr. Solitario reports that he is not good today. He is not able to really characterize that anymore. He wakes to verbal and physical stimuli. He opens his eyes briefly, closes them again. He does not appear clinically much different than he has the last several days. PHYSICAL EXAMINATION: Vital Signs: He is afebrile, heart rate 81, blood pressure 119/92. His I's and O's continue to be a challenge secondary to his incontinence. His weight has steadily gone down since 06/23/2019, at which time it was 209 pounds, and currently is 205 pounds. General: He is an ill-appearing, cachectic, black male in no acute distress. Again, appears relatively consistent from the last several days. Cardiovascular: He sounds to be in a regular rate and rhythm. He has no obvious murmurs. He has no S3. He has no lower extremity edema. Chest: Crackles in the bilateral bases. He has no increased work of breathing. Abdomen: Soft, nontender. PERTINENT DATA: Laboratory data from yesterday. No new laboratory data. His chest x-ray yesterday demonstrated improvement in pulmonary edema. ASSESSMENT: Mr. Soliatrio is a 74-year-old with ischemic cardiomyopathy, who also suffered a stroke in this hospitalization. PLAN: The patient seems to be improving from a weight standpoint. His I's and O's are challenging secondary to his incontinence. His proBNP has not reliably been a marker of his volume status, it does not seem. We have significantly increased his medication regimen, including adding spironolactone and titrating it up, adding in a beta-roma and titrating it up, adding in digoxin. His weight has gone down. His chest x-ray has improved. The patient is, I believe, end-stage heart failure with multiple comorbidities. I believe clinically he has improved. I would not recommend anticoagulation long-term in this patient for his atrial fibrillation especially given the possible bleed noted on previous head CT's. I believe it would be reasonable to consider discharging the patient in the next 24 to 48 hours. He would certainly need some sort of home health, and would be a hospice candidate. We will continue with the current medication regimen. Again, his medications have been advanced significantly since admission. cc: MD Nisha Lucas MD [facility]TD[facility]
[2019-06-29] MEDS: ARICEPT PO SCH (20:39)
[2019-06-29] MEDS: PRAVACHOL PO SCH (20:39)
[2019-06-30] MEDS: MERREM 1 GM in NS 50 ML IV SCH ×3 (00:29→16:56)
[2019-06-30] MEDS: REGLAN PO SCH ×3 (06:02→16:56)
[2019-06-30] MEDS: SYMBICORT 160/4.5 MICROGM INHALER INH SCH ×2 (08:21→19:56)
[2019-06-30] MEDS: ALDACTONE PO SCH ×2 (09:17→20:40)
[2019-06-30] MEDS: ENTRESTO 24 MG-26 MG TABLET PO SCH ×2 (09:17→20:40)
[2019-06-30] MEDS: RANEXA PO SCH ×2 (09:17→20:39)
[2019-06-30] MEDS: ZYLOPRIM PO SCH (09:17)
[2019-06-30] MEDS: IMDUR PO SCH (09:17)
[2019-06-30] MEDS: TOPROL XL PO SCH (09:17)
[2019-06-30] MEDS: DEPAKOTE ER PO SCH ×2 (09:17→20:40)
[2019-06-30] MEDS: PEPCID PO SCH (09:17)
[2019-06-30] MEDS: COLACE PO SCH ×2 (09:17→20:40)
[2019-06-30] MEDS: FLOMAX PO SCH (09:18)
[2019-06-30] MEDS: LASIX IV SCH ×2 (09:18→20:39)
[2019-06-30] MEDS: EFFEXOR XR PO SCH (09:18)
[2019-06-30] MEDS: LANOXIN PO SCH (09:18)
--- NOTE | 2019-06-30 13:00 | PROGRESS NOTE ---
DATE: 06/30/2019 SUBJECTIVE: Mr. Solitario has a history of chronic respiratory failure with hypoxia secondary to chronic congestive heart failure secondary to systolic dysfunction due to a severe ischemic cardiomyopathy. He was admitted with acute on chronic congestive heart failure secondary to systolic dysfunction. His most recent echocardiogram demonstrated EF of 15 to 20 percent. He does not appear to have any increased work of breathing or labored breathing. O2 saturations are ranging from 97% to 98% on 2 L of O2 per nasal cannula. He is with complaint of mild dyspnea. OBJECTIVE: Vital Signs: Temperature 98.9 degrees, pulse 52, respirations 15, blood pressure 137/86. Cardiovascular: Regular rate and rhythm. Lungs: Faint crackles in the bases bilaterally. Abdomen: Soft, nontender with active bowel sounds. Extremities: Without edema. ASSESSMENT: Chronic respiratory failure secondary to acute on chronic congestive heart failure secondary to systolic dysfunction. He has a severe cardiomyopathy. Clinically, there has been some improvement with significant escalation of his medicines, including the addition of spironolactone, Entresto and metoprolol. He still has some shortness of breath at rest and with exertion, which is consistent with Lane Class 4 congestive heart failure. I have had a long discussion with his family in regards to Mr. Solitario. They understand that he has severe congestive heart failure and that he will continue to decline over time. They understand that we have attempted to maximize his quality of life with medications. We did broach code status and hospice care. They have asked that in the event of a cardiopulmonary arrest that no heroic measures should be undertaken. They are open to the idea of hospice even though they are unable to care for him at home. We hope to be able to transfer him to [place] tomorrow. cc: Nisha Mohan MD
--- NOTE | 2019-06-30 15:21 | CARDIOLOGY PROGRESS NOTE ---
DATE: 06/30/2019 SUBJECTIVE: Mr. Solitario has no complaints today. He reports his appetite is okay. His breathing is doing well. PHYSICAL EXAMINATION: Vital Signs: He is afebrile. Heart rate is 52, blood pressure 137/86. He did have a heart rate of 44 overnight. General: He is in no acute distress. Cardiovascular: He sounds to be in an irregularly irregular rhythm which is consistent with known atrial fibrillation. He has no lower extremity edema. Chest: His chest has mild rales in the bilateral bases. No increased work of breathing. He has no new laboratory data today. ASSESSMENT: Mr. Solitario is a 74-year-old gentleman with history of ischemic cardiomyopathy. PLAN: I will decrease the Toprol back to 50 mg daily. We attempted escalation to b.i.d. but he had some relative bradycardia. Other than that, we will leave medications as they are. I had a discussion with Dr. Mohan today and the patient is currently in the process of being transitioned over to hospice type care as well as potential placement in a correction. Considering his cardiac issues as well as his comorbidities that would be reasonable. I do not have any further recommendations. Please contact us we can be of further assistance. cc: MD Nisha Lucas MD
[2019-07-01] MEDS: MERREM 1 GM in NS 50 ML IV SCH (00:20)
[2019-07-01] MEDS: REGLAN PO SCH ×2 (04:25→06:05)
[2019-07-01 08:29] VITALS: BP 118/86
[2019-07-01] MEDS: SYMBICORT 160/4.5 MICROGM INHALER INH SCH (08:43)
[2019-07-01] MEDS ORDERED: TOPROL XL PO SCH (09:00)
[2019-07-01] MEDS ORDERED: LASIX PO SCH (09:00)
--- NOTE | 2019-07-01 09:19 | DISCHARGE SUMMARY ---
ADMISSION DATE: 06/12/2019 DISCHARGE DATE: 07/01/2019 DISCHARGE DIAGNOSES: 1. Chronic respiratory failure with hypoxia. 2. Acute on chronic congestive heart failure secondary to systolic dysfunction due to severe ischemic cardiomyopathy with an ejection fraction of 15 to 20 percent. 3. Metabolic encephalopathy. 4. Bacterial pneumonia with Escherichia coli bacteremia. 5. Vascular dementia. 6. Cerebrovascular accident. 7. Swelling of the left upper extremity. 8. Gastroparesis. 9. Chronic low back pain secondary to lumbar spinal stenosis with neurogenic claudication. 10. Ischemic heart disease. 11. Chronic obstructive pulmonary disease. 12. Depression. 13. Mixed hyperlipidemia. 14. Diabetic gastroparesis. 15. Type noninsulin-dependent diabetes mellitus. 16. No Code Blue level 1. 17. Paroxysmal atrial fibrillation. DISCHARGE INSTRUCTIONS: 1. The patient will be transferred via ambulance to [facility] in [place], [place] for long-term care. 2. Activity as tolerated. 3. An 1800 calorie, ADA diet with a 1200 mL fluid restriction. 4. Medications: Allopurinol 100 mg daily, Symbicort 160/4.5 two puffs b.i.d., digoxin 125 mcg daily, Depakote 250 mg b.i.d., Colace 100 mg b.i.d., vitamin D3 with 50,000 units weekly, Pepcid 20 mg daily, Lasix 80 mg b.i.d., Realitos 5 one q.12 hours p.r.n. pain, Imdur 30 mg daily, Reglan 5 mg t.i.d. a.c., metoprolol 50 mg daily, Ranexa 1000 mg daily, Entresto 24/ one p.o. b.i.d., Aldactone 25 mg b.i.d., Flomax 0.4 mg daily, trazodone 25 mg at bedtime p.r.n. insomnia, venlafaxine 37.5 mg daily. DISCHARGE PHYSICAL EXAMINATION: This is an elderly, frail, 74-year-old, -[place] gentleman in no apparent distress. Temperature 98.7 degrees, pulse 81, respirations 16, BP 125/86. Cardiovascular: Irregularly irregular. Lungs: Faint crackles in the bases bilaterally. Abdomen: Soft, nontender, with active bowel sounds. Extremities: Without edema. HISTORY OF PRESENT ILLNESS AND HOSPITAL COURSE: Mr. Solitario was transferred to [facility] from [facility] for evaluation of worsening edema and bruising of his left upper extremity. An x-ray of the humerus demonstrated that the bones were intact and normally aligned. Joint spaces and soft tissues were clear. An x-ray of the right forearm demonstrated diffuse subcutaneous edema. An x-ray of the shoulder demonstrated severe degeneration of the AC joint with spurring. No fracture or dislocation was noted. An upper extremity CT was performed that demonstrated multiloculated fluid collection in the soft tissue around the left shoulder with peripheral enhancement. Orthopedics was consulted to see the patient. Dr. Melvin aspirated the shoulder. Cultures demonstrated no routine growth. No anaerobes were noted. A previous noninvasive venous study of the left upper extremity demonstrated no deep venous thrombosis. Over the course of his hospitalization, the fluid resolved. We felt that it was most likely a hematoma as he has been taking Eliquis for his underlying atrial fibrillation. Mr. Solitario has a history of vascular dementia. He was admitted with increasing confusion, disorientation, and sedation. His chest x-ray demonstrated worsening bibasilar opacifications. We were concerned about the possibility of pneumonia. The patient was maintained on nebulizer treatments. We started Zosyn, pending blood cultures. Over the course of the next several days, his neurologic status improved. He was approaching his baseline neurologically. The pneumonia was resolving. One blood culture grew out E. coli. Dr. Ace switched him to Primaxin. Repeat blood cultures were negative. On 06/14/2019, he was thought to be more sedated and confused. A CT scan demonstrated a small left parietal infarction with what appeared to be a minimal amount of hemorrhage along the tentorium. A followup CT demonstrated no worsening of the hemorrhage along the tentorium. The Eliquis was discontinued as the risk of bleeding was felt to be too great to continue the Eliquis safely. He continued to improve mentally and was back to his baseline neurologically. He was oriented to name and place. He was answering questions appropriately. He was asking appropriate questions. He has a history of chronic respiratory failure. He was admitted to [facility] with acute on chronic congestive heart failure secondary to systolic dysfunction. We initially placed him on a salt and fluid restricted diet, and aggressively diuresed him with Lasix. He improved initially and we transitioned him back to oral Lasix. His cardiac status deteriorated on oral Lasix and he was resumed on intravenous Lasix. A repeat echocardiogram demonstrated an EF of 15 to 20 percent with global hypokinesis. We added Entresto in the hopes of improving his cardiac output and function. Dr. Mon titrated upward on the beta blockers. We had to reduce the dosage of Toprol to 50 mg daily because of bradycardia. He was continued on aggressive diuresis. His proBNP on admission was 35,000. With aggressive therapy, it dropped to 24,000 but then trended back upward, even though clinically he was improved. We do not feel that his proBNP is an accurate assessment of his cardiovascular status. He was maintaining O2 saturations of 98 to 100 percent on 3 L of O2. He was not tachycardic or tachypneic. Repeat chest x-ray showed improvement in the pleural edema. We will continue him on a salt and fluid restricted diet. We will continue digoxin 0.125 mg daily, Toprol-XL 50 mg daily, Entresto, and aggressive diuresis. We have made arrangements for him to be weighed daily and they may give additional Lasix if he gains 2 pounds in 24 hours. I had a long discussion with his daughter, Ms. Emily Cope. She understands that her father has end-stage ischemic heart disease, end-stage congestive heart failure. She understands that he will continue to decline clinically in spite of aggressive therapy. She has told me that her father has indicated that he no longer wants to be aggressive. They have asked that in the event of a cardiopulmonary arrest that no heroic measures should be undertaken. A No Code Blue level 1 has been established. He will be transferred via ambulance to [facility] for long-term jail care. I anticipate that he would be an excellent candidate for hospice. cc: Nisha Mohan MD
[2019-07-01] MEDS: ENTRESTO 24 MG-26 MG TABLET PO SCH (09:44)
[2019-07-01] MEDS: DEPAKOTE ER PO SCH (09:44)
[2019-07-01] MEDS: LANOXIN PO SCH (09:44)
[2019-07-01] MEDS: ALDACTONE PO SCH (09:44)
[2019-07-01] MEDS: IMDUR PO SCH (09:44)
[2019-07-01] MEDS: COLACE PO SCH (09:44)
[2019-07-01] MEDS: EFFEXOR XR PO SCH (09:44)
[2019-07-01] MEDS: FLOMAX PO SCH (09:44)
[2019-07-01] MEDS: PEPCID PO SCH (09:44)
[2019-07-01] MEDS: RANEXA PO SCH (09:44)
[2019-07-01] MEDS: ZYLOPRIM PO SCH (09:45)
== END 2019-07-01 13:34 | DRG 291 ==
LOC: SUPCPDRO → ED 17:42 → SUATTDRO 23:07 → 3N 23:07
PROVIDERS: ADMIT Internal Medicine; ATTEND Internal Medicine